=== PATIENT | male | born 1945 | race Caucasian/White ===

== ENCOUNTER 2016-04-26 13:10 | Emergency (ER) | payer MEDICARE, MEDICAID ==
[2016-04-26 13:39] VITALS: BP 152/66; PULSE 87; RESP 14; O2SAT 95
--- NOTE | 2016-04-26 13:44 | ED.REPORT ---
HPI-Chest Pain 40 and Over Date of Service Apr 26, 2016 ED Provider: Devon Brown MD Patient is a 71 year old male who presents to the ED via EMS complaining of SOB onset early this morning. He reports that he has been hospitalized for similar symptoms previously. He was [place] [facility] [place] for similar symptoms and was recently discharged from [facility]. [place] [facility] [place] was determined his SOB may be from chronic blood loss anemia. He was treated fro pneumonia 2.5 weeks ago. Patient is a poor historian. Nursing Notes Stated Complaint: CHEST PAIN,NEAR SYNCOPE Chief Complaint: Respiratory Complaints Nursing Notes Reviewed: Yes ([employer] not reconciled) Allergies: Coded Allergies: No Known Allergies (Unverified , 04/26/16) General Time Seen by MD: 13:36 Chief Complaint Shortness of breath Hx Obtained From: Patient Arrived By: Ambulance Sudden in Onset?: Yes Onset Occurred: 5 - 8 hours ago Recent Healthcare: Recent doctor visit, Recent hospitalization Similar Sx Previous: Yes Past Medical History Past Medical History Notes: COMFORT MEASURES ONLY no known POA Patient discharged tonight in general yesterday after admission for possible GI bleed and anemia, however upper and lower endoscopies were negative patient maintained hemodynamically stable, and given patient's baseline status it was felt that Endoscopy or Further Workup Be Clearly Beneficial-As the Plan Was Observation, Monitoring Hematocrit Past Medical History 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 Reports: Congestive heart failure, Diabetes mellitus, Hyperlipidemia, Hypertension Reports: Depression Past Surgical History Right BKA history of subsequent pseudomonas infection, thought fully involved on hospitalization 04/23/2016 Cannot recall any other surgeries Upper and lower endoscopy at [facility] May 05 reportedly negative for source of anemia Smoking History Former Smoker Ambulatory Status Wheelchair Review of Systems Unable to Obtain ROS Mental status Physical Exam Initial Vital Signs Vital Signs (First) Date Time Temp Pulse Resp B/P Pulse Ox O2 Delivery O2 Flow Rate FiO2 04/26/16 13:39 36.9 87 14 152/66 95 Room Air 04/26/16 14:12 30 Initial VS: Reviewed, Vital signs normal Head / Eyes: Atraumatic, Normocephalic Skin: Warm, Dry Neurologic: Alert, Oriented, Nonfocal Psychiatric: Mood/affect normal, Behavior normal, Normal thought content General/Constitutional: Awake, Alert, Well developed Behavior: Positive: Restless Resp Distress / Stridor: Positive: Resp distress moderate, Resp distress severe Cannot complete sentences Diminished lung sounds throughout Cardiovascular: No murmurs Distant heart sounds Abdomen: Soft Obese Lower Extremity / Pelvis / MS: Pelvis stable R BKA Legs wrapped with probable component of edema Interpretation & Diagnostics Interpretation & Diagnostics: Records [place] [facility] [place] Hematocrit was 23.3 on 04/23 and HCT 25.9 on 04/25 CT head was negative for acute process on 38, chest x-ray on 38 was thought to possibly represent pulmonary edema or interstitial pneumonitis CT angiogram 04/23/2016 negative for PE (obtained for elevated d-dimer), positive for mild pulmonary edema with small bilateral pleural effusions, incidental left upper lobe and lower lobe pulmonary nodules Lab Results Interpretation Result Diagram: 04/26/16 1400 04/26/16 1400 Test 04/26/16 14:00 White Blood Count 6.1th/mm3 (3.8-10.1) Red Blood Count 3.41mil/mm3 (4.40-5.80) Hemoglobin 8.0g/dL (13.8-17.2) Hematocrit 27.5% (41.0-50.0) Mean Corpuscular Volume 80.6fL (81-100) Mean Corpuscular Hemoglobin 23.5pg (27.0-35.0) Mean Corpuscular Hemoglobin Concent 29.1% (32.0-37.0) Red Cell Distribution Width 17.7% (12.3-15.4) Platelet Count 316bil/L (150-400) Neutrophils (%) (Auto) 57.9% (40-74) Lymphocytes (%) (Auto) 20.7% (14-46) Monocytes (%) (Auto) 11.3% (4-12) Eosinophils (%) (Auto) 8.5% (0-5) Basophils (%) (Auto) 1.3% (0-3) Prothrombin Time 11.7sec (8.1-12.5) Prothromb Time International Ratio 1.09ratio D-Dimer 2.1mg/L (<0.50) Sodium Level 140mEq/L (134-144) Potassium Level 3.8mEq/L (3.5-5.2) Chloride Level 101mEq/L (97-108) Carbon Dioxide Level 25mmol/L (18-29) Blood Urea Nitrogen 6mg/dL (8-27) Creatinine 0.71mg/dL (0.76-1.27) Estimat Glomerular Filtration Rate 117mL/min (>59) Glucose Level 105mg/dL (60-99) Lactic Acid Level 0.9mmol/L (0.4-2.0) Calcium Level 9.2mg/dL (8.5-10.1) Magnesium Level 1.4mg/dL (1.6-2.6) Total Bilirubin 0.4mg/dL (0.0-1.2) Aspartate Amino Transf (AST/SGOT) 17U/L (0-50) Alanine Aminotransferase (ALT/SGPT) 12U/L (0-44) Alkaline Phosphatase 66U/L (25-160) Troponin T < 0.010ug/L (0.0-0.011) Total Protein 6.4g/dL (6.4-8.4) Albumin 3.6g/dL (3.4-5.0) Lab Results Interpretation: CBC anemia CMP normal ECG Interpretation ECG Interpretation: LBBB sinus rate 82 no prior for comparision Time: 14:02 Interpreted by: ED physician ABG Interpretation ABG Interpretation: pH 7.471 pCO2 39 pO2 29.7 cHCO3- 28.0 cBase 4.4 Exam Performed by: Allied health pract Exam Interpreted by: ED physician X-Ray Chest Interpretation Chest Xray Interpretation: IMPRESSION: Mild pulmonary edema. Recommend clinical correlation. Dictated by: Gabriele Phillips M.D. on 04/26/2016 at 14:33 Approved by: Gabriele Phillips M.D. on 04/26/2016 at 14:36 View: Portable, 1 view Interpretation / Wet Read by: Interpret - Radiologist Re-Eval/Medical Decision Med Decision/Clinical Course Since a 71-year-old % from [facility] with her shortness of breath. The patient has enough dyspnea and has enough discomfort that is hard to get a history from him. He appears initially in critical discomfort and critically ill and has penitentiary paperwork including a POLST form indicating the patient is Comfort Care status. Patient is not unable via useful history initially. He is gasping for air complaining shortness of breath. He is obese, restless, cannot hold still. He appears much more tachypneic than the normal vitals listed on the chart with suggest and again is visibly dyspneic and unable to complete a sentence. His decreased breath sounds. He has a right lower extremity above-knee amputation, His left leg was in a Coban wrap and which was removed, and he has a healed bandage-but no obvious signs of infection are evident. Given the patient's comfort status he was given several doses of morphine to try improve his discomfort and restlessness. The patient is temporarily being placed on BiPAP while he attempted obtain further information and sort out events. Does have the patient was just discharged from [facility] yesterday , so records and then requested. No major gross abnormality beyond mild pulmonary edema is evident on chest x-ray , and the patient was placed on initial BiPAP for support. Initial venous blood gas is not reveal severe respiratory acidosis. The patient's care is being turned over to Dr. Macedo at change of shift for reevaluation and further management. Although the patient does have a history of significant anemia, his hematocrit is up from several days ago. Source of Hx: Old records Time of Eval: 15:06 Re-Evaluation/Progress Note: Rechecked patient. He is doing slightly better. Discharge & Departure Shift Change Sign-Out Patient Care Transferred: Yes Discussed Complaint(s): Yes Laboratory Evaluation: Lab evaluation discussed Imaging Studies: Imaging discussed Primary Impression: Dyspnea Referrals: Lindsey Perkins MD Care Transferred to: Dr. Macedo Care Transferred at: 15:10 copies to: Lindsey Perkins MD, Matthew F MD Apr 26, 2016 13:44 CORRINE OLMSTEAD Apr 26, 2016 14:08
[2016-04-26 14:12] VITALS: RESP 26; O2SAT 100
--- NOTE | 2016-04-26 14:19 | ABG ---
DateTimeAnalyzed 14:12:00 -_ pH ____7.471 - pCO2 ___38.9__ -mmHg pO2 ___29.7__ -mmHg HCO3- ___28.0__ -mmol/L ABE ____4.4__ -mmol/L tHb ____8.3__ -g/dL O2Hb ___57.9__ -% COHb ____2.1__ -% MetHb ____0.8__ -% sO2 ___59.6__ -% FIO2 ___30.0__ -% Drawn By RN - Date/Time Notified____ 14:18:00 -_ Notified By JJ - Notified Whom DR REG - B 754 -mmHg tO2 ____6.7__ -Vol% Cordell test N/A -
[2016-04-26 14:26] LABS: BASOPHILS % (AUTO) 1.3 % (0-3); EOSINOPHILS % (AUTO) 8.5 % (0-5); MONOCYTES % (AUTO) 11.3 % (4-12); Mean Corpuscular Hemoglobin 23.5 pg (27.0-35.0); Mean Corpuscular Volume 80.6 fL (81-100); NEUTROPHILS % (AUTO) 57.9 % (40-74); Platelet Count 316 bil/L (150-400)
--- NOTE | 2016-04-26 14:38 | DRSVH ---
PROCEDURE: X-RAY CHEST ONE VIEW, PORTABLE ([id number]) INDICATIONS: CP TECHNIQUE: One view of the chest was acquired. COMPARISON: [facility], CR, XR CHEST 1V PORTABLE, 04/24/2016, 4:34 PM. FINDINGS: Surgical changes and devices: None. Lungs and pleura: No pleural effusions or pneumothorax. Diffuse increased ill-defined groundglass op acities, with Edward B-lines. Lung volumes are decreased. Mediastinum: Mediastinal contours appear normal. Heart size is normal. Bones and chest wall: No suspicious bony lesions. Overlying soft tissues appear unremarkable. IMPRESSION: Mild pulmonary edema. Recommend clinical correlation. Dictated by: Gabriele Phillips M.D. on 04/26/2016 at 14:33 Approved by: Gabriele Phillips M.D. on 04/26/2016 at 14:36
[2016-04-26 14:49] VITALS: BP 112/90; PULSE 84; O2SAT 100
[2016-04-26 14:49] LABS: TROPONIN T < 0.010 ug/L (0.0-0.011)
[2016-04-26 14:51] LABS: D-DIMER 2.1 mg/L (<0.50)
[2016-04-26 14:52] LABS: INR 1.09 ratio
[2016-04-26 15:00] LABS: Magnesium 1.4 mg/dL (1.6-2.6)
[2016-04-26 18:44] VITALS: BP 183/83; PULSE 73; RESP 17; O2SAT 100
--- NOTE | 2016-04-26 19:26 | DRSVH ---
PROCEDURE: US VENOUS LEG DUPLEX BILATERAL INDICATIONS: ro DVT, SOB TECHNIQUE: Real-time imaging, as well as color and pulse Doppler interrogation, were performed of the deep veins of both legs from the inguinal ligament to the popliteal fossa. COMPARISON: None. FINDINGS: The deep veins are normally compressible, and free of intraluminal thrombus. Color and pu lse Doppler demonstrate normal phasic intravascular flow. There is normal augmentation response to d istal compression maneuver. IMPRESSION: No evidence of deep venous thrombosis Dictated by: Gabriele Phillips M.D. on 04/26/2016 at 19:24 Approved by: Gabriele Phillips M.D. on 04/26/2016 at 19:25
[2016-04-26 19:47] VITALS: BP 183/83; PULSE 84; O2SAT 97
== END 2016-04-26 20:00 | disposition home or self-care (01) ==
LOC: EDBD 13:10 → SED 13:10
DX: R06.02 Shortness of breath (principal); I50.9 Heart failure, unspecified; E11.9 Type 2 diabetes mellitus without complications; E78.5 Hyperlipidemia, unspecified; I10 Essential (primary) hypertension; I25.10 Atherosclerotic heart disease of native coronary artery without angina pectoris; E66.9 Obesity, unspecified; Z89.611 Acquired absence of right leg above knee; Z51.5 Encounter for palliative care; Z87.891 Personal history of nicotine dependence
CPT/HCPCS: 36415; 71010; 80053; 82375; 82803; 83605; 83735; 84484; 85014; 85018; 85025; 85379; 85610; 86850; 87040; 93005; 93970; 94660; 94799; 96374; 96375; 99285; J1200; J2270

== ENCOUNTER 2016-05-03 16:43 | Inpatient (IN) | payer MEDICARE, MEDICAID ==
[~2016-05-03] VITALS: Ht 170.2 cm; Wt 103.1 kg
[2016-05-03] VITALS (8 sets, daily range): BP systolic 102–220; BP diastolic 63–107; PULSE 78–120; RESP 19–36; O2SAT 90–100
[~2016-05-03 16:43] MED LIST: Propofol 10,000 mCg/mL 20 mL Inj ONE
[2016-05-03] MEDS ORDERED: Diltiazem 5 mg/mL 5 mL Inj IVPUSH ONE (17:00)
[2016-05-03] MEDS ORDERED: Furosemide 10 mg/mL 2 mL Inj IVPUSH ONE (17:10)
[2016-05-03] MEDS: Nitroglycerin 2% 1 Gm Ointment TOPICAL SCH (17:20)
--- NOTE | 2016-05-03 17:24 | ED.REPORT ---
HPI-General Illness Date of Service May 03, 2016 ED Provider: Dennys Albright MD The patient is a 71 year old male w/ a hx of HTN, CHF, HTN, and hyperlipidemia who presents to the ED via EMS from [facility] due to respiratory distress. The alf waited 40 minutes to call medics after symptoms began. He presents on a respirator and gasping for air. He is unable to speak or give ROS. He has a pick line. Doctor confirms with the patient that he is DNR. Pt nods his heads, grunts, and indicates that he understands and agrees with DNR. Plan to give morphine and make patient comfortable. Pt is able to state that his emergency contact is Annette. Patient's blood pressure is 220/107 at the ED. Nursing Notes Stated Complaint: STEMI Chief Complaint: Chest Pain Nursing Notes Reviewed: Yes Allergies: Coded Allergies: No Known Allergies (Unverified , 04/26/16) General Time Seen by MD: 16:49 Transferred From: long term Chief Complaint Breathing problem Hx Obtained From: EMS Arrived By: Ambulance Sudden in Onset?: Yes Onset Occurred: Just prior to arrival Symptom Duration: Since onset Past Medical History Past Medical History Notes: COMFORT MEASURES ONLY no known POA Recent [facility] admission for possible GI bleed and anemia, however upper and lower endoscopies were negative patient maintained hemodynamically stable, and given patient's baseline status it was felt that Endoscopy or Further Workup Be Clearly Beneficial-As the Plan Was Observation, Monitoring Hematocrit Past Medical History 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 Reports: Congestive heart failure, Diabetes mellitus, Hyperlipidemia, Hypertension Reports: Depression Past Surgical History Right BKA history of subsequent pseudomonas infection, thought fully involved on hospitalization 04/23/2016 Cannot recall any other surgeries Upper and lower endoscopy at [facility] May 05 reportedly negative for source of anemia Smoking History Former Smoker Ambulatory Status Wheelchair Review of Systems Unable to Obtain ROS Patient condition Physical Exam Vital Signs Vital Signs Date Time Temp Pulse Resp B/P Pulse Ox O2 Delivery O2 Flow Rate FiO2 05/03/16 18:47 87 19 102/68 100 Non-Rebreather 5 05/03/16 18:23 93 22 112/63 100 Non-Rebreather 9 05/03/16 17:45 93 23 185/95 100 Non-Rebreather 13 05/03/16 17:17 37.6 90 22 157/93 98 Non-Rebreather 13 05/03/16 17:03 102 20 188/85 94 Non-Rebreather 13 05/03/16 16:45 120 36 220/107 90 Non-Rebreather 13 Initial VS: Reviewed Interpretation & Diagnostics Lab Results Interpretation Result Diagram: 05/03/16 1715 05/03/16 1715 Test 05/03/16 17:15 05/03/16 18:35 White Blood Count 10.8th/mm3 (3.8-10.1) Red Blood Count 4.43mil/mm3 (4.40-5.80) Hemoglobin 10.7g/dL (13.8-17.2) Hematocrit 36.9% (41.0-50.0) Mean Corpuscular Volume 83.3fL (81-100) Mean Corpuscular Hemoglobin 24.2pg (27.0-35.0) Mean Corpuscular Hemoglobin Concent 29.0% (32.0-37.0) Red Cell Distribution Width 19.4% (12.3-15.4) Platelet Count 441bil/L (150-400) Neutrophils (%) (Auto) 58.0% (40-74) Lymphocytes (%) (Auto) 26.7% (14-46) Monocytes (%) (Auto) 7.1% (4-12) Eosinophils (%) (Auto) 5.9% (0-5) Basophils (%) (Auto) 1.1% (0-3) Sodium Level 140mEq/L (134-144) Potassium Level 4.2mEq/L (3.5-5.2) Chloride Level 101mEq/L (97-108) Carbon Dioxide Level 21mmol/L (18-29) Blood Urea Nitrogen 16mg/dL (8-27) Creatinine 0.81mg/dL (0.76-1.27) Estimat Glomerular Filtration Rate 100mL/min (>59) Glucose Level 240mg/dL (60-99) Calcium Level 8.7mg/dL (8.5-10.1) Magnesium Level 1.7mg/dL (1.6-2.6) Total Bilirubin 0.3mg/dL (0.0-1.2) Aspartate Amino Transf (AST/SGOT) 20U/L (0-50) Alanine Aminotransferase (ALT/SGPT) 13U/L (0-44) Alkaline Phosphatase 87U/L (25-160) Troponin T < 0.010ug/L (0.0-0.011) Pro-B-Type Natriuretic Peptide 541.5pg/mL (0-376) Total Protein 7.1g/dL (6.4-8.4) Albumin 4.1g/dL (3.4-5.0) Procalcitonin 0.03ng/mL (0.00-0.08) Hold Hart Top Tube Received (Received) Hold Urine Received (Received) ECG Interpretation ECG Interpretation: LBBB 04/26/16 in sinus rhythm Time: 16:50 Interpreted by: ED physician Rhythm / Conduction: Atrial fib with RVR (119) X-Ray Chest Interpretation Chest Xray Interpretation: IMPRESSION: 1. Right basilar opacities suspicious for pneumonia. 2. CHF. Dictated by: Bethany Witt MD, PhD on 05/03/2016 at 17:23 Approved by: Bethany Witt MD, PhD on 05/03/2016 at 17:24 Re-Eval/Medical Decision Med Decision/Clinical Course 8-year-old male arrives in extremis with respiratory distress and diaphoresis. His hypertension tachycardia diffuse rales consistent with congestive heart failure. He was brought by EMS as a STEMI, on arrival however he had a left bundle-branch block. Left bundle branch block proved to be pre-existing. He was quite tachycardic here and appeared to have episodes of atrial fibrillation with rapid ventricular response. Confirmed with the patient that he was DO NOT RESUSCITATE /comfort measures. He was given morphine, sublingual and topical nitrates and furosemide and responded well. Repeat EKG demonstrated sinus rhythm with a left bundle-branch block. There was concern on chest x-ray for infiltrates however he did not have a fever and I did not feel that a pneumonia was necessary to explain his present clinical situation. After stabilization in emergency department he was admitted to the hospitalist service. Consultation : Referral / Consult Name: Chiquita Basilio MD Consulted With: Hospitalist Call Returned at: 18:54 Sanitor: Agrees with eval, Agrees with plan Note: Case discussed. Counseled Regarding: Diagnosis, Lab results, Need for admission Discharge & Departure Primary Impression: Congestive heart failure (CHF) Congestive heart failure type: unspecified congestive heart failure type Congestive heart failure chronicity: acute Qualified Code: I50.9 - Heart failure, unspecified Additional Impression: Elevated troponin Disposition: ADMITTED TO HOSPITAL Discharge Condition All VS Reviewed: Yes Condition: Critical Referrals: Nikolai Lozano MD (PCP) Crit Care Except Billable Proc Time Spent: 30-74 minutes Services Performed: Patient management by me, Time spent at bedside, Reviewing test results, Reviewing imaging, Discussing patient care, Documentation in record, Time with fam/surrogate Scribe Attestation Portion of this note were transcribed by Irene Ledbetter. I, Dr. Albright, personally performed the history, physical exam, and medical decision-making: I reviewed and confirmed the accuracy for the information in the transcribed note. Signed by: jonel Carolina, 05/03/161999 copies to: Nikolai Lozano MD, Donald L MD May 03, 2016 17:24 Irene Ledbetter May 03, 2016 17:30
--- NOTE | 2016-05-03 17:26 | DRSVH ---
PROCEDURE: X-RAY CHEST ONE VIEW, PORTABLE ([id number]) INDICATIONS: chest pain TECHNIQUE: One view of the chest was acquired. COMPARISON: None. FINDINGS: Surgical changes and devices: None. Lungs and pleura: A triple opacities noted in the right lung base.. Bilateral perihilar opacities n oted.. Mediastinum: Mediastinal contours appear normal. Heart size is normal. Bones and chest wall: No suspicious bony lesions. Overlying soft tissues appear unremarkable. IMPRESSION: 1. Right basilar opacities suspicious for pneumonia. 2. CHF. Dictated by: Bethany Witt MD, PhD on 05/03/2016 at 17:23 Approved by: Bethany Witt MD, PhD on 05/03/2016 at 17:24
[2016-05-03 17:27] LABS: MONOCYTES % (AUTO) 7.1 % (4-12)
[2016-05-03 17:31] LABS: BASOPHILS % (AUTO) 1.1 % (0-3); EOSINOPHILS % (AUTO) 5.9 % (0-5); Mean Corpuscular Hemoglobin 24.2 pg (27.0-35.0); Mean Corpuscular Volume 83.3 fL (81-100); Platelet Count 441 bil/L (150-400)
[2016-05-03 18:07] LABS: TROPONIN T < 0.010 ug/L (0.0-0.011)
[2016-05-03 18:08] LABS: Magnesium 1.7 mg/dL (1.6-2.6)
[2016-05-03] MEDS ORDERED: Ondansetron 2 mg/mL 2 mL Inj IVPUSH PRN (20:20)
[2016-05-03] MEDS ORDERED: Alum-Mag Hydrox-Simeth 30 mL Suspension PO PRN (20:20)
[2016-05-03] MEDS ORDERED: Polyethylene Glycol (PEG) 17 Gm Powder PO PRN (20:20)
[2016-05-03] MEDS ORDERED: Glucose 40% Oral Gel 15 Gm Tube PO PRN (20:25)
[2016-05-03] MEDS ORDERED: Furosemide 10 mg/mL 4 mL Inj IVPUSH ONE (20:25)
--- NOTE | 2016-05-03 20:41 | PCM.HPMED ---
Subjective Date of Service May 03, 2016 Primary Provider: Admitting Physician: Chiquita Basilio MD Primary Care Physician: Nikolai Lozano MD Attending Physician: Chiquita Basilio MD Admit Status: From the Emergency Department Chief Complaint: Shortness of breath History of Present Illness: Patient has slow speech and is a vague historian . Apparently he was okay this morning. Then he later took a nap and was awakened from sleep feeling quite short of breath. He also felt some mid to upper retrosternal chest pressure. He has had similar shortness of breath and chest pressure past but he says not as severe. he was not aware irregular heartbeat or racing heart. He denies cough but later says he does have some yellowish sputum. He denies fever, chills, or sweats. He does have chronic pedal edema and it is unclear if this is worse recently. He says he was in the hospital recently but is not able to details about this. He was seen in the emergency department here on April 26 for acute shortness of breath. That note states that he was discharged from [facility] days prior with similar symptoms and it was felt that it might be from chronic blood loss anemia. [place] [facility] [place]ocrit of 23.3 on April 23 and 25.9 on April 25. They also had records of a CT angiogram on April 23 which was negative for the, it had been obtained because of an elevated d-dimer. It did show mild pulmonary edema with small bilateral pleural effusions and incidental left upper lobe and lower lobe pulmonary nodules. They also noted that he had been treated for pneumonia 2.5 weeks prior. Although he was initially treated with BiPAP, he improved with some doses of morphine, and later asked to be discharged from the emergency department. The ED physician did speak with a nurse from his jail says anxiety for which he has been given Ativan. Review of Systems: Unremarkable except as above. Allergies Coded Allergies: No Known Allergies (Unverified , 04/26/16) Home Medications Melatonin 6 mg at bedtime Effexor 37.5 mg extended release each morning Morphine 20 mg/mL 0.25 mL every 2 hours when necessary pain Arginaid, one packet daily Aspirin 81 mg daily Metoprolol succinate 50 mg once daily Protonix 40 mg daily Vitamin D3 2000 units daily Baclofen 10 mg 3 times a day Atorvastatin 20 mg each evening Oxycodone 10 mg every 4 hours as needed MiraLAX 17 g when necessary Multivitamin daily PMH Patient is quite a vague historian so some of history obtained from April 26 ED visit where some outside records were available: Recent pneumonia Recent anemia with upper and lower endoscopies reported as negative Ex smoker but patient denies any lung disease or need for inhalers Dementia Depression Diabetes mellitus Peripheral vascular disease, embolism and thrombosis of arteries of lower extremity is mentioned Gout Atherosclerotic cardiovascular disease (patient denies any history of heart attack or angina) CHF mentioned at recent ED visit as having been reported by patient today he is not sure Hyperlipidemia Hypertension Stroke, patient today states he had a stroke in 1998 which caused right arm weakness Surgical History Right BKA with subsequent history of Pseudomonas infection Social History 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 Does not have children. Healthcare power of health care attorney is his niece Moriah. Requests DNAR status Exam Vital Signs Vital Sign - Last Date Time Temp Pulse Resp B/P Pulse Ox O2 Delivery O2 Flow Rate FiO2 05/03/16 18:47 87 19 102/68 100 Non-Rebreather 5 05/03/16 17:17 37.6 Exam General: Alert and oriented to person, place, and date. However he has slow speech, is quite vague, and not able to give specific details of recent hospital stay. In no acute distress HEENT: Unremarkable Neck: No apparent JVD, carotids 2+ Heart: Regular Lungs: Anteriorly he has coarse expiratory sounds, posteriorly there are some fine dry crackles in the bases. His expiratory phase is mild to moderately prolonged and there is a mild low pitched expiratory wheeze Abdomen: Soft, non-tender, normal bowel tones. Extremities: Right AKA with healing incision. Left leg has edema, skin is somewhat tense but only 1-2+ pitting which extends to trace pitting edema in the fine. Neuro: Able to move his legs without difficulty and handgrips seem symmetrical Lab and Diagnostics Result Diagram: 05/03/165 05/03/16 1715 Assessment & Plan # Acute SOB some improved after treatment in ED with oxygen, Nitropaste, IV Lasix, and IV diltiazem. He has also received some antibiotics. Possibly multifactorial including CHF, pneumonia and anxiety, can't exclude some COPD # Possible CHF, CXR and exam c/w with this and possible hx of same - continue nitropaste - give additional dose of IV lasix this evening (40 mg instead of 20 mg) - Serial troponins # Possible pneumonia - apparently treated for this 3-4 weeks ago, records not available, not sure what antibiotics given - for now will treat with Levaquin but if worsening consider changing to rx for hospital acquired - diagnosis uncertain, consider repeat CXR after diureses # Exam c/w mild COPD exac, ex-smoker but denies hx of COPD or past rx of inhalers - duoneb q 4 hr - hold off on steriods, ru with hyperglycemia, since may improve with rx of CHF , # Diabetes Mellitus - apparently not on any medication for this - glucose this evening 240 - will do glucoscans and prn sliding scale insulin # Tachycardic in ED, reported HR to 140's and possibly irregular so concern for AFib - no hx of Afib - EKG has rate 119 and baseline interference, no clear P waves but rhythm is regular - observe on tele Chiquita Basilio MD May 03, 2016 20:41
[2016-05-03] MEDS: Insulin LISPRO 300 Unit/3 mL Inj SUBQ SCH (22:00)
[2016-05-03] MEDS: Albuterol-Ipratropium 3 mL Inhalation Solution NEB SCH (22:39)
[2016-05-03] MEDS ORDERED: 0.9% Sodium Chloride 100 ML ONE (23:17)
[2016-05-03] MEDS: levoFLOXacin Inj 500 MG in IV Premix 1 EACH IV SCH (23:33)
[2016-05-04] VITALS (14 sets, daily range): BP systolic 121–192; BP diastolic 60–76; PULSE 83–109; RESP 18–40; O2SAT 93–100
[2016-05-04] MEDS: Albuterol-Ipratropium 3 mL Inhalation Solution NEB SCH ×6 (01:35→19:47)
[2016-05-04] MEDS ORDERED: Furosemide 10 mg/mL 2 mL Inj IVPUSH ONE (06:05)
[2016-05-04 06:16] LABS: BASOPHILS % (AUTO) 0.5 % (0-3); MONOCYTES % (AUTO) 8.8 % (4-12); Mean Corpuscular Volume 84.9 fL (81-100); NEUTROPHILS % (AUTO) 77.7 % (40-74); Platelet Count 381 bil/L (150-400)
[2016-05-04] MEDS ORDERED: Pantoprazole 40 mg ER24 Tablet PO SCH (07:30)
[2016-05-04] MEDS: Insulin LISPRO 300 Unit/3 mL Inj SUBQ SCH ×4 (07:45→21:17)
[2016-05-04 07:51] LABS: APPEARANCE,URINE CLEAR (CLEAR,HAZY); COLOR,URINE YELLOW (YELLOW); OCCULT BLOOD,URINE NEGATIVE (NEGATIVE); UROBILINOGEN,URINE NORMAL (NORMAL)
[2016-05-04] MEDS ORDERED: Propofol 10,000 mCg/mL 20 mL Inj ONE (08:14)
[2016-05-04] MEDS: MeTOProlol XL 50 mg ER24 Tablet PO SCH (08:27)
[2016-05-04] MEDS: Venlafaxine XR 37.5 mg ER24 Capsule PO SCH (08:27)
[2016-05-04] MEDS: Potassium Chloride 20 mEq SR Tablet PO SCH ×2 (08:33→21:17)
[2016-05-04] MEDS ORDERED: BACL10TA PO (09:54)
[2016-05-04] MEDS ORDERED: ARGI1POW13 PO (09:54)
[2016-05-04] MEDS ORDERED: METO50TA3 PO (09:54)
[2016-05-04] MEDS ORDERED: PANT40TA3 PO (09:54)
[2016-05-04] MEDS ORDERED: ASPI81TA3 PO (09:54)
[2016-05-04] MEDS ORDERED: ATOR20TA65 PO (09:54)
[2016-05-04] MEDS ORDERED: MELA3TAB35 PO (10:17)
[2016-05-04] MEDS ORDERED: VENL37.53 PO (10:17)
[2016-05-04] MEDS ORDERED: LORA0.5T PO (10:17)
[2016-05-04] MEDS ORDERED: OXYC-474 PO (10:17)
[2016-05-04] MEDS ORDERED: CHOL200025 PO (10:20)
[2016-05-04] MEDS ORDERED: POLY17PO6 PO (10:21)
[2016-05-04] MEDS ORDERED: MULT-1018 PO (10:22)
--- NOTE | 2016-05-04 10:37 | DRSVH ---
PROCEDURE: CT CHEST WITH CONTRAST ([id number]) INDICATIONS: Pulmonary nodules TECHNIQUE: After the administration of intravenous contrast, 5 mm thick sections acquired from the pulmonary api teddy to the posterior costophrenic angles. 7 mm thick coronal and sagittal MIP reformats were acquire d. For radiation dose reduction, the following was used: automated exposure control, adjustment of mA and/or kV according to patient size. COMPARISON: [facility], CR, XR CHEST 1VW (PORTABLE), 04/26/2016, 13:40. [facility], CR, XR CHEST 1VW (PORTABLE), 05/03/2016, 16:40. [facility], CT, CTA CHEST FOR PU LMONARY EMBOLISM, 04/23/2016, 5:13 AM. FINDINGS: Image quality: Excellent. Lungs and pleura: Mild bilateral groundglass infiltrates and prominent pulmonary interstitium, which are decreased compared to the chest x-ray dated 05/03/2016, consistent with resolving pulmonary edema. There are small bilateral pleural effusions. Small nodules bilaterally are again noted, unchanged. For example, there is a 5 x 7 mm groundglass no dule in the right upper lobe (series 3 image 14). A 6 cm nodule is noted in the left lower lobe (seri es 3 image 44). There is a 4 mm nodule in the superior segment of the right portal (series 3 image 26 ). No pneumothorax. Central and peripheral airways are patent and normal in caliber. Mediastinum: Heart size is normal. No pericardial effusion. Coronary artery and aortic calcificati on consistent with atherosclerosis. No mediastinal or hilar adenopathy by size criteria. Thoracic ao rta and central pulmonary arteries are normal in size. Esophagus is normal in caliber. There is a sm all hiatal hernia. Bones and chest wall: No suspicious bony lesions. No vertebral body compression fractures. No axil bekah or supraclavicular adenopathy by size criteria. Thyroid gland is normal. Abdomen: Visualized upper abdominal solid organs appear normal. Upper abdominal bowel loops are nor mal in caliber. IMPRESSION: 1. Resolving pulmonary edema. 2. No change in pulmonary nodules bilaterally. Followup CT suggesting 3 months (around July of 2016). 3. Atherosclerosis. 4. Small hiatal hernia. Dictated by: Toño Watts M.D. on 05/04/2016 at 10:24 Approved by: Toño Watts M.D. on 05/04/2016 at 10:35
[2016-05-04] MEDS: Nitroglycerin 2% 1 Gm Ointment TOPICAL SCH (11:52)
[2016-05-04] MEDS ORDERED: Heparin 25,000 Unit/500 mL 0.45% NS Premix IV ONE (11:54)
[2016-05-04] MEDS ORDERED: Furosemide 10 mg/mL 4 mL Inj IVPUSH ONE (12:05)
[2016-05-04] MEDS ORDERED: Nitroglycerin 50 mg/250 mL D5W 50,000 MCG in IV Premix 1 EACH IV SCH (12:10)
[2016-05-04] MEDS ORDERED: Heparin 5,000 Unit/mL Inj ONE (12:20)
[2016-05-04] MEDS ORDERED: Potassium Chloride 40 mEq/100 mL Premix IV ONE (13:25)
--- NOTE | 2016-05-04 13:36 | CONS ---
[address] [address] CONSULTATION REPORT PATIENT: ROBBIE ACE : 1945 MR#: [id number] ADMIT: 05/03/2016 JOB ID: [id number] DATE OF SERVICE: 05/04/2016 REASON FOR CARDIOLOGY CONSULT: I was rounding on 3rd floor. Hospitalist team asked me to see this patient urgently as he is having shortness of breath. CHIEF COMPLAINT: Shortness of breath. I immediately went to patient's room. Patient appears to be tachypneic. He is having shortness of breath. He is having that retrosternal chest pain. Quickly reviewed his charts and talked to the patient as well. He is a 71-year-old male who has a history of diabetes mellitus, essential hypertension, hyperlipidemia, peripheral vascular disease, status post recent right above-knee amputation in [place], details not available, history of stroke in 1998, history of CHF, atherosclerotic vascular disease, peripheral vascular disease, dementia, depression, anemia, ex-smoker, history of recent pneumonia, got admitted through the emergency department because of worsening shortness of breath. The patient was in snf where he felt worsening shortness of breath. The patient was seen in the ED. He has retrosternal pressure type pain. ED physician discussed with the patient. The patient has DNR, DNI status. He confirmed with the patient. Apparently, my interventional partner, Dr. Denton, was involved and because of patient's DNR/DNI, he was returned. The patient has had a recent ED visit at [facility], as well as [facility] because of similar symptoms. It was felt that it is due to anemia as well. The patient had CT angiogram on April 23, and according to history and physical, negative for PE. At present, patient is complaining of retrosternal pressure-type discomfort. He is not able to grade on a scale of 1-10. He is having shortness of breath. He is not having fever, cough, but has some wheezing. His blood pressure is 202/81, heart rate about 110, oxygen saturation on 4 L about 99%. HEENT: Patient appears to be anemic. Denies any stroke-like symptoms. He cannot walk much. He has significant edema on the left lower extremity. He cannot lie down flat. PAST MEDICAL HISTORY: History of recent right above-knee amputation due to leg infection, details not available, peripheral vascular disease, atherosclerotic vascular disease, history of congestive heart failure, details not available, essential hypertension, hyperlipidemia, diabetes mellitus, depression, dementia, diabetes mellitus and multiple other medical problems as stated above. According to the hospital note, patient has upper and lower GI endoscopy at [facility], and they did not find any significant lesion. I do not have that official report. PAST SURGICAL HISTORY: As stated above. ALLERGIES: No known allergies. MEDICATION: 1. Melatonin 6 mg at bedtime. 2. Effexor 37.5 mg. 3. Morphine as needed. 4. Aspirin 81 mg daily. 5. Metoprolol succinate 50 mg daily. 6. Protonix 40 mg daily. 7. Vitamin D3. 8. Baclofen 10 mg three times a day. 9. Atorvastatin 20 mg daily. 10. Oxycodone 10 mg every 4 hours as needed. 11. Multivitamins daily. 12. MiraLAX 17 g as necessary. SOCIAL HISTORY: He is an ex-smoker. He used to drink alcohol and stopped about 3-4 months ago. FAMILY HISTORY: Positive for coronary artery disease. REVIEW OF SYSTEMS: I tried to obtain at least 10-point review of system and they are negative except as stated above. PHYSICAL EXAMINATION: Vitals: As stated above. Positive hepatojugular reflux. Chest: Bilateral basal crepitations. CVS: S1 appears normal. P2 appears prominent. No S3, no S4. Soft ejection systolic murmur at the base. Abdomen: Obese. I do not appreciate any pulsatile mass or obvious hepatosplenomegaly. Extremity: Patient has right above-knee amputation. Tender to touch, left 2+ diffuse leg edema. Vascular: No evidence of critical limb ischemia. However, distal pulses are feeble. Unable to feel the femoral pulses. 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 Detailed INS[employer]OR [employer] CON[employer]YOR LINE examination could not be performed. LABORATORIES: WBC 12.2, hemoglobin 9.7. On April 26, it was 8.5, platelets 381 polymorphs 77.7. Sodium 139, potassium 3.5, BUN 16, creatinine 0.79, calcium 8.9. Troponin T 0.095 and 0.067. Initial troponin was less than 0.010. Magnesium 1.7 with normal bilirubin, AST, ALT. Initial glucose was 240. ProBNP 541.5. EKG at 11:46 a.m. today revealed sinus rhythm with left bundle branch block which appears to be atypical which is chronic with some nonspecific ST-T changes. QTc 635 msec as per the computer, but I am not convinced of that. The patient had EKG this morning about 5:14 a.m. with similar EKG changes. At that time, QTc was [address] The patient had CT chest this morning which revealed no pericardial effusion. Heart size normal. Coronary and aortic calcification, mild bilateral ground glass infiltrates and prominent pulmonary interstitium consistent with resolving pulmonary edema. Small hiatal hernia. On x-ray chest there was finding of congestive heart failure and right basilar opacities. Venous Doppler on April 26, 2016, was negative for deep vein thrombosis. ASSESSMENT/PLAN: Acute on chronic shortness of breath with retrosternal anginal-type of chest pain with abnormal troponin with chronic atypical left bundle branch block. Clinically, patient appears to be in pulmonary edema. He cannot lay down flat. He is short of breath. He is tachypneic. However, on 4 L, oxygen saturation is maintained. The patient has very high blood pressure suggestive of hypertensive urgency. Looks like patient has non ST-T OH and ongoing acute coronary syndrome. We started him urgently on 40 mg Lasix which was given IV. The patient received sublingual nitroglycerin. We gave 2 mg of IV morphine. Plan is to transfer to ICU/CCU. Will start him on nitroglycerin drip. Start with 10 mcg and slowly increment. Optimize blood pressure management as well as congestive heart failure, pulmonary edema management. Start heparin. Continue aspirin. Consider high intensity statin. We will obtain 2D echo. I called Dr. Denton, who is our chief data officer, and he came and saw the patient as well. Once he can lie down flat, if everybody agrees, consider left heart catheterization as well. Dr. Denton will be available. Overall prognosis is guarded. Total time spent managing this patient for this critically sick patient about 75 minutes.
[2016-05-04] MEDS ORDERED: KCl 40 mEq/100 mL (CENTRAL) 40 MEQ in IV Premix 1 EACH IV ONE (14:00)
--- NOTE | 2016-05-04 15:07 | DRSVH ---
[facility] [address] [place] [address] Echocardiogram Report Name: ROBBIE ACE MStudy Date: 05/04/2016 Height: 67 in Hospital Exam Location: [facility] Weight: 243 lb Gender: Male BSA: 2.2 m2 : 1945 Age: 71 yrs BP: 126/ 63 mmHg Reason For Study: Congestive Heart Failure Performed By: Darrel Vazquez Referring Physician: AJIT JAVED Interpretation Summary The study quality was technically difficult. The left ventricle is normal in size. There appears to be severe hypokinesis of mid to distal inferior wall, inferoseptum, apex, distal lateral wall and basal posterior wall.The ejection fraction is estimated to be 35-40%. The right ventricle grossly appears normal in size with probable normal systolic function. There is mild aortic regurgitation. The IVC is of normal diameter and collapses greater than 50% with a sniff. This suggests a low right atrial pressure of 3 mm Hg. Procedure: A two-dimensional transthoracic echocardiogram with color flow and Doppler was performed. The study quality was technically difficult. There is no prior echocardiogram noted for this patient. A contrast injection of Definity was performed to improve assessment of LV function. The patient was in sinus tachycardia with heart rates between 104-108 bpm during the exam. The patient had a bundle branch block rhythm during the exam. Left Ventricle: The left ventricle is normal in size. Proximal septal thickening is noted. There is no echo evidence for significant left ventricular outflow tract obstruction. There is no thrombus. The ejection fraction is estimated to be 35-40%. There appears to be severe hypokinesis of mid to distal inferior wall, inferoseptum, apex, distal lateral wall and basal posterior wall. Right Ventricle: The right ventricle grossly appears normal in size with probable normal systolic function. Atria: The left atrium grossly appears normal in size. The right atrium grossly appears normal in size. Mitral Valve: The mitral valve is grossly normal. There is mild mitral annular calcification. There is trace mitral regurgitation. Aortic Valve: The aortic valve is not well visualized. The aortic valve is mildly calcified. There is no hemodynamically significant valvular aortic stenosis. There is mild aortic regurgitation. Tricuspid Valve: The tricuspid valve is not well visualized. The right ventricular systolic pressure is estimated at 23 mmHg assuming a right atrial pressure of 3 mm Hg. No significant TR seen. Pulmonic Valve: The pulmonic valve is not well visualized. Great Vessels: The aortic root is normal size. The ascending aorta is mildly enlarged. The IVC is of normal diameter and collapses greater than 50% with a sniff. This suggests a low right atrial pressure of 3 mm Hg. Pericardium/ Pleura There is no pericardial effusion. There is an anterior echo-free space consistent with a fat pad. There is no pleural effusion. MMode/2D Measurements & Calculations EPSS: 0.40 cm LVOT diam: 2.2 cm Ao root diam: 3.9 cm asc Aorta Diam: 3.7 cm Doppler Measurements & Calculations Ao V2 max MVA(VTI) TR max chano MV V2 mean: 78.8 cm/sec : 119.3 cm/sec : 225.7 cm/sec MV mean P.7 mmHg Ao max P.7 mmH.5 cm2 TR max PG MV V2 VTI: 13.1 cm Ao mean PG : 20.4 mmHg PA V2 max LVOT Max Chano : 74.9 cm/sec : 99.5 cm/sec PA mean PG : 1.4 mmHg MICHAEL(I,D): 3.4 cm sev ratio: 0.88 Ao V2 mean LV V1 max PG PA V2 mean MICHAEL indexed to BSA : 83.1 cm/sec : 57.4 cm/sec (cm^2/m^2): 1.6 Ao V2 VTI: 16.9 cm LV V1 VTI PA pr(Accel) MICHAEL(V,D): 3.3 cm2 : 14.9 cm : 35.4 mmHg Reading Physician:KHURRAM
[2016-05-04 15:20] LABS: TROPONIN T 0.034 ug/L (0.0-0.011)
[2016-05-04] MEDS ORDERED: fentaNYL 2,500 mCg/250 mL Premix IV ONE (17:04)
[2016-05-04] MEDS ORDERED: Heparin 1,000 Unit/mL 10 mL Inj ONE ×2 (17:16→17:40)
[2016-05-04] MEDS ORDERED: 0.9% Sodium Chloride 1,000 ML ONE ×2 (17:16→17:19)
[2016-05-04] MEDS ORDERED: Nitroglycerin 50,000 mcg/250 mL D5W Premix IV ONE (17:16)
[2016-05-04] MEDS ORDERED: Phenylephrine/NS-PF 100 mCg/mL 5 mL Syringe IVPUSH ONE (17:18)
[2016-05-04] MEDS ORDERED: Atropine 1 mg/10 mL (Code) Syringe ONE (17:18)
[2016-05-04] MEDS ORDERED: Propofol 10,000 mCg/mL 100 mL Inj ONE ×2 (17:19→17:20)
[2016-05-04] MEDS: fentaNYL 2,500 mCg/250 mL 2,500 MCG in IV Premix 1 EACH IV SCH (17:22)
[2016-05-04] MEDS: Propofol Inj 1,000,000 MCG in IV Premix 1 EACH IV SCH (17:22)
[2016-05-04] MEDS ORDERED: Magnesium Sulf 2 Gm/50mL Water 2 GM in IV Premix 1 EACH IV ONE (17:35)
[2016-05-04] MEDS ORDERED: Lactated Ringer's 500 ML IV PRN (17:40)
[2016-05-04] MEDS ORDERED: Phenylephrine 10,000 mCg/mL Inj IVPUSH PRN (17:40)
[2016-05-04] MEDS ORDERED: Verapamil 2.5 mg/mL 2 mL Inj ONE (17:40)
[2016-05-04] MEDS ORDERED: Lactated Ringer's 1,000 ML IV ONE (17:40)
[2016-05-04] MEDS ORDERED: HYDROmorphone 1 mg/mL Inj IVPUSH PRN (17:40)
[2016-05-04] MEDS ORDERED: EPHEDrine Sulfate 50 mg/mL Inj IVPUSH PRN (17:40)
[2016-05-04] MEDS ORDERED: Lactated Ringer's 1,000 ML IV SCH (17:40)
[2016-05-04] MEDS ORDERED: fentaNYL-PF 50 mCg/mL 2 mL Inj IVPUSH PRN (17:40)
--- NOTE | 2016-05-04 17:40 | PCM.HPANE ---
Patient Data Surgeon Admitting Provider:Chiquita Basilio MD Attending Provider:Chiquita Basilio MD Primary Care Physician:Nikolai Lozano MD Other Provider: Reason for Visit CHF CHF Ht/WT & BMI Height (Feet): 5 Height (Inches): 7.00 Weight (Kilograms): 110.500 Body Mass Index 38.24 Allergies Coded Allergies: No Known Allergies (Unverified , 04/26/16) Past Anesthesia History Anesthesia History: Denies:: Abnormal Airway, Anesthesia Reactions, Difficult Intubation Diabetes History Hx Diabetes?: Yes Current Bedside Blood Glucose: 113 MRSA MRSA: No Medications Hypertension Medication: Yes Home Meds Incl Beta Kirk: Yes Date Beta Kirk Taken: May 04, 2016 Time Beta Kirk Taken: 08:30 Previous Beta Kirk Dose >24: Dose Not Given, Contraindicated (chf) Reported Medications Multivitamin (Multi Vitamin Daily)1 Each Tablet1 Each PO DAILY 30 Days Ref 0 05/04/16 Polyethylene Glycol 3350 (Miralax)17 Gm Powd.pack17 Gm PO 05/04/16 Cholecalciferol (Vitamin D3) (Vitamin D3)2,000 Unit Tablet2,000 Unit PO 05/04/16 Melatonin 3 Mg Tablet6 Mg PO HS 05/04/16 Venlafaxine ER (Effexor XR)37.5 Mg Gbghnxr03.5 Mg PO DAILY Ref 0 05/04/16 Lorazepam 0.5 Mg Tablet0.5 Mg PO #30 05/04/16 Oxycodone (Roxicodone)5 Mg Ncpine07 Mg PO Q4H PRN For Pain Ref 0 05/04/16 Metoprolol Tartrate 50 Mg Acihvz88 Mg PO ONCE #30 05/04/16 Arginine/Ascorbate Sod/Diana AC (Arginaid Powder)1 Each Powd.pack1 Each PO 05/04/16 Aspirin Chew 81 Mg Chew81 Mg PO DAILY Ref 0 05/04/16 Atorvastatin Calcium 20 Mg Zttkdb13 Mg PO ONCE #30 05/04/16 Baclofen 10 Mg Xoaidx95 Mg PO TID Ref 0 05/04/[address] 40 Mg Tablet.dr40 Mg PO DAILY #30 05/04/16 History History of ENT Problems?: No HEENT History: Denies:: Cataracts Dysphagia Glaucoma Sinus Problem Hx of Heart Problems?: Yes Cardiovascular History: Positive for:: Chest Pain Congestive Heart Failure Edema Hypertension Denies:: Cardiac Surgery Heart Murmur Irregular Heartbeat Pacemaker Thrombophlebitis Hx of Respiratory Problem?: Yes Respiratory History: Positive for:: Dyspnea Pneumonia Denies:: Asthma COPD Chest Surgery Emphysema Hemoptysis Tuberculosis Hx Neurologic Problems?: Yes Neurological History: Positive for:: CVA Dementia Dizziness Denies:: Alzheimer's Disease Headaches Parkinson's Disease Seizures Hx of GI Problems?: Yes Gastrointestinal History: Positive for:: Gastroesphageal Reflux Gastrointestinal Bleeding Heartburn Rectal Bleeding Denies:: Diverticulitis Hepatitis Hiatal Hernia Hx of Problems?: No Genitourinary History: Denies:: HX of Hemodialysis Kidney Stones Urinary Tract Infection HX of Peritoneal Dialysis: No Male Hx: Denies:: Prostate Problems Scrotal Mass Testicular Surgery Hx Musculoskeletal Problems?: Yes Musculoskeletal History: Positive for:: Musculoskeletal Trauma (RLE amputation ) Denies:: Back Injury Joint Replacement Hx of Psycho/Social Problems?: Yes Psycho Social History: Positive for:: Anxiety Hx Depression Denies:: Bipolar Disorder Suicide Attempt Hx Surgeries?: Yes (RIGHT BKA) Hx Any Other Health Problems?: Yes Other History: Positive for:: Hospitalization (PNA) Denies:: Cancer Thyroid Disease History Blood Transfusions: Positive for:: Accept Blood Products? 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 Hx Alcohol Use: Yes (grade 3-4 months ago)Hx Substance Use: No Smoking Status: Former Smoker Stop/Bang Treated for Sleep Apnea?: No S-Snoring: Do You Snore Loudly: No T-Tired: feel tired, fatigued: No O-Obsered: Observed not breath: No P-Blood Pressure: treated: Yes B- Body Mass Index > 35 kg/m2: Yes A- Age over 50: Yes N- Neck Large Circumference: No G- Gender Male: Yes FELIBERTO Total Score: 4 FELIBERTO Risk Assessment: High Risk, =/>3 Yes FELIBERTO Category 2: Yes Risk Assessment Category Category 1A: Patient has history of documented sleep apnea, and HAS NOT received any narcotic, sedative or anesthesia administration during this stay. Category 1B: Patient has history of documented sleep apnea, and HAS received any narcotic , sedative or anesthesia administration during this stay Category 2: Patient has SUSPECTED Obstructive Sleep Apnea, and HAS received any narcotic , sedative or anesthesia administration during this stay. Category 3: Patient has SUSPECTED Obstructive Sleep Apnea and HAS NOT received narcotic, sedative or anesthesia administration during this stay. Category 4: Outpatient in Procedural Areas with known sleep apnea or who screen positive for High Risk via the STOP/BANG questionnaire. Exam Exam Vital Signs Vital Signs Date Time Temp Pulse Resp B/P Pulse Ox O2 Delivery O2 Flow Rate FiO2 05/04/16 16:50 95 26 98 Nasal Cannula 40 60 05/04/16 12:45 37.1 101 33 157/76 100 Nasal Cannula 5.00 05/04/16 10:05 100 General Appearance: Alert, Oriented X3, Cooperative, No Acute Distress HEENT/AIRWAY: MP 2 Lungs: Clear to Auscultation, Normal Air Movement Heart: Exam Unremarkable, Regular Rate/Rhythm, No Murmurs/Rubs/Gallops Meds/Labs/Diagnostics Admission Meds Current Medications Furosemide (Lasix Inj) 40 mg ONCE ONCE IVPUSH Last administered on 05/03/16 22:28; Start 05/03/16 at 20:25; Stop 05/03/16 at 20:47; Status DC Albuterol/ Ipratropium 3 ml 3 ml Q4 NEB Last administered on 05/04/16 08:23; Start 05/03/16 at 20:30 Levofloxacin/ Dextrose/Premix (Levaquin Inj/IV Premix) 100 ml @ 100 mls/hr Q24H IV Last administered on 05/03/16 23:33; Start 05/03/16 at 21:32 Melatonin (Melatonin) 5 mg HS PO Last administered on 05/03/16 23:33; Start at 22:54 Venlafaxine HCl (Effexor XR) 37.5 mg DAILYWM PO Last administered on 05/04/16 08:27; Start 05/04/16 at 08:00 Aspirin (Ecotrin) 81 mg DAILY PO Last administered on 05/04/16 08:27; Start at 08:30 Metoprolol Succinate (Toprol XL) 50 mg DAILY PO Last administered on 05/04/16 08:27; Start 05/04/16 at 08:30 Pantoprazole (Protonix) 40 mg DAILYAC PO Last administered on 05/04/16 08:27; Start 05/04/16 at 07:30 Baclofen 10 mg 10 mg TID PO Last administered on 05/04/16 08:27; Start at 08:30 Sodium Chloride (Normal Saline) 100 ml @ ud STK-MED ONCE .ROUTE Last administered on 05/03/16 23:34; Start 05/03/16 at 23:17; Stop 05/03/16 at 23:18 ; Status DC Furosemide (Lasix Inj) 20 mg ONCE ONCE IVPUSH Last administered on 05/04/16 06:47; Start 05/04/16 at 06:05; Stop 05/04/16 at 06:23; Status DC Potassium Chloride (K-Dur) 20 meq BID PO Last administered on 05/04/16 08:33; Start 05/04/16 at 08:30 Heparin Sodium/ Sodium Chloride (Heparin 25,000 Unit/500 mL 0.45 NS) 25,000 unit STK-MED ONCE IV Last administered on 05/04/16 12:14; Start 05/04/16 at 11 :54; Stop 05/04/16 at 11:55; Status DC Furosemide 40 mg 40 mg OT ONCE IVPUSH Last administered on 05/04/16 11:45; Start 05/04/16 at 12:05; Stop 05/04/16 at 12:07; Status DC Nitroglycerin/ Dextrose/Premix (Nitroglycerin 50,000 mcg/250 mL D5W/IV Premix) 250 ml @ 1 mls/hr Q24H IV Last administered on 05/04/16 13:06; Start 05/04/16 at 12:10 Heparin Sodium (Porcine) (Heparin Inj) 10,000 unit STK-MED ONCE .ROUTE Last administered on 05/04/16 12:26; Start 05/04/16 at 12:20; Stop 05/04/16 at 12:21 ; Status DC Morphine Sulfate (Morphine 4 mg/ mL Syringe) 4 mg STK-MED ONCE .ROUTE Last administered on 05/04/16 13:46; Start 05/04/16 at 13:21; Stop 05/04/16 at 13:22 ; Status DC Potassium Chloride (Potassium Chloride 40 mEq/ 100 mL (CENTRAL)) 40 meq STK-MED ONCE IV Last administered on 05/04/16 13:50; Start 05/04/16 at 13:25; Stop at 13:26; Status DC Lorazepam (Ativan Inj) 2 mg STK-MED ONCE .ROUTE Last administered on 05/04/16t 13:48; Start 05/04/16 at 13:32; Stop 05/04/16 at 13:33; Status DC Bedside Blood Glucose: 113 Labs Test 05/03/16 17:15 05/03/16 18:35 05/04/16 05:52 05/04/16 06:45 Total Bilirubin 0.3mg/dL (0.0-1.2) Aspartate Amino Transf (AST/SGOT) 20U/L (0-50) Alanine Aminotransferase (ALT/SGPT) 13U/L (0-44) Alkaline Phosphatase 87U/L (25-160) Pro-B-Type Natriuretic Peptide 541.5pg/mL (0-376) Total Protein 7.1g/dL (6.4-8.4) Albumin 4.1g/dL (3.4-5.0) Procalcitonin 0.03ng/mL (0.00-0.08) Hold Hart Top Tube Received (Received) Hold Urine Received (Received) White Blood Count 12.2th/mm3 (3.8-10.1) Red Blood Count 4.04mil/mm3 (4.40-5.80) Hemoglobin 9.7g/dL (13.8-17.2) Hematocrit 34.3% (41.0-50.0) Mean Corpuscular Volume 84.9fL (81-100) Mean Corpuscular Hemoglobin 24.0pg (27.0-35.0) Mean Corpuscular Hemoglobin Concent 28.3% (32.0-37.0) Red Cell Distribution Width 19.9% (12.3-15.4) Platelet Count 381bil/L (150-400) Neutrophils (%) (Auto) 77.7% (40-74) Lymphocytes (%) (Auto) 11.3% (14-46) Monocytes (%) (Auto) 8.8% (4-12) Eosinophils (%) (Auto) 1.0% (0-5) Basophils (%) (Auto) 0.5% (0-3) Urine Color Yellow (YELLOW) Urine Appearance Clear (CLEAR,HAZY) Urine pH 5.0 (5.0-8.0) Urine Specific [place] 1.015 (1.003-1.035) Urine Protein Negativemg/dL (NEG,TRACE) Urine Glucose (UA) Negativemg/dL (NEGATIVE) Urine Ketones Negativemg/dL (NEGATIVE) Urine Occult Blood Negative (NEGATIVE) Urine Nitrite Negative (NEGATIVE) Urine Bilirubin Negative (NEGATIVE) Urine Urobilinogen Normalmg/dL (NORMAL) Urine Leukocyte Esterase Negative (NEGATIVE) Urine RBC 0-2/hpf (0-2) Urine WBC 0-5/hpf (0-5) Urine Epithelial Cells Few/hpf (NONE-MOD) Urine Crystals None seen (NONE SEEN) Urine Bacteria None/hpf (NONE-FEW) Urine Hyaline Casts None/lpf (NONE) Urine Granular Casts None seen (NONE SEEN) Urine Waxy Casts None seen (NONE SEEN) Urine Red Blood Cell Casts None seen (NONE SEEN) Urine White Blood Cell Casts None seen (NONE SEEN) Urine Mucus None seen (None Seen) Urine Trichomonas None seen (NONE SEEN) Urine Yeast None (NONE SEEN) Urinalysis Comment None Test 05/04/16 12:16 05/04/16 13:01 05/04/16 13:24 Activated Partial Thromboplast Time 26.2sec (22.8-33.0) Total Creatine Kinase 160U/L (21-232) Troponin T 0.034ug/L (0.0-0.011) Sodium Level 139mEq/L (134-144) Potassium Level 3.7mEq/L (3.5-5.2) Chloride Level 96mEq/L (97-108) Carbon Dioxide Level 24mmol/L (18-29) Blood Urea Nitrogen 14mg/dL (8-27) Creatinine 0.82mg/dL (0.76-1.27) Estimat Glomerular Filtration Rate 99mL/min (>59) Glucose Level 128mg/dL (60-99) Calcium Level 9.4mg/dL (8.5-10.1) Magnesium Level 1.4mg/dL (1.6-2.6) Plan Impression Patient chart reviewed, patient interviewed and anesthestic plan with risks, benefits, and alternatives discussed, and informed consent obtained. ASA Physical Status: ASA4 Life Threatening (severe CHF) Anesthetic Plan: GA Bene/Risks/Altern/Consents: Yes HP Complete Prior to Induction: Yes Preston Arriaga MD May 04, 2016 17:40
--- NOTE | 2016-05-04 17:40 | ABG ---
DateTimeAnalyzed 17:36:00 -_ pH ____7.386 - 7.350 7.450 pCO2 ___45.3__ -mmHg 35.0 45.0 pO2 ___80.9__ -mmHg 69.0 116 HCO3- ___26.6__ -mmol/L 22.0 26.0 ABE ____1.8__ -mmol/L -2.0 2.0 tHb ____9.3__ -g/dL O2Hb ___93.0__ -% COHb ____1.7__ -% MetHb ____1.2__ -% sO2 ___95.8__ -% 25.0 FIO2 ___60.0__ -% PEEP ____5.0__ -cmH2O Set_RR ___16.0__ -b/min Vt __500.0__ -L Drawn By cf - Date/Time Notified____ 17:39:00 -_ Oxygen Device 1 VENTILATOR - Notified By cf - Notified Whom ___Dr. kendregan - B 763 -mmHg tO2 ___12.3__ -Vol% Cordell test _Positive -
--- NOTE | 2016-05-04 17:55 | DRSVH ---
PROCEDURE: X-RAY CHEST ONE VIEW, PORTABLE ([id number]) INDICATIONS: POST INTUBATION TECHNIQUE: One view of the chest was acquired. COMPARISON: [facility], CT, CT CHEST W CON, 05/04/2016, 8:57. [facility], CR , XR CHEST 1VW (PORTABLE), 05/03/2016, 16:40. FINDINGS: Surgical changes and devices: There is an endotracheal tube 1 cm above christian.. Lungs and pleura: Bilateral interstitial infiltrates suspicious for pulmonary edema or bilateral pne umonia. No pleural effusions or pneumothorax. Mediastinum: Mediastinal contours appear normal. Heart size is normal. Bones and chest wall: No suspicious bony lesions. Overlying soft tissues appear unremarkable. Old right rib fractures are noted. IMPRESSION: The endotracheal tube is 1 cm above christian. Dictated by: Toño Watts M.D. on 05/04/2016 at 17:51 Approved by: Toño Watts M.D. on 05/04/2016 at 17:53
[2016-05-04] MEDS ORDERED: Heparin 1,000 Units/500 mL NS Premix IV ONE (18:27)
[2016-05-04] MEDS ORDERED: 0.9% Sodium Chloride 500 ML ONE (18:29)
--- NOTE | 2016-05-04 18:59 | CONS ---
[address] [address] CONSULTATION REPORT PATIENT: ROBBIE ACE : 1945 MR#: [id number] ADMIT: 05/03/2016 JOB ID: [id number] DATE OF SERVICE: 05/04/2016 REQUESTING PHYSICIAN: Dr. Albright. REASON FOR CONSULTATION: Dyspnea. HISTORY OF PRESENT ILLNESS: The patient is a 71-year-old, male, admitted because of the rather sudden onset of shortness of breath. The patient is too short of breath to give much of a history. Chart notes indicate he was doing okay the morning of admission. Took a nap and awoke from sleep quite short of breath. There was also some mid to upper retrosternal chest pressure. He presented himself to the hospital. Evaluation shows cardiogenic pulmonary edema. In addition, he apparently is having a non-STEMI and requires emergent catheterization. The patient was sitting straight upright with his legs over the side of the bed. (Has a right AKA.) Rather dyspneic, tachypneic. He is unable to give much of a history. Said he was very short of breath. Could not tell me about chest or abdominal pain. Could not tell me when the AKA was accomplished. Has a midline PICC. Unsure of the location but it sounds like it is not a central but rather midline catheter. Etiology of AKA is variously infection and peripheral vascular disease. Mention is made of being treated for a postoperative Pseudomonas infection. Antibiotics were apparently given in the care facility, but the patient's history is rife with a number of holes without any data. The patient suffers from diabetes mellitus, hypertension, hyperlipidemia, peripheral vascular disease, as well as status post a CVA in 1998. Recent evaluation for anemia. ALLERGIES: None known. MEDICATIONS: According to the list, include: 1. Melatonin. 2. Effexor. 3. Morphine. 4. Arginaid. 5. Aspirin. 6. Metoprolol. 7. Protonix. 8. Vitamin D3. 9. Baclofen. 10. Atorvastatin. 11. Hydrocodone. 12. MiraLAX. 13. Multi Vites. No other details are available. Vital signs: Blood pressure was 93/76, with the patient sitting upright in bed. Markedly tachypneic. Using accessory muscles of respiration. Speaking in phrases. He is on a 6 L OxyMask with O2 sats in the high 90s. I cannot remember his pulse on admission. He was coherent, answering questions appropriately. Neck is supple. JVD to the posterior border of the sternocleidomastoid with the patient sitting straight upright. Heart: Rapid rate. Heart tones seem normal. Chest: Diffuse crackles throughout both lung thacker, sparing only the right apex and the left mid and upper lung thacker. Heart tones seem normal. Abdomen soft. Somewhat distended. Nontender. Extremities: AKA on the right. Is quite tender. There are five metal ibeth still in the incision. There is some mild erythema around the ibeth. There is also about a 1 cm ulcerated area on the right portion (lateral portion) of the incision. Left lower extremity is shiny, tense, markedly swollen with significant pitting edema. LABORATORY: Noted. Cardiology was present. Reviewed the CT scan about concern over nodules. They are subcentimeter nodules, two of which seem heavily calcified, and I do not think warrant any reason to delay the catheterization. Chest x-ray showed diffuse interstitial markings consistent with cardiogenic pulmonary edema. (CHF). The patient was unable to lie down. Cardiology felt that he would need to be intubated for the cardiac catheterization in order to proceed expeditiously. They preferred he be intubated up here in his room. He was placed on a high-flow at FiO2 of 100%, flow at 60 L/minute. He became much less dyspneic. O2 saturations 99% to 100%. However, he did complain of some burning in his nose. FiO2 was decreased to 0.6 and flow decreased to 40 L/minute. He felt better. Continued to not have much shortness of breath. O2 sats running 99% to 100%. At that point, he was able to lie down. Because of the concern about ischemia and the fact that Cardiology requested anesthesia monitoring during the cardiac catheterization, it was felt that Anesthesia should be present for the intubation, especially now that he lie down, although initially it was felt that we would have to intubate him sitting up. This was done expeditiously with propofol and no paralytic. Subsequent to intubation, he was started on a fentanyl drip, as well as given propofol and started on a propofol drip. Settings were tidal volume of 500, rate of 16, FiO2 of 60%, with a PEEP of 5, resulting in pO2 of something that was acceptable. CO2 was 38, pH was 7.45. ASSESSMENT: 1. Acute ischemia with [id number] myocardial infarction. 2. Cardiogenic pulmonary edema (congestive heart failure.) 3. Mechanical ventilation. The patient's pulmonary compliance is quite good. Problem will be oxygenation. Ventilation is not a problem. 4. Evaluation for possible Pseudomonas infection in the right leg. One mention is made of that. That will need to be re-evaluated. Will obtain a procalcitonin. Routine bloods in the morning. 5. Fentanyl and propofol infusions. 6. Stat magnesium 2 g (magnesium level returned at 1.4). Time spent so far in critical care is 72 minutes.
[2016-05-04] MEDS ORDERED: 0.9% Sodium Chloride 250 ML ONE (19:53)
[2016-05-04] MEDS ORDERED: 0.9% Sodium Chloride 400 ML (4 HRS) IV ONE (20:05)
[2016-05-04] MEDS ORDERED: 0.9% Sodium Chloride 250 ML BOLUS IV PRN (20:05)
[2016-05-04] MEDS ORDERED: Sodium Chloride LOK Flush 10 mL Syringe IVFLUSH PRN (20:05)
[2016-05-04] MEDS ORDERED: Ondansetron 2 mg/mL 2 mL Inj IVPUSH PRN (20:05)
[2016-05-04] MEDS ORDERED: Atropine 1 mg/10 mL (Code) Syringe IVPUSH PRN (20:05)
--- NOTE | 2016-05-04 20:21 | CS94 ---
[address] [address] DIAGNOSTIC CARDIAC CATHETERIZATION PATIENT: ROBBIE ACE : 1945 MR#: [id number] ADMIT: 05/03/2016 JOB ID: [id number] PROCEDURE NOTE--CARDIAC CATHETERIZATION LABORATORY: DATE OF PROCEDURE: Wednesday, May 04, 2016. COAL CHUTE WORKER: Mono Denton MD. PROCEDURES: 1. Coronary Angiogram--Urgent 2. LEFT HEART CATHETERIZATION (LHC)--pressure measurement. CLINICAL DETAILS: This 71-year-old man was admitted to the hospital through the Emergency Department yesterday, critically ill and in extremis with pulmonary edema, and chest pain, sitting upright. However, he was treated medically because of POLST indicating confort care, and DNR. He continued to have episodes of some chest discomfort, and primarily pulmonary edema(sitting upright; and he was severely critically ill). Troponin betty mildly. ECG showed only mild nonspecific ST-T wave changes. He has no prior history of heart disease but has severe peripheral vascular disease; and recently had right lower extremity amputation at [facility] one month ago after undergoing failed palliative patch angioplasty of the right common femoral artery. Records were obtained and indicated "moderate to severe diffuse left iliac disease." Extensive discussion ensued with the patient, and the multiple medical teams caring for him. He elected invasive therapy in an effort to relieve his severe dyspnea and his chest discomfort. PROCEDURAL DETAILS: I evaluated him in the ICU prior to the procedure. I talked with him extensively about his wishes; and regarding our findings, impressions and management considerations including diagnostic options and treatment options. I discussed the recommendation that the medical team had decided for urgent coronary angiogram to define likely coronary disease and guide therapeutic decisions including medical therapy, anticipated PCI, or possible transfer for coronary bypass surgery. He understood this is a very high risk procedure and that he would require urgent intubation to allow him to proceed with a supine procedure. We discussed the procedure including risks and complications. We discussed bleeding, infection, and blood clots; as well as injury to nerve, artery, vein, or kidney; and arrhythmia drug reaction--or Others. We discussed treatment as needed including surgery, pacemaker, transfusion. We discussed more serious complications that are possible including stroke, heart attack, cardiac arrest, and emergent surgery including transfer for coronary bypass. He understood he would be intubated, sedated, and not easily able to make further decisions. He indicated consent to procedures as needed to help him including even transfer for bypass surgery. After the questions and discussions, he signed informed consent to proceed. He was intubated by Anesthesia and brought to the catheterization laboratory where he was prepped sterilely and draped. CORONARY ANGIOGRAM: Arterial access was obtained without difficulty in the left common femoral artery using fluoroscopic localization over the femoral head and modified Seldinger technique, to insert a long 23 cm, 6-Moroccan side-arm sheath over a long 0.035 inch J-tipped Guidewire which was also used to advance and exchange catheters. Coronary angiography was accomplished with a 6-Moroccan JL-4 catheter for the left coronary artery; and using a 6-Moroccan JR-4 catheter for the right coronary artery. LEFT HEART CATHETERIZATION: A 6-Moroccan pigtail catheter was advanced across the aortic valve into the left ventricle to measure LV pressures. No LV angiogram done. Procedure without difficulty. Patient tolerated procedure well. No complications. A side-arm sheath angiogram showed adequate access in the right common femoral artery for a closure device. Arterial hemostasis was obtained without difficulty using a 6-Moroccan Angio-Seal. The patient was transferred, still critically ill, but in stable condition from the Catheterization Laboratory back to the ICU for ongoing care. During the procedure, he had been monitored, and anesthesia had been performed by the anesthesiologist. I discussed the findings, impressions and management considerations with Cardiology; and no family was present. FINDINGS: 1. LMCA: Intact. The left main coronary artery is short; and without angiographic obstructive disease. 2. LAD: Intact. The left anterior descending coronary artery is a large vessel that reaches the apex; and there is one medium to large size high diagonal branch (2.5 mm). The LAD has no angiographic obstruction. 3. LCX: 50-60% OM lesion. The left circumflex coronary artery is a medium- sized vessel with moderate atherosclerotic plaquing. The LCX distribution consists of one high OM that has an intermediate 50% to 60% diffuse proximal narrowing(RON-3 Flow); and there is a medium-sized distal OM branch. 4. RCA: Dominant. Intact. The right coronary artery is a large vessel with a large PDA and a large posterolateral branch, both of which reach the apex. There is moderate atherosclerotic plaquing but no angiographic obstructive lesions. 5. LHC: LVED 19 mmHg; and Pulllback=no systolic gradient across the aortic valve. Systolic pressure about 100 mmHg. CONCLUSIONS: 1. Coronary Angiogram--Note extensive coronary calcification; and Single Vessel Disease with diffuse intermediate 50-60% lesion of OM-1.. 2. Elevated LVED. 3. CAD (Coronary Artery Disease--Single-Vessel Disease with diffuse narrowing of obtuse marginal-1 (60% to 70%). RECOMMENDATIONS: 1. Medical therapy of his pulmonary edema and cardiomyopathy noting Echo had showed ejection fraction 35% to 40% with no severe valvular disease. 2. Comment: Despite the high pre procedure estimate of CAD we did not find severe coronary disease, or an apparent culprit lesion for his Troponin elevation, and pulmonary edema. The only potentially significant coronary lesion is the moderate diffuse narrowing of Proximal OM-1, which is not a likely culprit, or candidate for intervention. [facility]
--- NOTE | 2016-05-04 21:10 | PCM.PNMED ---
Subjective Date of Service May 04, 2016 Subjective When I entered the room patient was sitting on the side of the bed huffing and puffing breathing so heavily that he could barely speak. He was complaining of some chest pain as well and was quite uncomfortable. Patient was given some morphine IV 2 and Lasix 40 mg IV 2 along with a nitroglycerin patch. Dr. Carpio of cardiology was consulted and patient was moved to the intensive care unit and placed on a heparin drip, nitroglycerin drip and Dr. Denton of interventional cardiology was eventually consulted. The patient's despite all these interventions continued to feel uncomfortable with shortness of breath and chest pain. His troponins were positive. It was therefore decided that the patient should go to the cardiac catheterization lab. The patient understood that he was then asked to be intubated and sedated for the procedure as he would not lie flat and he understood that he was a high risk patient for any procedure. He wanted to proceed. Exam Vital Signs Vital Sign - Last Date Time Temp Pulse Resp B/P Pulse Ox O2 Delivery O2 Flow Rate FiO2 05/04/16 19:31 92 121/60 100 50 05/04/16 16:50 26 Nasal Cannula 40 05/04/16 16:00 36.5 Intake and Output 05/03/16 05/03/16 05/04/16 Cumulative From/Thru 15:00 23:00 07:00 05/03/16 16:45 - 05/03/16 22:30 Output Total 30 ml 30 ml Balance -30 ml -30 ml Output Urine Total 30 ml 30 ml Exam General: Patient is in respiratory distress, sitting at the side of the bed with increased respiratory rate to the point where he was barely able to speak .HEENT: Head is atraumatic and normocephalic with normal male pattern baldness. Eyes: Pupils are equally round and reactive to light and accommodation. Extraocular muscles are intact. Sclera are white, anicteric. Subconjunctival mucosa is pink. Ears and nose are unremarkable. Oropharynx: There is no mucosal lesions, there is no thrush, there is no pharyngitis. Neck: Is supple, there are no nodes, or masses or tenderness. Chest: Is significant for bibasilar crackles and diminished breath sounds bilaterally. Heart: Rate, rhythm is regular. There is no audible murmur, rub or gallop. However, the patient's body habitus made it difficult to hear heart tones Abdomen: Good bowel sounds are present. Abdomen is obese, soft, nontender, no organomegaly or masses were appreciated. Extremities: The patient has a right AKA stump which has several ibeth present and a dime-sized open area on the lateral posterior aspect. The stump is very tender to any palpation. Neurologic: There are no focal neurological deficits. Cranial nerves II through XII are intact. There are no sensory or motor deficits. Psychiatric: Patients mood is calm and shows no sign of agitation. Genital: Saldana catheter is present and is unremarkable. Rectal: Deferred Lab and Diagnostics Result Diagram: 05/04/16 0552 05/04/16 1324 Microbiology Blood cultures and MRSA screen are pending. X-Rays, CTs and MRIs PROCEDURE: CT CHEST WITH CONTRAST ([id number]) INDICATIONS: Pulmonary nodules TECHNIQUE: After the administration of intravenous contrast, 5 mm thick sections acquired from the pulmonary apices to the posterior costophrenic angles. 7 mm thick coronal and sagittal MIP reformats were acquired. For radiation dose reduction , the following was used: automated exposure control, adjustment of mA and/or kV according to patient size. COMPARISON: [facility], CR, XR CHEST 1VW (PORTABLE), 04/26/2016, 13: 40. [facility], CR, XR CHEST 1VW (PORTABLE), 05/03/2016, 16:40. [facility], CT, CTA CHEST FOR PULMONARY EMBOLISM, 04/23/2016, 5:13 AM. FINDINGS: Image quality: Excellent. Lungs and pleura: Mild bilateral groundglass infiltrates and prominent pulmonary interstitium, which are decreased compared to the chest x-ray dated , consistent with resolving pulmonary edema. There are small bilateral pleural effusions. Small nodules bilaterally are again noted, unchanged. For example, there is a 5 x 7 mm groundglass nodule in the right upper lobe (series 3 image 14). A 6 cm nodule is noted in the left lower lobe (series 3 image 44). There is a 4 mm nodule in the superior segment of the right portal (series 3 image 26). No pneumothorax. Central and peripheral airways are patent and normal in caliber. Mediastinum: Heart size is normal. No pericardial effusion. Coronary artery and aortic calcification consistent with atherosclerosis. No mediastinal or hilar adenopathy by size criteria. Thoracic aorta and central pulmonary arteries are normal in size. Esophagus is normal in caliber. There is a small hiatal hernia. Bones and chest wall: No suspicious bony lesions. No vertebral body compression fractures. No axillary or supraclavicular adenopathy by size criteria. Thyroid gland is normal. Abdomen: Visualized upper abdominal solid organs appear normal. Upper abdominal bowel loops are normal in caliber. IMPRESSION: 1. Resolving pulmonary edema. 2. No change in pulmonary nodules bilaterally. Followup CT suggesting 3 months ( around July of 2016). 3. Atherosclerosis. 4. Small hiatal hernia. PROCEDURE: X-RAY CHEST ONE VIEW, PORTABLE ([id number]) INDICATIONS: chest pain TECHNIQUE: One view of the chest was acquired. COMPARISON: None. FINDINGS: Surgical changes and devices: None. Lungs and pleura: A triple opacities noted in the right lung base.. Bilateral perihilar opacities noted.. Mediastinum: Mediastinal contours appear normal. Heart size is normal. Bones and chest wall: No suspicious bony lesions. Overlying soft tissues appear unremarkable. IMPRESSION: 1. Right basilar opacities suspicious for pneumonia. 2. CHF. Dictated by: Bethany Witt MD, PhD on 05/03/2016 at 17:23 Approved by: Bethany Witt MD, PhD on 05/03/2016 at 17:24 Cardiac Echo Impressions Echocardiogram Report Name: ROBBIE ACE MStudy Date: 05/04/2016 Height: 67 in Hospital Exam Location: [facility] Weight: 243 lb Gender: Male BSA: 2.2 m2 : 1945 Age: 71 yrs BP: 126/ 63 mmHg Reason For Study: Congestive Heart Failure Performed By: Darrel Vazquez Referring Physician: AJIT JAVED Interpretation Summary The study quality was technically difficult. The left ventricle is normal in size. There appears to be severe hypokinesis of mid to distal inferior wall, inferoseptum, apex, distal lateral wall and basal posterior wall.The ejection fraction is estimated to be 35-40%. The right ventricle grossly appears normal in size with probable normal systolic function. There is mild aortic regurgitation. The IVC is of normal diameter and collapses greater than 50% with a sniff. This suggests a low right atrial pressure of 3 mm Hg. Additional Diagnostics CONCLUSIONS: 1. Coronary angiogram--no severe coronary lesions. Note extensive coronary calcification. 2. Elevated LVED. 3. CAD (coronary artery disease--single-vessel disease with diffuse narrowing of obtuse marginal-1 (60% to 70%). RECOMMENDATIONS: 1. Medical therapy for his pulmonary edema and cardiomyopathy noting echo had showed ejection fraction 35% to 40% with no severe valvular disease. 2. Comment: We found no severe coronary disease that would be a culprit for his NSTEMI or pulmonary edema. The only potentially significant coronary lesion is the moderate diffuse narrowing of the proximal OM-1, which was not a likely culprit or candidate for intervention. Assessment & Plan The patient is a resident 71-year-old white male with peripheral vascular occlusive disease who developed an infection in his right lower extremity. He states that he was evaluated by Dr. Bacon and vascular surgeon at [facility] and attempts at revascularization of the right lower extremity failed and patient underwent a recent right [id number]-ujin amputation. He still has ibeth from his amputation stump site. Patient is a poor historian but states that after taking a nap the day of admission that he developed some chest pain and shortness of breath. He was recently treated for pneumonia as you [facility] and had a CT angiogram due to a positive d-dimer which was negative for pulmonary embolism. He was found to have 3 pulmonary nodules. Patient was also treated for anxiety. The patient's acute SOB some improved after treatment in ED with oxygen, Nitropaste, IV Lasix, and IV diltiazem. He has also received some antibiotics. Possibly multifactorial including CHF, pneumonia and anxiety, can't exclude some COPD. Due to his current shortness of breath and chest pain he was brought to [facility] emergency room and had a positive troponin. Patient was admitted to the hospital service for further evaluation treatment # Acute SOB with chest pain and positive troponin suspect acute coronary syndrome with non-ST elevated NE - After much discussion amongst Dr. Carpio and Dr. Denton of cardiology, as well as Dr. Dawson and a pulmonary as well as Dr. Arriaga of anesthesia and myself it was decided that the patient should go for urgent coronary artery catheterization. - In order to perform the coronary artery catheterization patient would have to be sedated and intubated as he refused to lay flat. - Coronary artery catheterization revealed the following: "1. Coronary angiogram--no severe coronary lesions. Note extensive coronary calcification. 2. Elevated LVED. 3. CAD (coronary artery disease--single-vessel disease with diffuse narrowing of obtuse marginal-1 (60% to 70%)". Dr. Denton's recommendations are as follows: "1. Medical therapy for his pulmonary edema and cardiomyopathy noting echo had showed ejection fraction 35% to 40% with no severe valvular disease. 2. Comment: We found no severe coronary disease that would be a culprit for his NSTEMI or pulmonary edema. The only potentially significant coronary lesion is the moderate diffuse narrowing of the proximal OM-1, which was not a likely culprit or candidate for intervention." # Acute systolic CHF, CXR and CT scan compatible with pulmonary edema from congestive heart failure. - Patient's ejection fraction on echocardiogram of 3540% - We will continue glycerin drip and heparin drip - We will continue IV Lasix 40 mg daily - Serial troponins # Possible pneumonia - The patient was apparently treated for this 3-4 weeks ago, records not available, not sure what antibiotics given - We will continue Levaquin for now - Check blood cultures and MRSA screen - Check cocci serology and cryptococcal serology # COPD exac, ex-smoker but denies hx of COPD or past rx of inhalers - We will continue duoneb q 4 hr - We will hold off on steriods, ru with hyperglycemia, since she will likely to improve his treatment of congestive heart failure, # Diabetes Mellitus - The patient is apparently not on any medication for this - Patient's glucose admission was 240 - Continue glucoscans and prn sliding scale insulin # Tachycardic in ED, reported HR to 140's and possibly irregular so concern for AFib - The patient has no hx of Afib - EKG has rate 119 and baseline interference, no clear P waves but rhythm is regular - We will continue to observe on telemetry Disposition: Patient has been intubated and will be weaned from the vent soon as he is able to be. Patient will likely remain hospitalized for several days. Pain Evaluation: Adequate Pain Control GI Prophylaxis: Proton Pump Inhibitor VTE Prophylaxis: Sub-Q Heparin (Unfractionated) Resuscitation Status: CPR: Attempt Resuscitation (when asked by cardiology and myself patient would like everything done at this point.) [place],Christopher E MD May 04, 2016 21:09
[2016-05-04] MEDS: levoFLOXacin Inj 500 MG in IV Premix 1 EACH IV SCH (21:19)
[2016-05-04 22:22] LABS: BASOPHILS % (AUTO) 1.1 % (0-3); EOSINOPHILS % (AUTO) 5.4 % (0-5); MONOCYTES % (AUTO) 11.7 % (4-12); Mean Corpuscular Volume 81.9 fL (81-100); NEUTROPHILS % (AUTO) 49.1 % (40-74); Platelet Count 350 bil/L (150-400)
[2016-05-04 23:09] LABS: Magnesium 2.1 mg/dL (1.6-2.6)
[2016-05-04 23:10] LABS: TROPONIN T 0.048 ug/L (0.0-0.011)
--- NOTE | 2016-05-04 23:34 | ABG ---
DateTimeAnalyzed 23:30:00 -_ pH ____7.445 - 7.350 7.450 pCO2 ___39.9__ -mmHg 35.0 45.0 pO2 ___93.5__ -mmHg 69.0 116 HCO3- ___27.0__ -mmol/L 22.0 26.0 ABE ____3.1__ -mmol/L -2.0 2.0 tHb ____8.5__ -g/dL O2Hb ___95.5__ -% COHb ____1.9__ -% MetHb ____0.9__ -% sO2 ___98.3__ -% 25.0 FIO2 ___50.0__ -% PRVC 500 - PEEP ____5.0__ -cmH2O Set_RR ___18.0__ -b/min Vt __500.0__ -L Drawn By jh - Date/Time Notified____ 23:33:00 -_ Oxygen Device 1 VENTILATOR - Notified By jh - Notified Whom _cunny rn - B 762 -mmHg tO2 ___11.6__ -Vol% Cordell test _Positive -
[2016-05-05] VITALS (13 sets, daily range): BP systolic 106–143; BP diastolic 50–80; PULSE 75–97; RESP 16–18; O2SAT 98–100
[2016-05-05] MEDS: Propofol Inj 1,000,000 MCG in IV Premix 1 EACH IV SCH ×8 (00:08→21:36)
[2016-05-05 04:08] LABS: EOSINOPHILS % (AUTO) 6.8 % (0-5); MONOCYTES % (AUTO) 14.2 % (4-12); Mean Corpuscular Hemoglobin 24.5 pg (27.0-35.0); Mean Corpuscular Volume 82.7 fL (81-100); NEUTROPHILS % (AUTO) 51.3 % (40-74); Platelet Count 305 bil/L (150-400)
[2016-05-05] MEDS: Albuterol-Ipratropium 3 mL Inhalation Solution NEB SCH ×5 (04:20→21:20)
[2016-05-05 04:41] LABS: Magnesium 1.9 mg/dL (1.6-2.6)
[2016-05-05] MEDS: fentaNYL 2,500 mCg/250 mL 2,500 MCG in IV Premix 1 EACH IV SCH (04:48)
[2016-05-05] MEDS ORDERED: KCl 40 mEq/500 mL D5W(K 3 - 3.7 & Creat < 2) IV ONE ×2 (05:50→16:05)
[2016-05-05] MEDS ORDERED: Furosemide 10 mg/mL 4 mL Inj IVPUSH ONE (06:00)
[2016-05-05] MEDS: Pantoprazole 4 mg/mL 10 mL Inj IVPUSH SCH (07:30)
[2016-05-05] MEDS: Insulin LISPRO 300 Unit/3 mL Inj SUBQ SCH ×4 (08:00→21:17)
[2016-05-05] MEDS: Venlafaxine XR 37.5 mg ER24 Capsule PO SCH (08:17)
[2016-05-05] MEDS: MeTOProlol XL 50 mg ER24 Tablet PO SCH (08:18)
[2016-05-05] MEDS: Potassium Chloride 20 mEq SR Tablet PO SCH ×2 (08:18→19:51)
--- NOTE | 2016-05-05 08:22 | PCM.PNMED ---
Subjective Date of Service May 05, 2016 Subjective Patient is intubated and sedated. ROS and subjective not obtainable Exam Vital Signs Vital Sign - Last Date Time Temp Pulse Resp B/P Pulse Ox O2 Delivery O2 Flow Rate FiO2 05/05/16 07:22 105 134/54 100 50 05/05/16 04:00 Supplement Oxygen Ventilator 05/05/16 04:00 36.9 18 05/04/16 16:50 40 Intake and Output 05/04/16 05/04/16 05/05/16 Cumulative From/Thru 15:00 23:00 07:00 05/03/16 16:45 - 05/05/16 05:41 Intake Total 0 ml 220 ml 1213 ml 1433 ml Output Total 1750 ml 4600 ml 950 ml 7330 ml Balance -1750 ml -4380 ml 263 ml -5897 ml Intake Oral 0 ml 0 ml IV Total 220 ml 1213 ml 1433 ml Output Urine Total 1750 ml 4600 ml 900 ml 7280 ml Gastric Drainage Total 50 ml 50 ml # Bowel Movements 0 0 0 Exam Intubated and sedated. Anicteric sclera Neck supple Lungs are clear, he has been actively ventilated. Heart is regular without murmur gallop or rub Abdomen soft nontender. Extremities with 2+ edema and good pedal pulses. Skin is free of rash or lesions. IVs and Medications Medications Reviewed: Medications were reviewed in detail Lab and Diagnostics Result Diagram: 05/05/16 0400 05/05/16 0400 Microbiology Blood cultures and MRSA screen are pending. X-Rays, CTs and MRIs PROCEDURE: CT CHEST WITH CONTRAST ([id number]) INDICATIONS: Pulmonary nodules TECHNIQUE: After the administration of intravenous contrast, 5 mm thick sections acquired from the pulmonary apices to the posterior costophrenic angles. 7 mm thick coronal and sagittal MIP reformats were acquired. For radiation dose reduction , the following was used: automated exposure control, adjustment of mA and/or kV according to patient size. COMPARISON: [facility], CR, XR CHEST 1VW (PORTABLE), 04/26/2016, 13: 40. [facility], CR, XR CHEST 1VW (PORTABLE), 05/03/2016, 16:40. [facility], CT, CTA CHEST FOR PULMONARY EMBOLISM, 04/23/2016, 5:13 AM. FINDINGS: Image quality: Excellent. Lungs and pleura: Mild bilateral groundglass infiltrates and prominent pulmonary interstitium, which are decreased compared to the chest x-ray dated , consistent with resolving pulmonary edema. There are small bilateral pleural effusions. Small nodules bilaterally are again noted, unchanged. For example, there is a 5 x 7 mm groundglass nodule in the right upper lobe (series 3 image 14). A 6 cm nodule is noted in the left lower lobe (series 3 image 44). There is a 4 mm nodule in the superior segment of the right portal (series 3 image 26). No pneumothorax. Central and peripheral airways are patent and normal in caliber. Mediastinum: Heart size is normal. No pericardial effusion. Coronary artery and aortic calcification consistent with atherosclerosis. No mediastinal or hilar adenopathy by size criteria. Thoracic aorta and central pulmonary arteries are normal in size. Esophagus is normal in caliber. There is a small hiatal hernia. Bones and chest wall: No suspicious bony lesions. No vertebral body compression fractures. No axillary or supraclavicular adenopathy by size criteria. Thyroid gland is normal. Abdomen: Visualized upper abdominal solid organs appear normal. Upper abdominal bowel loops are normal in caliber. IMPRESSION: 1. Resolving pulmonary edema. 2. No change in pulmonary nodules bilaterally. Followup CT suggesting 3 months ( around July of 2016). 3. Atherosclerosis. 4. Small hiatal hernia. PROCEDURE: X-RAY CHEST ONE VIEW, PORTABLE ([id number]) INDICATIONS: chest pain TECHNIQUE: One view of the chest was acquired. COMPARISON: None. FINDINGS: Surgical changes and devices: None. Lungs and pleura: A triple opacities noted in the right lung base.. Bilateral perihilar opacities noted.. Mediastinum: Mediastinal contours appear normal. Heart size is normal. Bones and chest wall: No suspicious bony lesions. Overlying soft tissues appear unremarkable. IMPRESSION: 1. Right basilar opacities suspicious for pneumonia. 2. CHF. Dictated by: Bethany Witt MD, PhD on 05/03/2016 at 17:23 Approved by: Bethany Witt MD, PhD on 05/03/2016 at 17:24 Cardiac Echo Impressions Echocardiogram Report Name: ROBBIE ACE MStudy Date: 05/04/2016 Height: 67 in Hospital Exam Location: [facility] Weight: 243 lb Gender: Male BSA: 2.2 m2 : 1945 Age: 71 yrs BP: 126/ 63 mmHg Reason For Study: Congestive Heart Failure Performed By: Darrel Vazquez Referring Physician: AJIT JAVED Interpretation Summary The study quality was technically difficult. The left ventricle is normal in size. There appears to be severe hypokinesis of mid to distal inferior wall, inferoseptum, apex, distal lateral wall and basal posterior wall.The ejection fraction is estimated to be 35-40%. The right ventricle grossly appears normal in size with probable normal systolic function. There is mild aortic regurgitation. The IVC is of normal diameter and collapses greater than 50% with a sniff. This suggests a low right atrial pressure of 3 mm Hg. Additional Diagnostics CONCLUSIONS: 1. Coronary angiogram--no severe coronary lesions. Note extensive coronary calcification. 2. Elevated LVED. 3. CAD (coronary artery disease--single-vessel disease with diffuse narrowing of obtuse marginal-1 (60% to 70%). RECOMMENDATIONS: 1. Medical therapy for his pulmonary edema and cardiomyopathy noting echo had showed ejection fraction 35% to 40% with no severe valvular disease. 2. Comment: We found no severe coronary disease that would be a culprit for his NSTEMI or pulmonary edema. The only potentially significant coronary lesion is the moderate diffuse narrowing of the proximal OM-1, which was not a likely culprit or candidate for intervention. Assessment & Plan The patient is a resident 71-year-old white male with peripheral vascular occlusive disease who developed an infection in his right lower extremity. He states that he was evaluated by Dr. Bacon and vascular surgeon at [facility] and attempts at revascularization of the right lower extremity failed and patient underwent a recent right ndyaz-[id number]-[id number] amputation. He still has ibeth from his amputation stump site. Patient is a poor historian but states that after taking a nap the day of admission that he developed some chest pain and shortness of breath. He was recently treated for pneumonia as you [facility] and had a CT angiogram due to a positive d-dimer which was negative for pulmonary embolism. He was found to have 3 pulmonary nodules. Patient was also treated for anxiety. The patient's acute SOB some improved after treatment in ED with oxygen, Nitropaste, IV Lasix, and IV diltiazem. He has also received some antibiotics. Possibly multifactorial including CHF, pneumonia and anxiety, can't exclude some COPD. Due to his current shortness of breath and chest pain he was brought to [facility] emergency room and had a positive troponin. Patient was admitted to the hospital service for further evaluation treatment # Acute respiratory failure with hypoxia, POA. The patient was intubated yesterday for presumptive pulmonary edema with hypoxia. At this point we will attempt to wean FiO2 and PEEP support. He currently is on propofol at 30 and fentanyl at 75. We will at To light his sedation if his FiO2 comes down a pursue a breathing trial. # Acute on chronic systolic heart failure. POA. This patient is intubated and currently is on Fi02 have to 0.5 with PEEP of 8. Angiogram showed no critical lesions suitable for PCI. At this point the plan is to continue diuresis and will schedule Lasix 40 IV every 8 hours. We will attempt to wean FiO2 today. Do not believe he has pneumonia. This point we will withhold antibiotics. # Diabetes Mellitus 2 We will continue correctional lispro at this juncture. # GI and DVT prophylaxis will continue. GI Prophylaxis: Proton Pump Inhibitor VTE Prophylaxis: Sub-Q Heparin (Unfractionated) Resuscitation Status: CPR: Attempt Resuscitation (when asked by cardiology and myself patient would like everything done at this point.) Time spent 30 min Cordell Tipton MD May 05, 2016 08:22 which was not a likely culprit or candidate for intervention." # Acute systolic CHF, CXR and CT scan compatible with pulmonary edema from congestive heart failure. - Patient's ejection fraction on echocardiogram of 3540% - We will continue glycerin drip and heparin drip - We will continue IV Lasix 40 mg daily - Serial troponins # Possible pneumonia - The patient was apparently treated for this 3-4 weeks ago, records not available, not sure what antibiotics given - We will continue Levaquin for now - Check blood cultures and MRSA screen - Check cocci serology and cryptococcal serology # COPD exac, ex-smoker but denies hx of COPD or past rx of inhalers - We will continue duoneb q 4 hr - We will hold off on steriods, ru with hyperglycemia, since she will likely to improve his treatment of congestive heart failure, # Diabetes Mellitus - The patient is apparently not on any medication for this - Patient's glucose admission was 240 - Continue glucoscans and prn sliding scale insulin # Tachycardic in ED, reported HR to 140's and possibly irregular so concern for AFib - The patient has no hx of Afib - EKG has rate 119 and baseline interference, no clear P waves but rhythm is regular - We will continue to observe on telemetry Disposition: Patient has been intubated and will be weaned from the vent soon as he is able to be. Patient will likely remain hospitalized for several days. GI Prophylaxis: Proton Pump Inhibitor VTE Prophylaxis: Sub-Q Heparin (Unfractionated) Resuscitation Status: CPR: Attempt Resuscitation (when asked by cardiology and myself patient would like everything done at this point.) Cordell Tipton MD May 05, 2016 08:22
[2016-05-05] MEDS ORDERED: Furosemide 10 mg/mL 4 mL Inj IVPUSH SCH (08:30)
[2016-05-05] MEDS: Furosemide 10 mg/mL 4 mL Inj IVPUSH SCH ×2 (09:23→16:10)
--- NOTE | 2016-05-05 09:38 | DRSVH ---
PROCEDURE: X-RAY CHEST ONE VIEW, PORTABLE ([id number]) INDICATIONS: chf TECHNIQUE: One view of the chest was acquired. COMPARISON: [facility], CR, XR CHEST 1VW (PORTABLE), 05/04/2016, 17:05. FINDINGS: Surgical changes and devices: ETT projected 4.4 cm above the christian a nasogastric tube traverses the GE junction. Lungs and pleura: Diffuse, widespread bilateral pulmonary interstitial and air space opacities are p resent. Mediastinum: Mediastinal contours appear normal. Heart size is enlarged. Bones and chest wall: No suspicious bony lesions. Overlying soft tissues appear unremarkable. IMPRESSION: Aside from technique differences, persistent edema versus pneumonia. Dictated by: Jayme Sotelo RRA Interpreted: Bethany Witt MD on 05/05/2016 at 9:38 Transcribed by: PHILIP on 05/05/2016 at 9:38 Approved by: Bethany Witt MD, PhD on 05/05/2016 at 16:31
--- NOTE | 2016-05-05 10:11 | PCM.ANEP2 ---
Post Anesthesia Evaluation ASA/CMS Post Anesthesia VS in Patient's Normal Range?: Yes Resp Stable; Airway Patent?: Yes CV Function & Hydration Stable: Yes Mental Status Recovered?: Yes Pain control Satisfactory?: Yes N/V Control Satisfactory?: Yes Preston Arriaga MD May 05, 2016 10:11
--- NOTE | 2016-05-05 10:11 | PCM.ANEP1 ---
Post Anesthesia Phase 1 PACU Phase 1 Assessment Vital Signs Vital Signs Date Time Temp Pulse Resp B/P Pulse Ox O2 Delivery O2 Flow Rate FiO2 05/05/16 08:30 Supplement Oxygen Ventilator 05/05/16 08:16 36.8 97 18 120/50 99 Mechanical Ventilator 50 05/05/16 07:22 105 134/54 100 50 05/05/16 04:20 87 126/50 98 50 05/05/16 04:00 Supplement Oxygen Ventilator 05/05/16 04:00 36.9 86 18 126/80 98 Mechanical Ventilator 50 05/05/16 04:00 86 Anesthetic Administered: GA Level of Alertness: Sleeping, hard to arouse HOROWITZ's with Equal Strength: Yes Pain: No Pain Scale Score: 8 Nausea or Vomiting: No Airway Device: Endotrachial Tube Oxygen Delivery: Mechanical Ventilator Lungs: Clear to Auscultation, Normal Air Movement Preston Arriaga MD May 05, 2016 10:11
[2016-05-05] MEDS ORDERED: Lidocaine 1%-Epi 1:100,000 10 mL Inj SUBQ ONE (10:40)
--- NOTE | 2016-05-05 10:58 | PROG NOTE ---
[address] [address] PROGRESS NOTE PATIENT: ROBBIE ACE : 1945 MR#: [id number] ADMIT: 05/03/2016 JOB ID: [id number] DATE: 05/05/2016 PROBLEM LIST: 1. Congestive heart failure. 2. Ischemic heart disease. 3. Diabetes mellitus. 4. Status post status post right AKA for peripheral vascular disease. 5. History of remote stroke in 1998. SUBJECTIVE: None. OBJECTIVE: Temperature 36.8. Pulse 87-105, respiratory rate 18 with ventilator set at 18. Blood pressure 120/50. O2 sat on FiO2 of 50%, PEEP of 8, is 99. I and O shows 0.2 L in, 6.3 L out. General appearance: Sedated on the ventilator. Currently receiving fentanyl and propofol. Chest shows fairly good breath sounds. Anterolateral lung thacker are clear. No use of accessory muscles. With a tidal volume of 500, PEEP of 8, peak inspiratory pressure is 23, plateau was 21. PEEP is set at 8, measured at 8. Heart: Regular rhythm. Heart tones seem normal. Abdomen is soft. A few bowel tones noted. Protuberant, though not firm. Extremities: 3+ pretibial edema on the left. Stump was warm, some swelling. LABORATORY DATA: Shows a white count of 6100, with 51 polymorphonuclears, 26 lymphs, 14 monos, 6 eos, 1 baso. Hemoglobin 8.5, down from a value of 10.7, 48 hours ago. Platelet count 305,000, slowly decreasing. Sodium 138, potassium 3.4, with the patient receiving potassium rider. Chloride 99, CO2 is 24, BUN 17, stable, creatinine 0.9 and stable. Calcium 8.3, with albumin of 3.6. Phosphorus normal at 4. Magnesium normal 1.9. Total bilirubin, AST, ALT, and alk phos were all normal. Procalcitonin is 0.31, up from 0.03, 48 hours previously. Arterial blood gases drawn but values not available. DIAGNOSTIC STUDIES: Chest x-ray shows ET tube 4.4 cm above the christian. Diffuse bilateral pulmonary interstitial and airspace opacities. Cardiac catheterization with coronary angiogram showed the left main normal, left anterior descending normal, left circumflex moderate atherosclerotic plaquing but no angiographic obstructive lesions, with one high obtuse marginal having 50-60% diffuse proximal narrowing. The right coronary artery is dominant, showing moderate atherosclerotic plaquing but no angiographic obstructive lesions. Left ventricular end-diastolic pressure estimated to be 19. Recommendations were for medical therapy for pulmonary edema and cardiomyopathy, with an echo showing ejection fraction of 35-40%. No evidence of severe valvular disease. ASSESSMENT: 1. Congestive heart failure. Continuing Lasix as well as spironolactone, thought presumably for his cardiac disease as he is also receiving metoprolol and lisinopril being 5 mg twice a day, metoprolol 50 mg a day. Blood pressure reasonable at this point. Will have to watch the effect of the beta blockers on his blood pressure and cardiac output. 2. Cardiac failure. Will need to discuss with Cardiology the etiology of his severe dysfunction. It sounds like his coronary anatomy is rather reasonable. 3. Umfqk-zdw-qvyg amputation. Still five ibeth. They probably need to be removed. However, we need to get old records to ascertain the reason for his AKA, presumably peripheral vascular disease, but possible wound infection, with the patient receiving long-term antibiotics via midline central catheter. 4. Insulin as per hospitalist service. 5. Taper PEEP and possibly FiO2 to see about extubation. 6. Re-evaluate the etiology of his sudden onset shortness of breath. Cable Weaver mentions pulmonary embolus (PE). Will explore that. TIME SPENT IN CRITICAL CARE: 47 minutes.
--- NOTE | 2016-05-05 13:15 | DRSVH ---
PROCEDURE: US VENOUS LEG DUPLEX BILATERAL INDICATIONS: sob, poss DVT TECHNIQUE: Real-time imaging, as well as color and pulse Doppler interrogation, were performed of the deep veins of both legs from the inguinal ligament to the popliteal fossa. COMPARISON: None. FINDINGS: The deep veins are normally compressible, and free of intraluminal thrombus. Color and pu lse Doppler demonstrate normal phasic intravascular flow. There is normal augmentation response to d istal compression maneuver. IMPRESSION: No deep venous thrombosis identified within either the left or right lower extremities. Dictated by: Jayme Sotelo [facility] Interpreted: Bethany Witt MD on 05/05/2016 at 13:14 Transcribed by: PHILIP on 05/05/2016 at 13:14 Approved by: Bethany Witt MD, PhD on 05/05/2016 at 16:31
[2016-05-06] VITALS (15 sets, daily range): BP systolic 120–183; BP diastolic 50–81; PULSE 85–100; RESP 14–30; O2SAT 95–100
[2016-05-06] MEDS: Furosemide 10 mg/mL 4 mL Inj IVPUSH SCH ×3 (00:08→17:57)
[2016-05-06] MEDS: Albuterol-Ipratropium 3 mL Inhalation Solution NEB SCH ×6 (00:50→20:30)
[2016-05-06] MEDS: Propofol Inj 1,000,000 MCG in IV Premix 1 EACH IV SCH ×3 (01:15→08:29)
--- NOTE | 2016-05-06 03:03 | PROG NOTE ---
[address] [address] PROGRESS NOTE PATIENT: ROBBIE ACE : 1945 MR#: [id number] ADMIT: 05/03/2016 JOB ID: [id number] DATE: SUBJECTIVE: The patient is being treated for congestive heart failure. The patient is now intubated. He has been treated with metoprolol and furosemide, along with aspirin and atorvastatin. He has been diuresing. However, he still remains intubated. Echocardiogram showed that LV systolic function is reduced in the range of 35-40%. Cardiac catheterization did not show any clear obstructive lesions. PHYSICAL EXAMINATION: Blood pressure 122/56, heart rate 88, sats are 99% on mechanical ventilator. IMAGING: Shows a chest x-ray from today which shows persistent edema versus pneumonia. Venous duplex shows no deep venous thrombosis. IMPRESSION: The patient is currently intubated for his respiratory issues and is being treated for congestive heart failure and possible pneumonia at this time. PLAN: 1. I would agree with the current cardiac medications. 2. Will have to review his cath films and echocardiogram, and I will check with the intensive care team tomorrow. CANDELARIO
[2016-05-06] MEDS: fentaNYL 2,500 mCg/250 mL 2,500 MCG in IV Premix 1 EACH IV SCH (05:09)
[2016-05-06 06:44] LABS: BASOPHILS % (AUTO) 0.5 % (0-3); EOSINOPHILS % (AUTO) 6.9 % (0-5); MONOCYTES % (AUTO) 10.8 % (4-12); Mean Corpuscular Hemoglobin 24.5 pg (27.0-35.0); Mean Corpuscular Volume 83.2 fL (81-100); NEUTROPHILS % (AUTO) 67.4 % (40-74); Platelet Count 332 bil/L (150-400)
[2016-05-06 07:46] LABS: Magnesium 1.6 mg/dL (1.6-2.6)
[2016-05-06] MEDS: Insulin LISPRO 300 Unit/3 mL Inj SUBQ SCH ×4 (08:00→22:00)
[2016-05-06] MEDS: Pantoprazole 4 mg/mL 10 mL Inj IVPUSH SCH (08:23)
[2016-05-06] MEDS: Venlafaxine XR 37.5 mg ER24 Capsule PO SCH (08:25)
[2016-05-06] MEDS: MeTOProlol XL 50 mg ER24 Tablet PO SCH (08:26)
[2016-05-06] MEDS: Potassium Chloride 20 mEq SR Tablet PO SCH ×2 (08:29→20:30)
[2016-05-06] MEDS ORDERED: Chlorhexidine 0.12% 15 mL Oral Solution ONE (09:08)
--- NOTE | 2016-05-06 11:14 | ABG ---
DateTimeAnalyzed 11:10:00 -_ pH ____7.448 - 7.350 7.450 pCO2 ___43.6__ -mmHg 35.0 45.0 pO2 ___88.0__ -mmHg 69.0 116 HCO3- ___29.7__ -mmol/L 22.0 26.0 ABE ____5.6__ -mmol/L -2.0 2.0 tHb ____9.4__ -g/dL O2Hb ___94.3__ -% COHb ____1.9__ -% MetHb ____1.1__ -% sO2 ___97.2__ -% 25.0 FIO2 ___21.0__ -% Pressure_Support ___10.0__ -cmH2O PEEP ____5.0__ -cmH2O Drawn By KBB - Date/Time Notified____ 11:13:00 -_ Oxygen Device 1 VENTILATOR - Notified By KBB - Notified Whom Gentry, Shelley DO -___ B 749 -mmHg tO2 ___12.6__ -Vol% Cordell test _Positive -
--- NOTE | 2016-05-06 11:20 | DRSVH ---
PROCEDURE: X-RAY CHEST ONE VIEW, PORTABLE ([id number]) INDICATIONS: SHORTNESS OF BREATH TECHNIQUE: One view of the chest was acquired. COMPARISON: [facility], CR, XR CHEST 1VW (PORTABLE), 05/05/2016, 5:42. [facility], CR, XR CHEST 1VW (PORTABLE), 05/04/2016, 17:05. FINDINGS: Surgical changes and devices: Endotracheal tube is approximately half the distance from the inferior medial clavicular heads to the christian. Nasogastric tube extends into the gastric Oddi and likely int o the antrum. Lungs and pleura: No pleural effusions or pneumothorax. Lungs are abnormal with a retrocardiac left lower lobe pneumonia pattern, mild alveolar opacification of the left lateral lower lung, and also w ithin the right lung just above the minor fissure. This could be atelectasis given the reduced inspi ratory volume. Mediastinum: Mediastinal contours appear normal. Heart size is normal. Bones and chest wall: No suspicious bony lesions. Overlying soft tissues appear unremarkable. IMPRESSION: Bibasilar alveolar consolidation, in the setting of reduced inspiration. Endotracheal an d nasogastric tube positioning as noted. Bibasilar pneumonia versus atelectasis. Dictated by: Mukul Gutierrez M.D. on 05/06/2016 at 11:16 Approved by: Mukul Gutierrez M.D. on 05/06/2016 at 11:19
--- NOTE | 2016-05-06 11:33 | CONS ---
[address] [address] CONSULTATION REPORT PATIENT: ROBBIE ACE : 1945 MR#: [id number] ADMIT: 05/03/2016 JOB ID: [id number] DATE OF SERVICE: 05/06/2016 INFECTIOUS DISEASE CONSULTATION: I thank Dr. Shelley Gutierrez for this timely consult. REASON FOR CONSULTATION: Right AK stump infection. HISTORY OF PRESENT ILLNESS: The patient is an unfortunate 71-year-old gentleman who was admitted for shortness of breath and some atypical chest pain back on May 03. He has intermittent shortness of breath and occasional chest pressure which has been a problem for him for quite some time. He has had some mild productive sputum but denied at the time of admission, any fevers, chills or sweats. It is notable that he was seen recently in our emergency department as well as at [facility] because of some shortness of breath and also because of a persistent anemia. The patient seven weeks ago had undergone a right AKA, which was done because of peripheral vascular disease and chronic ischemia of his right lower extremity. The patient has had earlier failed an attempt at femoral artery repair to restore blood flow to the extremity. Following his admission here three days ago, the patient developed increasing shortness of breath thought to be on the basis of flash pulmonary edema, perhaps with some underlying chronic lung disease as well and he eventually required intubation. The patient has been intubated for the last couple days and I am unable to get much history from him today though he is in the process of a weaning trial and able to shake his head yes or no to a few generalized questions. This case was discussed extensively with the team at the bedside as well as during ICU rounds yesterday and today. Yesterday, I took a brief look at his wounds as a courtesy to the ICU team but today I was asked to more formally evaluate his right lower extremity stump wounds. This morning the patient says he is having no fever or chills. He states his breathing seems improved and he is hoping he can be extubated today. He denies any abdominal pain and states he has no pain at the site of his right AK stump except when it is being manipulated by the wound bridal service sales and management. Otherwise I am unable to get any history from this still intubated and lightly sedated gentleman. PAST MEDICAL HISTORY: 1. 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 2. Peripheral vascular disease status post attempted revascularization of the right lower extremity which failed and then required AKA the first week of March. 3. Gout. 4. Depression. 5. Possible history of dementia though the basis for that is unclear to me. 6. Recent anemia with upper and lower endoscopies apparently nondiagnostic. 7. History of recent pneumonia. 8. History of CVA with right upper extremity weakness. 9. Hypertension. 10. Hyperlipidemia. 11. History of pulmonary edema. SOCIAL HISTORY: The patient is retired. He is an alcohol consumer and a smoker who quit just a few months ago. The notes in the chart state he lives in a detention, has never been and does not have children. FAMILY HISTORY: Cannot be obtained from this intubated gentleman. REVIEW OF SYSTEMS: Cannot be obtained from this intubated gentleman who cannot speak. He does answer some questions yes and no by shaking his head which seems to be appropriate. PHYSICAL EXAMINATION: Reveals a gentleman who has been afebrile since admission three days ago. Current temperature 37.3, pulse is in the 90s and in sinus. Regular rate and rhythm. On the ventilator, he is 40 and 5, but he is undergoing a pressure support trial and seems to be doing well on that. Blood pressure 135/58 without benefit of vasopressors. His head is without trauma or temporal wasting. Eyes without conjunctivitis or scleral icterus. Nose appears normal. Oral endotracheal tube, oral gastric tube in good position. No herpetic lesions seen on the lips. Neck is without adenopathy. Lungs relatively clear. A few crackles at the bases. Cardiac tones: Regular rate and rhythm without notable murmur. Abdomen: Soft, nontender without organomegaly. He does have a Saldana catheter. No suprapubic tenderness. No inguinal adenopathy is noted. His upper extremities appear benign and he can move both of them. His right lower extremity has been amputated above the knee. The amputation site is notable for three abnormalities. On the medial aspect of the AK suture line, there are two areas where there were epithelialized ibeth removed yesterday by the art gallery internship. These areas are erythematous and probe about a 0.5 cm deep with a Q tip. There is no purulence from these two. On the lateral side, however, of the AKA suture line, there is just breakdown about 1 cm across by 0.5 cm wide and about 0.5 cm deep. There is some subtle purulence there though minimal surrounding cellulitis. This was carefully examined in conjunction with the wound care therapist. The patient's left lower extremity is swollen below the knee with about 2+ edema. The foot has a ester wrinkled appearance consistent with a great deal of diuresis lately. The peripheral pulses are barely palpable in that left foot and capillary refill is extraordinarily slow on the order of 4-5 seconds. That said, there is no skin breakdown and there seems to be adequate perfusion to sustain that left lower extremity. The patient's formal neurologic examination cannot be assessed though we can move that left lower extremity as well as his upper extremities and he does appear to follow some commands reasonably well. No skin rashes noted except for that noted along the right AKA incision. There is no evidence of joint inflammation or problem elsewhere. LABORATORIES: Include white blood count 8700, it has dropped from 12,000 three days ago. Without benefit of systemic antibiotics, he has a 7% eosinophilia with that white count. His hematocrit is 31. His platelet count 332,000. His creatinine 0.95. LFTs normal. Urinalysis without pyuria. Swartz C and crypto antibodies are pending. I am not exactly sure why. A nasal smear is positive for MRSA and he is receiving Bactroban. A swab of the leg done here shows rare polys and no organisms are seen. That culture is now 24 hours old. An outpatient culture is available to us in [facility], however, from an appointment a few days ago where that lateral AKA suture line skin breakdown site was cultured. That culture yielded MRSA which was susceptible to vanco as well as Proteus and Pseudomonas. The Proteus was quite sensitive. IMAGING: Recent imaging here includes a chest radiograph from yesterday which shows what appears to be pulmonary edema and venous study of the lower extremities which is said to be normal. IMPRESSION: At this point, I see no evidence for systemic infection in this patient. His chest x-rays looked like pulmonary edema and the story sounds like flash pulmonary edema. He does not have purulent secretions and is being actively weaned off the ventilator this morning without apparent difficulty. This would all be highly unlikely if he had significant bilateral pneumonia rather than flash pulmonary edema with CHF. With respect to his right lower extremity at the AKA site he certainly has a very limited and localized infection. I have spoken in detail to the wound cash management officer at the bedside and he is reasonably confident that this can be treated with local topical antimicrobial agents rather than systemic and I completely agree with that. RECOMMENDATIONS: 1. Local care for the wound infection of the right lower extremity is indicated at this time. 2. I see no indication, at this point, for systemic antibiotics though that, of course, could change in this very ill and still intubated gentleman with recent AKA. 3. This case discussed with the ICU team as well as wound management and the nursing staff. 4. Will continue to closely follow this patient with you.
--- NOTE | 2016-05-06 12:04 | PCM.PNMED ---
Subjective Date of Service May 06, 2016 Subjective Intensive/Pulmonology Progress Note: Attending Dr. Ralph Vazquez is a 71-year-old male with past medical history significant for hypertension, hyperlipidemia, diabetes mellitus, peripheral vascular disease status post recent ziawd-jkl-[id number] amputation who presented to [facility] emergency Department for acute onset shortness of breath. The patient was admitted for NSTEMI and intubated for cardiac catheterization. Hospital day #4. Overnight: There were no acute events. Telemetry overnight: Sinus rhythm, heart rate 80 to 90's, with runs of sinus tachycardia in the 110's. Subjective exam and review of systems unavailable as patient is intubated and sedated. . Exam Vital Signs Vital Sign - Last Date Time Temp Pulse Resp B/P Pulse Ox O2 Delivery O2 Flow Rate FiO2 05/06/16 09:58 14 14 135/58 100 40 05/06/16 08:00 37.3 Mechanical Ventilator 05/04/16 16:50 40 Intake and Output 05/05/16 05/05/16 05/06/16 Cumulative From/Thru 15:00 23:00 07:00 05/03/16 16:45 - 05/06/16 06:17 Intake Total 878 ml 968 ml 3279 ml Output Total 2500 ml 1725 ml 51796 ml Balance -1622 ml -757 ml -8276 ml Intake Oral 0 ml IV Total 878 ml 928 ml 3239 ml Tube Irrigant 40 ml 40 ml Output Urine Total 2400 ml 1625 ml 42612 ml Gastric Drainage Total 100 ml 100 ml 250 ml # Bowel Movements 0 0 Exam General: Elderly male lying in bed and in no acute distress, intubated and sedated. HEENT: Normocephalic, atraumatic. External ears without defect. Pupils equal, round, and reactive to light. Anicteric sclerae, moist conjunctivae, and no lid lag. Endotracheal tube in place. Neck: Supple. Cardiovascular: Heart sounds are distant with regular rhythm and rate no murmurs , rubs, or gallops appreciated. Pulmonary: Diminished breath sounds bilaterally with fine bibasilar crackles. Genitourinary: Saldana catheter in place. Abdomen: Soft, obese, nontender, nondistended, bowel sounds present. Extremities: Right AKA with lateral clean base ulcer with mild erythema and green granular tissue. Left lower extremity dry with trace edema to ankle. Ventilator settings: PRVC. Tidal volume 500. Respiratory rate 18. FiO2 50%. PEEP 8.0. Peak 25. Plateau 22. IV drips and Sedatives: Fentanyl 100 g/hr and propofol 30 g/kg/min IV lines: Right IJ. I&O: Net -8276. . IVs and Medications Medications Reviewed: Medications were reviewed in detail Lab and Diagnostics Item Value Date Time Calcium Level 9.0 mg/dL 05/06/16629 Magnesium Level 1.6 mg/dL 05/06/16629 Total Bilirubin 0.4 mg/dL 05/06/16 06 Aspartate Amino Transf (AST/SGOT) 13 U/L 05/06/16629 Alanine Aminotransferase (ALT/SGPT) 8 U/L 05/06/16629 Alkaline Phosphatase 70 U/L 05/06/16629 Total Protein 6.5 g/dL 05/06/16629 Albumin 3.9 g/dL 05/06/16629 Result Diagram: 05/06/1662905/06/16629 Microbiology MRSA screen positive. Blood cultures 2 showed no growth after 24 hours. Gram stain of wound shows few PMNs and no organisms. Cultures of wound pending. . X-Rays, CTs and MRIs X-RAY CHEST ONE VIEW, PORTABLE IMPRESSION: Bibasilar alveolar consolidation, in the setting of reduced inspiration. Endotracheal and nasogastric tube positioning as noted. Bibasilar pneumonia versus atelectasis. Dictated by: Mukul Gutierrez M.D. on 05/06/2016 at 11:16 US VENOUS LEG DUPLEX BILATERAL IMPRESSION: No deep venous thrombosis identified within either the left or right lower extremities. Dictated by: Jayme Sotelo [facility] Interpreted: Bethany Witt MD on 05/05/2016 at 13:14 CT CHEST WITH CONTRAST IMPRESSION: 1. Resolving pulmonary edema. 2. No change in pulmonary nodules bilaterally. Followup CT suggesting 3 months ( around July of 2016). 3. Atherosclerosis. 4. Small hiatal hernia. Dictated by: Toño Watts M.D. on 05/04/2016 at 10:24 X-RAY CHEST ONE VIEW, PORTABLE IMPRESSION: 1. Right basilar opacities suspicious for pneumonia. 2. CHF. Dictated by: Bethany Witt MD, PhD on 05/03/2016 at 17:23 . Cardiac Echo Impressions Echocardiogram Interpretation Summary: The study quality was technically difficult. The left ventricle is normal in size. There appears to be severe hypokinesis of mid to distal inferior wall, inferoseptum, apex, distal lateral wall and basal posterior wall.The ejection fraction is estimated to be 35-40%. The right ventricle grossly appears normal in size with probable normal systolic function. There is mild aortic regurgitation. The IVC is of normal diameter and collapses greater than 50% with a sniff. This suggests a low right atrial pressure of 3 mm Hg. Reading Physician:PM . Additional Diagnostics PROCEDURES: 1. Coronary angiogram--urgent 2. LEFT HEART CATHETERIZATION (LHC)--pressure measurement. CONCLUSIONS: 1. Coronary angiogram--no severe coronary lesions. Note extensive coronary calcification. 2. Elevated LVED. 3. CAD (coronary artery disease--single-vessel disease with diffuse narrowing of obtuse marginal-1 (60% to 70%). RECOMMENDATIONS: 1. Medical therapy for his pulmonary edema and cardiomyopathy noting echo had showed ejection fraction 35% to 40% with no severe valvular disease. 2. Comment: We found no severe coronary disease that would be a culprit for his NSTEMI or pulmonary edema. The only potentially significant coronary lesion is the moderate diffuse narrowing of the proximal OM-1, which was not a likely culprit or candidate for intervention. Mono Denton MD 05/04/16 1924. . Assessment & Plan Dre Vazquez is a 71-year-old male with past medical history significant for hypertension, hyperlipidemia, diabetes mellitus, peripheral vascular disease status post recent faywt-fpk-[id number] amputation who presented to [facility] emergency Department for worsening shortness of breath. The patient was admitted for NSTEMI and intubated for cardiac catheterization. Hospital day #4. 1. Acute hypoxemic respiratory failure, present on admission. Active. - Patient presented with worsening shortness of breath and was subsequently intubated for flash pulmonary edema secondary to acute systolic CHF exacerbation and NSTEMI. - Monitor ABG daily for vent management. - Ventilator settings, as above. - Continue propofol and fentanyl for sedation, as above. - Continue sedation vacations and SBT daily. Patient is likely to be extubated today to high flow oxygen. 2. Acute systolic heart failure exacerbation, present on admission. Active. - Echocardiogram demonstrated severe hypokinesis of mid to distal inferior wall , inferoseptum, apex, distal lateral wall and basal posterior wall with an ejection fraction of 35-40%, as above. - Continue diuresis with Lasix 40 mg every 8 hours. - Continue mechanical ventilation as above. Patient is likely to be extubated today to high flow oxygen. 3. NSTEMI, present on admission. Active. - Coronary catheterization shows nonobstructive CAD with a stenotic obtuse marginal artery 1 60-70% not amenable to PCI. - Continue medical management per cardiology. 4. Recent right uppjl-qha-qzmp amputation, present on admission. Active. - Small clean based ulcer on lateral margin of the stump, as above. - Wound care following. Will plan to apply silver nitrate to ulceration for local infection per infectious disease. - Infectious disease consulted and following. We appreciate your time and care of the patient. 5. Acute hypokalemia, not present on admission. Active. - Secondary to loop diuretic. - Continue potassium repletion with potassium chloride 20 mEq twice a day. Chronic problems per primary medical team. Disposition: Several days depending on clinical course. Total critical care time spent 60 minutes. . GI Prophylaxis: Proton Pump Inhibitor VTE Prophylaxis: Sub-Q Heparin (Unfractionated) VTE Mechanical Devices: Intermittant Pneumatic CD Resuscitation Status: CPR: Attempt Resuscitation (when asked by cardiology and myself patient would like everything done at this point.) Attending Statement The patient was seen and examined together with Dr. Gutierrez on 05/06/2016 and I agree with the history, exam and plan as outlined in the note above. Shelley Gutierrez DO May 06, 2016 12:04 Elmer Rosas MD May 11, 2016 11:07
--- NOTE | 2016-05-06 13:09 | PCM.PNMED ---
Subjective Date of Service May 06, 2016 Subjective Patient is intubated and sedated. ROS with subjective are not obtainable. Exam Vital Signs Vital Sign - Last Date Time Temp Pulse Resp B/P Pulse Ox O2 Delivery O2 Flow Rate FiO2 05/06/16 09:58 14 14 135/58 100 40 05/06/16 08:00 37.3 Mechanical Ventilator 05/04/16 16:50 40 Intake and Output 05/05/16 05/05/16 05/06/16 Cumulative From/Thru 15:00 23:00 07:00 05/03/16 16:45 - 05/06/16 06:17 Intake Total 878 ml 968 ml 3279 ml Output Total 2500 ml 1725 ml 19161 ml Balance -1622 ml -757 ml -8276 ml Intake Oral 0 ml IV Total 878 ml 928 ml 3239 ml Tube Irrigant 40 ml 40 ml Output Urine Total 2400 ml 1625 ml 09967 ml Gastric Drainage Total 100 ml 100 ml 250 ml # Bowel Movements 0 0 Exam Intubated and sedated. Symmetric pupils Anicteric sclera. Neck supple Lungs are clear, actually being ventilated. Heart is regular without murmur gallop or rub Abdomen is soft nontender. Extremities 2+ edema flag and AKA right leg. Stump appears fairly unremarkable with small margins of dehiscence both edges. Skin is free of rash or lesions. IVs and Medications Medications Reviewed: Medications were reviewed in detail Lab and Diagnostics Result Diagram: 05/06/16 0630 05/06/16 0630 Microbiology MRSA screen positive. Blood cultures 2 showed no growth after 24 hours. Gram stain of wound shows few PMNs and no organisms. Cultures of wound pending. . X-Rays, CTs and MRIs X-RAY CHEST ONE VIEW, PORTABLE IMPRESSION: Bibasilar alveolar consolidation, in the setting of reduced inspiration. Endotracheal and nasogastric tube positioning as noted. Bibasilar pneumonia versus atelectasis. Dictated by: Mukul Gutierrez M.D. on 05/06/2016 at 11:16 VENOUS LEG DUPLEX BILATERAL IMPRESSION: No deep venous thrombosis identified within either the left or right lower extremities. Dictated by: Jayme Sotelo A Interpreted: Bethany Witt MD on 05/05/2016 at 13:14 CT CHEST WITH CONTRAST IMPRESSION: 1. Resolving pulmonary edema. 2. No change in pulmonary nodules bilaterally. Followup CT suggesting 3 months ( around July of 2016). 3. Atherosclerosis. 4. Small hiatal hernia. Dictated by: Toño Watts M.D. on 05/04/2016 at 10:24 X-RAY CHEST ONE VIEW, PORTABLE IMPRESSION: 1. Right basilar opacities suspicious for pneumonia. 2. CHF. Dictated by: Bethany Witt MD, PhD on 05/03/2016 at 17:23 . Cardiac Echo Impressions Echocardiogram Interpretation Summary: The study quality was technically difficult. The left ventricle is normal in size. There appears to be severe hypokinesis of mid to distal inferior wall, inferoseptum, apex, distal lateral wall and basal posterior wall.The ejection fraction is estimated to be 35-40%. The right ventricle grossly appears normal in size with probable normal systolic function. There is mild aortic regurgitation. The IVC is of normal diameter and collapses greater than 50% with a sniff. This suggests a low right atrial pressure of 3 mm Hg. Reading Physician:PM . Additional Diagnostics PROCEDURES: 1. Coronary angiogram--urgent 2. LEFT HEART CATHETERIZATION (LHC)--pressure measurement. CONCLUSIONS: 1. Coronary angiogram--no severe coronary lesions. Note extensive coronary calcification. 2. Elevated LVED. 3. CAD (coronary artery disease--single-vessel disease with diffuse narrowing of obtuse marginal-1 (60% to 70%). RECOMMENDATIONS: 1. Medical therapy for his pulmonary edema and cardiomyopathy noting echo had showed ejection fraction 35% to 40% with no severe valvular disease. 2. Comment: We found no severe coronary disease that would be a culprit for his NSTEMI or pulmonary edema. The only potentially significant coronary lesion is the moderate diffuse narrowing of the proximal OM-1, which was not a likely culprit or candidate for intervention. Mono Denton MD 05/04/16 1924. . Assessment & Plan Dre Vazquez is a 71-year-old male with past medical history significant for hypertension, hyperlipidemia, diabetes mellitus, peripheral vascular disease status post recent iymbm-ebl-msig amputation who presented to [facility] emergency Department for worsening shortness of breath. The patient was admitted for NSTEMI and intubated for cardiac catheterization. Hospital day #4. 1. Acute hypoxemic respiratory failure, present on admission. Active. - Patient presented with worsening shortness of breath and was subsequently intubated for flash pulmonary edema secondary to acute systolic CHF exacerbation and NSTEMI. - Monitor ABG daily for vent management. - Ventilator settings, as above. - The patient is demanding less oxygen with an FiO2 of 0.35. The plan is to breathing trial this morning and see if it is feasible to extubate him to high flow nasal cannula oxygen. 2. Acute systolic heart failure exacerbation, present on admission. Active. - Echocardiogram demonstrated severe hypokinesis of mid to distal inferior wall , inferoseptum, apex, distal lateral wall and basal posterior wall with an ejection fraction of 35-40%, as above. - Continue diuresis with Lasix 40 mg every 8 hours. High flow oxygen after extubation. No change in diuretic dosing. 3. NSTEMI, present on admission. Active. - Coronary catheterization shows nonobstructive CAD with a stenotic obtuse marginal artery 1 60-70% not amenable to PCI. - Continue medical management per cardiology. The patient has catheterization report is noted with no critical stenoses. The current plan is to continue medical management. 4. Recent right cjioa-skr-masw amputation, present on admission. Active. - Small clean based ulcer on lateral margin of the stump, as above. - Wound care following. Will plan to apply silver nitrate to ulceration for local infection per infectious disease. - Infectious disease consulted and following. We appreciate your time and care of the patient. The patient has probable Pseudomonas and Proteus colonization. We will have infectious disease assessment the wound today. There appears to be no active infection however. 5. Acute hypokalemia, not present on admission. Active. - Secondary to loop diuretic. - Continue potassium repletion with potassium chloride 20 mEq twice a day. 6. DM 2. POA. This is stable. No change in current medical regimen. Pain Evaluation: Adequate Pain Control GI Prophylaxis: Proton Pump Inhibitor VTE Prophylaxis: Sub-Q Heparin (Unfractionated) VTE Mechanical Devices: Intermittant Pneumatic CD Resuscitation Status: CPR: Attempt Resuscitation (when asked by cardiology and myself patient would like everything done at this point.) Time spent 30 minutes Cordell Tipton MD May 06, 2016 13:09
[2016-05-06] MEDS ORDERED: fentaNYL-PF 50 mCg/mL 2 mL Inj IVPUSH PRN (17:00)
[2016-05-06] MEDS ORDERED: KCl 20 mEq/100 mL(CENTRAL) 20 MEQ in IV Premix 1 EACH IV ONE (20:15)
[2016-05-06] MEDS ORDERED: Potassium Chloride Inj 20 MEQ in Dextrose 5% 250 ML IV ONE (20:50)
[2016-05-07] VITALS (12 sets, daily range): BP systolic 133–174; BP diastolic 74–80; PULSE 84–104; RESP 16–22; O2SAT 93–100
[2016-05-07] MEDS: Albuterol-Ipratropium 3 mL Inhalation Solution NEB SCH ×4 (00:30→19:52)
[2016-05-07] MEDS: Furosemide 10 mg/mL 4 mL Inj IVPUSH SCH ×2 (00:49→08:14)
[2016-05-07] MEDS ORDERED: MeTOProlol 1 mg/mL 5 mL Inj IVPUSH ONE (01:35)
[2016-05-07 04:05] LABS: BASOPHILS % (AUTO) 0.4 % (0-3); EOSINOPHILS % (AUTO) 6.1 % (0-5); MONOCYTES % (AUTO) 10.3 % (4-12); Mean Corpuscular Hemoglobin 24.3 pg (27.0-35.0); NEUTROPHILS % (AUTO) 76.1 % (40-74); Platelet Count 354 bil/L (150-400)
[2016-05-07 04:26] LABS: Magnesium 1.6 mg/dL (1.6-2.6)
[2016-05-07] MEDS: Insulin LISPRO 300 Unit/3 mL Inj SUBQ SCH ×4 (08:00→23:22)
[2016-05-07] MEDS: Venlafaxine XR 37.5 mg ER24 Capsule PO SCH (08:13)
[2016-05-07] MEDS: Potassium Chloride 20 mEq SR Tablet PO SCH ×2 (08:13→19:37)
[2016-05-07] MEDS: Pantoprazole 4 mg/mL 10 mL Inj IVPUSH SCH (08:14)
[2016-05-07] MEDS: MeTOProlol XL 50 mg ER24 Tablet PO SCH (08:14)
--- NOTE | 2016-05-07 09:51 | PROG NOTE ---
[address] [address] PROGRESS NOTE PATIENT: ROBBIE AEC : 1945 MR#: [id number] ADMIT: 05/03/2016 JOB ID: [id number] DATE: 05/07/2016 INFECTIOUS DISEASE FOLLOW UP NOTE: REASON FOR FOLLOW UP: Right AKA stump infection. INTERVAL HISTORY: Overnight the patient has been extubated and is now on nasal oxygen. He reports he is not significantly short of breath. Has no fevers, no chills, no chest pain. No nausea, vomiting. No diarrhea. He denies any pain at his right BKA stump site. PHYSICAL EXAMINATION: Temperature 37.4, pulse 96, respiratory rate 20, blood pressure 174/78, saturating well on high-flow nasal oxygen. Oral cavity benign. Mental status seems clear this morning. Lungs relatively clear. Cardiac tones regular rate and rhythm. Abdomen benign. The right AKA stump has the small areas of inflammation that were noted yesterday but there is no surrounding cellulitis whatsoever. LABORATORIES: Include a white count which has jumped to 14,000, 76% segs. His creatinine is 0.81. His LFTs are normal. Procalcitonin 0.31. Serologic studies include pending Swartz C and crypto antigen. Micro studies are notable for a Staph aureus growing from the AKA stump on the right. IMPRESSION: I see no evidence for systemic infection in this gentleman. His bump in white count is likely related to his recent extubation and other issues here in the ICU. He appears entirely nontoxic and has a very localized infection. RECOMMENDATIONS: 1. I see no need for systemic antibiotics at this time. 2. This case was discussed yesterday with the wound management team. 3. ID will go ahead and sign off on this case at this time but do not hesitate to call if there is additional questions or problems.
--- NOTE | 2016-05-07 10:23 | PCM.PNMED ---
Subjective Date of Service May 07, 2016 Subjective The patient is currently sitting up in bed and conversant. Exam Vital Signs Vital Sign - Last Date Time Temp Pulse Resp B/P Pulse Ox O2 Delivery O2 Flow Rate FiO2 05/07/16 10:01 92 18 100 Nasal Cannula 3.00 05/07/16 07:55 37.0 155/80 05/07/16 06:34 30 Intake and Output 05/06/16 05/06/16 05/07/16 Cumulative From/Thru 14:59 22:59 06:59 05/03/16 16:45 - 05/07/16 05:54 Intake Total 230 ml 356 ml 3865 ml Output Total 1700 ml 2400 ml 16473 ml Balance -1470 ml -2044 ml -88240 ml Intake Oral 0 ml IV Total 230 ml 356 ml 3825 ml Tube Irrigant 40 ml Output Urine Total 1700 ml 2400 ml 61750 ml Gastric Drainage Total 250 ml # Bowel Movements 0 0 Exam Constitutional: Elderly male in no acute distress Head: Normocephalic atraumatic Chest: Crackles at his bases Cor: Regular rate and rhythm S1-S2 Abdomen: Soft nontender bowel sounds present Extremities: Right AKA left 1+ edema area Neuro: Alert and oriented 3, moves all extremities equally IVs and Medications Medications Reviewed: Medications were reviewed in detail Lab and Diagnostics Laboratory Tests 72 Hours Test 05/04/16 12:16 05/04/16 13:01 05/04/16 13:24 05/04/16 22:10 Activated Partial Thromboplast Time 26.2sec (22.8-33.0) Troponin T 0.042ug/L (0.0-0.011) 0.034ug/L (0.0-0.011) 0.048ug/L (0.0-0.011) Total Creatine Kinase 160U/L (21-232) Sodium Level 139mEq/L (134-144) 138mEq/L (134-144) Potassium Level 3.7mEq/L (3.5-5.2) 3.8mEq/L (3.5-5.2) Chloride Level 96mEq/L (97-108) 98mEq/L (97-108) Carbon Dioxide Level 24mmol/L (18-29) 23mmol/L (18-29) Blood Urea Nitrogen 14mg/dL (8-27) 16mg/dL (8-27) Creatinine 0.82mg/dL (0.76-1.27) 1.09mg/dL (0.76-1.27) Estimat Glomerular Filtration Rate 99mL/min (>59) 71mL/min (>59) Glucose Level 128mg/dL (60-99) 123mg/dL (60-99) Calcium Level 9.4mg/dL (8.5-10.1) 8.5mg/dL (8.5-10.1) Magnesium Level 1.4mg/dL (1.6-2.6) 2.1mg/dL (1.6-2.6) White Blood Count 6.1th/mm3 (3.8-10.1) Red Blood Count 3.59mil/mm3 (4.40-5.80) Hemoglobin 8.6g/dL (13.8-17.2) Hematocrit 29.4% (41.0-50.0) Mean Corpuscular Volume 81.9fL (81-100) Mean Corpuscular Hemoglobin 24.0pg (27.0-35.0) Mean Corpuscular Hemoglobin Concent 29.3% (32.0-37.0) Red Cell Distribution Width 20.7% (12.3-15.4) Platelet Count 350bil/L (150-400) Neutrophils (%) (Auto) 49.1% (40-74) Lymphocytes (%) (Auto) 31.9% (14-46) Monocytes (%) (Auto) 11.7% (4-12) Eosinophils (%) (Auto) 5.4% (0-5) Basophils (%) (Auto) 1.1% (0-3) Total Bilirubin 0.4mg/dL (0.0-1.2) Aspartate Amino Transf (AST/SGOT) 16U/L (0-50) Alanine Aminotransferase (ALT/SGPT) 9U/L (0-44) Alkaline Phosphatase 61U/L (25-160) Total Protein 6.3g/dL (6.4-8.4) Albumin 3.6g/dL (3.4-5.0) Prealbumin 20mg/dL (20-40) Test 05/05/16 04:00 05/05/16 11:43 05/06/16 06:30 05/07/16 03:55 White Blood Count 6.1th/mm3 (3.8-10.1) 8.7th/mm3 (3.8-10.1) 14.0th/mm3 (3.8-10.1) Red Blood Count 3.47mil/mm3 (4.40-5.80) 3.76mil/mm3 (4.40-5.80) 4.41mil/mm3 (4.40-5.80) Hemoglobin 8.5g/dL (13.8-17.2) 9.2g/dL (13.8-17.2) 10.7g/dL (13.8-17.2) Hematocrit 28.7% (41.0-50.0) 31.3% (41.0-50.0) 36.6% (41.0-50.0) Mean Corpuscular Volume 82.7fL (81-100) 83.2fL (81-100) 83.0fL (81-100) Mean Corpuscular Hemoglobin 24.5pg (27.0-35.0) 24.5pg (27.0-35.0) 24.3pg (27.0-35.0) Mean Corpuscular Hemoglobin Concent 29.6% (32.0-37.0) 29.4% (32.0-37.0) 29.2% (32.0-37.0) Red Cell Distribution Width 20.7% (12.3-15.4) 21.4% (12.3-15.4) 21.3% (12.3-15.4) Platelet Count 305bil/L (150-400) 332bil/L (150-400) 354bil/L (150-400) Neutrophils (%) (Auto) 51.3% (40-74) 67.4% (40-74) 76.1% (40-74) Lymphocytes (%) (Auto) 26.2% (14-46) 14.1% (14-46) 6.9% (14-46) Monocytes (%) (Auto) 14.2% (4-12) 10.8% (4-12) 10.3% (4-12) Eosinophils (%) (Auto) 6.8% (0-5) 6.9% (0-5) 6.1% (0-5) Basophils (%) (Auto) 1.0% (0-3) 0.5% (0-3) 0.4% (0-3) Sodium Level 138mEq/L (134-144) 141mEq/L (134-144) 143mEq/L (134-144) Potassium Level 3.4mEq/L (3.5-5.2) 3.4mEq/L (3.5-5.2) 3.8mEq/L (3.5-5.2) 3.7mEq/L (3.5-5.2) Chloride Level 99mEq/L (97-108) 99mEq/L (97-108) 97mEq/L (97-108) Carbon Dioxide Level 24mmol/L (18-29) 24mmol/L (18-29) 27mmol/L (18-29) Blood Urea Nitrogen 17mg/dL (8-27) 13mg/dL (8-27) 13mg/dL (8-27) Creatinine 0.97mg/dL (0.76-1.27) 0.95mg/dL (0.76-1.27) 0.81mg/dL (0.76-1.27) Estimat Glomerular Filtration Rate 81mL/min (>59) 83mL/min (>59) 100mL/min (>59) Glucose Level 93mg/dL (60-99) 108mg/dL (60-99) 115mg/dL (60-99) Calcium Level 8.3mg/dL (8.5-10.1) 9.0mg/dL (8.5-10.1) 9.5mg/dL (8.5-10.1) Phosphorus Level 4.0mg/dL (2.5-4.9) Magnesium Level 1.9mg/dL (1.6-2.6) 1.6mg/dL (1.6-2.6) 1.6mg/dL (1.6-2.6) Total Bilirubin 0.4mg/dL (0.0-1.2) 0.4mg/dL (0.0-1.2) 1.0mg/dL (0.0-1.2) Aspartate Amino Transf (AST/SGOT) 16U/L (0-50) 13U/L (0-50) 14U/L (0-50) Alanine Aminotransferase (ALT/SGPT) 9U/L (0-44) 8U/L (0-44) 8U/L (0-44) Alkaline Phosphatase 58U/L (25-160) 70U/L (25-160) 83U/L (25-160) Total Protein 6.0g/dL (6.4-8.4) 6.5g/dL (6.4-8.4) 7.3g/dL (6.4-8.4) Albumin 3.6g/dL (3.4-5.0) 3.9g/dL (3.4-5.0) 4.4g/dL (3.4-5.0) Procalcitonin 0.31ng/mL (0.00-0.08) Prealbumin 20mg/dL (20-40) Result Diagram: 05/07/16 0355 05/07/16 035 Microbiology MRSA screen positive. Blood cultures 2 showed no growth after 24 hours. Gram stain of wound shows few PMNs and no organisms. Cultures of wound pending. . X-Rays, CTs and MRIs X-RAY CHEST ONE VIEW, PORTABLE IMPRESSION: Bibasilar alveolar consolidation, in the setting of reduced inspiration. Endotracheal and nasogastric tube positioning as noted. Bibasilar pneumonia versus atelectasis. Dictated by: Mukul Gutierrez M.D. on 05/06/2016 at 11:16 US VENOUS LEG DUPLEX BILATERAL IMPRESSION: No deep venous thrombosis identified within either the left or right lower extremities. Dictated by: Jayme HOLLOWAY Interpreted: Bethany Witt MD on 05/05/2016 at 13:14 CT CHEST WITH CONTRAST IMPRESSION: 1. Resolving pulmonary edema. 2. No change in pulmonary nodules bilaterally. Followup CT suggesting 3 months ( around July of 2016). 3. Atherosclerosis. 4. Small hiatal hernia. Dictated by: Toño Watts M.D. on 05/04/2016 at 10:24 X-RAY CHEST ONE VIEW, PORTABLE IMPRESSION: 1. Right basilar opacities suspicious for pneumonia. 2. CHF. Dictated by: Bethany Witt MD, PhD on 05/03/2016 at 17:23 . Cardiac Echo Impressions Echocardiogram Interpretation Summary: The study quality was technically difficult. The left ventricle is normal in size. There appears to be severe hypokinesis of mid to distal inferior wall, inferoseptum, apex, distal lateral wall and basal posterior wall.The ejection fraction is estimated to be 35-40%. The right ventricle grossly appears normal in size with probable normal systolic function. There is mild aortic regurgitation. The IVC is of normal diameter and collapses greater than 50% with a sniff. This suggests a low right atrial pressure of 3 mm Hg. Reading Physician:KHURRAM . Additional Diagnostics PROCEDURES: 1. Coronary angiogram--urgent 2. LEFT HEART CATHETERIZATION (LHC)--pressure measurement. CONCLUSIONS: 1. Coronary angiogram--no severe coronary lesions. Note extensive coronary calcification. 2. Elevated LVED. 3. CAD (coronary artery disease--single-vessel disease with diffuse narrowing of obtuse marginal-1 (60% to 70%). RECOMMENDATIONS: 1. Medical therapy for his pulmonary edema and cardiomyopathy noting echo had showed ejection fraction 35% to 40% with no severe valvular disease. 2. Comment: We found no severe coronary disease that would be a culprit for his NSTEMI or pulmonary edema. The only potentially significant coronary lesion is the moderate diffuse narrowing of the proximal OM-1, which was not a likely culprit or candidate for intervention. Mono Denton MD 05/04/16 1924. . Assessment & Plan Dre Vazquez is a 71-year-old male with past medical history significant for hypertension, hyperlipidemia, diabetes mellitus, peripheral vascular disease status post recent wiznx-mxj-tycw amputation who presented to [facility] emergency Department for worsening shortness of breath. The patient was admitted for NSTEMI and intubated for cardiac catheterization. Hospital day #4. 1. Acute hypoxemic respiratory failure, present on admission. Active. - Patient presented with worsening shortness of breath and was subsequently intubated for flash pulmonary edema secondary to acute systolic CHF exacerbation and NSTEMI. - Patient currently is on nasal cannula O2 supplementation in stable 2. Acute systolic heart failure exacerbation, present on admission. Active. - Echocardiogram demonstrated severe hypokinesis of mid to distal inferior wall , inferoseptum, apex, distal lateral wall and basal posterior wall with an ejection fraction of 35-40%, as above. - Patient has diuresed well and will decrease Lasix to 40 mg IV daily and monitor status 3. NSTEMI, present on admission. Active. - Coronary catheterization shows nonobstructive CAD with a stenotic obtuse marginal artery 1 60-70% not amenable to PCI. - Continue medical management per cardiology. The patient has catheterization report is noted with no critical stenoses. The current plan is to continue medical management. 4. Recent right hqmkw-sro-fmrm amputation, present on admission. Active. - Small clean based ulcer on lateral margin of the stump, as above. - Wound care following. Will plan to apply silver nitrate to ulceration for local infection per infectious disease. -Per infectious disease sees no need for antibiotic therapy at this time The patient has probable Pseudomonas and Proteus colonization. There appears to be no active infection however. 5. Acute hypokalemia, not present on admission. Active. - Secondary to loop diuretic. - Continue potassium repletion with potassium chloride 20 mEq twice a day. 6. DM 2. POA. This is stable. No change in current medical regimen. GI Prophylaxis: Proton Pump Inhibitor VTE Prophylaxis: Sub-Q Heparin (Unfractionated) VTE Mechanical Devices: Intermittant Pneumatic CD Resuscitation Status: CPR: Attempt Resuscitation (when asked by cardiology and myself patient would like everything done at this point.) Time spent 30 minutes Yeni Clarke MD May 07, 2016 10:23 Yeni Clarke MD May 07, 2016 10:23 myself patient would like everything done at this point.) Yeni Clarke MD May 07, 2016 10:23
[2016-05-07] MEDS: Propofol Inj 1,000,000 MCG in IV Premix 1 EACH IV SCH (17:22)
[2016-05-07] MEDS: fentaNYL 2,500 mCg/250 mL 2,500 MCG in IV Premix 1 EACH IV SCH (17:22)
[2016-05-08] VITALS (16 sets, daily range): BP systolic 116–157; BP diastolic 60–79; PULSE 78–87; RESP 18–20; O2SAT 90–97
[2016-05-08] MEDS: Albuterol-Ipratropium 3 mL Inhalation Solution NEB SCH ×4 (00:24→11:57)
[2016-05-08] MEDS: Insulin LISPRO 300 Unit/3 mL Inj SUBQ SCH ×4 (08:00→20:19)
[2016-05-08] MEDS ORDERED: Furosemide 10 mg/mL 4 mL Inj IVPUSH SCH (08:30)
[2016-05-08] MEDS: Potassium Chloride 20 mEq SR Tablet PO SCH ×2 (08:38→20:18)
[2016-05-08] MEDS: Pantoprazole 4 mg/mL 10 mL Inj IVPUSH SCH (08:38)
[2016-05-08] MEDS: MeTOProlol XL 50 mg ER24 Tablet PO SCH (08:38)
[2016-05-08] MEDS: Venlafaxine XR 37.5 mg ER24 Capsule PO SCH (08:41)
[2016-05-08 10:07] LABS: BASOPHILS % (AUTO) 0.6 % (0-3); EOSINOPHILS % (AUTO) 6.4 % (0-5); MONOCYTES % (AUTO) 11.5 % (4-12); Mean Corpuscular Hemoglobin 24.6 pg (27.0-35.0); Mean Corpuscular Volume 84.5 fL (81-100); NEUTROPHILS % (AUTO) 71.2 % (40-74); Platelet Count 338 bil/L (150-400)
[2016-05-08] MEDS ORDERED: Lactulose 20 Gm/30 mL 30 mL Syrup TUBE ONE (10:40)
[2016-05-08 10:44] LABS: Magnesium 1.9 mg/dL (1.6-2.6)
[2016-05-08] MEDS ORDERED: Albuterol-Ipratropium 3 mL Inhalation Solution NEB PRN (12:15)
[2016-05-08] MEDS ORDERED: Albuterol 2.5 mg/3 mL Inhalation Solution NEB PRN (17:55)
--- NOTE | 2016-05-08 19:28 | PCM.PNMED ---
Subjective Date of Service May 08, 2016 Subjective Dre Vazquez is a 71-year-old male with past medical history significant for hypertension, hyperlipidemia, diabetes mellitus, peripheral vascular disease status post recent iodtd-iav-ytrz amputation who presented to [facility] emergency Department for worsening shortness of breath. The patient was admitted for NSTEMI and intubated for cardiac catheterization. Hospital day #5 No acute events reported overnight This morning patient reports doing better, he is not having any chest pain. He continues to have a cough with white to yellow sputum production. Exam Vital Signs Vital Sign - Last Date Time Temp Pulse Resp B/P Pulse Ox O2 Delivery O2 Flow Rate FiO2 05/08/16 07:56 87 05/08/16 05:57 36.7 18 148/79 96 Nasal Cannula 2.00 05/07/16 06:34 30 Intake and Output 05/07/16 05/07/16 05/08/16 Cumulative From/Thru 15:00 23:00 07:00 05/03/16 16:45 - 05/08/16 04:28 Intake Total 35 ml 80 ml 3980 ml Output Total 250 ml 66085 ml Balance -215 ml 80 ml -17154 ml Intake Oral 0 ml 0 ml IV Total 35 ml 80 ml 3940 ml Tube Irrigant 40 ml Output Urine Total 250 ml 49817 ml Gastric Drainage Total 250 ml # Bowel Movements 0 0 Exam General: No acute distress, well-developed, well-nourished, appropriately interactive HEENT: Normocephalic, atraumatic. External ears without defect. Pupils equal, round, and reactive to light and accommodation. Anicteric sclerae, moist conjunctivae, and no lid lag. Oropharynx free of erythema and cobble stoning with moist mucosa. Neck: Supple with full range of motion. No jugular venous distension. No lymphadenopathy or thyromegaly. Cardiovascular: Distant heart sounds, regular rate and rhythm with no murmurs, rubs, or gallops appreciated Pulmonary: Clear to auscultation bilaterally with no crackles, wheezes, or rhonchi. Normal respiratory effort with no use of accessory muscles. Abdomen: Bowel tones present. Soft, obese, nontender, nondistended. No hepatosplenomegaly or masses appreciated. Extremities: Right leg AKA, left leg with mild pitting edema to mid calf, skin glossy with foldings indicative of prior edema. No clubbing, cyanosis, or lymphadenopathy appreciated. Skin: Normal temperature, turgor, and texture; no rash, ulcers, or subcutaneous nodules appreciated. Neurological: Cranial nerves grossly intact. Normal muscle strength, tone, and bulk. Psychiatric: Normal mood and affect. Alert and oriented to person, place, and time. Lab and Diagnostics Result Diagram: 05/07/16 0355 05/07/16 0355 Microbiology MRSA screen positive. Blood cultures 2 showed no growth after 24 hours. Gram stain of wound shows few PMNs and no organisms. Cultures of wound pending. . X-Rays, CTs and MRIs X-RAY CHEST ONE VIEW, PORTABLE IMPRESSION: Bibasilar alveolar consolidation, in the setting of reduced inspiration. Endotracheal and nasogastric tube positioning as noted. Bibasilar pneumonia versus atelectasis. Dictated by: Mukul Gutierrez M.D. on 05/06/2016 at 11:16 VENOUS LEG DUPLEX BILATERAL IMPRESSION: No deep venous thrombosis identified within either the left or right lower extremities. Dictated by: Jayme Sotelo RRA Interpreted: Bethany Witt MD on 05/05/2016 at 13:14 CT CHEST WITH CONTRAST IMPRESSION: 1. Resolving pulmonary edema. 2. No change in pulmonary nodules bilaterally. Followup CT suggesting 3 months ( around July of 2016). 3. Atherosclerosis. 4. Small hiatal hernia. Dictated by: Toño Watts M.D. on 05/04/2016 at 10:24 X-RAY CHEST ONE VIEW, PORTABLE IMPRESSION: 1. Right basilar opacities suspicious for pneumonia. 2. CHF. Dictated by: Bethany Witt MD, PhD on 05/03/2016 at 17:23 . Cardiac Echo Impressions Echocardiogram Interpretation Summary: The study quality was technically difficult. The left ventricle is normal in size. There appears to be severe hypokinesis of mid to distal inferior wall, inferoseptum, apex, distal lateral wall and basal posterior wall.The ejection fraction is estimated to be 35-40%. The right ventricle grossly appears normal in size with probable normal systolic function. There is mild aortic regurgitation. The IVC is of normal diameter and collapses greater than 50% with a sniff. This suggests a low right atrial pressure of 3 mm Hg. Reading Physician:PM . Additional Diagnostics PROCEDURES: 1. Coronary angiogram--urgent 2. LEFT HEART CATHETERIZATION (LHC)--pressure measurement. CONCLUSIONS: 1. Coronary angiogram--no severe coronary lesions. Note extensive coronary calcification. 2. Elevated LVED. 3. CAD (coronary artery disease--single-vessel disease with diffuse narrowing of obtuse marginal-1 (60% to 70%). RECOMMENDATIONS: 1. Medical therapy for his pulmonary edema and cardiomyopathy noting echo had showed ejection fraction 35% to 40% with no severe valvular disease. 2. Comment: We found no severe coronary disease that would be a culprit for his NSTEMI or pulmonary edema. The only potentially significant coronary lesion is the moderate diffuse narrowing of the proximal OM-1, which was not a likely culprit or candidate for intervention. Mono Denton MD 05/04/161923. . Assessment & Plan Dre Vazquez is a 71-year-old male with past medical history significant for hypertension, hyperlipidemia, diabetes mellitus, peripheral vascular disease status post recent tuzof-jqa-dkpt amputation who presented to [facility] emergency Department for worsening shortness of breath. The patient was admitted for NSTEMI and intubated for cardiac catheterization. Hospital day #4. 1. Acute hypoxemic respiratory failure, present on admission. Active. - Patient presented with worsening shortness of breath and was subsequently intubated for flash pulmonary edema secondary to acute systolic CHF exacerbation and NSTEMI. - Patient currently is on nasal cannula O2 supplementation is stable - DuoNeb 4 times a day while awake, albuterol nebulizer when necessary 2. Acute systolic heart failure exacerbation, present on admission. Active. - Echocardiogram demonstrated severe hypokinesis of mid to distal inferior wall , inferoseptum, apex, distal lateral wall and basal posterior wall with an ejection fraction of 35-40%, as above. - Patient has diuresed well, she is down over 11 L. - Converted to by mouth Lasix of 40 mg daily and monitor status 3. NSTEMI, present on admission. Active. - Coronary catheterization shows nonobstructive CAD with a stenotic obtuse marginal artery 1 60-70% not amenable to PCI. - Continue medical management per cardiology. - The patient has catheterization report is noted with no critical stenoses. The current plan is to continue medical management. 4. Recent right ewvay-jxq-spqd amputation, present on admission. Active. - Small clean based ulcer on lateral margin of the stump. - Wound care following. Will plan to apply silver nitrate to ulceration for local infection per infectious disease. - Per infectious disease sees no need for antibiotic therapy at this time - The patient has probable Pseudomonas and Proteus colonization. There appears to be no active infection however. 5. Acute hypokalemia, not present on admission. Active. - Secondary to loop diuretic. - Continue potassium repletion with potassium chloride 20 mEq twice a day. 6. DM 2. POA. This is stable. No change in current medical regimen. Patient was admitted under inpatient status with expected length of stay greater than 2 midnights, he is likely to discharge to [facility] facility tomorrow. Pain Evaluation: Adequate Pain Control GI Prophylaxis: Proton Pump Inhibitor VTE Prophylaxis: Sub-Q Heparin (Unfractionated) VTE Mechanical Devices: Intermittant Pneumatic CD Resuscitation Status: CPR: Attempt Resuscitation (when asked by cardiology and myself patient would like everything done at this point.) Attending Statement The patient was seen and examined together with Dr. Morales on 05/08/2016 and I agree with the history, exam and plan as outlined in the note above. Tiarra Morales DO May 08, 2016 08:50 Lavon Boss MD May 09, 2016 11:26
[2016-05-08] MEDS: Albuterol-Ipratropium 3 mL Inhalation Solution NEB PRN (23:47)
[2016-05-09] VITALS (7 sets, daily range): BP systolic 116–137; BP diastolic 63–69; PULSE 78–96; RESP 20; O2SAT 94–100
[2016-05-09 06:36] LABS: BASOPHILS % (AUTO) 0.5 % (0-3); EOSINOPHILS % (AUTO) 9.1 % (0-5); MONOCYTES % (AUTO) 12.6 % (4-12); Mean Corpuscular Volume 83.6 fL (81-100); NEUTROPHILS % (AUTO) 63.5 % (40-74); Platelet Count 345 bil/L (150-400)
[2016-05-09] MEDS: Pantoprazole 4 mg/mL 10 mL Inj IVPUSH SCH (07:32)
[2016-05-09] MEDS: Venlafaxine XR 37.5 mg ER24 Capsule PO SCH (07:41)
[2016-05-09] MEDS: HYDROcodone-APAP 5-325 mg Tablet PO PRN ×2 (07:41→14:19)
[2016-05-09] MEDS: Insulin LISPRO 300 Unit/3 mL Inj SUBQ SCH ×4 (07:42→22:00)
[2016-05-09] MEDS: Potassium Chloride 20 mEq SR Tablet PO SCH ×2 (09:12→19:32)
[2016-05-09] MEDS: MeTOProlol XL 50 mg ER24 Tablet PO SCH (09:13)
--- NOTE | 2016-05-09 11:20 | PROG NOTE ---
[address] [address] PROGRESS NOTE PATIENT: ROBBIE ACE : 1945 MR#: [id number] ADMIT: 05/03/2016 JOB ID: [id number] DATE: 05/09/2016 CHIEF COMPLAINT: The patient came in with increased dyspnea and findings consistent with heart failure. He was actually intubated. He is now extubated. SUBJECTIVE: The patient says he is feeling much better. He does not report any orthopnea, PND. He denies chest pain or chest pressure. He has had cardiac catheterization, did not reveal any significant obstructive findings. EF was reported as reduced. He says his left heel is very painful. It hurts to put it on the bed. Feels best when it is just hanging off the side, not touching anything. PHYSICAL EXAMINATION: Today, blood pressure is 123/63, heart rate 84, sats are 94% on 2 L. General: In no acute distress. Speaking in full sentences without apparent shortness of breath. Head and neck examination: Normocephalic, atraumatic. Heart: Regular rate and rhythm. I do not appreciate murmurs, gallops, rubs appreciated. Lungs clear to auscultation anteriorly. Abdomen: Soft. Extremities: Right lower extremity amputation. Left lower extremity, mild edema. When I touch his heel, he has got significant pain. I tried to palpate for a pulse. However, that caused pain as well. I do not see any obvious skin breakdown. MEDICATIONS: Include: 1. Lisinopril 5 b.i.d. 2. Baclofen 10 t.i.d. 3. Lasix 40 daily. This is a new change. 4. Aspirin 81 mg a day. 5. Spironolactone 12.5 daily. 6. Metoprolol succinate 50 mg daily. 7. Venlafaxine. 8. Pantoprazole. 9. Atorvastatin 80 mg q.h.s. 10. Insulin. LABORATORIES: Show white count 8.6, H and H 9.4 and 32.7, platelets of 345,000. Chemistry: Sodium 137, potassium 3.8, chloride and bicarbonate 94 and 24 respectively. BUN and creatinine 29 and 0.81. IMAGING: Venous duplex: No DVT. Chest x-ray: May 06, bibasilar pneumonia versus atelectasis. I's and O's remain negative although not to the same degree when he was receiving IV diuretics. IMPRESSION: The patient is doing better. He is now extubated. He is now on all oral medications. He looks well. He does not report any increased shortness of breath, orthopnea. He is concerned about his living situation because he is not sure where he is going to go at this time and he also reports some pain of his left heel. I do not appreciate any open wounds at this time and this might be related to a prolonged period of lying in bed while extubated. However, I will discuss it with his team to see if there is any way we can position his foot so he has less discomfort. If there is any progression of any open wound, I would recommend assessment of his vascular status. 30 minutes was spent reviewing the chart, speaking with an examining the patient CANDELARIO
[2016-05-09] MEDS: Mupirocin 2% 22 Gm Ointment TOPICAL SCH ×2 (14:02→19:33)
[2016-05-09] MEDS: MICONAZOLE 2% TOPICAL SCH ×2 (14:03→19:32)
--- NOTE | 2016-05-09 17:14 | PCM.PNMED ---
Subjective Date of Service May 09, 2016 Subjective Dre Vazquez is a 71-year-old male with past medical history significant for hypertension, hyperlipidemia, diabetes mellitus, peripheral vascular disease status post recent [id number] amputation who presented to [facility] emergency Department for worsening shortness of breath. The patient was admitted for NSTEMI and intubated for cardiac catheterization. Hospital day #6 Exam Vital Signs Vital Sign - Last Date Time Temp Pulse Resp B/P Pulse Ox O2 Delivery O2 Flow Rate FiO2 05/09/16 13:19 36.6 96 20 137/67 99 Nasal Cannula 2.00 05/07/16 06:34 30 Intake and Output 05/08/16 05/08/16 05/09/16 Cumulative From/Thru 14:59 22:59 06:59 05/03/16 16:45 - 05/09/16 06:42 Intake Total 400 ml 1958 ml 200 ml 6538 ml Output Total 150 ml 520 ml 350 ml 97629 ml Balance 250 ml 1438 ml -150 ml -73936 ml Intake Oral 400 ml 1836 ml 200 ml 2436 ml IV Total 122 ml 4062 ml Tube Irrigant 40 ml Output Urine Total 150 ml 520 ml 350 ml 60462 ml Gastric Drainage Total 250 ml # Bowel Movements 1 1 2 Exam General: No acute distress, well-developed, well-nourished, appropriately interactive HEENT: Normocephalic, atraumatic. External ears without defect. Pupils equal, round, and reactive to light and accommodation. Anicteric sclerae, moist conjunctivae, and no lid lag. Oropharynx free of erythema and cobble stoning with moist mucosa. Neck: Supple with full range of motion. No jugular venous distension. No lymphadenopathy or thyromegaly. Cardiovascular: Distant heart sounds, regular rate and rhythm with no murmurs, rubs, or gallops appreciated Pulmonary: Clear to auscultation bilaterally with no crackles, wheezes, or rhonchi. Normal respiratory effort with no use of accessory muscles. Abdomen: Bowel tones present. Soft, obese, nontender, nondistended. No hepatosplenomegaly or masses appreciated. Genitourinary: Saldana in place. Mild irritation at the urethral meatus, thick white clumped substance upon retraction of the foreskin. Extremities: Right leg AKA dressing clean dry and intact, left leg with mild pitting edema to high ankle, skin glossy with foldings indicative of prior edema. Dry skin and callus over left heel. No tenderness to palpation over her Achilles tendon or plantar fascia, tenderness on heel directly, no signs of ulceration or infection. No clubbing, cyanosis, or lymphadenopathy appreciated. Skin: Normal temperature, turgor, and texture; no rash, ulcers, or subcutaneous nodules appreciated. Neurological: Cranial nerves grossly intact. Normal muscle strength, tone, and bulk. Psychiatric: Normal mood and affect. Alert and oriented to person, place, and time. Lab and Diagnostics Result Diagram: 05/09/16 0600 05/09/16 06 Microbiology MRSA screen positive. Blood cultures 2 showed no growth after 24 hours. Gram stain of wound shows few PMNs and no organisms. Cultures of wound pending. . X-Rays, CTs and MRIs X-RAY CHEST ONE VIEW, PORTABLE IMPRESSION: Bibasilar alveolar consolidation, in the setting of reduced inspiration. Endotracheal and nasogastric tube positioning as noted. Bibasilar pneumonia versus atelectasis. Dictated by: Mukul Gutierrez M.D. on 05/06/2016 at 11:16 US VENOUS LEG DUPLEX BILATERAL IMPRESSION: No deep venous thrombosis identified within either the left or right lower extremities. Dictated by: Jayme Sotelo [facility] Interpreted: Bethany Witt MD on 05/05/2016 at 13:14 CT CHEST WITH CONTRAST IMPRESSION: 1. Resolving pulmonary edema. 2. No change in pulmonary nodules bilaterally. Followup CT suggesting 3 months ( around July of 2016). 3. Atherosclerosis. 4. Small hiatal hernia. Dictated by: Toño Watts M.D. on 05/04/2016 at 10:24 X-RAY CHEST ONE VIEW, PORTABLE IMPRESSION: 1. Right basilar opacities suspicious for pneumonia. 2. CHF. Dictated by: Bethany Witt MD, PhD on 05/03/2016 at 17:23 . Cardiac Echo Impressions Echocardiogram Interpretation Summary: The study quality was technically difficult. The left ventricle is normal in size. There appears to be severe hypokinesis of mid to distal inferior wall, inferoseptum, apex, distal lateral wall and basal posterior wall.The ejection fraction is estimated to be 35-40%. The right ventricle grossly appears normal in size with probable normal systolic function. There is mild aortic regurgitation. The IVC is of normal diameter and collapses greater than 50% with a sniff. This suggests a low right atrial pressure of 3 mm Hg. Reading Physician:PM . Additional Diagnostics PROCEDURES: 1. Coronary angiogram--urgent 2. LEFT HEART CATHETERIZATION (LHC)--pressure measurement. CONCLUSIONS: 1. Coronary angiogram--no severe coronary lesions. Note extensive coronary calcification. 2. Elevated LVED. 3. CAD (coronary artery disease--single-vessel disease with diffuse narrowing of obtuse marginal-1 (60% to 70%). RECOMMENDATIONS: 1. Medical therapy for his pulmonary edema and cardiomyopathy noting echo had showed ejection fraction 35% to 40% with no severe valvular disease. 2. Comment: We found no severe coronary disease that would be a culprit for his NSTEMI or pulmonary edema. The only potentially significant coronary lesion is the moderate diffuse narrowing of the proximal OM-1, which was not a likely culprit or candidate for intervention. Mono Denton MD 05/04/16 1924. . Assessment & Plan Dre Vazquez is a 71-year-old male with past medical history significant for hypertension, hyperlipidemia, diabetes mellitus, peripheral vascular disease status post recent [id number] amputation who presented to [facility] emergency Department for worsening shortness of breath. The patient was admitted for NSTEMI and intubated for cardiac catheterization. Hospital day #6. 1. Acute hypoxemic respiratory failure, present on admission. Active. - Patient presented with worsening shortness of breath and was subsequently intubated for flash pulmonary edema secondary to acute systolic CHF exacerbation and NSTEMI. - Patient currently is on nasal cannula O2 supplementation is stable - DuoNeb 4 times a day while awake, albuterol nebulizer when necessary 2. Acute systolic heart failure exacerbation, present on admission. Active. - Echocardiogram demonstrated severe hypokinesis of mid to distal inferior wall , inferoseptum, apex, distal lateral wall and basal posterior wall with an ejection fraction of 35-40%, as above. - Patient has diuresed well, she is down over 11 L. - Converted to by mouth Lasix of 40 mg daily and monitor status 3. NSTEMI, present on admission. Active. - Coronary catheterization shows nonobstructive CAD with a stenotic obtuse marginal artery 1 60-70% not amenable to PCI. - Continue medical management per cardiology. - The patient has catheterization report is noted with no critical stenoses. The current plan is to continue medical management. 4. Recent right [id number]-[id number] amputation, present on admission. Active. - Small clean based ulcer on lateral margin of the stump. - Wound care following. Will plan to apply silver nitrate to ulceration for local infection per infectious disease. - Per infectious disease sees no need for antibiotic therapy at this time - The patient has probable Pseudomonas and Proteus colonization. There appears to be no active infection however. 5. Acute hypokalemia, not present on admission. Active. - Secondary to loop diuretic. - Continue potassium repletion with potassium chloride 20 mEq twice a day. 6. DM 2. POA. This is stable. No change in current medical regimen. 7. Left heel pain, present on admission, chronic - Patient reports left heel pain that has been going on for the last year. It waxes and wanes. It has worsened today. - Workup in the outpatient setting according to patient bled to the assessment that there was inflammation in the heel of the foot. - Consider x-ray of the foot as patient may have bone spur. - If there are any skin changes or evidence of ulceration vascular imaging as recommended per cardiology. 8. Yeast infection, chronicity unknown - Patient complains of penile pain this morning. Upon examination and retraction of the foreskin patient has evidence of active yeast infection. - Miconazole cream to be placed on clean dry skin twice daily. - Cleaning of the area and retraction of the foreskin discussed with nursing and patient is able to contribute in this care but unable to complete it on his own as he is not showering regularly at this time - Saldana catheter in place. - If penile pain does not resolve with treatment of infection consider lidocaine gel applied topically at urethral meatus. Patient was admitted under inpatient status with expected length of stay greater than 2 midnights, he is likely to discharge to [facility] facility tomorrow. Pain Evaluation: Adequate Pain Control GI Prophylaxis: Proton Pump Inhibitor VTE Prophylaxis: Sub-Q Heparin (Unfractionated) VTE Mechanical Devices: Intermittant Pneumatic CD Resuscitation Status: CPR: Attempt Resuscitation (when asked by cardiology and myself patient would like everything done at this point.) Attending Statement The patient was seen and examined together with Dr. Morales on 05/09/2016 and I agree with the history, exam and plan as outlined in the note above. Tiarra Morales DO May 09, 2016 17:13 Lavon Boss MD May 10, 2016 11:22
[2016-05-10 00:24] VITALS: BP 157/75; PULSE 80; RESP 20; O2SAT 98
[2016-05-10 02:34] VITALS: PULSE 83; RESP 18; O2SAT 98
[2016-05-10] MEDS: Albuterol-Ipratropium 3 mL Inhalation Solution NEB PRN (02:34)
[2016-05-10 04:56] VITALS: BP 126/71; PULSE 79; RESP 20; O2SAT 99
[2016-05-10 06:07] VITALS: PULSE 83
[2016-05-10] MEDS ORDERED: Pantoprazole 40 mg ER24 Tablet PO SCH (06:30)
[2016-05-10 06:33] LABS: EOSINOPHILS % (AUTO) 12.7 % (0-5); MONOCYTES % (AUTO) 11.7 % (4-12); Mean Corpuscular Hemoglobin 24.1 pg (27.0-35.0); Mean Corpuscular Volume 83.2 fL (81-100); NEUTROPHILS % (AUTO) 51.9 % (40-74); Platelet Count 344 bil/L (150-400)
[2016-05-10] MEDS: Insulin LISPRO 300 Unit/3 mL Inj SUBQ SCH ×2 (08:00→11:19)
[2016-05-10 09:29] VITALS: PULSE 77
[2016-05-10] MEDS: MeTOProlol XL 50 mg ER24 Tablet PO SCH (09:45)
[2016-05-10] MEDS: Venlafaxine XR 37.5 mg ER24 Capsule PO SCH (09:45)
[2016-05-10] MEDS: Potassium Chloride 20 mEq SR Tablet PO SCH (09:46)
[2016-05-10] MEDS: Mupirocin 2% 22 Gm Ointment TOPICAL SCH (09:47)
[2016-05-10] MEDS: MICONAZOLE 2% TOPICAL SCH (09:47)
[2016-05-10 09:49] VITALS: BP 137/98; PULSE 83; RESP 20; O2SAT 98
[2016-05-10] MEDS ORDERED: SPIR25TA PO (10:53)
[2016-05-10] MEDS ORDERED: IPRA3AMP NEB (10:53)
[2016-05-10] MEDS ORDERED: NITR0.4T SL (10:53)
[2016-05-10] MEDS ORDERED: LISI-571 PO (10:53)
[2016-05-10] MEDS ORDERED: METO-272 PO (10:53)
[2016-05-10] MEDS ORDERED: ATOR40TA69 PO (10:53)
[2016-05-10] MEDS ORDERED: MICONAZOLE NITRATE TOPICAL (10:53)
[2016-05-10] MEDS ORDERED: ALBU2.5V4 NEB (10:53)
--- NOTE | 2016-05-10 10:59 | PCM.DIMED ---
Tiarra Morales DO 05/10/16 0833: Discharge Instructions Date of Service May 10, 2016 Dates of Hospitalization May 03, 2016 at 19:18 Discharge Diagnosis Discharge Diagnosis 1. Acute hypoxemic respiratory failure 2. Acute systolic heart failure exacerbation 3. End STEMI 4. Recent right above knee amputation 5. Acute hypokalemia 6. Diabetes mellitus type II 7. Left heel pain 8. Penile yeast infection Medication Instructions Use Bactroban ointment in your nose twice daily for an additional 10 days. Use miconazole cream underneath foreskin for the next 6 days or until itching has subsided. Diet Heart Healthy Activity Other (rehabilitation at [facility]) Call your provider Fever or Chills, Shortness of breath, Chest pain, Excessive diarrhea, Weakness ( unilateral) Patient Instructions Take medications as previously prescribed and as above Keep heel moisturized as this will help prevent cracking, ulceration, and infection. Follow-up plan Follow-up with the physician at your care center or your primary care provider in the next week. Follow-up Provider: Nikolai Lozano MD Follow-up with PCP in: 1 week Lavon Boss MD 05/11/16 1157: Tiarra Morales DO May 10, 2016 08:33 Lavon Boss MD May 11, 2016 11:57
[2016-05-10] MEDS ORDERED: FURO40TA4 PO (11:01)
--- NOTE | 2016-05-10 19:56 | PCM.DC.MED ---
Discharge Summary Date of Service May 10, 2016 Dates of Hospitalization Date of Hospital Admission May 03, 2016 at 19:18 Date of Discharge: May 10, 2016 Providers: Admitting Physician: Chiquita Basilio MD Primary Care Physician: Nikolai Lozano MD Attending Physician: Chiquita Basilio MD Diagnosis at Time of Discharge Diagnosis at Time of Discharge 1. Acute hypoxemic respiratory failure 2. Acute systolic heart failure exacerbation 3. End STEMI 4. Recent right above knee amputation 5. Acute hypokalemia 6. Diabetes mellitus type II 7. Left heel pain 8. Penile yeast infection Consultations Cardiology Pulmonology/critical care Procedures XRay, CTs & MRIs X-RAY CHEST ONE VIEW, PORTABLE IMPRESSION: Bibasilar alveolar consolidation, in the setting of reduced inspiration. Endotracheal and nasogastric tube positioning as noted. Bibasilar pneumonia versus atelectasis. Dictated by: Mukul Gutierrez M.D. on 05/06/2016 at 11:16 US VENOUS LEG DUPLEX BILATERAL IMPRESSION: No deep venous thrombosis identified within either the left or right lower extremities. Dictated by: Jayme Sotelo [facility] Interpreted: Bethany Witt MD on 05/05/2016 at 13:14 CT CHEST WITH CONTRAST IMPRESSION: 1. Resolving pulmonary edema. 2. No change in pulmonary nodules bilaterally. Followup CT suggesting 3 months ( around July of 2016). 3. Atherosclerosis. 4. Small hiatal hernia. Dictated by: Toño Watts M.D. on 05/04/2016 at 10:24 X-RAY CHEST ONE VIEW, PORTABLE IMPRESSION: 1. Right basilar opacities suspicious for pneumonia. 2. CHF. Dictated by: Bethany Witt MD, PhD on 05/03/2016 at 17:23 . Cardiac Echo Impression Echocardiogram Interpretation Summary: The study quality was technically difficult. The left ventricle is normal in size. There appears to be severe hypokinesis of mid to distal inferior wall, inferoseptum, apex, distal lateral wall and basal posterior wall.The ejection fraction is estimated to be 35-40%. The right ventricle grossly appears normal in size with probable normal systolic function. There is mild aortic regurgitation. The IVC is of normal diameter and collapses greater than 50% with a sniff. This suggests a low right atrial pressure of 3 mm Hg. Reading Physician:PM . Other Diagnostics PROCEDURES: 1. Coronary angiogram--urgent 2. LEFT HEART CATHETERIZATION (LHC)--pressure measurement. CONCLUSIONS: 1. Coronary angiogram--no severe coronary lesions. Note extensive coronary calcification. 2. Elevated LVED. 3. CAD (coronary artery disease--single-vessel disease with diffuse narrowing of obtuse marginal-1 (60% to 70%). RECOMMENDATIONS: 1. Medical therapy for his pulmonary edema and cardiomyopathy noting echo had showed ejection fraction 35% to 40% with no severe valvular disease. 2. Comment: We found no severe coronary disease that would be a culprit for his NSTEMI or pulmonary edema. The only potentially significant coronary lesion is the moderate diffuse narrowing of the proximal OM-1, which was not a likely culprit or candidate for intervention. Mono Denton MD 05/04/161923. PROCEDURE: US VENOUS LEG DUPLEX BILATERAL FINDINGS: The deep veins are normally compressible, and free of intraluminal thrombus. Color and pulse Doppler demonstrate normal phasic intravascular flow. There is normal augmentation response to distal compression maneuver. IMPRESSION: No deep venous thrombosis identified within either the left or right lower extremities. Dictated by: Jayme Sotelo RR Interpreted: Bethany Witt MD on 05/05/2016 at 13:14 . Brief History History of present illness on admission per Dr. Basilio: Patient has slow speech and is a vague historian . Apparently he was okay this morning. Then he later took a nap and was awakened from sleep feeling quite short of breath. He also felt some mid to upper retrosternal chest pressure. He has had similar shortness of breath and chest pressure past but he says not as severe. he was not aware irregular heartbeat or racing heart. He denies cough but later says he does have some yellowish sputum. He denies fever, chills, or sweats. He does have chronic pedal edema and it is unclear if this is worse recently. He says he was in the hospital recently but is not able to details about this. He was seen in the emergency department here on April 26 for acute shortness of breath. That note states that he was discharged from [facility] 2 days prior with similar symptoms and it was felt that it might be from chronic blood loss anemia. He had records from [facility] showing a hematocrit of 23.3 on April 23 and 25.9 on April 25. They also had records of a CT angiogram on April 23 which was negative for the, it had been obtained because of an elevated d-dimer. It did show mild pulmonary edema with small bilateral pleural effusions and incidental left upper lobe and lower lobe pulmonary nodules. They also noted that he had been treated for pneumonia 2.5 weeks prior. Although he was initially treated with BiPAP, he improved with some doses of morphine, and later asked to be discharged from the emergency department. The ED physician did speak with a nurse from his assisted says anxiety for which he has been given Ativan. Hospital Course Dre Vazquez is a 71-year-old male with past medical history significant for hypertension, hyperlipidemia, diabetes mellitus, peripheral vascular disease status post recent alsqx-nrr-[id number] amputation who presented to [facility] emergency Department for worsening shortness of breath. The patient was admitted for NSTEMI and intubated for cardiac catheterization. 1. Acute hypoxemic respiratory failure, present on admission. Active. - Patient presented with worsening shortness of breath and was subsequently intubated for flash pulmonary edema secondary to acute systolic CHF exacerbation and NSTEMI. - Patient currently is on nasal cannula O2 supplementation is stable - DuoNeb 4 times a day while awake, albuterol nebulizer provided when necessary 2. Acute systolic heart failure exacerbation, present on admission. Active. - Echocardiogram demonstrated severe hypokinesis of mid to distal inferior wall , inferoseptum, apex, distal lateral wall and basal posterior wall with an ejection fraction of 35-40%, as above. - Patient has diuresed well, she is down over 11 L. - Converted to by mouth Lasix of 40 mg twice daily 3. NSTEMI, present on admission. Active. - Coronary catheterization shows nonobstructive CAD with a stenotic obtuse marginal artery 1 60-70% not amenable to PCI. - Continue medical management per cardiology. - The patient has catheterization report is noted with no critical stenoses. The current plan is to continue medical management. 4. Recent right [id number] amputation, present on admission. Active. - Small clean based ulcer on lateral margin of the stump. - Wound care following. Will plan to apply silver nitrate to ulceration for local infection per infectious disease. - Per infectious disease sees no need for antibiotic therapy at this time - The patient has probable Pseudomonas and Proteus colonization. There appears to be no active infection however. 5. Acute hypokalemia, not present on admission. Active. - Secondary to loop diuretic. - Continue potassium repletion with potassium chloride 20 mEq twice a day. 6. DM 2. POA. This is stable. No change in current medical regimen. 7. Left heel pain, present on admission, chronic - Patient reports left heel pain that has been going on for the last year. It waxes and wanes. It has worsened today. - Workup in the outpatient setting according to patient led to the assessment that there was inflammation in the heel of the foot. - Consider outpatient x-ray of the foot as patient may have bone spur. - If there are any skin changes or evidence of ulceration vascular imaging as recommended per cardiology. - Recommend using cream with urea to keep skin moisturized and calluses at a minimum so cracking is less likely to occur 8. Yeast infection, chronicity unknown - Patient complains of penile pain this morning. Upon examination and retraction of the foreskin patient has evidence of active yeast infection. - Miconazole cream to be placed on clean dry skin twice daily. - Cleaning of the area and retraction of the foreskin discussed with nursing and patient is able to contribute in this care but unable to complete it on his own as he is not showering regularly at this time - Saldana catheter in place. Exam Vital Signs (Last) Date Time Temp Pulse Resp B/P Pulse Ox O2 Delivery O2 Flow Rate FiO2 05/10/16 09:54 Supplement Oxygen 05/10/16 09:49 37.1 83 20 137/98 98 2.00 05/07/16 06:34 30 Exam General: No acute distress, well-developed, well-nourished, appropriately interactive HEENT: Normocephalic, atraumatic. External ears without defect. Pupils equal, round, and reactive to light and accommodation. Anicteric sclerae, moist conjunctivae, and no lid lag. Oropharynx free of erythema and cobble stoning with moist mucosa. Neck: Supple with full range of motion. No jugular venous distension. No lymphadenopathy or thyromegaly. Cardiovascular: Distant heart sounds, regular rate and rhythm with no murmurs, rubs, or gallops appreciated Pulmonary: Clear to auscultation bilaterally with no crackles, wheezes, or rhonchi. Normal respiratory effort with no use of accessory muscles. Abdomen: Bowel tones present. Soft, obese, nontender, nondistended. No hepatosplenomegaly or masses appreciated. Genitourinary: Saldana in place. Mild irritation at the urethral meatus, mild thin white discharge upon retraction of the foreskin worse adjacent to the glans. Extremities: Right leg AKA dressing clean dry and intact, left leg with mild pitting edema to high ankle, skin glossy with foldings indicative of prior edema. Dry skin and callus over left heel. No tenderness to palpation over Achilles tendon or plantar fascia, tenderness on heel directly, no signs of ulceration or infection. No clubbing, cyanosis, or lymphadenopathy appreciated. Skin: Normal temperature, turgor, and texture; no rash, ulcers, or subcutaneous nodules appreciated. Neurological: Cranial nerves grossly intact. Normal muscle strength, tone, and bulk. Psychiatric: Normal mood and affect. Alert and oriented to person, place, and time. Test 05/03/16 17:15 05/03/16 18:35 05/04/16 06:45 05/04/16 12:16 Hemoglobin A1c 5.8% (4.8-5.6) Pro-B-Type Natriuretic Peptide 541.5pg/mL (0-376) Hold Hart Top Tube Received (Received) Hold Urine Received (Received) Urine Color Yellow (YELLOW) Urine Appearance Clear (CLEAR,HAZY) Urine pH 5.0 (5.0-8.0) Urine Specific [place] 1.015 (1.003-1.035) Urine Protein Negativemg/dL (NEG,TRACE) Urine Glucose (UA) Negativemg/dL (NEGATIVE) Urine Ketones Negativemg/dL (NEGATIVE) Urine Occult Blood Negative (NEGATIVE) Urine Nitrite Negative (NEGATIVE) Urine Bilirubin Negative (NEGATIVE) Urine Urobilinogen Normalmg/dL (NORMAL) Urine Leukocyte Esterase Negative (NEGATIVE) Urine RBC 0-2/hpf (0-2) Urine WBC 0-5/hpf (0-5) Urine Epithelial Cells Few/hpf (NONE-MOD) Urine Crystals None seen (NONE SEEN) Urine Bacteria None/hpf (NONE-FEW) Urine Hyaline Casts None/lpf (NONE) Urine Granular Casts None seen (NONE SEEN) Urine Waxy Casts None seen (NONE SEEN) Urine Red Blood Cell Casts None seen (NONE SEEN) Urine White Blood Cell Casts None seen (NONE SEEN) Urine Mucus None seen (None Seen) Urine Trichomonas None seen (NONE SEEN) Urine Yeast None (NONE SEEN) Urinalysis Comment None Activated Partial Thromboplast Time 26.2sec (22.8-33.0) Test 05/04/16 13:01 05/04/16 22:10 05/05/16 04:00 05/07/16 03:55 Total Creatine Kinase 160U/L (21-232) Troponin T 0.048ug/L (0.0-0.011) Phosphorus Level 4.0mg/dL (2.5-4.9) Procalcitonin 0.31ng/mL (0.00-0.08) Cryptococcus Antibody Negative (Neg:<1:2) Prealbumin 20mg/dL (20-40) Test 05/09/16 06:00 05/10/16 06:00 Magnesium Level 2.0mg/dL (1.6-2.6) Total Bilirubin 0.6mg/dL (0.0-1.2) Aspartate Amino Transf (AST/SGOT) 14U/L (0-50) Alanine Aminotransferase (ALT/SGPT) 9U/L (0-44) Alkaline Phosphatase 72U/L (25-160) Total Protein 6.9g/dL (6.4-8.4) Albumin 3.7g/dL (3.4-5.0) White Blood Count 6.7th/mm3 (3.8-10.1) Red Blood Count 3.86mil/mm3 (4.40-5.80) Hemoglobin 9.3g/dL (13.8-17.2) Hematocrit 32.1% (41.0-50.0) Mean Corpuscular Volume 83.2fL (81-100) Mean Corpuscular Hemoglobin 24.1pg (27.0-35.0) Mean Corpuscular Hemoglobin Concent 29.0% (32.0-37.0) Red Cell Distribution Width 19.7% (12.3-15.4) Platelet Count 344bil/L (150-400) Neutrophils (%) (Auto) 51.9% (40-74) Lymphocytes (%) (Auto) 22.3% (14-46) Monocytes (%) (Auto) 11.7% (4-12) Eosinophils (%) (Auto) 12.7% (0-5) Basophils (%) (Auto) 1.0% (0-3) Sodium Level 138mEq/L (134-144) Potassium Level 4.4mEq/L (3.5-5.2) Chloride Level 97mEq/L (97-108) Carbon Dioxide Level 26mmol/L (18-29) Blood Urea Nitrogen 34mg/dL (8-27) Creatinine 0.77mg/dL (0.76-1.27) Estimat Glomerular Filtration Rate 106mL/min (>59) Glucose Level 119mg/dL (60-99) Calcium Level 9.2mg/dL (8.5-10.1) Microbiology Results MRSA screen positive. Blood cultures 2 showed no growth after 24 hours. Gram stain of wound shows few PMNs and no organisms. Cultures of wound pending. . Discharge Medications Discharge Medications ([Miconazole Nitrate]) 0.25 APPLIC/GM CREAM 1 APPLIC TOPICAL BID Apply a thin layer under clean dry foreskin twice daily for 6 days or if symptoms persist. Prescribed by: GABRIELA KELLEY DO Aspirin Chew (Aspirin Chew) 81 Mg Chew 81 MG PO DAILY (Reported) Atorvastatin Calcium (Atorvastatin Calcium) 40 Mg Tablet 80 MG PO HS Prescribed by: GABRIELA KELLEY DO Baclofen (Baclofen) 10 Mg Tablet 10 MG PO TID (Reported) Furosemide (Furosemide) 40 Mg Tablet 40 MG PO BID Prescribed by: GABRIELA KELLEY DO Lisinopril (Lisinopril) 5 Mg Tablet 5 MG PO BID Prescribed by: GABRIELA KELLEY DO Melatonin (Melatonin) 3 Mg Tablet 6 MG PO HS (Reported) Metoprolol Succinate ER (Metoprolol Succinate ER) 50 Mg Tab.er.24h 50 MG PO DAILY Prescribed by: GABRIELA KELLEY DO Multivitamin (Multi Vitamin Daily) 1 Each Tablet 1 EACH PO DAILY (Reported) Pantoprazole DR (Pantoprazole DR) 40 Mg Tablet.dr 40 MG PO DAILY (Reported) Spironolactone (Aldactone) 25 Mg Tablet 12.5 MG PO DAILY Prescribed by: GABRIELA KELLEY DO Venlafaxine ER (Effexor XR) 37.5 Mg Capsule 37.5 MG PO DAILY (Reported) As needed Albuterol Neb Soln (Albuterol Neb Soln) 2.5 Mg/3 Ml Vial.neb 2.5 MG NEB Q2H PRN PRN For Shortness of Breath Prescribed by: GABRIELA KELLEY DO Ipratropium/Albuterol Sulfate (Iprat-Albut 0.5-3(2.5) mg/3 mL Inhalant Soln) 3 Ml Ampul.neb 3 ML NEB QIDWA PRN PRN For Shortness of Breath use with nebulizer Prescribed by: GABRIELA KELLEY DO Nitroglycerin SL (Nitrostat) 0.4 Mg Tab.subl 0.4 MG SL Q5MIN PRN PRN For Chest Pain IF SBP > 90 May use up to 3 times 5 minutes apart for chest pain Prescribed by: GABRIELA KELLEY DO Oxycodone (Roxicodone) 5 Mg Tablet 10 MG PO Q4H PRN PRN For Pain (Reported) Miscellaneous Medications Arginine/Ascorbate Sod/Diana AC (Arginaid Powder) 1 Each Powd.pack 1 EACH PO ( Reported) Cholecalciferol (Vitamin D3) (Vitamin D3) 2,000 Unit Tablet 2,000 UNIT PO ( Reported) Lorazepam (Lorazepam) 0.5 Mg Tablet 0.5 MG PO (Reported) Polyethylene Glycol 3350 (Miralax) 17 Gm Powd.pack 17 GM PO (Reported) Additional med instructions Use Bactroban ointment in your nose twice daily for an additional 10 days. Use miconazole cream underneath foreskin for the next 6 days or until itching has subsided. Followup Plan Disposition: Patient discharged to [facility]. Follow-up plan Follow-up with the physician at your care center or your primary care provider in the next week. Discharge Diet: Heart Healthy Discharge Activity: Other (rehabilitation at [facility]) Patient Instructions Take medications as previously prescribed and as above Keep heel moisturized as this will help prevent cracking, ulceration, and infection. Follow-up Provider: Nikolai Lozano MD Follow-up with PCP in: 1 week Time spent 35 minutes Attending Statement The patient was seen and examined together with Dr. Kelley on 05/10/2016 and I agree with the history, exam and plan as outlined in the note above. copies to: Nikolai Lozano MD, Erika R DO May 10, 2016 19:56 Lavon Boss MD May 11, 2016 11:57
--- NOTE | 2016-05-18 18:48 | PROCED ---
[address] [address] PROCEDURE NOTE PATIENT: ROBBIE ACE : 1945 MR#: [id number] ADMIT: 05/03/2016 JOB ID: [id number] DATE OF SERVICE: 05/04/2016 POSTOPERATIVE DIAGNOSIS(ES): PREOPERATIVE DIAGNOSIS(ES): SURGEON: Preston Arriaga MD. PROCEDURE: Emergent oral endotracheal intubation for respiratory failure. The patient is a 71-year-old man, who was admitted to the hospital with pulmonary edema, chest pain, and severe shortness of breath. He, along with his medical team, had discussed the need for intubation before possible intervention in the cardiac cath laboratory and the patient consents to the risks, benefits, and alternatives. PROCEDURE: The patient was intubated easily with a 7.5 oral endotracheal tube using 100 mg of propofol and no muscle relaxants. There was a positive end-tidal CO2 trace immediately and the patient tolerated the procedure well. I will accompany him to the collaborating supervising physician for his procedure.
--- NOTE | 2016-06-02 08:42 | PROCED ---
[address] [address] PROCEDURE NOTE PATIENT: ROBBIE ACE : 1945 MR#: [id number] ADMIT: 05/03/2016 JOB ID: [id number] DATE OF SERVICE: PREOPERATIVE DIAGNOSIS(ES): POSTOPERATIVE DIAGNOSIS(ES): SURGEON: PROCEDURE NOTE: Emergent endotracheal intubation for respiratory failure. The patient is a 71-year-old male with recent onset of either CHF or pneumonia or both, and is experiencing increasing shortness of breath. 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 The patient was intubated easily with a 7.5 oral endotracheal tube using 100 mg of propofol and no muscle relaxants. There was positive end-tidal CO2 trace immediately and the patient tolerated the procedure well. I will accompany him to the cath laboratory for his procedure.
== END 2016-05-10 13:23 | DRG 208 ==
LOC: SED 16:43 → MPC 19:18 → PCC 05-04 12:49 → CCU 05-04 16:22 → PCC 05-07 10:34 → MPC 05-07 16:01
PROVIDERS: ADMIT Internal Medicine; ATTEND Internal Medicine
PROC: 4A033R1 Measurement of Arterial Saturation, Peripheral, Percutaneous Approach (ICD-10-PCS; principal; 2016-05-04)
PROC: 4A023N7 Measurement of Cardiac Sampling and Pressure, Left Heart, Percutaneous Approach (ICD-10-PCS; 2016-05-04)
PROC: B2111ZZ Fluoroscopy of Multiple Coronary Arteries using Low Osmolar Contrast (ICD-10-PCS; 2016-05-04)
PROC: 5A1945Z Respiratory Ventilation, 24-96 Consecutive Hours (ICD-10-PCS; 2016-05-04)
DX: J96.01 Acute respiratory failure with hypoxia (principal); I50.23 Acute on chronic systolic (congestive) heart failure; I21.4 Non-ST elevation (NSTEMI) myocardial infarction; J18.9 Pneumonia, unspecified organism; J45.901 Unspecified asthma with (acute) exacerbation; B37.49 Other urogenital candidiasis; L97.819 Non-pressure chronic ulcer of other part of right lower leg with unspecified severity; Z87.891 Personal history of nicotine dependence; E11.9 Type 2 diabetes mellitus without complications; I25.10 Atherosclerotic heart disease of native coronary artery without angina pectoris; I25.84 Coronary atherosclerosis due to calcified coronary lesion; I10 Essential (primary) hypertension; Z89.611 Acquired absence of right leg above knee; I73.89 Other specified peripheral vascular diseases; Z86.73 Personal history of transient ischemic attack (TIA), and cerebral infarction without residual deficits; E87.6 Hypokalemia; M79.672 Pain in left foot

== ENCOUNTER 2016-06-16 10:05 | Inpatient (IN) | payer MEDICARE, MEDICAID ==
[~2016-06-16] VITALS: Ht 170.2 cm; Wt 112.5 kg
[2016-06-16] VITALS (9 sets, daily range): BP systolic 106–128; BP diastolic 24–67; PULSE 74–90; RESP 15–24; O2SAT 94–100
--- NOTE | 2016-06-16 09:49 | ED.REPORT ---
HPI-General Illness Date of Service June 16, 2016 ED Provider: Dr. Reece Pt is a 71 y/o male w/ a hx of GI bleed, HTN, DM, hyperlipidemia, CHF, presenting to the ED via EMS c/o worsening generalized weakness and SOB for the past 2 weeks. The patient was treated for a GI bleed a couple months ago and was sent back to a SNF. He was seen by a PCP 2 weeks ago at which time stool was guaiac positive. Labs taken 06/09 notable for H&H of 8.7 and 27.4. He apparently has not had a guaiac test since. The patient was medicated with Oxycodone and Ativan prior to arrival therefore further history is limited. He reports LUQ abdominal pain and left foot pain. Code status: comfort measures only per EMR Nursing Notes Stated Complaint: WEAKNESS Nursing Notes Reviewed: Yes Allergies: Coded Allergies: No Known Allergies (Unverified , 04/26/16) Scheduled ([Miconazole Nitrate]) 0.25 APPLIC/GM CREAM 1 APPLIC TOPICAL BID Apply a thin layer under clean dry foreskin twice daily for 6 days or if symptoms persist. Aspirin Chew (Aspirin Chew) 81 Mg Chew 81 MG PO DAILY Atorvastatin Calcium (Atorvastatin Calcium) 40 Mg Tablet 80 MG PO HS Baclofen (Baclofen) 10 Mg Tablet 10 MG PO TID Furosemide (Furosemide) 40 Mg Tablet 40 MG PO BID Lisinopril (Lisinopril) 5 Mg Tablet 5 MG PO BID Melatonin (Melatonin) 3 Mg Tablet 6 MG PO HS Metoprolol Succinate ER (Metoprolol Succinate ER) 50 Mg Tab.er.24h 50 MG PO DAILY Multivitamin (Multi Vitamin Daily) 1 Each Tablet 1 EACH PO DAILY Pantoprazole DR (Pantoprazole DR) 40 Mg Tablet.dr 40 MG PO DAILY Spironolactone (Aldactone) 25 Mg Tablet 12.5 MG PO DAILY Venlafaxine ER (Effexor XR) 37.5 Mg Capsule 37.5 MG PO DAILY Scheduled PRN Albuterol Neb Soln (Albuterol Neb Soln) 2.5 Mg/3 Ml Vial.neb 2.5 MG NEB Q2H PRN PRN For Shortness of Breath Ipratropium/Albuterol Sulfate (Iprat-Albut 0.5-3(2.5) mg/3 mL Inhalant Soln) 3 Ml Ampul.neb 3 ML NEB QIDWA PRN PRN For Shortness of Breath use with nebulizer Nitroglycerin SL (Nitrostat) 0.4 Mg Tab.subl 0.4 MG SL Q5MIN PRN PRN For Chest Pain IF SBP > 90 May use up to 3 times 5 minutes apart for chest pain Oxycodone (Roxicodone) 5 Mg Tablet 10 MG PO Q4H PRN PRN For Pain Miscellaneous Medications Arginine/Ascorbate Sod/Diana AC (Arginaid Powder) 1 Each Powd.pack 1 EACH PO Cholecalciferol (Vitamin D3) (Vitamin D3) 2,000 Unit Tablet 2,000 UNIT PO Lorazepam (Lorazepam) 0.5 Mg Tablet 0.5 MG PO Polyethylene Glycol 3350 (Miralax) 17 Gm Powd.pack 17 GM PO General Time Seen by MD: 09:55 Chief Complaint Weakness Hx Obtained From: Patient, EMS Arrived By: Ambulance Sudden in Onset?: No Onset Occurred: More than a week ago... (2 weeks) Symptom Duration: Since onset Location: : Abdomen Quality: Painful Severity: Current: Mild Severity: Maximum: Moderate Recent Healthcare: Recent testing, Previous diagnosis Similar Sx Previous: Yes Past Medical History Past Medical History Notes: COMFORT MEASURES ONLY no known POA Recent [facility] admission for possible GI bleed and anemia, however upper and lower endoscopies were negative patient maintained hemodynamically stable, and given patient's baseline status it was felt that Endoscopy or Further Workup Be Clearly Beneficial-As the Plan Was Observation, Monitoring Hematocrit Past Medical History 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 Reports: Congestive heart failure, Diabetes mellitus, Hyperlipidemia, Hypertension Reports: Depression Past Surgical History Right BKA history of subsequent pseudomonas infection, thought fully involved on hospitalization 04/23/2016 Cannot recall any other surgeries Upper and lower endoscopy at [facility] May 05 reportedly negative for source of anemia Smoking History Former Smoker Ambulatory Status Wheelchair Review of Systems Full Review of Systems Constitutional: Reports: Weakness - generalized, Denies: Chills, Fever Respiratory: Reports: Shortness of breath Complete sys rev & neg: except as marked. Physical Exam Vital Signs Vital Signs Date Time Temp Pulse Resp B/P Pulse Ox O2 Delivery O2 Flow Rate FiO2 06/16/16 13:27 36.6 82 19 113/24 97 Room Air 06/16/16 13:13 36.7 83 20 06/16/16 10:57 88 15 108/42 97 Room Air 06/16/16 10:15 36.6 90 24 110/44 94 Room Air Initial VS: Reviewed Head / Eyes: Atraumatic, Normocephalic, PERRL ENT: Mucous membranes moist, Conjunctiva normal, No scleral icterus Neck: Supple, Full range of motion Respiratory: Breath sounds normal, Clear to auscultation, No respiratory distress Cardiovascular: Regular rate & rhythm, Heart sounds normal, Intact distal pulses General/Constitutional: Awake, No acute distress, Cooperative, Not toxic appearing Appears chronically ill Abdomen: Atraumatic, Soft, No guarding, No rebound Tenderness/Guarding/Rebound: Positive: Tender LUQ... (Mild) Lower Extremity / Pelvis / MS: No deformity, Neurologic intact, Vascular intact Right BKA LLE: lower extremity edema, mild erythema, 1+ DP pulse, no warmth Rectum / Perineum: No gross blood, No fecal impaction, No hemorrhoids, No mass Rectal for Blood: Positive: Blood - occult heme + Brown stool Neurologic: Speech NL, No motor deficits Somnolent but arousable Interpretation & Diagnostics Lab Results Interpretation Result Diagram: 06/16/16 1010 06/16/16 1010 Test 06/16/16 10:10 06/16/16 11:55 White Blood Count 11.7th/mm3 (3.8-10.1) Red Blood Count 3.05mil/mm3 (4.40-5.80) Hemoglobin 8.0g/dL (13.8-17.2) Hematocrit 26.3% (41.0-50.0) Mean Corpuscular Volume 86.2fL (81-100) Mean Corpuscular Hemoglobin 26.2pg (27.0-35.0) Mean Corpuscular Hemoglobin Concent 30.4% (32.0-37.0) Red Cell Distribution Width 18.3% (12.3-15.4) Platelet Count 304bil/L (150-400) Neutrophils (%) (Auto) 69.0% (40-74) Lymphocytes (%) (Auto) 15.2% (14-46) Monocytes (%) (Auto) 10.2% (4-12) Eosinophils (%) (Auto) 4.9% (0-5) Basophils (%) (Auto) 0.4% (0-3) Prothrombin Time 10.0sec (8.1-12.5) Prothromb Time International Ratio 0.94ratio Sodium Level 135mEq/L (134-144) Potassium Level 3.9mEq/L (3.5-5.2) Chloride Level 90mEq/L (97-108) Carbon Dioxide Level 26mmol/L (18-29) Blood Urea Nitrogen 34mg/dL (8-27) Creatinine 1.16mg/dL (0.76-1.27) Estimat Glomerular Filtration Rate 66mL/min (>59) Glucose Level 155mg/dL (60-99) Calcium Level 8.9mg/dL (8.5-10.1) Magnesium Level 1.5mg/dL (1.6-2.6) Total Bilirubin 0.4mg/dL (0.0-1.2) Aspartate Amino Transf (AST/SGOT) 13U/L (0-50) Alanine Aminotransferase (ALT/SGPT) 12U/L (0-44) Alkaline Phosphatase 82U/L (25-160) Troponin T < 0.010ug/L (0.0-0.011) Pro-B-Type Natriuretic Peptide 162.8pg/mL (0-376) Total Protein 6.7g/dL (6.4-8.4) Albumin 4.1g/dL (3.4-5.0) Hold Hart Top Tube Received (Received) Hold Urine Received (Received) ECG Interpretation ECG Interpretation: Sinus rhythm rate [address] changes Time: 10:19 Interpreted by: ED physician Normal ECG Interpretation: No acute ischemic changes X-Ray Chest Interpretation Chest Xray Interpretation: IMPRESSION: Interval resolution of previously seen airspace disease. No new consolidation, effusion, or pneumothorax. Dictated by: Monty Newton M.D. on 06/16/2016 at 9:47 Approved by: Monty Newton M.D. on 06/16/2016 at 9:49 View: Portable, 1 view Interpretation / Wet Read by: Interpret - Radiologist CT Abd / Pelvis Interpretation IMPRESSION: 1. No evidence of acute process. 2. Diverticulosis of the descending and sigmoid colon, with no evidence of acute diverticulitis. 3. Thickening of the sigmoid colon, which may indicate sequelae of chronic diverticulitis versus neoplasm. Colonoscopy is recommended for further assessment. 5. Appendix not seen. No evidence of appendicitis. 6. Small hiatal hernia. 7. Nonobstructing bilateral renal calcifications. 8. No change in the left lateral lung base nodule. Several adjacent new ill-defined nodular densities within the left lower lobe are present. IV contrast enhanced chest CT is recommended for further assessment. Dictated by: Magalie Lopez M.D. on 06/16/2016 at 12:56 Approved by: Magalie Lopez M.D. on 06/16/2016 at 13:04 Study type: Abdominal CT IV contrast Interpretation / Wet Read by: Interpret - Radiologist Re-Eval/Medical Decision Med Decision/Clinical Course Concern for GI bleeding. Will be admitted and observed. Case discussed with both GI and the hospitalist. Time of Eval: 11:22 Re-Evaluation/Progress Note: Pt rechecked. Is now mildly tender over entire abdomen. Time of Eval: 13:50 Re-Evaluation/Progress Note: Pt rechecked. Informed pt of need for admission. Pt understands and agrees with plan for admission. All questions addressed. Consultation #1: Referral / Consult Name: eHriberto Juárez MD Call Returned at: 13:47 Vest Presser: Agrees with eval, Agrees with plan Note: Case discussed with GI. Would not scope based on history. Recommends to admit under observation for H&H trending. If HGB drops or there is reason for concern he will scope. Consultation #2: Consulted With: Primary care physician Call Returned at: 14:36 Vest Presser: Agrees with eval, Agrees with plan Note: Agrees with plan for admit Consultation #3: Referral / Consult Name: Shayan Hawkins DO Consulted With: Hospitalist Call Returned at: 14:52 Vest Presser: Will see patient, Agrees with eval, Agrees with plan, Accepts admit Counseled Regarding: Diagnosis, Lab results, Need for admission Discharge & Departure Primary Impression: Chronic GI bleeding Disposition: ADMITTED TO HOSPITAL Discharge Condition All VS Reviewed: Yes Condition: Stable Referrals: Nikolai Lozano MD (PCP) Scribe Attestation Portions of this note were transcribed by Dimitris Bates. I, Dr. Reece personally performed the history, physical exam and medical decision-making; I reviewed and confirmed the accuracy of the information in the transcribed note. Signed by Koko Prieto, 06/16/16 - [phone] copies to: Nikolai Lozano MD, Timothy S DO June 16, 2016 09:49 DIMITRIS BATES June 16, 2016 09:57
[~2016-06-16 10:05] MED LIST changes: +0.9% Sodium Chloride 1,000 ML IV ONE; +ALBU2.5V4 NEB; +ARGI1POW13 PO; +ASPI81TA3 PO; +ATOR40TA69 PO; +BACL10TA PO; +CHOL200025 PO; +FURO40TA4 PO; +IPRA3AMP NEB; +LISI-571 PO; +LORA0.5T PO; +MELA3TAB35 PO; +METO-272 PO; +MICONAZOLE NITRATE TOPICAL; +MULT-1018 PO; +NITR0.4T SL; +OXYC-474 PO; +PANT40TA3 PO; +POLY17PO6 PO; +Pantoprazole 4 mg/mL 10 mL Inj IVPUSH ONE; -Propofol 10,000 mCg/mL 20 mL Inj ONE; +SPIR25TA PO; +VENL37.53 PO
[2016-06-16 10:29] LABS: BASOPHILS % (AUTO) 0.4 % (0-3); EOSINOPHILS % (AUTO) 4.9 % (0-5); MONOCYTES % (AUTO) 10.2 % (4-12); Mean Corpuscular Hemoglobin 26.2 pg (27.0-35.0); Mean Corpuscular Volume 86.2 fL (81-100); Platelet Count 304 bil/L (150-400)
[2016-06-16 10:43] LABS: INR 0.94 ratio
--- NOTE | 2016-06-16 10:50 | DRSVH ---
PROCEDURE: X-RAY CHEST ONE VIEW, PORTABLE ([id number]) INDICATIONS: weakness TECHNIQUE: One view of the chest was acquired. COMPARISON: [facility], CR, XR CHEST 1VW (PORTABLE), 05/06/2016, 8:52. FINDINGS: Surgical changes and devices: The endotracheal tube has been removed. Additionally, the nasogastric tube also has been removed. Lungs and pleura: There has been interval improvement in the aeration of the lungs with resolution of previously seen bibasilar airspace disease. No new consolidation, effusion, or pneumothorax is evid ent. Mediastinum: Mediastinal contours appear normal. Heart size is normal. Bones and chest wall: No suspicious bony lesions. The bone mineralization is decreased. There are degenerative changes of the shoulders and spine. Carotid atherosclerosis is incidentally noted on th e right. Overlying soft tissues appear unremarkable. IMPRESSION: Interval resolution of previously seen airspace disease. No new consolidation, effusion, or pneumothorax. Dictated by: Monty Newton M.D. on 06/16/2016 at 9:47 Approved by: Monty Newton M.D. on 06/16/2016 at 9:49
[2016-06-16 10:52] LABS: TROPONIN T < 0.010 ug/L (0.0-0.011)
[2016-06-16 11:10] LABS: Magnesium 1.5 mg/dL (1.6-2.6)
--- NOTE | 2016-06-16 13:06 | DRSVH ---
PROCEDURE: CT ABDOMEN AND PELVIS WITH CONTRAST ([id number]) INDICATIONS: abd pain TECHNIQUE: After the administration of intravenous contrast, 5 mm thick sections acquired from the diaphragm to the symphysis. 5 mm coronal and sagittal reformats were acquired. For radiation dose reduction, the following was used: automated exposure control, adjustment of mA and/or kV according to patient giselle purdy. COMPARISON: [facility], CT, CT CHEST W CON, 05/04/2016, 8:57. FINDINGS: Image quality: Excellent. ABDOMEN: Lung bases: There are several new, adjacent ill-defined nodular densities within the left lower lobe medially, largest of which measures roughly 13 mm. Within the lateral basilar aspect of the left lowe r lobe, there is a 10 mm diameter nodule, which is unchanged. Heart size is normal. Solid organs: Liver and spleen are normal in size and enhancement. Gallbladder is contracted. Bili cuong system is non dilated. Pancreas enhances normally. No adrenal nodules. Kidneys demonstrate nor mal size and enhancement, without hydronephrosis. There is a 2 mm diameter nonobstructing calcificati on within the right interpolar kidney. There is a 3 mm diameter nonobstructing calcification in the s uperior pole left kidney. Peritoneum and bowel: A small hiatal hernia is present. Bowel loops demonstrate normal wall thicknes s and caliber. No free fluid or air. Appendix is not seen. No evidence of appendicitis. Diverticulo sis of the descending and sigmoid colon is present, with no evidence of acute diverticulitis. There i s moderate thickening of the mid sigmoid colon. Moderate diffuse colonic stool is present. Nodes and vessels: No retroperitoneal or mesenteric adenopathy by size criteria. Aorta and inferior vena cava are normal in size. Miscellaneous: No ventral hernias. PELVIS: Genitourinary: Bladder wall thickness is normal. Miscellaneous: No inguinal hernias or adenopathy. Bones: No suspicious bony lesions. No vertebral body compression fractures. IMPRESSION: 1. No evidence of acute process. 2. Diverticulosis of the descending and sigmoid colon, with no evidence of acute diverticulitis. 3. Thickening of the sigmoid colon, which may indicate sequelae of chronic diverticulitis versus neop lasm. Colonoscopy is recommended for further assessment. 5. Appendix not seen. No evidence of appendicitis. 6. Small hiatal hernia. 7. Nonobstructing bilateral renal calcifications. 8. No change in the left lateral lung base nodule. Several adjacent new ill-defined nodular densities within the left lower lobe are present. IV contrast enhanced chest CT is recommended for further as sessment. Dictated by: Magalie Lopez M.D. on 06/16/2016 at 12:56 Approved by: Magalie Lopez M.D. on 06/16/2016 at 13:04
[2016-06-16] MEDS ORDERED: Heparin 25K Unit/500mL 0.45 NS 25,000 UNIT in IV Premix 1 EACH IV ONE (13:15)
[2016-06-16] MEDS ORDERED: Heparin 5,000 Unit/mL Inj IVPUSH ONE (13:15)
[2016-06-16] MEDS ORDERED: Ondansetron 2 mg/mL 2 mL Inj IVPUSH PRN (14:55)
[2016-06-16] MEDS ORDERED: Alum-Mag Hydrox-Simeth 30 mL Suspension PO PRN (14:55)
[2016-06-16] MEDS ORDERED: Polyethylene Glycol (PEG) 17 Gm Powder PO PRN ×2 (14:55→16:40)
[2016-06-16] MEDS ORDERED: Propofol 10,000 mCg/mL 20 mL Inj ONE (15:25)
[2016-06-16] MEDS ORDERED: BISA10SU61 RC (15:43)
[2016-06-16] MEDS ORDERED: LORA0.5T PO (15:43)
[2016-06-16] MEDS ORDERED: VENL75CA PO (15:43)
[2016-06-16] MEDS ORDERED: ATOR80TA PO (15:43)
[2016-06-16] MEDS ORDERED: NA P133E23 RC (15:43)
[2016-06-16] MEDS ORDERED: MAGN400O4 PO (15:43)
[2016-06-16] MEDS ORDERED: ACET325C PO (15:43)
[2016-06-16] MEDS ORDERED: OXYC10TA8 PO (15:43)
[2016-06-16] MEDS ORDERED: LORazepam 0.5 mg Tablet PO PRN (16:40)
[2016-06-16] MEDS ORDERED: Magnesium Hydroxide 355 mL Oral Suspension PO PRN (16:40)
[2016-06-16] MEDS ORDERED: Sodium Biphos-Phos 133 mL Enema RECTAL PRN (16:40)
--- NOTE | 2016-06-16 17:12 | PCM.HPMED ---
Subjective Date of Service June 16, 2016 Primary Provider: Admitting Physician: Shayan Hawkins DO Primary Care Physician: Nikolai Lozano MD Attending Physician: Shayan Hawkins DO Chief Complaint: Severe Abdominal pain History of Present Illness: This 71-year-old male brought in by EMS from [facility] facility where he has been staying for some time following right above-knee amputation with complaints of severe and worsening abdominal pain in addition to more prolonged generalized weakness and worsening shortness of breath over past 2 weeks. I had presentation was additionally noted the patient was treated for GI bleed a couple of months prior while staying at [facility] to which she was discharged back. He was reportedly seen by his primary care doctor 2 weeks prior and was noted to be guaiac positive at that time, lab studies 1 week prior demonstrated hemoglobin of 8.7 and hematocrit of 27.4 as per ER documentation. There is no history of dark tarry stools however the patient's demented and unable to participate significantly in obtaining of his history. He does not however they have been taking much oxycodone for pain in his abdomen as well as foot, both extremity that still present and phantom foot pain as well. The time my evaluation when patient had arrived to hospital floor, lying in bed in severe pain on her complaining of abdominal discomfort but rather stating his left lower extremity was very painful. When asked when this had developed as he had not mentioned in emergency department patient states present for nearly a month and is very severe he utilizes oxycodone to control this pain as he has for some time. 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 He is aware he lives in [place], unable to identify the name of the skilled facility is staying at. Denies chest pains or palpitations other. Denies any recent sweats or chills he does not complain of fever. His appetite is adequate and he has been drinking and eating without complication. He has no other acute complaints or concerns at this time really aside from his left foot pain. Review of Systems: 10 point review of systems was conducted on entirely negative excepting pertinent positives and negatives included in above history of present illness. Allergies Coded Allergies: No Known Allergies (Unverified , 06/16/16) Home Medications ([Miconazole Nitrate]) 0.25 APPLIC/GM CREAM 1 APPLIC TOPICAL BID Apply a thin layer under clean dry foreskin twice daily for 6 days or if symptoms persist. Aspirin Chew (Aspirin Chew) 81 Mg Chew 81 MG PO DAILY Atorvastatin Calcium (Atorvastatin Calcium) 40 Mg Tablet 80 MG PO HS Baclofen (Baclofen) 10 Mg Tablet 10 MG PO TID Furosemide (Furosemide) 40 Mg Tablet 40 MG PO BID Lisinopril (Lisinopril) 5 Mg Tablet 5 MG PO BID Melatonin (Melatonin) 3 Mg Tablet 6 MG PO HS Metoprolol Succinate ER (Metoprolol Succinate ER) 50 Mg Tab.er.24h 50 MG PO DAILY Multivitamin (Multi Vitamin Daily) 1 Each Tablet 1 EACH PO DAILY Pantoprazole DR (Pantoprazole DR) 40 Mg Tablet.dr 40 MG PO DAILY Spironolactone (Aldactone) 25 Mg Tablet 12.5 MG PO DAILY Venlafaxine ER (Effexor XR) 37.5 Mg Capsule 37.5 MG PO DAILY Scheduled PRN Albuterol Neb Soln (Albuterol Neb Soln) 2.5 Mg/3 Ml Vial.neb 2.5 MG NEB Q2H PRN PRN For Shortness of Breath Ipratropium/Albuterol Sulfate (Iprat-Albut 0.5-3(2.5) mg/3 mL Inhalant Soln) 3 Ml Ampul.neb 3 ML NEB QIDWA PRN PRN For Shortness of Breath use with nebulizer Nitroglycerin SL (Nitrostat) 0.4 Mg Tab.subl 0.4 MG SL Q5MIN PRN PRN For Chest Pain IF SBP > 90 May use up to 3 times 5 minutes apart for chest pain Oxycodone (Roxicodone) 5 Mg Tablet 10 MG PO Q4H PRN PRN For Pain Miscellaneous Medications Arginine/Ascorbate Sod/Diana AC (Arginaid Powder) 1 Each Powd.pack 1 EACH PO Cholecalciferol (Vitamin D3) (Vitamin D3) 2,000 Unit Tablet 2,000 UNIT PO Lorazepam (Lorazepam) 0.5 Mg Tablet 0.5 MG PO Polyethylene Glycol 3350 (Miralax) 17 Gm Powd.pack 17 GM PO PMH COMFORT MEASURES ONLY no known POA Recent [facility] admission for possible GI bleed and anemia, however upper and lower endoscopies were negative patient maintained hemodynamically stable, and given patient's baseline status it was felt that Endoscopy or Further Workup Be Clearly Beneficial-As the Plan Was Observation, Monitoring Hematocrit 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 Reports: Congestive heart failure, Diabetes mellitus, Hyperlipidemia, Hypertension Reports: Depression Surgical History Right BKA history of subsequent pseudomonas infection, thought fully involved on hospitalization 04/23/2016 Cannot recall any other surgeries Upper and lower endoscopy at [facility] May 05 reportedly negative for source of anemia Family History Patient is demented and unable to describe any relevant family history Social History Hx Alcohol Use: No Hx Substance Use: No Hx Tobacco Use: Yes Smoking Status: Former Smoker Exam Vital Signs Vital Sign - Last Date Time Temp Pulse Resp B/P Pulse Ox O2 Delivery O2 Flow Rate FiO2 06/16/16 16:20 36.2 79 22 106/52 98 Room Air General: Alert, Cooperative, Severe Distress, Other (he is not oriented to place recent history or situation. He has been able to identify his in a hospital, he is oriented to self. ) Mouth: Mucous Membr Moist/[place] Chest & Lungs: Clear to auscultation & percussion Cardiovascular: Regular Rate/Rhythm Abdomen: Non-tender, Non-distended Extremities: Other (patient has right [id number] amputation in addition to left lower extremity which is extremely erythematous, somewhat swollen and severely painful, and tender to touch. No subcutaneous abscess or induration is noted however. No open ulceration or location of infection can be identified. ) Neurological: Other (patient appears pleasantly demented, otherwise nonfocal neurologic evaluation) Lab and Diagnostics Result Diagram: 06/16/16 1010 06/16/16 1010 Assessment & Plan 71-year-old male past medical history significant for dementia, addition to apparent recent right lower extremity amputation, history of gastric bleeding/ ulceration, likely diabetes, presenting via ambulance to emergency room with severe abdominal pain, found to have guaiac positive stool conjunction with significant anemia admitted for further medical evaluation and stabilization. 1. Upper GI bleed - Patient is status post 1 unit packed red blood cell transfusion which seems to be well tolerated - He has been provided 1 dose of Protonix 80 mg IV which will be continued twice a day at this time - Continue close observation, and follow-up H&H to evaluate hemodynamic in a.m. prior to considering further interventions. - GI was curb sided regarding this patient from emergency department, given current stability they would not consider emergent endoscopy unless he demonstrates progressive anemia during this hospitalization as evidencing active gastrointestinal bleeding. 2. Painful left foot - Etiology is unclear and complete hospital records are not available as to the details pertaining to amputation of right lower extremity. - Given lack of febrile state only mild leukocytosis, and otherwise stable medical condition this does not appear to be severe infective process however that cannot be ruled out. - Patient additionally has a past medical history of gout which may be contributing to current condition, however he is of little help in diagnosing. - He notes he has been treated recently with oxycodone which is been helpful, but this certainly does not appear long-term solution should this be a chronic condition. - Additional evaluation will include a lactate level, ESR, will continue to trend white blood cell count, addition x-ray of extremity has been ordered and is pending to rule out possible osteomyelitic or other infection involving bone. - Continue patient's home when necessary medications for pain consider further titration if needed. 3. Dementia - Patient has difficult time recounting any of his recent medical history or significant past medical history. - No POA is known identified though based on ER records review he is a comfort care only as noted on transfer from rehabilitation facility where he was staying prior to emergency room evaluation and subsequent admission. - We will continue observation and attempt to reach family members or friends to identify patient's next of kin who may be of use in making further decisions related to medical care. 4. Diabetes mellitus - Severity condition is not known - A1c is currently pending - Patient be placed on sliding scale insulin at this time before meals at bedtime 5. History of congestive heart failure - Again severity condition is not known but physical examination appears essentially benign. No evidence of peripheral or pulmonary edema - Continue home medications for rate control and diuresis. - We will continue to monitor patient closely while medical floor, attempt to limit intravenous fluids to avoid volume overload, currently running at 75 mL per hour in the setting of acute bleed possible foot infection. - Continue telemetry monitoring at this time. Pain Evaluation: Adequate Pain Control GI Prophylaxis: Not indicated VTE Prophylaxis Indicated: Contraindicated Resuscitation Status: DNR/DNI:Do Not Resuscitate/Intubate Time spent 55 minutes Shayan Hawkins DO June 16, 2016 17:12
[2016-06-16] MEDS: 0.9% Sodium Chloride 1,000 ML IV SCH (17:46)
--- NOTE | 2016-06-16 18:30 | NUR ---
Admit history Pt is poor historian so health history was recalled from previous admissions. Care continues
--- NOTE | 2016-06-16 19:10 | NUR ---
Case Management: Unable to provide DA SILVA to patient at 1820 as patient is not oriented. I attempted to call listed DELORISDoron Moriah Morley at [phone], no answer and no ability to leave voice message, I also called [phone] and left voice message requesting she call me. Paula Smith RN
[2016-06-16 20:07] LABS: APPEARANCE,URINE CLEAR (CLEAR,HAZY); COLOR,URINE YELLOW (YELLOW); OCCULT BLOOD,URINE NEGATIVE (NEGATIVE); PH,URINE 5.5 (5.0-8.0); UROBILINOGEN,URINE NORMAL (NORMAL)
--- NOTE | 2016-06-16 20:12 | DRSVH ---
PROCEDURE: US DUPLEX DOPPLER UNILATERAL LEG ARTERIES, LEFT INDICATIONS: Foot red/painful, inital eval for adequate circ. TECHNIQUE: Color and pulse Doppler interrogation was performed of the left lower extremity arterial system, with image documentation. COMPARISON: None. FINDINGS: Common femoral artery: 186 cm/sec, with biphasic flow. Deep femoral artery: 330 cm/sec, with monophasic flow. Proximal superficial femoral artery: 205 cm/sec, with monophasic flow. Mid superficial femoral artery: Occluded Distal superficial femoral artery: Occluded. Popliteal artery: 24 cm/sec, with monophasic low resistance flow. Posterior tibial artery: 14 cm/sec, with monophasic low resistance flow. Anterior tibial artery/dorsalis pedis: 8 cm/sec, with monophasic low resistance flow. Enriquez-scale imaging description: Severe diffuse plaque within the left lower extremity arterial vascul ature IMPRESSION: Occluded superficial femoral artery. Dictated by: Magalie Lopez M.D. on 06/16/2016 at 20:09 Approved by: Magalie Lopez M.D. on 06/16/2016 at 20:10
[2016-06-16] MEDS ORDERED: Pantoprazole 4 mg/mL 10 mL Inj IVPUSH ONE (20:30)
[2016-06-16] MEDS: LORazepam 0.5 mg Tablet PO SCH (22:18)
[2016-06-17] VITALS (11 sets, daily range): BP systolic 112–152; BP diastolic 61–81; PULSE 72–81; RESP 14–22; O2SAT 91–100
[2016-06-17 05:53] LABS: BASOPHILS % (AUTO) 0.5 % (0-3); MONOCYTES % (AUTO) 11.9 % (4-12); Mean Corpuscular Hemoglobin 26.6 pg (27.0-35.0); Mean Corpuscular Volume 87.2 fL (81-100); NEUTROPHILS % (AUTO) 56.3 % (40-74); Platelet Count 249 bil/L (150-400)
[2016-06-17] MEDS: 0.9% Sodium Chloride 1,000 ML IV SCH ×3 (06:08→22:18)
--- NOTE | 2016-06-17 06:35 | NUR ---
Pain: Pt reporting pain 7-8/10 to left foot. Foot red, swollen and painful to touch. Medicated with Oxycodone, pt has been able to sleep a small amount after meds. Calling for needs, bed alarm activated for pt safety. Foot elevated on pillow.
[2016-06-17] MEDS: MeTOProlol XL 50 mg ER24 Tablet PO SCH (08:57)
[2016-06-17] MEDS: Venlafaxine XR 75 mg ER24 Capsule PO SCH (08:57)
--- NOTE | 2016-06-17 09:15 | DRSVH ---
PROCEDURE: X-RAY LEFT FOOT COMPLETE, MINIMUM THREE VIEWS ([id number]) INDICATIONS: severe pasin/redness TECHNIQUE: 3 views of the foot were acquired. COMPARISON: None. FINDINGS: Bones: No fractures or dislocations. No suspicious bony lesions. There is cortical irregularity an d lucency involving the medial aspect of the first metatarsal head and base of the proximal phalanx w ith adjacent soft tissue swelling likely related to bunion. Osseous density seen within the soft tis sues adjacent to the third middle phalangeal base. Mild first MTP and diffuse interphalangeal joint narrowing. Soft tissues: No tibiotalar joint effusion. Achilles tendon appears normal. IMPRESSION: 1. Cortical irregularity and lucency involving the first metatarsal head and proximal phalangeal base along the medial surface which may be related to inflammatory arthritis such as gouty arthropathy bu t osteomyelitis cannot be excluded and close clinical correlation and followup is recommended. 2. Density seen within the soft tissues adjacent to the third middle phalanx possibly related to soft tissue calcification but foreign body cannot entirely be excluded. 3. Mild osteoarthritic changes. Dictated by: Jayme HOLLOWAY Interpreted: Dinesh Chan MD on 06/17/2016 at 9:10 Transcribed by: RADHA on 06/17/2016 at 9:15 Approved by: Dinesh Chan M.D. on 06/17/2016 at 10:06
--- NOTE | 2016-06-17 09:32 | PCM.PNMED ---
Subjective Date of Service June 17, 2016 Subjective Patient has no complaints this morning lying in bed. She is hungry but understands what needs to be nothing by mouth. Given underlying dementia is difficult to assess how deeply understands current medical condition. Though he certainly does not appear in any acute discomfort. His prompted about left foot which he given him significant pain last night, to which he replies" yesterday painful, it is usually very painful" . But clinically he looks much improved and in no significant discomfort. Exam Vital Signs Vital Sign - Last Date Time Temp Pulse Resp B/P Pulse Ox O2 Delivery O2 Flow Rate FiO2 06/17/16 09:03 36.6 81 18 150/74 97 Room Air Intake and Output 06/16/16 06/16/16 06/17/16 Cumulative From/Thru 15:00 23:00 07:00 06/16/16 10:15 - 06/17/16 05:19 Intake Total 1000 ml 118 ml 785 ml 1903 ml Output Total 150 ml 400 ml 550 ml Balance 850 ml -282 ml 785 ml 1353 ml Intake Oral 118 ml 118 ml IV Total 1000 ml 785 ml 1785 ml Output Urine Total 150 ml 400 ml 550 ml Exam General: Alert, Cooperative, No Distress, He is not oriented to place recent history or situation. He has been able to identify his in a hospital, he is oriented to self. Mouth: Mucous Membranes Moist/Airport Chest & Lungs: Clear to auscultation & percussion Cardiovascular: Regular Rate/Rhythm Abdomen: Non-tender, Non-distended, no organomegaly noted on deep palpation Extremities: Patient has right [id number] amputation in addition to left lower extremity which is mildly erythematous, improvement from previous, with minimal swolling and less painful, and not tender to touch. No subcutaneous abscess or induration is noted No open ulceration or location of infection can be identified. Neurological: Patient appears pleasantly demented, otherwise nonfocal neurologic evaluation) IVs and Medications Medications Reviewed: Medications were reviewed in detail Lab and Diagnostics Result Diagram: 06/17/1652106/17/16521 Assessment & Plan 71-year-old male past medical history significant for dementia, addition to apparent recent right lower extremity amputation, history of gastric bleeding/ ulceration, likely diabetes, presenting via ambulance to emergency room with severe abdominal pain, found to have guaiac positive stool conjunction with significant anemia admitted for further medical evaluation and stabilization. 1. Upper GI bleed - Patient is status post 1 unit packed red blood cell transfusion which seems to be well tolerated - Continue Protonix 80 mg IV twice a day at this time - Continue close observation, morning H&H is stable, following one unit PRBC transfusion yesterday evening. Given positive guaiac there is still some concern for active bleed though does not appear to be pronounced. This job may also be accounted for by hemodilution. - GI formally consulted for further evaluation . - Patient has been kept nothing by mouth after midnight for possible endoscopy 2. Painful left foot - Etiology is unclear and complete hospital records are not available as to the details pertaining to amputation of right lower extremity. - Certainly reassuring that pain is so significantly improved overnight - mild leukocytosis, has resolved - Final report of imaging studies pending but no acute pathology appears to have been identified. - Patient additionally has a past medical history of gout which may be contributing to current condition - We will continue oxycodone which is been effective for pain control. - Consider further evaluation showed more evidence of infection presented self or pain become more severe. 3. Dementia - Patient has difficult time recounting any of his recent medical history or significant past medical history. - Patient is on no medications are as mentioned at this time but is generally cooperative with staff and does not appear to be in need of any further intervention at this time. 4. Diabetes mellitus - A1c is currently pending - Patient be placed on sliding scale insulin at this time before meals at bedtime 5. History of congestive heart failure - Continue home medications for rate control and holding diuresis while NPO. - We will continue to monitor patient closely while medical floor, attempt to limit intravenous fluids to avoid volume overload - Continue telemetry monitoring at this time. Pain Evaluation: Adequate Pain Control GI Prophylaxis: Not indicated Resuscitation Status: DNR/DNI:Do Not Resuscitate/Intubate Time spent 30 minutes Shayan Hawkins DO June 17, 2016 09:32
--- NOTE | 2016-06-17 10:35 | PCM.CHPMED ---
Subjective Date of Service: June 17, 2016 Provider requesting consult: Shayan Hawkins DO Primary Physician: Admitting Physician: Shayan Hawkins DO Primary Care Physician: Nikolai Lozano MD Attending Physician: Shayan Hawkins DO Chief Complaint: Chief Complaint: Abdominal pain History of Present Illness: GI CONSULTATION 71-year-old male with right above-knee amputation is [facility] in [facility] EMS [facility] due to worsening abdominal pain and weakness with associated shortness of breath for the past 2 weeks. Patient has baseline dementia and is unable to stay awake for an extended conversation. Patient did communicate however that he recently had a GI bleed 1-2 months ago with upper endoscopy. He does not remember what he was told about the procedure, although admit note states that it was negative for source of bleeding. Per admitting note the patient was also seen by his primary doctor 2 weeks ago the positive guaiac at that time and a hemoglobin of 8.7. Patient does attest this morning that he has had some dark black stools although he denied this yesterday. Patient also denies using any ibuprofen or naproxen but continues to take his oxycodone every 4 hours for his left foot pain as well as right foot phantom pain. Patient denies current abdominal pain or chest pain, or recent fevers, chills, nausea, vomiting. He does state that he has intermittent nausea and occasional vomiting however. He denies dizziness, lightheadedness, or chest pain. Patient was transfused 1 unit of PRBCs and given 80 [address] of Pro[address]ix once. CT of the abdomen was negative for hepato-/splenomegaly or biliary obstructions. There is a thickening of the sigmoid colon, and noticeable diverticulosis. 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 Reports: Congestive heart failure, Diabetes mellitus, Hyperlipidemia, Hypertension Reports: Depression Hx Any Other Health Problems?: YesHx Diabetes: Yes Surgical History Right BKA history of subsequent pseudomonas infection, thought fully involved on hospitalization 04/23/2016 Cannot recall any other surgeries Upper and lower endoscopy at [facility] May 05 reportedly negative for source of anemia Home Medications Aspirin Chew (Aspirin Chew) 81 Mg Chew 81 MG PO DAILY Atorvastatin Calcium (Atorvastatin Calcium) 40 Mg Tablet 80 MG PO HS Baclofen (Baclofen) 10 Mg Tablet 10 MG PO TID Furosemide (Furosemide) 40 Mg Tablet 40 MG PO BID Lisinopril (Lisinopril) 5 Mg Tablet 5 MG PO BID Melatonin (Melatonin) 3 Mg Tablet 6 MG PO HS Metoprolol Succinate ER (Metoprolol Succinate ER) 50 Mg Tab.er.24h 50 MG PO DAILY Multivitamin (Multi Vitamin Daily) 1 Each Tablet 1 EACH PO DAILY Pantoprazole DR (Pantoprazole DR) 40 Mg Tablet.dr 40 MG PO DAILY Spironolactone (Aldactone) 25 Mg Tablet 12.5 MG PO DAILY Venlafaxine ER (Effexor XR) 37.5 Mg Capsule 37.5 MG PO DAILY Albuterol Neb Soln (Albuterol Neb Soln) 2.5 Mg/3 Ml Vial.neb 2.5 MG NEB Q2H PRN PRN For Shortness of Breath Ipratropium/Albuterol Sulfate (Iprat-Albut 0.5-3(2.5) mg/3 mL Inhalant Soln) 3 Ml Ampul.neb 3 ML NEB QIDWA PRN PRN For Shortness of Breath use with nebulizer Nitroglycerin SL (Nitrostat) 0.4 Mg Tab.subl 0.4 MG SL Q5MIN PRN PRN For Chest Pain IF SBP > 90 May use up to 3 times 5 minutes apart for chest pain Oxycodone (Roxicodone) 5 Mg Tablet 10 MG PO Q4H PRN PRN For Pain Arginine/Ascorbate Sod/Diana AC (Arginaid Powder) 1 Each Powd.pack 1 EACH PO Cholecalciferol (Vitamin D3) (Vitamin D3) 2,000 Unit Tablet 2,000 UNIT PO Lorazepam (Lorazepam) 0.5 Mg Tablet 0.5 MG PO Polyethylene Glycol 3350 (Miralax) 17 Gm Powd.pack 17 GM PO Allergies: Coded Allergies: No Known Allergies (Unverified , 06/16/16) Family History Family History Patient states that there is no history of colon cancer Social History Hx Alcohol Use: NoHx Substance Use: NoHx Tobacco Use: Yes Smoking Status: Former Smoker Living Arrangement: Group Home Facility Exam Vital Signs Vital Sign - Last Date Time Temp Pulse Resp B/P Pulse Ox O2 Delivery O2 Flow Rate FiO2 06/17/16 09:30 76 06/17/16 09:03 36.6 18 150/74 97 Room Air Intake and Output 06/16/16 06/16/16 06/17/16 Cumulative From/Thru 15:00 23:00 07:00 06/16/16 10:15 - 06/17/16 05:19 Intake Total 1000 ml 118 ml 785 ml 1903 ml Output Total 150 ml 400 ml 550 ml Balance 850 ml -282 ml 785 ml 1353 ml Intake Oral 118 ml 118 ml IV Total 1000 ml 785 ml 1785 ml Output Urine Total 150 ml 400 ml 550 ml Additional Information: General: Patient responding to questions but sleepy HEENT: conjunctivae were pale; patient size due to "extreme tiredness" Cardio: Regular rate and rhythm Respiratory: Clear in the lateral thacker as patient would not sit up Abdomen; mildly tender on deep palpation with no organomegaly Extremities: Amputation of right leg [id number] and edema noted just above the knee and the left leg with pain on palpation Neuro: Could not assess due to somnolence Psych: Could not assess due to somnolence Lab and Diagnostics Result Diagram: 06/17/1652106/17/16521 X-Rays, CTs and MRIs CT of the abdomen 1. No evidence of acute process. 2. Diverticulosis of the descending and sigmoid colon, with no evidence of acute diverticulitis. 3. Thickening of the sigmoid colon, which may indicate sequelae of chronic diverticulitis versus neoplasm. Colonoscopy is recommended for further assessment. 5. Appendix not seen. No evidence of appendicitis. 6. Small hiatal hernia. 7. Nonobstructing bilateral renal calcifications. 8. No change in the left lateral lung base nodule. Several adjacent new ill- defined nodular densities within the left lower lobe are present. IV contrast enhanced chest CT is recommended for further assessment. Dictated by: Magalie Lopez M.D. on 06/16/2016 at 12:56 Assessment & Plan Assessment 71-year-old male who presents with abdominal pain that seems to be resolved with recent melena and positive guaiac as an outpatient, with a hemoglobin of 8.0 and 7.9. Patient appears to be stable currently is denying symptoms otherwise of somnolent at this point is somewhat of a mystery, but is not likely related to his anemia as discussed back over nearly 2 months. Could be due to the lorazepam from last night. Problem list: Hypochromic normocytic anemia likely second blood loss and a mild component of iron deficiency Dementia Plan: With recommend continuing Protonix 40 mg IV twice a day. Review of the patient' s POLST form indicates DNR/DNI and comfort measures only. Discussed with hospitalist and he will follow up on family wishes as patient has already received a blood transfusion. I researched and discussed with the hospitalist and the patient. He is not clear that he is comfort measures. He wants upper endoscopy done. He wants blood transfusions. I saw and examined this pt with Dr Baptiste and agree with above. Thank you for allowing us to participate in the care of this patient. Problems: Pain Evaluation: Adequate Pain Control GI Prophylaxis: Not indicated VTE Prophylaxis Indicated: Contraindicated Resuscitation Status: DNR/DNI:Do Not Resuscitate/Intubate Mj Mauricio DO June 17, 2016 10:34 Heriberto Juárez MD June 19, 2016 07:48
--- NOTE | 2016-06-17 13:24 | NUR ---
Evaluation completed. Please go to "Notes" then click on "Assessments and Notes" (bottom left corner of screen). Then select appropriate discipline tab on top of screen.
[2016-06-17] MEDS ORDERED: Lactated Ringer's 1,000 ML IV ONE ×2 (13:26→16:43)
--- NOTE | 2016-06-17 16:24 | NUR ---
Case Management: Patient oriented X3 at this time. He informed me that Moriah Morley was his niece and that she is no longer in contact with him--he is unsure as to why. He is aware that he is having a procedure today. IMM explained to patient at 1535. Signed copy placed in chart, copy given to patient. Paula Smith RN
[2016-06-17] MEDS: Pantoprazole 4 mg/mL 10 mL Inj IVPUSH SCH (16:30)
--- NOTE | 2016-06-17 16:32 | NUR ---
Patient off unit to Endo
--- NOTE | 2016-06-17 16:43 | PCM.HPANE ---
Patient Data Surgeon Admitting Provider:Shayan Hawkins DO Attending Provider:Shayan Hawkins DO Primary Care Physician:Nikolai Lozano MD Other Provider: Reason for Visit Gi Bleed Ht/WT & BMI Height (Feet): 5 Height (Inches): 7.00 Weight (Kilograms): 112.500 Body Mass Index 38.93 Allergies Coded Allergies: No Known Allergies (Unverified , 06/16/16) Past Anesthesia History Anesthesia History: Denies:: Abnormal Airway, Anesthesia Reactions, Difficult Intubation Diabetes History Hx Diabetes?: Yes MRSA MRSA: No Medications Active Scripts Furosemide 40 Mg Rwsxpv29 Mg PO BID #60 TABLET Prov:Tiarra Morales DO 05/10/16 Spironolactone (Aldactone)25 Mg Nrjjmr86.5 Mg PO DAILY #30 TABLET Prov:Tiarra Morales DO 05/10/16 Nitroglycerin SL (Nitrostat)0.4 Mg Tab.subl0.4 Mg SL Q5MIN PRN For Chest Pain IF SBP > 90 #1 VIAL May use up to 3 times 5 minutes apart for chest pain Prov:Tiarra Morales DO 05/10/16 Lisinopril 5 Mg Tablet5 Mg PO BID #60 TABLET Prov:Tiarra Morales DO 05/10/16 Metoprolol Succinate ER 50 Mg Tab.er.24h50 Mg PO DAILY #30 TABLET Prov:Tiarra Morales DO 05/10/16 Reported Medications Lorazepam 0.5 Mg Tablet0.5 Mg PO HS Ref 0 06/16/16 Venlafaxine ER (Effexor XR)75 Mg Nzpkwre78 Mg PO DAILY Ref 0 06/16/16 Na Phos,M-B/Na Phos,Di-Ba (Fleet Enema)133 Ml Jucxd087 Ml RC DAILY PRN For Constipation 06/16/16 Bisacodyl (Dulcolax Rectal)10 Mg Supp.rect10 Mg RC DAILY PRN For Constipation 30 Days Ref 0 06/16/16 Magnesium Hydroxide (Milk of Magnesia)400 Mg/5 Ml Oral.susp30 Ml PO DAILY PRN For Constipation 06/16/16 Acetaminophen 325 Mg Tyawydv520 Mg PO q4 hours PRN For Pain 06/16/16 oxyCODONE 10 Mg Lymawt27 Mg PO BID Ref 0 06/16/16 Atorvastatin (Lipitor)80 Mg Vwvqty18 Mg PO HS Ref 0 06/16/16 Multivitamin (Multi Vitamin Daily)1 Each Tablet1 Each PO DAILY 30 Days Ref 0 05/04/16 Polyethylene Glycol 3350 (Miralax)17 Gm Powd.pack17 Gm PO QID PRN For Constipation 05/04/16 Cholecalciferol (Vitamin D3) (Vitamin D3)2,000 Unit Tablet2,000 Unit PO DAILY 05/04/16 Melatonin 3 Mg Tablet6 Mg PO HS 05/04/16 Lorazepam 0.5 Mg Tablet0.5 Mg PO q4 hours PRN For Anxiety #30 05/04/16 Oxycodone (Roxicodone)5 Mg Hqmpvb13 Mg PO Q4H PRN For Pain Ref 0 05/04/16 Baclofen 10 Mg Kjvjou43 Mg PO TID Ref 0 05/04/[address] 40 Mg Tablet.dr40 Mg PO DAILY #30 05/04/16 Discontinued Reported Medications Venlafaxine ER (Effexor XR)37.5 Mg Cxpvcrd13.5 Mg PO DAILY Ref 0 05/04/16 Arginine/Ascorbate Sod/Diana AC (Arginaid Powder)1 Each Powd.pack1 Each PO 05/04/16 Aspirin Chew 81 Mg Chew81 Mg PO DAILY Ref 0 05/04/16 Discontinued Scripts Ipratropium/Albuterol Sulfate (Iprat-Albut 0.5-3(2.5) mg/3 mL Inhalant Soln)3 Ml Ampul.neb3 Ml NEB QIDWA PRN For Shortness of Breath #120 VIAL use with nebulizer Prov:Tiarra Morales DO 05/10/16 Albuterol Neb Soln 2.5 Mg/3 Ml Vial.neb2.5 Mg NEB Q2H PRN For Shortness of Breath #90 VIAL Prov:Tiarra Morales DO 05/10/16 [Miconazole Nitrate] (Monistat-Derm 2% Cream)0.25 APPLIC/GM CREAM No Conflict Check1 Applic TOPICAL BID #1 TUBE Apply a thin layer under clean dry foreskin twice daily for 6 days or if symptoms persist. Prov:Tiarra Morales DO 05/10/16 Atorvastatin Calcium 40 Mg Tqqqev29 Mg PO HS #60 TABLET Prov:Tiarra Morales DO 05/10/16 History History of ENT Problems?: No HEENT History: Denies:: Abnormal Airway Cataracts Difficult Intubation Dysphagia Glaucoma Hearing Problem Sinus Problem TMJ Denture Type: None Teeth Condition: Within Normal Limits Hx of Heart Problems?: Yes Cardiovascular History: Positive for:: Chest Pain Congestive Heart Failure Edema Hypertension Denies:: Cardiac Surgery Heart Murmur Irregular Heartbeat Pacemaker Thrombophlebitis Hx of Respiratory Problem?: Yes Respiratory History: Positive for:: Dyspnea Pneumonia Denies:: Asthma COPD Chest Surgery Emphysema Hemoptysis Tuberculosis Hx Neurologic Problems?: Yes Neurological History: Positive for:: CVA Dementia Dizziness Denies:: Alzheimer's Disease Headaches Parkinson's Disease Seizures Hx of GI Problems?: Yes Hx of Problems?: No Genitourinary History: Denies:: HX of Hemodialysis Kidney Stones Urinary Tract Infection HX of Peritoneal Dialysis: No Male Hx: Denies:: Prostate Problems Scrotal Mass Testicular Surgery Other Skin Pertinent History: pt is unreliable historian Hx Musculoskeletal Problems?: Yes Musculoskeletal History: Positive for:: Musculoskeletal Trauma (RLE amputation ) Denies:: Back Injury Joint Replacement Hx of Psycho/Social Problems?: Yes Psycho Social History: Positive for:: Anxiety Hx Depression Denies:: Bipolar Disorder Suicide Attempt 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 Category 1B: Patient has history of documented sleep apnea, and HAS received any narcotic , sedative or anesthesia administration during this stay Category 2: Patient has SUSPECTED Obstructive Sleep Apnea, and HAS received any narcotic , sedative or anesthesia administration during this stay. Category 3: Patient has SUSPECTED Obstructive Sleep Apnea and HAS NOT received narcotic, sedative or anesthesia administration during this stay. Category 4: Outpatient in Procedural Areas with known sleep apnea or who screen positive for High Risk via the STOP/BANG questionnaire. Exam Exam Vital Signs Vital Signs Date Time Temp Pulse Resp B/P Pulse Ox O2 Delivery O2 Flow Rate FiO2 06/17/16 16:09 36.0 74 17 115/69 98 Room Air 06/17/16 09:30 76 06/17/16 09:03 36.6 81 18 150/74 97 Room Air General Appearance: Alert, Oriented X3, Cooperative, Moderate Distress, Severe Distress, Other (he is not oriented to place recent history or situation. He has been able to identify his in a hospital, he is oriented to self. ) HEENT/AIRWAY: MP 2 Lungs: Normal Air Movement Heart: Exam Unremarkable Meds/Labs/Diagnostics Admission Meds Current Medications Pantoprazole (Protonix Inj) 80 mg BID ONCE IVPUSH Last administered on 22:17; Start 06/16/16 at 20:30; Stop 06/16/16 at 20:31; Status DC Baclofen (Lioresal) 10 mg TID PO Last administered on 06/17/16 08:55; Start 06/16/16 at 20:30 Furosemide (Lasix) 40 mg PO Last administered on 06/17/16 06:09; Start at 17:00; Stop 06/17/16 at 09:32; Status DC Lisinopril (Zestril) 5 mg BID PO Last administered on 06/17/16 09:00; Start 06/16/16 at 20:30 Lorazepam (Ativan) 0.5 mg HS PO Last administered on 06/16/16 22:18; Start 06/16 at 21:00 Metoprolol Succinate (Toprol XL) 50 mg DAILY PO Last administered on 06/17/16 08:57; Start 06/17/16 at 08:30 Spironolactone (Aldactone) 12.5 mg DAILY PO Last administered on 06/17/16 08:54 ; Start 06/17/16 at 08:30 Venlafaxine HCl (Effexor XR) 75 mg DAILY PO Last administered on 06/17/16 08:57 ; Start 06/17/16 at 08:30 Atorvastatin Calcium (Lipitor) 80 mg HS PO Last administered on 06/16/16 22:18 ; Start 06/16/16 at 21:00 Cholecalciferol (Vitamin D3) 2,000 unit DAILY PO Last administered on 06/17/16 08:58; Start 06/17/16 at 08:30 Multivitamins/ Minerals Therapeutic (Thera Vitamins w/Mineral) 1 tablet DAILY PO Last administered on 06/17/16 08:56; Start 06/17/16 at 08:30 Oxycodone HCl (Roxicodone IR) 10 mg BID PO Last administered on 06/17/16 09:10 ; Start 06/16/16 at 20:30 Melatonin (Melatonin) 1 mg HS PO Last administered on 06/16/16 22:18; Start 06/16/16 at 21:00 Melatonin 5 mg 5 mg HS PO Last administered on 06/16/16 22:18; Start 06/16/16 at 21:00 Sodium Chloride (Normal Saline) 1,000 ml @ 75 mls/hr [id number] IV Last administered on 06/17/16 06:08; Start 06/16/16 at 17:20 Labs Test 06/16/16 10:10 06/16/16 11:55 06/16/16 17:27 06/16/16 19:30 Erythrocyte Sedimentation Rate 30mm/hr (0-30) Prothrombin Time 10.0sec (8.1-12.5) Prothromb Time International Ratio 0.94ratio Magnesium Level 1.5mg/dL (1.6-2.6) Total Bilirubin 0.4mg/dL (0.0-1.2) Aspartate Amino Transf (AST/SGOT) 13U/L (0-50) Alanine Aminotransferase (ALT/SGPT) 12U/L (0-44) Alkaline Phosphatase 82U/L (25-160) Troponin T < 0.010ug/L (0.0-0.011) Pro-B-Type Natriuretic Peptide 162.8pg/mL (0-376) Total Protein 6.7g/dL (6.4-8.4) Albumin 4.1g/dL (3.4-5.0) Hold Hart Top Tube Received (Received) Hold Urine Received (Received) Lactic Acid Level 1.5mmol/L (0.4-2.0) Urine Color Yellow (YELLOW) Urine Appearance Clear (CLEAR,HAZY) Urine pH 5.5 (5.0-8.0) Urine Specific Jackson 1.010 (1.003-1.035) Urine Protein Negativemg/dL (NEG,TRACE) Urine Glucose (UA) Negativemg/dL (NEGATIVE) Urine Ketones Negativemg/dL (NEGATIVE) Urine Occult Blood Negative (NEGATIVE) Urine Nitrite Negative (NEGATIVE) Urine Bilirubin Negative (NEGATIVE) Urine Urobilinogen Normalmg/dL (NORMAL) Urine Leukocyte Esterase Negative (NEGATIVE) Urine RBC 0-2/hpf (0-2) Urine WBC 0-5/hpf (0-5) Urine Epithelial Cells Few/hpf (NONE-MOD) Urine Crystals None seen (NONE SEEN) Urine Bacteria Few/hpf (NONE-FEW) Urine Hyaline Casts None/lpf (NONE) Urine Granular Casts None seen (NONE SEEN) Urine Waxy Casts None seen (NONE SEEN) Urine Red Blood Cell Casts None seen (NONE SEEN) Urine White Blood Cell Casts None seen (NONE SEEN) Urine Mucus None seen (None Seen) Urine Trichomonas None seen (NONE SEEN) Urine Yeast None (NONE SEEN) Urinalysis Comment None Urine Culture Reflexed Not indicated Test 06/17/16 05:22 White Blood Count 7.7th/mm3 (3.8-10.1) Red Blood Count 2.97mil/mm3 (4.40-5.80) Hemoglobin 7.9g/dL (13.8-17.2) Hematocrit 25.9% (41.0-50.0) Mean Corpuscular Volume 87.2fL (81-100) Mean Corpuscular Hemoglobin 26.6pg (27.0-35.0) Mean Corpuscular Hemoglobin Concent 30.5% (32.0-37.0) Red Cell Distribution Width 17.8% (12.3-15.4) Platelet Count 249bil/L (150-400) Neutrophils (%) (Auto) 56.3% (40-74) Lymphocytes (%) (Auto) 22.9% (14-46) Monocytes (%) (Auto) 11.9% (4-12) Eosinophils (%) (Auto) 8.0% (0-5) Basophils (%) (Auto) 0.5% (0-3) Sodium Level 136mEq/L (134-144) Potassium Level 4.1mEq/L (3.5-5.2) Chloride Level 95mEq/L (97-108) Carbon Dioxide Level 28mmol/L (18-29) Blood Urea Nitrogen 29mg/dL (8-27) Creatinine 1.04mg/dL (0.76-1.27) Estimat Glomerular Filtration Rate 75mL/min (>59) Glucose Level 106mg/dL (60-99) Calcium Level 9.0mg/dL (8.5-10.1) Plan Impression Patient chart reviewed, patient interviewed and anesthestic plan with risks, benefits, and alternatives discussed, and informed consent obtained. ASA Physical Status: ASA3 Severe Disease Anesthetic Plan: GA Bene/Risks/Altern/Consents: Yes HP Complete Prior to Induction: Yes Rickey Dela Cruz MD June 17, 2016 16:43
--- NOTE | 2016-06-17 17:23 | PCM.ENDEGD ---
EGD Date of Service: June 17, 2016 Physician Shayan Hawkins DO Pre Procedure Diagnosis: Anemia Post Procedure Dx & Findings: Healing ulcers Procedure Esophagogastroduodenoscopy PROCEDURE IN DETAIL: After proper sedation, Olympus video endoscope was inserted into patient's mouth and esophagus was successfully intubated. Scope introduced esophagus. Esophagus showed normal shiny whitish mucosa consistent with squamous cell component. Z line was not intact at 36 cm from the incisors. 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 No ulcer or mass erosion nodule noted. Biopsy was not taken. Stomach further advanced to the stomach. Stomach showed normal shiny mucosa with normal appearing rugae folds without any ulcer mass erosion. However in the antrum, there were 2 scarring consistent with ulcer healing. One of the ulcer was about a centimeter and is at a near healed stage. Cardia fundus body antrum pylorus were all visualized. Retroflexion was done. Stomach was easily inflated and deflatable using air. Scope further events to the distal duodenum. Duodenum revealed normal villous structures with normal appearing folds without any mass ulcer erosion. In the duodenum bulb and the first pass of the duodenum, again I see couple of ulcers that are in process of healing and they are both near healed. 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 Impression Healing and almost healed ulcers in the stomach and the duodenum. I think patient's hemoglobin should remain stable and suspect patient will not have any more melena or decrease in hemoglobin. I think while the ulcer was healing, patient's slowly lost blood from these ulcers in the past. Then he essentially stopped bleeding. Therefore I think the hemoglobin level dropped during or in process of ulcer healing and then stabilized. As long as the there are hemoglobin level stabilizes, I think he does not need any more endoscopy. If hemoglobin level starts to fall, consider a colonoscopy. Please watch him for the next day or 2. One AVM noted in the third portion of duodenum 1 mm in size Recommendation Follow for the next day or 2 Advanced diet as tolerated Presedation Assessment Risks and Benefits Informed consent was obtained from the patient after all risks and benefits including but not limited to drug reaction, infection, pain, bleeding, perforation, as well as alternatives were discussed. Patient monitoring Continuous pulse oximetry, cardiac monitoring, blood pressure monitoring, IV access, and oxygen at 2L per nasal cannula. Complications There were no periprocedural complications identified. Post Procedure Plan Post Procedure Recommendations 1. Restrict activities today. 2. Resume normal activities in the morning. 3. Resume medications. 4. GERD behavioral modification: - Avoid fatty, acidic, spicy, large meals - Do not lie down after meals - Do not eat or drink anything for at least 2 1/2 hours before going to bed at night - Discontinue tobacco and alcohol - Decrease or avoid caffeine - Avoid chocolate and mints - Decrease weight - Avoid aspirin and non steroidal anti-inflammatory agents (NSAID) such as Aleve, Advil, Mobic, Naproxen, Ibuprofen, etc 5. Add proton pump inhibitor. Take 30 minutes before 1st meal of the day. 6. Patient informed of normal post procedure side effects as bloating, drowsiness, blood streaking in the stool 7. If gastric biopsy reveal H.pylori, continue with appropriate treatment 8. If small bowel biopsy reveals celiac, continue with appropriate treatment 9. Please don't hesitate to call me with any questions Heriberto Juárez MD June 17, 2016 17:23
--- NOTE | 2016-06-17 17:24 | PCM.ANEP1 ---
Post Anesthesia Phase 1 PACU Phase 1 Assessment Date of Service: June 17, 2016 Vital Signs Vital Signs Date Time Temp Pulse Resp B/P Pulse Ox O2 Delivery O2 Flow Rate FiO2 06/17/16 16:09 36.0 74 17 115/69 98 Room Air 06/17/16 09:30 76 Anesthetic Administered: GA Level of Alertness: Awake, talking HOROWITZ's with Equal Strength: Yes Pain: No (L foot, ankle and knee) Nausea or Vomiting: No Oxygen Delivery: Nasal Cannula Lungs: Normal Air Movement Complications: No Follow up Care: No iRckey Dela Cruz MD June 17, 2016 17:24
--- NOTE | 2016-06-17 17:48 | NUR ---
Patient back on floor
--- NOTE | 2016-06-17 18:51 | NUR ---
Pain P: Patient reports pain level of 9 in his lower leg and foot (L). I: Administered Roxicodone 10mg PO. Left foot elevated on pillow. E: Patient reports pain reduced to a 6 - 30 min post medication.
[2016-06-17] MEDS: LORazepam 0.5 mg Tablet PO SCH (22:20)
[2016-06-18 00:26] VITALS: BP 126/74; PULSE 68; RESP 18; O2SAT 100
--- NOTE | 2016-06-18 01:43 | NUR ---
Pain, SOB: Pt reported feeling anxious at bedtime with shortness of breath that comes and goes, Lorazepam "helps my breathing". Medication scheduled and administered at HS. On RA pt was 98%, requested having the oxygen for comfort and did not want the IV fluid to infuse anymore. Pt was placed on 1L NC and IV was saline locked, night hospitalist was paged and is aware, recommended pt only be placed on 1L.
[2016-06-18 05:09] VITALS: BP 121/71; PULSE 68; RESP 18; O2SAT 96
[2016-06-18] MEDS: Mupirocin 2% 22 Gm Ointment TOPICAL SCH ×2 (05:25→08:29)
[2016-06-18 08:17] LABS: BASOPHILS % (AUTO) 0.8 % (0-3); EOSINOPHILS % (AUTO) 9.4 % (0-5); Mean Corpuscular Hemoglobin 26.1 pg (27.0-35.0); Mean Corpuscular Volume 86.7 fL (81-100); NEUTROPHILS % (AUTO) 54.2 % (40-74); Platelet Count 283 bil/L (150-400)
[2016-06-18] MEDS: Pantoprazole 4 mg/mL 10 mL Inj IVPUSH SCH (08:22)
[2016-06-18] MEDS: MeTOProlol XL 50 mg ER24 Tablet PO SCH (08:25)
[2016-06-18] MEDS: Venlafaxine XR 75 mg ER24 Capsule PO SCH (08:29)
--- NOTE | 2016-06-18 09:13 | NUR ---
Social Work: Initial Assessment Data: Pt is a 71 y/o male admitted for GI bleed. Pt's PCP is Dr Lozano, pt's insurance is Medicare with [facility] supp. EMR reviewed. Readmit score is 5, high. MUSIC LEADER met with pt at bedside, role explained. Pt states he live at [facility]. Pt uses a wheel chair at baseline, does not drive, has no hx of HH, no LTC or VA benefits, and is not a caregiver. Pt states he has an appointment today with a doctor about his feet at 3:30, he is wanting to leave the hospital in time for this. Pt agreeable to returning to [facility]. MUSIC LEADER will continue to follow. MUSIC LEADER called [facility] regarding pt, no answer, left voice mail. Assessment: Pt from [facility]. Plan: Pt will return to [facility], potentially today, via cabulance. MUSIC LEADER will continue to follow. KARY Dorantes Addendum: 06/18/16 at 0917 by NERISSA CARR SS Amended: Links added.
[2016-06-18] MEDS: 0.9% Sodium Chloride 1,000 ML IV SCH (09:20)
--- NOTE | 2016-06-18 10:04 | PCM.PNMED ---
Subjective Date of Service June 18, 2016 Subjective GI progress note Yesterday patient went for EGD with noted also formations in the distal esophagus and gastric antrum that appeared to be healing. There is no bleeding identified during procedure. Overnight the patient seems to have done well. Eating well this morning. No complaints of nausea, vomiting, diarrhea. Patient is passing flatus. Negative for chest pain or other review of systems. Exam Vital Signs Vital Sign - Last Date Time Temp Pulse Resp B/P Pulse Ox O2 Delivery O2 Flow Rate FiO2 06/18/16 05:09 36.6 68 18 121/71 96 Room Air 06/17/16 17:19 4 Intake and Output 06/17/16 06/17/16 06/18/16 Cumulative From/Thru 15:00 23:00 07:00 06/16/16 10:15 - 06/18/16 06:25 Intake Total 365 ml 760 ml 1419 ml 4447 ml Output Total 2000 ml 1050 ml 400 ml 4000 ml Balance -1635 ml -290 ml 1019 ml 447 ml Intake Oral 365 ml 660 ml 400 ml 1543 ml IV Total 100 ml 1019 ml 2904 ml Output Urine Total 2000 ml 1050 ml 400 ml 4000 ml Exam General: Patient responding to questions but sleepy HEENT: conjunctivae were pale; patient size due to "extreme tiredness" Cardio: Regular rate and rhythm Respiratory: Clear in the lateral thacker as patient would not sit up Abdomen; mildly tender on deep palpation with no organomegaly Extremities: Amputation of right leg [id number] and edema noted just above the knee and the left leg with pain on palpation; no dorsal pedis pulses palpated Neuro: Decreased sensation in the left lower extremity Psych: Appropriate mood and affect, does seem a little bit anxious as he will miss his podiatry appointment today IVs and Medications Medications Reviewed: Medications were reviewed in detail Lab and Diagnostics Result Diagram: 06/18/16 0810 06/18/16 0810 Assessment & Plan Assessment/plan 71-year-old male who is admitted due to severe abdominal pain and recent melena. EGD multiple healing ulcers were identified as well as one AVM in the duodenum and these likely contributed to the patient's melena. Current opinion is that these are healed and are no longer bleeding. Recommend that patient remain in the hospital today to trend H&H and be discharged tomorrow morning if stable. Advance diet as tolerated. Appears to be tolerating so far this morning. Additional note, patient's complaint of additional foot pain which he seems to have been complaining of since he came in. X-rays were taken and diagnosed with arthritis and calcifications. Patient was to have an appointment with his manager ui today at 3:30 this afternoon and obviously will not make this appointment. Recommend considering podiatry assessment. So my examination, patient had very red and swollen right foot. Concerned about cellulitis. Defer this issue to the primary care service. I have seen and examined the patient with the resident and agree with above. Thank you for allowing us to participate in the care of this patient GI Prophylaxis: Not indicated Resuscitation Status: DNR/DNI:Do Not Resuscitate/Intubate Mj Mauricio DO June 18, 2016 10:04 Heriberto Juárez MD June 19, 2016 07:56
--- NOTE | 2016-06-18 10:21 | PCM.DIMED ---
Discharge Instructions Date of Service June 18, 2016 Dates of Hospitalization June 16, 2016 at 15:20 Discharge Diagnosis Discharge Diagnosis 1. Upper GI bleed with anemia: Now resolved. H&H stable after transfusion. Continue home Protonix. 2. Painful left foot; Cause unclear, maybe Gout, infection less likely based on hospital lab and imaging studies. FU planned with specialist on day of discharge. Diet No restrictions, Diabetic Activity Limited until seen by PCP Call your provider Fever or Chills, Shortness of breath, Bleeding, Chest pain Patient Instructions Continue to monitor stools for signs of bleeding: either actual red blood or dark tarry coloration Follow up with you PCP in 1 -2 weeks following discharge for additional blood to ensure anemia is not worsening. Follow-up Provider: Nikolai Lozano MD Follow-up with PCP in: 1 week Shayan Hawkins DO June 18, 2016 10:21
--- NOTE | 2016-06-18 10:28 | PCM.DC.MED ---
Discharge Summary Date of Service June 18, 2016 Dates of Hospitalization Date of Hospital Admission June 16, 2016 at 15:20 Date of Discharge: June 18, 2016 Providers: Admitting Physician: Shayan Hawkins DO Primary Care Physician: Nikolai Lozano MD Attending Physician: Shayan Hawkins DO Diagnosis at Time of Discharge Diagnosis at Time of Discharge 1. Upper GI bleed with anemia: Now resolved. H&H stable after transfusion. Continue home Protonix. 2. Painful left foot; Cause unclear, maybe Gout, infection less likely based on hospital lab and imaging studies. FU planned with specialist on day of discharge. Brief History This 71-year-old male brought in by EMS from [facility] where he has been staying for some time following right above-knee amputation with complaints of severe and worsening abdominal pain in addition to more prolonged generalized weakness and worsening shortness of breath over past 2 weeks. I had presentation was additionally noted the patient was treated for GI bleed a couple of months prior while staying at [facility] to which she was discharged back. He was reportedly seen by his primary care doctor 2 weeks prior and was noted to be guaiac positive at that time, lab studies 1 week prior demonstrated hemoglobin of 8.7 and hematocrit of 27.4 as per ER documentation. There is no history of dark tarry stools however the patient's demented and unable to participate significantly in obtaining of his history. He does not however they have been taking much oxycodone for pain in his abdomen as well as foot, both extremity that still present and phantom foot pain as well. The time my evaluation when patient had arrived to hospital floor, lying in bed in severe pain on her complaining of abdominal discomfort but rather stating his left lower extremity was very painful. When asked when this had developed as he had not mentioned in emergency department patient states present for nearly a month and is very severe he utilizes oxycodone to control this pain as he has for some time. 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 He is aware he lives in [place], unable to identify the name of the skilled facility is staying at. Denies chest pains or palpitations other. Denies any recent sweats or chills he does not complain of fever. His appetite is adequate and he has been drinking and eating without complication. He has no other acute complaints or concerns at this time really aside from his left foot pain. Hospital Course 1. Upper GI bleed S/P 1 unit tranfusion. (+)stool guiac but H&H stable Upper endoscopy unremarkable for evidence of active bleeding DC'd home with plan to monitor stool. FU with PCP in 1 week for repeat H&H, sooner if condition worsens or there is concern for active bleeding. Continue PPI at current 40mg dose daily 2. Painful left foot No evidence of acute infection based on imaging/lab studies This condition though severe has been chronic FU with specialist is scheduled for later today, pt plans to keep appointment. 3. Dementia - On admission pt appeared significantly impaired cognatively on admission, but on day #1 of hospitalization this began to clear in the afternoon. He remains AOX3 on day of discharge, perhaps worsening of this condition had been associated with anemia though this had been mild, it was improving with mentation. 4. Diabetes mellitus No changes during hospitalization. 5. History of congestive heart failure Stable cardiac function through hospitalization, no acute work up or interventions. Exam Vital Signs (Last) Date Time Temp Pulse Resp B/P Pulse Ox O2 Delivery O2 Flow Rate FiO2 06/18/16 05:09 36.6 68 18 121/71 96 Room Air 06/17/16 17:19 4 Test 06/16/16 10:10 06/16/16 11:55 06/16/16 17:27 06/16/16 19:30 Erythrocyte Sedimentation Rate 30mm/hr (0-30) Prothrombin Time 10.0sec (8.1-12.5) Prothromb Time International Ratio 0.94ratio Magnesium Level 1.5mg/dL (1.6-2.6) Total Bilirubin 0.4mg/dL (0.0-1.2) Aspartate Amino Transf (AST/SGOT) 13U/L (0-50) Alanine Aminotransferase (ALT/SGPT) 12U/L (0-44) Alkaline Phosphatase 82U/L (25-160) Troponin T < 0.010ug/L (0.0-0.011) Pro-B-Type Natriuretic Peptide 162.8pg/mL (0-376) Total Protein 6.7g/dL (6.4-8.4) Albumin 4.1g/dL (3.4-5.0) Hold Hart Top Tube Received (Received) Hold Urine Received (Received) Lactic Acid Level 1.5mmol/L (0.4-2.0) Urine Color Yellow (YELLOW) Urine Appearance Clear (CLEAR,HAZY) Urine pH 5.5 (5.0-8.0) Urine Specific [place] 1.010 (1.003-1.035) Urine Protein Negativemg/dL (NEG,TRACE) Urine Glucose (UA) Negativemg/dL (NEGATIVE) Urine Ketones Negativemg/dL (NEGATIVE) Urine Occult Blood Negative (NEGATIVE) Urine Nitrite Negative (NEGATIVE) Urine Bilirubin Negative (NEGATIVE) Urine Urobilinogen Normalmg/dL (NORMAL) Urine Leukocyte Esterase Negative (NEGATIVE) Urine RBC 0-2/hpf (0-2) Urine WBC 0-5/hpf (0-5) Urine Epithelial Cells Few/hpf (NONE-MOD) Urine Crystals None seen (NONE SEEN) Urine Bacteria Few/hpf (NONE-FEW) Urine Hyaline Casts None/lpf (NONE) Urine Granular Casts None seen (NONE SEEN) Urine Waxy Casts None seen (NONE SEEN) Urine Red Blood Cell Casts None seen (NONE SEEN) Urine White Blood Cell Casts None seen (NONE SEEN) Urine Mucus None seen (None Seen) Urine Trichomonas None seen (NONE SEEN) Urine Yeast None (NONE SEEN) Urinalysis Comment None Urine Culture Reflexed Not indicated Test 06/18/16 08:10 White Blood Count 6.2th/mm3 (3.8-10.1) Red Blood Count 3.45mil/mm3 (4.40-5.80) Hemoglobin 9.0g/dL (13.8-17.2) Hematocrit 29.9% (41.0-50.0) Mean Corpuscular Volume 86.7fL (81-100) Mean Corpuscular Hemoglobin 26.1pg (27.0-35.0) Mean Corpuscular Hemoglobin Concent 30.1% (32.0-37.0) Red Cell Distribution Width 17.5% (12.3-15.4) Platelet Count 283bil/L (150-400) Neutrophils (%) (Auto) 54.2% (40-74) Lymphocytes (%) (Auto) 24.3% (14-46) Monocytes (%) (Auto) 11.0% (4-12) Eosinophils (%) (Auto) 9.4% (0-5) Basophils (%) (Auto) 0.8% (0-3) Sodium Level 139mEq/L (134-144) Potassium Level 4.1mEq/L (3.5-5.2) Chloride Level 98mEq/L (97-108) Carbon Dioxide Level 27mmol/L (18-29) Blood Urea Nitrogen 24mg/dL (8-27) Creatinine 0.88mg/dL (0.76-1.27) Estimat Glomerular Filtration Rate 91mL/min (>59) Glucose Level 128mg/dL (60-99) Calcium Level 9.6mg/dL (8.5-10.1) General: Alert, Oriented X3, Cooperative, No Acute Distress Eyes: EOMI Mouth: Mucous Membr Moist/[place] Chest & Lungs: Clear to auscultation & percussion Cardiovascular: Regular Rate/Rhythm Abdomen: Non-tender, Non-distended Extremities: No cyanosis/clubbing/edma bilat (continued erythema of left food without signifcant swelling or induration. DEBRA.), Other Neurological: Grossly Neurologically Intact Discharge Medications Discharge Medications Atorvastatin (Lipitor) 80 Mg Tablet 80 MG PO HS (Reported) Baclofen (Baclofen) 10 Mg Tablet 10 MG PO TID (Reported) Cholecalciferol (Vitamin D3) (Vitamin D3) 2,000 Unit Tablet 2,000 UNIT PO DAILY (Reported) Furosemide (Furosemide) 40 Mg Tablet 40 MG PO BID Prescribed by: GABRIELA KELLEY DO Lisinopril (Lisinopril) 5 Mg Tablet 5 MG PO BID Prescribed by: GABRIELA KELLEY DO Lorazepam (Lorazepam) 0.5 Mg Tablet 0.5 MG PO HS (Reported) Melatonin (Melatonin) 3 Mg Tablet 6 MG PO HS (Reported) Metoprolol Succinate ER (Metoprolol Succinate ER) 50 Mg Tab.er.24h 50 MG PO DAILY Prescribed by: GABRIELA KELLEY DO Multivitamin (Multi Vitamin Daily) 1 Each Tablet 1 EACH PO DAILY (Reported) Pantoprazole DR (Pantoprazole DR) 40 Mg Tablet.dr 40 MG PO DAILY (Reported) Spironolactone (Aldactone) 25 Mg Tablet 12.5 MG PO DAILY Prescribed by: GABRIELA KELLEY DO Venlafaxine ER (Effexor XR) 75 Mg Capsule 75 MG PO DAILY (Reported) oxyCODONE (oxyCODONE) 10 Mg Tablet 10 MG PO BID (Reported) As needed Acetaminophen (Acetaminophen) 325 Mg Capsule 650 MG PO q4 hours PRN PRN For Pain (Reported) Bisacodyl (Dulcolax Rectal) 10 Mg Supp.rect 10 MG RC DAILY PRN PRN For Constipation (Reported) Lorazepam (Lorazepam) 0.5 Mg Tablet 0.5 MG PO q4 hours PRN PRN For Anxiety ( Reported) Magnesium Hydroxide (Milk of Magnesia) 400 Mg/5 Ml Oral.susp 30 ML PO DAILY PRN PRN For Constipation (Reported) Na Phos,M-B/Na Phos,Di-Ba (Fleet Enema) 133 Ml Enema 133 ML RC DAILY PRN PRN For Constipation (Reported) Nitroglycerin SL (Nitrostat) 0.4 Mg Tab.subl 0.4 MG SL Q5MIN PRN PRN For Chest Pain IF SBP > 90 May use up to 3 times 5 minutes apart for chest pain Prescribed by: GABRIELA KELLEY DO Oxycodone (Roxicodone) 5 Mg Tablet 10 MG PO Q4H PRN PRN For Pain (Reported) Polyethylene Glycol 3350 (Miralax) 17 Gm Powd.pack 17 GM PO QID PRN PRN For Constipation (Reported) Followup Plan Discharge Diet: No restrictions, Diabetic Discharge Activity: Limited until seen by PCP Patient Instructions Continue to monitor stools for signs of bleeding: either actual red blood or dark tarry coloration Follow up with you PCP in 1 -2 weeks following discharge for additional blood to ensure anemia is not worsening. Follow-up Provider: Nikolai Lozano MD Follow-up with PCP in: 1 week Time spent 45 minutes copies to: Nikolai Lozano MD Vital Signs Vital Sign - Last Date Time Temp Pulse Resp B/P Pulse Ox O2 Delivery O2 Flow Rate FiO2 06/18/16 05:09 36.6 68 18 121/71 96 Room Air 06/17/16 17:19 4 Intake and Output 06/17/16 06/17/16 06/18/16 Cumulative From/Thru 15:00 23:00 07:00 06/16/16 10:15 - 06/18/16 06:25 Intake Total 365 ml 760 ml 1419 ml 4447 ml Output Total 2000 ml 1050 ml 400 ml 4000 ml Balance -1635 ml -290 ml 1019 ml 447 ml Intake Oral 365 ml 660 ml 400 ml 1543 ml IV Total 100 ml 1019 ml 2904 ml Output Urine Total 2000 ml 1050 ml 400 ml 4000 ml Lab and Diagnostics Result Diagram: 06/18/16 0810 06/18/16 0810 Shayan Hawkins DO June 18, 2016 10:28
--- NOTE | 2016-06-18 10:28 | NUR ---
Called [facility] and patient comes from there and is welcome to return. Faxed [facility] transport form to [facility] requesting 1230PM sampler pickup. KARY also spoke with [facility] about discharge. Faxed orders to [facility]. Updated UTILITY APPRAISER Addendum: 06/18/16 at 1325 by JAMMIE KAY CM LATE NOTE: Transport changed to 1430 [facility] has no other slots open. Updated UTILITY APPRAISER
--- NOTE | 2016-06-18 11:31 | NUR ---
Social Work: Discharge Data: Pt is on day 2 of hospitalization. EMR reviewed. D/C orders are in. UR specialist set up transportation through [facility] for 12:30pm. [facility] notified. Orders faxed. AQUATIC FACILITY MANAGER notified RN, MD, pt, and pt's niece (voice mail left), all updated and agreeable to plan. No further d/c planning needs identified at this time. AQUATIC FACILITY MANAGER will continue to follow if needs arise. Assessment: Pt from SNF. Plan: Pt will d/c to [facility] via cabulance at 12:30pm. No further d/c planning needs identified at this time. AQUATIC FACILITY MANAGER will continue to follow if needs arise. KARY Dorantes
--- NOTE | 2016-06-18 13:27 | NUR ---
Called and spoke with UA on [facility] and gave information for Podiatry appointment and she is canceling appointment for today and then rescheduling with soonest available appointment. UA called [facility] and patient did not have appointment there, his appointment was scheduled for [address]Morri Tipton. UA will cancel this appointment and reschedule with soonest available appointment. Spoke with SOCK BOARDER and she is going to update patient on new transport time and explain the confusion. Updated [facility] product safety consultant and [facility] UA
--- NOTE | 2016-06-18 15:28 | NUR ---
Discharge IV discontinued fully intact. Personal belongings given to patient. Rescheduled appointment with Dr. Tipton for 06/19 at 1400. Patient informed. Informed Teo of appointment time. Report given to Teo as well. Patient transported off of unit via wheelchair.
--- NOTE | 2016-06-18 15:33 | NUR ---
spiritual care: routine (late entry) conversational visit; pt agreeable for rika adams viist and reflected on his coping, sense of medical progression
== END 2016-06-18 15:26 | DRG 379 ==
LOC: SED 10:05 → MPC 15:20 → OBSVTOIN 15:20
PROVIDERS: ADMIT Family Medicine; ATTEND Family Medicine
PROC: 30233N1 Transfusion of Nonautologous Red Blood Cells into Peripheral Vein, Percutaneous Approach (ICD-10-PCS; 2016-06-16)
PROC: 0DJ08ZZ Inspection of Upper Intestinal Tract, Via Natural or Artificial Opening Endoscopic (ICD-10-PCS; principal; 2016-06-17 15:30)
DX: K92.1 Melena (principal); F03.90 Unspecified dementia, unspecified severity, without behavioral disturbance, psychotic disturbance, mood disturbance, and anxiety; E11.9 Type 2 diabetes mellitus without complications; I10 Essential (primary) hypertension; E78.5 Hyperlipidemia, unspecified; Z87.891 Personal history of nicotine dependence; M79.672 Pain in left foot; Z86.718 Personal history of other venous thrombosis and embolism; K25.9 Gastric ulcer, unspecified as acute or chronic, without hemorrhage or perforation; D50.0 Iron deficiency anemia secondary to blood loss (chronic)

== ENCOUNTER 2016-07-11 19:45 | Inpatient (IN) | payer MEDICARE, MEDICAID ==
[~2016-07-11] VITALS: Ht 170.2 cm; Wt 110.2 kg
[~2016-07-11 19:45] MED LIST changes: -0.9% Sodium Chloride 1,000 ML IV ONE; +ACET325C PO; -ALBU2.5V4 NEB; -ARGI1POW13 PO; -ASPI81TA3 PO; -ATOR40TA69 PO; +ATOR80TA PO; +BISA10SU61 RC; -IPRA3AMP NEB; +MAGN400O4 PO; -MICONAZOLE NITRATE TOPICAL; +NA P133E23 RC; +OXYC10TA8 PO; -Pantoprazole 4 mg/mL 10 mL Inj IVPUSH ONE; -VENL37.53 PO; +VENL75CA PO
[2016-07-11 19:57] VITALS: PULSE 85; RESP 14; O2SAT 95
[2016-07-11 20:04] LABS: BASOPHILS % (AUTO) 0.8 % (0-3); EOSINOPHILS % (AUTO) 6.1 % (0-5); MONOCYTES % (AUTO) 10.5 % (4-12); Mean Corpuscular Hemoglobin 26.3 pg (27.0-35.0); Mean Corpuscular Volume 81.3 fL (81-100); NEUTROPHILS % (AUTO) 60.9 % (40-74); Platelet Count 524 bil/L (150-400)
[2016-07-11 20:25] LABS: INR 4.23 ratio
--- NOTE | 2016-07-11 20:35 | ED.REPORT ---
HPI-General Illness Date of Service July 11, 2016 ED Provider: Dr. Macedo Pt is a 71 year old male with a hx of HTN, CHF, DM, dementia, on Coumadin, right BKA, and a recent left leg surgery presenting to the ED via EMS from [facility] due to penile bleeding with removal of catheter. Associated symptoms include confusion and change in LOC. Medics were called due to the bleeding, but on arrival they noticed the decreased LOC and confusion. Pt is currently taking 500 cephalexin 4 times a day since 5 days ago. The pt's catheter was removed today but it is unclear whether it was removed by the pt or staff. His INR today was 6.4 per staff. Patient has a recent history of a arterial bypass graft of the left lower extremity. It appears that he has had a diagnosis of cellulitis of lower extremity and has failed Keflex which he has been on for the last 4 days Nursing Notes Stated Complaint: CONFUSION Chief Complaint: Neuro Symptoms/ Deficits Nursing Notes Reviewed: Yes Allergies: Coded Allergies: No Known Allergies (Unverified , 07/11/16) Scheduled Atorvastatin (Lipitor) 80 Mg Tablet 80 MG PO HS Baclofen (Baclofen) 10 Mg Tablet 10 MG PO TIDWM 0700, 1300, 1700 Cephalexin (Cephalexin) 500 Mg Tablet 500 MG PO QID Cholecalciferol (Vitamin D3) (Vitamin D3) 2,000 Unit Tablet 2,000 UNIT PO QAM Furosemide (Furosemide) 40 Mg Tablet 40 MG PO BID Lisinopril (Lisinopril) 5 Mg Tablet 5 MG PO BID Lorazepam (Lorazepam) 0.5 Mg Tablet 0.5 MG PO HS Melatonin (Melatonin) 3 Mg Tablet 6 MG PO HS Metoprolol Succinate ER (Metoprolol Succinate ER) 50 Mg Tab.er.24h 50 MG PO DAILY Morphine Sulfate ER (MS Contin) 15 Mg Tablet.er 10 MG PO BID 0800 AND 1700 Multivitamin (Multi Vitamin Daily) 1 Each Tablet 1 EACH PO QAM Pantoprazole DR (Pantoprazole DR) 40 Mg Tablet.dr 40 MG PO QAM Spironolactone (Aldactone) 25 Mg Tablet 12.5 MG PO DAILY Venlafaxine ER (Effexor XR) 75 Mg Capsule 75 MG PO QAM Warfarin Sodium (Warfarin Sodium) 2.5 Mg Tablet 7.5 MG PO QPM Scheduled PRN Acetaminophen (Acetaminophen) 325 Mg Capsule 650 MG PO q4 hours PRN PRN For Pain Bisacodyl (Dulcolax Rectal) 10 Mg Supp.rect 10 MG RC DAILY PRN PRN For Constipation IF NO BM POST MOM ADMINISTRATION ON 4TH DAY Lorazepam (Lorazepam) 1 Mg Tablet 1 MG PO Q4H PRN PRN For Anxiety Magnesium Hydroxide (Milk of Magnesia) 400 Mg/5 Ml Oral.susp 30 ML PO HS PRN PRN For Constipation AFTER NO BM X 3 DAYS. GIVE AT HS. Na Phos,M-B/Na Phos,Di-Ba (Fleet Enema) 133 Ml Enema 133 ML RC DAILY PRN PRN For Constipation IF NO BM POST BISACODYL ADMIN ON EVENING OF 4TH DAY Nitroglycerin SL (Nitrostat) 0.4 Mg Tab.subl 0.4 MG SL Q5MIN PRN PRN For Chest Pain IF SBP > 90 May use up to 3 times 5 minutes apart for chest pain Oxycodone (Roxicodone) 5 Mg Tablet 10 MG PO Q4H PRN PRN For Pain Polyethylene Glycol 3350 (Miralax) 17 Gm Powd.pack 17 GM PO QID PRN PRN For Constipation General Time Seen by MD: 20:35 Chief Complaint Other (Bleeding from penis) Hx Obtained From: EMS Arrived By: Ambulance Sudden in Onset?: No Onset Occurred: Just prior to arrival Symptom Duration: Since onset Severity: Current: No pain currently Severity: Maximum: No pain Recent Healthcare: No recent doctor visit, Recent hospitalization, Previous surgery Similar Sx Previous: No Past Medical History Past Medical History Notes: DNR no known POA Recent [facility] admission for possible GI bleed and anemia, however upper and lower endoscopies were negative patient maintained hemodynamically stable, and given patient's baseline status it was felt that Endoscopy or Further Workup Be Clearly Beneficial-As the Plan Was Observation, Monitoring Hematocrit Past Medical History 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 Gastric ulcer Reports: Congestive heart failure, Diabetes mellitus, Hyperlipidemia, Hypertension Reports: Depression Past Surgical History Left leg femoral artery bypass graft Right BKA history of subsequent pseudomonas infection, thought fully involved on hospitalization 04/23/2016 Upper and lower endoscopy at [facility] May 05 reportedly negative for source of anemia Right leg amputation below the knee Smoking History Former Smoker Ambulatory Status Wheelchair Review of Systems Unable to Obtain ROS Mental status Full Review of Systems Male: Reports Penile discharge (Blood) Neurologic: Reports: Change LOC, Confusion Physical Exam Vital Signs Vital Signs Date Time Temp Pulse Resp B/P Pulse Ox O2 Delivery O2 Flow Rate FiO2 07/12/16 01:00 75 22 133/51 100 Room Air 07/11/16 19:57 36.8 85 14 95 Room Air Initial VS: Reviewed General/Constitutional: Well-developed, Well-nourished Head / Eyes: Atraumatic, Normocephalic, PERRL ENT: Mucous membranes moist, Conjunctiva normal, No scleral icterus Respiratory: Breath sounds normal, Clear to auscultation, No respiratory distress Cardiovascular: Regular rate & rhythm, Heart sounds normal, Intact distal pulses Abdomen / GI: Soft, Non-tender, No guarding, No rebound, No distention Extremities: Vascular intact, Neuro intact Skin: Warm, Dry, No cyanosis Psychiatric: Mood/affect normal, Behavior normal, Normal thought content Lower Extremity / Pelvis / MS: Neurologic intact, Vascular intact Left Leg / Calf: Positive: Erythema present, Warmth present Incision medial leg from groin to mid calf. Some drainage from the incision near the groin. Fibrinous debris in wound. 1+ pitting edema. Doppler shows pulses inact. Right lower extremity amputation Interpretation & Diagnostics Interpretation & Diagnostics: CT EXTREMITY - LEFT: IMPRESSION: Cellulitus with no evidence of abscess or osteomyelitis. This report was transmitted to the emergency room at 07/12/2016 - 12:01:37 AM PDT. Lab Results Interpretation Result Diagram: 07/13/16 0515 07/12/16 0615 Test 07/11/16 20:01 07/11/16 21:01 07/11/16 21:05 07/11/16 22:20 Total Bilirubin 0.3mg/dL (0.0-1.2) Aspartate Amino Transf (AST/SGOT) 16U/L (0-50) Alanine Aminotransferase (ALT/SGPT) 12U/L (0-44) Alkaline Phosphatase 96U/L (25-160) Total Protein 7.5g/dL (6.4-8.4) Albumin 3.7g/dL (3.4-5.0) Erythrocyte Sedimentation Rate 60mm/hr (0-30) C-Reactive Protein 2.9mg/dL (0.0-0.5) Procalcitonin 0.07ng/mL (0.00-0.08) Urine Color Dark yellow (YELLOW) Urine Appearance Hazy (CLEAR,HAZY) Urine pH 5.0 (5.0-8.0) Urine Specific [place] 1.015 (1.003-1.035) Urine Protein Negativemg/dL (NEG,TRACE) Urine Glucose (UA) Negativemg/dL (NEGATIVE) Urine Ketones Negativemg/dL (NEGATIVE) Urine Occult Blood Large (NEGATIVE) Urine Nitrite Negative (NEGATIVE) Urine Bilirubin Negative (NEGATIVE) Urine Urobilinogen Normalmg/dL (NORMAL) Urine Leukocyte Esterase Trace (NEGATIVE) Urine RBC >50/hpf (0-2) Urine WBC 6-10/hpf (0-5) Urine Epithelial Cells Few/hpf (NONE-MOD) Urine Crystals None seen (NONE SEEN) Urine Bacteria Few/hpf (NONE-FEW) Urine Hyaline Casts None/lpf (NONE) Urine Granular Casts None seen (NONE SEEN) Urine Waxy Casts None seen (NONE SEEN) Urine Red Blood Cell Casts None seen (NONE SEEN) Urine White Blood Cell Casts None seen (NONE SEEN) Urine Mucus None seen (None Seen) Urine Trichomonas None seen (NONE SEEN) Urine Yeast None (NONE SEEN) Urinalysis Comment None Urine Culture Reflexed Indicated Hold Urine Received (Received) Lactic Acid Level 1.0mmol/L (0.4-2.0) ECG Interpretation ECG Interpretation: Intravetntricular conduction delay. Rate of 85. Unchanged from 06/16/2016. No T wave abnormalities. Time: 20:56 Interpreted by: ED physician Normal ECG Interpretation: Normal sinus rhythm X-Ray Chest Interpretation Chest Xray Interpretation: No acute abnormalities. Unchanged compared to 06/16/2016. Interpretation / Wet Read by: Wet read ED physician CT Head Interpretation IMPRESSION: No CT evidence of acute intracranial pathology. Dictated by: Shay Zhou M.D. on 07/11/2016 at 21:20 Study: Head CT no contrast Interpretation / Wet Read by: Interpret - Radiologist Re-Eval/Medical Decision Med Decision/Clinical Course 71-year-old male with a history of dementia, GI bleed 1 month ago and recent lower extremity vascular surgery presents with supratherapeutic INR and altered mental status secondary to cellulitis refractory to outpatient Keflex [address] of the lower extremity with contrast ruled out abscess. IV Vanco started here. UA shows possible UTI and Rocephin was given for this. Patient is a DO NOT RESUSCITATE. White count is elevated but vital signs are normal so he does not meet criteria for sepsis. His INR was elevated at 6 at his facility, however it is only 4.2 here and I elected not to treat with vitamin K as there is no evidence of active blood loss. Hemoglobin is at baseline. Time of Eval: 01:04 Patient Status: Condition improved Re-Evaluation/Progress Note: Discussed plan for admission. Consultation : Referral / Consult Name: Elsa Ritter Consulted With: Hospitalist Call Returned at: 01:04 Insurance Legal Assistant: Will see patient, Agrees with plan, Accepts admit Counseled Regarding: Diagnosis, Lab results, Need for follow-up, When/why to return to ED Discharge & Departure Primary Impression: Cellulitis Site of cellulitis: extremity Site of cellulitis of extremity: lower extremity Laterality: left Qualified Code: L03.116 - Cellulitis of left lower limb Additional Impressions: UTI (urinary tract infection) Urinary tract infection type: site unspecified Hematuria presence: with hematuria Qualified Code: N39.0 - Urinary tract infection, site not specified Altered mental status Altered mental status type: unspecified Qualified Code: R41.82 - Altered mental status, unspecified Anemia Anemia type: unspecified type Qualified Code: D64.9 - Anemia, unspecified Supratherapeutic INR Disposition: ADMITTED TO HOSPITAL Discharge Condition All VS Reviewed: Yes Condition: Improved Referrals: Nikolai Lozano MD (PCP) Scribe Attestation Portions of this note were transcribed by Lorraine James. I, Dr. Macedo personally performed the history, physical exam and medical decision-making; I reviewed and confirmed the accuracy of the information in the transcribed note. Signed by: Koko Mouar, 07/12/2016 at 0103. copies to: Nikolai Lozano MD, Gary R DO July 11, 2016 20:35 LORRAINE JAMES July 11, 2016 21:25 None seen (NONE SEEN) Urine White Blood Cell Casts None seen (NONE SEEN) Urine Mucus None seen (None Seen) Urine Trichomonas None seen (NONE SEEN) Urine Yeast None (NONE SEEN) Urinalysis Comment None Urine Culture Reflexed Indicated Hold Urine Received (Received) Lactic Acid Level 1.0mmol/L (0.4-2.0) ECG Interpretation ECG Interpretation: Intravetntricular conduction delay. Rate of 85. Unchanged from 06/16/2016. No T wave abnormalities. Time: 20:56 Interpreted by: ED physician Normal ECG Interpretation: Normal sinus rhythm X-Ray Chest Interpretation Chest Xray Interpretation: No acute abnormalities. Unchanged compared to 06/16/2016. Interpretation / Wet Read by: Wet read ED physician CT Head Interpretation IMPRESSION: No CT evidence of acute intracranial pathology. Dictated by: Shay Zhou M.D. on 07/11/2016 at 21:20 Study: Head CT no contrast Interpretation / Wet Read by: Interpret - Radiologist Re-Eval/Medical Decision Med Decision/Clinical Course 71-year-old male with a history of dementia presents with supratherapeutic INR and altered mental status secondary to cellulitis refractory to outpatient Keflex. CT scan ruled out abscess. IV Vanco started here. UA shows possible UTI and Rocephin was given for this. Patient is a DO NOT RESUSCITATE. Time of Eval: 01:04 Patient Status: Condition improved Re-Evaluation/Progress Note: Discussed plan for admission. Consultation : Referral / Consult Name: Elsa Ritter DO Consulted With: Hospitalist Call Returned at: 01:04 Insurance Legal Assistant: Will see patient, Agrees with plan, Accepts admit Counseled Regarding: Diagnosis, Lab results, Need for follow-up, When/why to return to ED Discharge & Departure Primary Impression: Cellulitis Site of cellulitis: extremity Site of cellulitis of extremity: lower extremity Laterality: left Qualified Code: L03.116 - Cellulitis of left lower limb Additional Impressions: UTI (urinary tract infection) Urinary tract infection type: site unspecified Hematuria presence: with hematuria Qualified Code: N39.0 - Urinary tract infection, site not specified Altered mental status Altered mental status type: unspecified Qualified Code: R41.82 - Altered mental status, unspecified Anemia Anemia type: unspecified type Qualified Code: D64.9 - Anemia, unspecified Supratherapeutic INR Disposition: ADMITTED TO HOSPITAL Discharge Condition All VS Reviewed: Yes Condition: Improved Referrals: Nikolai Lozano MD (PCP) Scribe Attestation Portions of this note were transcribed by Lorraine James. Dr. Remington Wang personally performed the history, physical exam and medical decision-making; I reviewed and confirmed the accuracy of the information in the transcribed note. Signed by: Koko Moura, 07/12/2016 at 0103. copies to: Nikolai Lozano MD, Gary R DO July 11, 2016 20:35 LORRAINE JAMES July 11, 2016 21:25
--- NOTE | 2016-07-11 21:25 | DRSVH ---
PROCEDURE: CT BRAIN WITHOUT CONTRAST ([id number]) INDICATIONS: decrease LOC TECHNIQUE: Noncontrast 4.5 mm thick angled axial sections acquired from the foramen magnum to the vertex, with c oronal reformats. COMPARISON: None. FINDINGS: Image quality: Excellent. CSF spaces: Basal cisterns are patent. No extra-axial fluid collections. Ventricles are normal in size and shape. Brain: No midline shift. No intracranial masses or hemorrhage. Enriquez-white matter interface is norm al. Left subinsular white matter and left cerebellar lacunar infarctions. Dense distal artery calci fications. Skull and face: Calvarium and visualized facial bones are intact, without suspicious lesions. Sinuses: The ethmoid air cells are lesser extent sphenoid and frontal sinuses.. IMPRESSION: No CT evidence of acute intracranial pathology. Dictated by: Shay Zhou M.D. on 07/11/2016 at 21:20 Approved by: Shay Zhou M.D. on 07/11/2016 at 21:23
[2016-07-11] MEDS ORDERED: 0.9% Sodium Chloride 1,000 ML IV ONE (21:30)
[2016-07-11] MEDS ORDERED: Vancomycin Dose per Pharmacist XX ONE (21:30)
[2016-07-11] MEDS ORDERED: Vancomycin Inj 2,000 MG in 0.9% Sodium Chloride 500 ML IV ONE (21:45)
[2016-07-11 21:51] LABS: APPEARANCE,URINE HAZY (CLEAR,HAZY); COLOR,URINE DARK YELLOW (YELLOW); OCCULT BLOOD,URINE LARGE (NEGATIVE); UROBILINOGEN,URINE NORMAL (NORMAL)
[2016-07-11] MEDS ORDERED: cefTRIAXone Inj 1,000 MG in Dextrose 5% Minibag Plus 50 ML IV ONE (23:45)
[2016-07-12] VITALS (10 sets, daily range): BP systolic 105–169; BP diastolic 51–82; PULSE 59–85; RESP 16–22; O2SAT 93–100
[2016-07-12] MEDS ORDERED: Ondansetron 2 mg/mL 2 mL Inj IVPUSH PRN (02:25)
[2016-07-12] MEDS ORDERED: Alum-Mag Hydrox-Simeth 30 mL Suspension PO PRN ×2 (02:25→03:30)
[2016-07-12] MEDS ORDERED: D5 0.45% NaCl + KCl 20 mEq/L 1,000 ML IV SCH (03:26)
[2016-07-12] MEDS ORDERED: Polyethylene Glycol (PEG) 17 Gm Powder PO PRN (03:30)
[2016-07-12] MEDS: HYDROmorphone 1 mg/mL Inj IVPUSH PRN ×2 (04:52→08:46)
--- NOTE | 2016-07-12 04:55 | PCM.HPMED ---
Subjective Date of Service July 12, 2016 Primary Provider: Admitting Physician: Elsa Ritter DO Primary Care Physician: Nikolai Lozano MD Attending Physician: Elsa Ritter DO Admit Status: From the Emergency Department, Remote Telemetry Chief Complaint: Confusion History of Present Illness: Patient is a 71 year old male with a hx of HTN, CHF, DM, dementia, on Coumadin, right BKA, and a recent left leg femoral artery bypass graft surgery presenting to the ED via EMS from [facility] due to penile bleeding with removal of catheter. Associated symptoms include confusion and change in LOC. Medics were called due to the bleeding, but on arrival they noticed the decreased LOC and confusion. Pt is currently taking 500 cephalexin 4 times a day since 5 days ago. It was reported that his INR wa 6.4 The pt's catheter was removed today but it is unclear whether it was removed by the pt or staff. His INR today was 6.4 per staff. In the ED, vitals are all within normal range, lab significant for WBC 10.4, H/ H8.3/25.7, platelet 524, chloride 93, nightly 44, creatinine 1.4, glucose 111. ESR 60, CRP 2.9, lactic acid level I.0, total calcitonin 0.07. UA positive for trace leukocyte esterase, nitrite negative, large amounts of occult blood seen, reflex to culture. ECG and CXR with no changes compared to 06/16/2016. CT head negative for acute intracranial pathology. CT of left extremity showed cellulitis with no evidence of abscess or osteomyelitis. Patient started on antibiotics. Patient admitted for further treatment and management. Review of Systems: Patient confused, unable to obtain ROS. Allergies Coded Allergies: No Known Allergies (Unverified , 07/11/16) Home Medications Atorvastatin (Lipitor) 80 Mg Tablet 80 MG PO HS Baclofen (Baclofen) 10 Mg Tablet 10 MG PO TID Cholecalciferol (Vitamin D3) (Vitamin D3) 2,000 Unit Tablet 2,000 UNIT PO DAILY Furosemide (Furosemide) 40 Mg Tablet 40 MG PO BID Lisinopril (Lisinopril) 5 Mg Tablet 5 MG PO BID Lorazepam (Lorazepam) 0.5 Mg Tablet 0.5 MG PO HS Melatonin (Melatonin) 3 Mg Tablet 6 MG PO HS Metoprolol Succinate ER (Metoprolol Succinate ER) 50 Mg Tab.er.24h 50 MG PO DAILY Multivitamin (Multi Vitamin Daily) 1 Each Tablet 1 EACH PO DAILY Pantoprazole DR (Pantoprazole DR) 40 Mg Tablet.dr 40 MG PO DAILY Spironolactone (Aldactone) 25 Mg Tablet 12.5 MG PO DAILY Venlafaxine ER (Effexor XR) 75 Mg Capsule 75 MG PO DAILY oxyCODONE (oxyCODONE) 10 Mg Tablet 10 MG PO BID Scheduled PRN Acetaminophen (Acetaminophen) 325 Mg Capsule 650 MG PO q4 hours PRN PRN For Pain Bisacodyl (Dulcolax Rectal) 10 Mg Supp.rect 10 MG RC DAILY PRN PRN For Constipation Lorazepam (Lorazepam) 0.5 Mg Tablet 0.5 MG PO q4 hours PRN PRN For Anxiety Magnesium Hydroxide (Milk of Magnesia) 400 Mg/5 Ml Oral.susp 30 ML PO DAILY PRN PRN For Constipation Na Phos,M-B/Na Phos,Di-Ba (Fleet Enema) 133 Ml Enema 133 ML RC DAILY PRN PRN For Constipation Nitroglycerin SL (Nitrostat) 0.4 Mg Tab.subl 0.4 MG SL Q5MIN PRN PRN For Chest Pain IF SBP > 90 May use up to 3 times 5 minutes apart for chest pain Oxycodone (Roxicodone) 5 Mg Tablet 10 MG PO Q4H PRN PRN For Pain Polyethylene Glycol 3350 (Miralax) 17 Gm Powd.pack 17 GM PO QID PRN PRN For Constipation PMH Recent [facility] admission for possible GI bleed and anemia, however upper and lower endoscopies were negative patient maintained hemodynamically stable, and given patient's baseline status it was felt that Endoscopy or Further Workup Be Clearly Beneficial. 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 Gastric ulcer Congestive heart failure Diabetes mellitus Hyperlipidemia Hypertension Depression Surgical History Left leg femoral artery bypass graft Right BKA history of subsequent pseudomonas infection, thought fully resolved on hospitalization 04/23/2016 Upper and lower endoscopy at [facility] May 05 reportedly negative for source of anemia Right leg amputation below the knee Family History Patient is demented and unable to describe any relevant family history Social History Hx Alcohol Use: No Hx Substance Use: No Hx Tobacco Use: Yes Smoking Status: Former Smoker Exam Vital Signs Vital Sign - Last Date Time Temp Pulse Resp B/P Pulse Ox O2 Delivery O2 Flow Rate FiO2 07/11/16 19:57 36.8 85 14 95 Room Air Intake and Output 07/11/16 07/11/16 07/12/16 Cumulative From/Thru 15:00 23:00 07:00 07/11/16 19:57 - 07/11/16 21:41 Intake Total 1000 ml 1000 ml Balance 1000 ml 1000 ml Intake IV Total 1000 ml 1000 ml Exam General: Well-developed, well-nourished, not responding to questioning, but able to open eyes to command HEENT: Normocephalic, atraumatic.Moist conjunctivae, sclera anicteric. Moist mucosus membranes. Cardiovascular: Regular rate and rhythm with no murmurs, rubs, or gallops appreciated Pulmonary: Clear to auscultation bilaterally with no crackles, wheezes, or rhonchi. Normal respiratory effort. GI: Bowel tones present. Soft, nontender, nondistended. : Penis and scrotum with no erythema or swelling, no active bleeding or discharge noted Extremities: Incision on medial leg from groin extending down to mid calf with ibeth. 1+ pitting edema. Tenderness to palpation. Skin: Left leg swollen, erythematous with warmth appreciated. MSK: left leg as above otherwise no erythema or edema of joints Lymph: no cervical or supraclavicular lymphadenopathy Psychiatric: Normal mood and affect. Lab and Diagnostics Result Diagram: 07/11/16200007/11/162000 X-Rays, CTs and MRIs Chest Xray Interpretation: No acute abnormalities. Unchanged compared to 06/16/2016. Interpretation / Wet Read by: Maegan read ED physician CT brain IMPRESSION: No CT evidence of acute intracranial pathology. Dictated by: Shay Zhou M.D. on 07/11/2016 at 21:20 Study: Head CT no contrast Interpretation / Wet Read by: Interpret - Radiologist Date of Service: 07/11/162012 PROCEDURE: CT BRAIN WITHOUT CONTRAST ([id number]) INDICATIONS: decrease LOC IMPRESSION: No CT evidence of acute intracranial pathology. Dictated by: Shay Zhou M.D. on 07/11/2016 at 21:20 Approved by: Shay Zhou M.D. on 07/11/2016 at 21:23 CT EXTREMITY - LEFT: IMPRESSION: Cellulitus with no evidence of abscess or osteomyelitis. This report was transmitted to the emergency room at 07/12/2016 - 12:01:37 12-lead ECG ECG Interpretation: Intravetntricular conduction delay. Rate of 85. Unchanged from 06/16/2016. No T wave abnormalities. Time: 20:56 Interpreted by: ED physician Normal ECG Interpretation: Normal sinus rhythm Assessment & Plan Patient is a 71 year old male with a hx of HTN, CHF, DM, dementia, on Coumadin, right BKA, and a recent left leg surgery presenting to the ED via EMS from [facility] due to penile bleeding with removal of catheter. Associated symptoms include confusion and change in LOC. Patient was found to have cellulitis of his left lower extremity and UTI. Patient admitted for further treatment and management. Left leg cellulitis, present on admission. Acute. - CT of left extremity showed cellulitis with no evidence of abscess or osteomyelitis. - ESR 60, CRP 2.9 - Vancomycin started in ED, will continue - MRSA screen, BCx pending Possible infected surgical wound site on left groin extending to lower calf, present on admission. Acute. - abx as above - Wound care ordered UTI, present on admission. Acute. -Ceftriaxone started Acute kidney injury, present on admission. Acute. - Gentle fluids due to CHF - Labs in a.m. Altered mental status, present on admission. Acute. - Most likely due to UTI, cannot rule out other infectious etiology such as bacteremia Supratherapeutic INR (4.23) - warfarin to be dosed by pharmacy - Daily PT/INR Chronic normocytic, hypochromic anemia, present on admission. 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 Insomnia - continue home dose melatonin, and baclofen for muscle spasms Acetaminophen-fever/headache/mild/moderate pain Antiemetics, as needed Bowel regimen, as needed. Patient status: Patient was admitted under inpatient status with expected length of stay greater than two midnights due to severity of presenting symptoms , risk of adverse event, and complexity of treatment plan. GI Prophylaxis: Proton Pump Inhibitor VTE Prophylaxis: Other (supratherapeutic INR on warfarin) Resuscitation Status: DNR/DNI:Do Not Resuscitate/Intubate Attending Statement The patient was seen and examined together with house staff on 07/12/2016 and I agree with the history, exam and plan as outlined in the note above. Yuni Lord DO July 12, 2016 03:26 Elsa Ritter DO July 12, 2016 06:16
[2016-07-12] MEDS ORDERED: Dextrose 10% 250 ML IV ONE (05:40)
[2016-07-12] MEDS ORDERED: Glucose 40% Oral Gel 15 Gm Tube PO PRN (05:40)
[2016-07-12 06:20] LABS: BASOPHILS % (AUTO) 0.9 % (0-3); EOSINOPHILS % (AUTO) 7.3 % (0-5); MONOCYTES % (AUTO) 9.3 % (4-12); Mean Corpuscular Volume 84.6 fL (81-100); NEUTROPHILS % (AUTO) 58.9 % (40-74); Platelet Count 407 bil/L (150-400)
[2016-07-12 06:41] LABS: INR 3.39 ratio
--- NOTE | 2016-07-12 06:59 | PCM.CONPHA ---
Subjective Date of Service: July 12, 2016 Requesting Provider: Yuni Lord DO Confusion History of Present Illness altered mental status secondary to cellulitis, UTI, and possible infection on recent surgical site Reason for Pharmacy Consult: Vancomycin Dosing Objective Assessment/Plan Assessment/Plan A/ - 71 y/o male patient brought in ED by EMS for altered mental status secondary to cellutilis, UTI, and possible infection of recent surgical site, required Vancomycin for empiric coverage - Afebrile, WBC: 7.7 (10.4 at admission), MRSA screen, urine, and blood cultures are pending - In ED, received ceftriaxone iv and Vancomycin 2G iv @0100 - Wt: 111.6 kg, ht: 170 cm, SCr: 1.4 mg/dL (elevated due to ANITA), estimate clearance ~ 57 ml/min, BMI: 38.5 kg/m2, Vd~67 l P/ - Give Vancomycin 750mg iv q12h. Trough level ordered before 3rd dose @2330 today. Pharmacy will continue to follow and make necessary adjustment according to patient's clinical response Thank you for consulting clinical pharmacy in the care of this patient Martir Ramos PharmD, [facility] update: - Renal function improved (SCr:1.23 mg/dL). Cultures showed no growth at 24hrs , MRSA screen is positive by PCR, sensitivity is pending - Last dose given late 5 hrs, thus false high trough of 15.4 - Give one booster dose of Vancomycin 1G, then resume 750mg iv q12h. Pharmacy will continue to follow Thank you Crystal Ramos July 12, 2016 06:59
--- NOTE | 2016-07-12 07:51 | DRSVH ---
PROCEDURE: X-RAY CHEST ONE VIEW, PORTABLE ([id number]) INDICATIONS: ALTERED MENTAL STATUS TECHNIQUE: One view of the chest was acquired. COMPARISON: [facility], CR, XR CHEST 1VW (PORTABLE), 06/16/2016, 10:18. Former[facility], CR, XR CHEST 1VW (PORTABLE), 05/06/2016, 8:52. FINDINGS: Surgical changes and devices: None. Lungs and pleura: No pleural effusions or pneumothorax. Lungs are clear. Mediastinum: Mediastinal contours appear normal. Heart size is normal. Bones and chest wall: No suspicious bony lesions. Overlying soft tissues appear unremarkable. IMPRESSION: No acute process. Dictated by: Magalie Lopez M.D. on 07/12/2016 at 7:49 Approved by: Magalie Lopez M.D. on 07/12/2016 at 7:49
[2016-07-12] MEDS: Insulin LISPRO 300 Unit/3 mL Inj SUBQ SCH ×4 (08:00→22:00)
--- NOTE | 2016-07-12 08:25 | DRSVH ---
PROCEDURE: CT LOWER EXTREMITY LEFT WITH CONTRAST INDICATIONS: LLE cellulitis, r/o abcess, postop vascular bypass TECHNIQUE: After the administration of intravenous contrast, 3 mm axial sections acquired of the left lower extr emity, with coronal and sagittal reformats. For radiation dose reduction, the following was used: a utomated exposure control, adjustment of mA and/or kV according to patient size. COMPARISON: None. FINDINGS: Image quality: Excellent. Bones: No osseous lesions nor erosions. Soft tissues: Diffuse subcutaneous fat stranding within the left lower extremity, consistent with melo ma and/or cellulitis. No peripherally enhancing fluid collections. Grossly patent left common femoral -below knee popliteal artery bypass graft. Severe diffuse vascular calcifications. IMPRESSION: 1. Severe diffuse edema and/or cellulitis. 2. No evidence of abscess. 3. Grossly patent femoral-popliteal artery bypass graft. 4. No evidence of osteomyelitis. 5. Concordant with preliminary interpretation. Dictated by: Magalie Lopez M.D. on 07/12/2016 at 8:21 Approved by: Magalie Lopez M.D. on 07/12/2016 at 8:24
[2016-07-12] MEDS: Vancomycin Dose per Pharmacist XX SCH (08:30)
[2016-07-12] MEDS ORDERED: MS15TCR PO (10:34)
[2016-07-12] MEDS ORDERED: LORA1TAB PO (10:35)
[2016-07-12] MEDS ORDERED: CEPH500T PO (10:36)
--- NOTE | 2016-07-12 11:14 | PCM.PNMED ---
Subjective Date of Service July 12, 2016 Subjective He is seen today in his room to follow-up his delirium, COPD, anemia, elevated INR. The left leg cellulitis appears to be stabilizing. His INR is 3.39. His BMP is normal except for a BUN of 40 and a creatinine of 1.23. His hemoglobin has dropped from 8.3 down to 7.6. The white count is only 7.7. Exam Vital Signs Vital Sign - Last Date Time Temp Pulse Resp B/P Pulse Ox O2 Delivery O2 Flow Rate FiO2 07/12/16 06:32 36.6 65 16 138/72 97 Room Air Intake and Output 07/11/16 07/11/16 07/12/16 Cumulative From/Thru 15:00 23:00 07:00 07/11/16 19:57 - 07/12/16 04:53 Intake Total 1000 ml 560 ml 1560 ml Balance 1000 ml 560 ml 1560 ml IV Total 1000 ml 560 ml 1560 ml Exam On exam he is intermittently moaning and screaming, with no particular pattern or relationship to any attempts to discuss or describe his pain or agitation causes. I have met him before and know him to be quite proud of being from [facility], which speaks a high Syriac like language instead of the Kinyarwanda that he appears to be speaking in at this point. It is usually common for older persons with advancing dementia or delirium to revert to their childhood language. His use of Kinyarwanda strikes me as unexplained. 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 IVs and Medications Medications Reviewed: Medications were reviewed in detail Lab and Diagnostics Result Diagram: 07/12/1661407/12/16614 X-Rays, CTs and MRIs Chest Xray Interpretation: No acute abnormalities. Unchanged compared to 06/16/2016. Interpretation / Wet Read by: Maegan ortega ED physician CT brain IMPRESSION: No CT evidence of acute intracranial pathology. Dictated by: Shay Zhou M.D. on 07/11/2016 at 21:20 Study: Head CT no contrast Interpretation / Wet Read by: Interpret - Radiologist Date of Service: 07/11/162012 PROCEDURE: CT BRAIN WITHOUT CONTRAST ([id number]) INDICATIONS: decrease LOC IMPRESSION: No CT evidence of acute intracranial pathology. Dictated by: Shay Zhou M.D. on 07/11/2016 at 21:20 Approved by: Shay Zhou M.D. on 07/11/2016 at 21:23 CT EXTREMITY - LEFT: IMPRESSION: Cellulitus with no evidence of abscess or osteomyelitis. This report was transmitted to the emergency room at 07/12/2016 - 12:01:37 12-lead ECG ECG Interpretation: Intravetntricular conduction delay. Rate of 85. Unchanged from 06/16/2016. No T wave abnormalities. Time: 20:56 Interpreted by: ED physician Normal ECG Interpretation: Normal sinus rhythm Assessment & Plan Patient is a 71 year old male with a hx of HTN, CHF, DM, dementia, on Coumadin, right BKA, and a recent left leg surgery presenting to the ED via EMS from [facility] due to penile bleeding with removal of catheter. Associated symptoms include confusion and change in LOC. Patient was found to have cellulitis of his left lower extremity and UTI. Patient admitted for further treatment and management. Left leg cellulitis, present on admission. Acute. - CT of left extremity showed cellulitis with no evidence of abscess or osteomyelitis. - ESR 60, CRP 2.9 - Vancomycin started in ED, will continue - MRSA screen, BCx pending Possible infected surgical wound site on left groin extending to lower calf, present on admission. Acute. - abx as above - Wound care ordered UTI, present on admission. Acute. -Ceftriaxone will be stopped as the urine culture is negative. Acute kidney injury, present on admission. Acute. - Gentle fluids due to CHF - Normal BMP today. Altered mental status, present on admission. Acute. - Most likely due to UTI, cannot rule out other infectious etiology such as bacteremia, brain CT from yesterday is reviewed as normal. - No history of cirrhosis but will check ammonia level tomorrow. - This could be related to pain but that seems unlikely. Supratherapeutic INR (4.23) - warfarin to be dosed by pharmacy - Daily PT/INR Chronic normocytic, hypochromic anemia, present on admission. 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 Insomnia - continue home dose melatonin, and baclofen for muscle spasms Acetaminophen-fever/headache/mild/moderate pain Antiemetics, as needed Bowel regimen, as needed. Patient status: Patient was admitted under inpatient status with expected length of stay greater than two midnights due to severity of presenting symptoms , risk of adverse event, and complexity of treatment plan. Pool Perkins M.D. GI Prophylaxis: Proton Pump Inhibitor VTE Prophylaxis: Other (supratherapeutic INR on warfarin) Resuscitation Status: DNR/DNI:Do Not Resuscitate/Intubate Lindsey Perkins MD July 12, 2016 09:18
[2016-07-12] MEDS ORDERED: Vancomycin Inj 750 MG in 0.9% Sodium Chloride 250 ML IV SCH (12:00)
[2016-07-12] MEDS ORDERED: WARF2.5T82 PO (14:42)
--- NOTE | 2016-07-12 15:15 | PCM.PHAPRO ---
Progress Warfarin Management: -being held today for supratherapeutic inr of 3.39, H/H 7.6/24.7 Danyelle Gomez [facility] July 12, 2016 15:15
[2016-07-12] MEDS: HYDROmorphone 0.5 mg/0.5 mL iSecure Syringe IVPUSH PRN ×2 (15:28→23:13)
[2016-07-12] MEDS ORDERED: Vancomycin Serum Trough XX ONE (23:30)
[2016-07-13] VITALS (13 sets, daily range): BP systolic 124–191; BP diastolic 52–83; PULSE 75–94; RESP 20–37; O2SAT 98–100
[2016-07-13] MEDS: HYDROmorphone 0.5 mg/0.5 mL iSecure Syringe IVPUSH PRN ×6 (01:06→19:34)
[2016-07-13] MEDS ORDERED: Vancomycin Inj 1,000 MG in IV Premix 1 EACH IV ONE (01:15)
[2016-07-13] MEDS ORDERED: 0.9% Sodium Chloride 250 ML ONE (02:33)
[2016-07-13] MEDS ORDERED: cefTRIAXone Inj 2,000 MG in Dextrose 5% Minibag Plus 50 ML IV SCH (05:00)
[2016-07-13 05:27] LABS: Mean Corpuscular Hemoglobin 26.1 pg (27.0-35.0); Mean Corpuscular Volume 83.3 fL (81-100)
[2016-07-13 05:38] LABS: INR 1.98 ratio
[2016-07-13] MEDS: Insulin LISPRO 300 Unit/3 mL Inj SUBQ SCH ×4 (08:00→23:25)
[2016-07-13] MEDS ORDERED: Labetalol 5 mg/mL 4 mL Inj IVPUSH PRN (09:30)
--- NOTE | 2016-07-13 10:56 | PCM.PNMED ---
Subjective Date of Service July 13, 2016 Subjective He is seen today in his room to follow up his left lower extremity incisional infection, peripheral arterial disease, delirium, anemia of chronic disease and anticoagulation. His INR today is 1.98. The ammonia level is 37. The vancomycin trough is 15.4. The white count is 5.9. The hemoglobin is 7.5, stable. His delirium has improved considerably, although he is not quite making complete sense. He is noticing much more right stump phantom pain, which may have been one of the causes of his delirium and moaning yesterday also. Exam Vital Signs Vital Sign - Last Date Time Temp Pulse Resp B/P Pulse Ox O2 Delivery O2 Flow Rate FiO2 07/13/16 09:42 36.4 89 24 126/65 Nasal Cannula 1.00 07/13/16 00:18 99 Intake and Output 07/12/16 07/12/16 07/13/16 Cumulative From/Thru 15:00 23:00 07:00 07/11/16 19:57 - 07/13/16 06:52 Intake Total 0 ml 550 ml 475 ml 2585 ml Output Total 775 ml 775 ml Balance 0 ml -225 ml 475 ml 1810 ml Intake Oral 0 ml 550 ml 475 ml 1025 ml IV Total 1560 ml Output Urine Total 775 ml 775 ml # Voids 2 2 4 # Bowel Movements 0 0 0 Exam Heart is regular rate and rhythm without murmur Lungs are clear to auscultation bilaterally The right AKA stump looks normal There is no edema of the left ankle The incision that goes down the left leg looks normal for most of the length. The ibeth have been removed since yesterday. Several areas in the upper portion appeared to have small draining infections, mainly at the skin creases. A culture was ordered but no sign of it being processed is noted in the microbiology section. IVs and Medications Medications Reviewed: Medications were reviewed in detail Lab and Diagnostics Result Diagram: 07/13/16 0515 07/12/16 0615 X-Rays, CTs and MRIs Chest Xray Interpretation: No acute abnormalities. Unchanged compared to 06/16/2016. Interpretation / Wet Read by: Wet read ED physician CT brain IMPRESSION: No CT evidence of acute intracranial pathology. Dictated by: Shay Zhou M.D. on 07/11/2016 at 21:20 Study: Head CT no contrast Interpretation / Wet Read by: Interpret - Radiologist Date of Service: 07/11/162012 PROCEDURE: CT BRAIN WITHOUT CONTRAST ([id number]) INDICATIONS: decrease LOC IMPRESSION: No CT evidence of acute intracranial pathology. Dictated by: Shay Zhou M.D. on 07/11/2016 at 21:20 Approved by: Shay Zhou M.D. on 07/11/2016 at 21:23 CT EXTREMITY - LEFT: IMPRESSION: Cellulitus with no evidence of abscess or osteomyelitis. This report was transmitted to the emergency room at 07/12/2016 - 12:01:37 12-lead ECG ECG Interpretation: Intravetntricular conduction delay. Rate of 85. Unchanged from 06/16/2016. No T wave abnormalities. Time: 20:56 Interpreted by: ED physician Normal ECG Interpretation: Normal sinus rhythm Assessment & Plan Patient is a 71 year old male with a hx of HTN, CHF, DM, dementia, on Coumadin, right BKA, and a recent left leg surgery presenting to the ED via EMS from [facility] due to penile bleeding with removal of catheter. Associated symptoms include confusion and change in LOC. Patient was found to have cellulitis of his left lower extremity and UTI. Patient admitted for further treatment and management. Left leg cellulitis, present on admission. Acute. - CT of left extremity showed cellulitis with no evidence of abscess or osteomyelitis. - Vancomycin continued, pending wound culture results. This appears to be infected. Infection of the upper aspects/skin crease of the surgical wound site on left groin extending to lower calf, present on admission. Acute. - abx as above - Wound care ordered Phantom limb pain - Begin gabapentin. UTI ruled out on culture. Acute kidney injury, present on admission. Acute. - Gentle fluids due to CHF - Normal BMP yesterday. Altered mental status, present on admission. Acute. - Most likely due to UTI, cannot rule out other infectious etiology such as bacteremia, brain CT from yesterday is reviewed as normal. - No history of cirrhosis and the ammonia level is normal. - This could be related to pain, but it is improving today. Supratherapeutic INR resolved down to 1.98 - warfarin to be dosed by pharmacy - Daily PT/INR Chronic normocytic, hypochromic anemia, present on admission. 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 Insomnia - continue home dose melatonin, and baclofen for muscle spasms Acetaminophen-fever/headache/mild/moderate pain Antiemetics, as needed Bowel regimen, as needed. Patient status: inpatient status with return [facility] in 1-2 more days. Pool Perkins M.D. GI Prophylaxis: Proton Pump Inhibitor VTE Prophylaxis: Other (supratherapeutic INR on warfarin) Resuscitation Status: DNR/DNI:Do Not Resuscitate/Intubate Lindsey Perkins MD July 13, 2016 10:42
[2016-07-13] MEDS: Vancomycin Inj 750 MG in 0.9% Sodium Chloride 250 ML IV SCH ×2 (11:59→23:36)
--- NOTE | 2016-07-13 12:03 | PCM.PHAPRO ---
Progress Warfarin Management by Pharmacy: -Indication: embolism and thrombosis of arteries of LE (s/p procedure in [place] 2-3 wks ago) -Home Dose: warfarin 7.5mg daily -Inr Goal: 2-3 -H/H: 7.5/23.9 Plt: 426 -Drug Interactions: none noted -Disease Interactions: CHF -[id number] Score: 5 -Coagulation Trends: July 12-July 13-June 4.23 3.39 1.98 -0.84 -1.41 HOLD 4mg -Plan: pt has not received any warfarin since 07/07. will resume today as inr has dropped to 1.98. no active signs of bleeding but will need to proceed cautiously as H/H is low. Home dose appears excessive and will begin with warfarin 4mg this evening Danyelle Gomez [facility] July 13, 2016 12:03
[2016-07-13] MEDS ORDERED: Nystatin 100,000 Unit/mL 5 mL Suspension PO SCH (13:00)
[2016-07-13] MEDS ORDERED: HYDROmorphone 0.5 mg/0.5 mL iSecure Syringe IVPUSH ONE (20:05)
[2016-07-13 20:10] LABS: BASOPHILS % (AUTO) 0.7 % (0-3); MONOCYTES % (AUTO) 7.8 % (4-12); Mean Corpuscular Hemoglobin 25.9 pg (27.0-35.0); Mean Corpuscular Volume 84.1 fL (81-100); NEUTROPHILS % (AUTO) 62.7 % (40-74); Platelet Count 436 bil/L (150-400)
[2016-07-13] MEDS ORDERED: Nitroglycerin 2% 1 Gm Ointment TOPICAL SCH (20:10)
--- NOTE | 2016-07-13 20:20 | DRSVH ---
PROCEDURE: X-RAY CHEST ONE VIEW, PORTABLE ([id number]) INDICATIONS: chest pain / dyspnea TECHNIQUE: One view of the chest was acquired. COMPARISON: None. FINDINGS: Surgical changes and devices: None. Lungs and pleura: No pleural effusions or pneumothorax. Lungs are clear. Mediastinum: Mediastinal contours appear normal. Heart size is normal. Bones and chest wall: No suspicious bony lesions. Overlying soft tissues appear unremarkable. Old right rib fractures. IMPRESSION: No acute cardiopulmonary process. Dictated by: Shay Zhou M.D. on 07/13/2016 at 20:17 Approved by: Shay Zhou M.D. on 07/13/2016 at 20:18
[2016-07-13] MEDS: Ondansetron 2 mg/mL 2 mL Inj IVPUSH PRN (20:22)
[2016-07-13 20:34] LABS: TROPONIN T < 0.010 ug/L (0.0-0.011)
[2016-07-13] MEDS ORDERED: Nitroglycerin 50,000 mcg/250 mL D5W Premix IV ONE (21:12)
[2016-07-13] MEDS ORDERED: HYDROmorphone 1 mg/mL Inj IVPUSH PRN (21:15)
[2016-07-13] MEDS: Nitroglycerin 50 mg/250 mL D5W 50,000 MCG in IV Premix 1 EACH IV SCH (21:20)
[2016-07-13] MEDS ORDERED: Labetalol 5 mg/mL 4 mL Inj IVPUSH ONE (21:25)
[2016-07-13] MEDS ORDERED: Labetalol 5 mg/mL 20 mL Inj IVPUSH ONE (21:35)
[2016-07-13] MEDS ORDERED: Nitroglycerin 2% 1 Gm Ointment TOPICAL ONE (22:19)
[2016-07-13] MEDS: Vancomycin Dose per Pharmacist XX SCH (22:21)
[2016-07-13] MEDS: Nitroglycerin 2% 1 Gm Ointment TOPICAL SCH (23:40)
[2016-07-14] VITALS (15 sets, daily range): BP systolic 117–177; BP diastolic 47–98; PULSE 68–89; RESP 15–32; O2SAT 96–99
[2016-07-14] MEDS: HYDROmorphone 0.5 mg/0.5 mL iSecure Syringe IVPUSH PRN ×4 (01:02→11:11)
[2016-07-14 04:26] LABS: Mean Corpuscular Hemoglobin 25.9 pg (27.0-35.0); Mean Corpuscular Volume 84.9 fL (81-100)
[2016-07-14 04:58] LABS: INR 1.6 ratio
[2016-07-14 05:07] LABS: TROPONIN T 0.01 ug/L (0.0-0.011)
[2016-07-14] MEDS: Nitroglycerin 2% 1 Gm Ointment TOPICAL SCH ×3 (05:33→17:02)
[2016-07-14] MEDS: Insulin LISPRO 300 Unit/3 mL Inj SUBQ SCH ×4 (08:00→21:54)
--- NOTE | 2016-07-14 08:07 | DRSVH ---
PROCEDURE: CT ANG CHEST/ABD W/WO CONTRAST ([id number]) INDICATIONS: chest pain, abd pain acute TECHNIQUE: Precontrast 5 mm thick sections acquired from the lung apices to the iliac crests. After the adminis tration of intravenous contrast, 3 mm thick sections again acquired from the lung apices to the iliac crests. 3-dimensional maximum intensity projection (MIP) oblique sagittal and coronal reformats wer e then acquired, and/or 3-dimensional volume rendering reformats. For radiation dose reduction, the following was used: automated exposure control. COMPARISON: [facility], CT, CT CHEST W CON, 05/04/2016, 8:57. FINDINGS: Image quality: Excellent. AORTA: The moderate diffuse calcific plaque within the thoracoabdominal aorta. No stenosis, dissecti on, nor aneurysm. CHEST: Lungs and pleura: No acute airspace opacities. No change in 10 mm diameter left lung base nodule. N ew 4 mm diameter nodule within the posterior medial aspect of the left lower lobe. The remaining prev iously seen pulmonary nodules have resolved. No pleural effusions or pneumothorax. Central and perip heral airways are patent and normal in caliber. Mediastinum: Heart size is normal. There is calcification of the coronary vasculature. No pericardia l effusion. No mediastinal or hilar adenopathy by size criteria. Central pulmonary arteries are nor mal in size. Esophagus is normal in caliber. No change in small hiatal hernia. Bones and chest wall: No axillary adenopathy by size criteria. Healed right-sided rib fractures are present. Thyroid gland is within normal limits as visualized. No suspicious bony lesions. No verteb ral body compression fractures. ABDOMEN: Vasculature: Celiac trunk and mesenteric arteries are patent. Renal arteries are also patent. Solid organs: Liver and spleen are normal in size. Gallbladder is within normal limits. Biliary sy stem is non dilated. Pancreas enhances normally. No adrenal nodules. Both kidneys are normal in si ze and enhancement, without hydronephrosis. 3 mm diameter nonobstructing calculus within the right i nterpolar kidney. 4 mm diameter nonobstructing calculus in the superior pole left kidney. Peritoneum and bowel: No free fluid or air. Bowel loops are normal in caliber and wall thickness. Nodes and vessels: No retroperitoneal or mesenteric adenopathy by size criteria. Inferior vena cava is normal in morphology. Bones: No suspicious bony lesions. No vertebral body compression fractures. Miscellaneous: No ventral hernias. IMPRESSION: 1. No evidence of aortic dissection, nor aneurysm. 2. No change in 10 mm diameter left lung base nodule. New 4 mm diameter left lower lobe nodule. Remai teddy pulmonary nodules have resolved. Followup is recommended as below. 3. No change in small hiatal hernia. 4. Small nonobstructing bilateral nephroliths. 5. Coronary artery disease. 6. Concordant with preliminary interpretation. Fleischner Society criteria for SOLID lung nodule followup. Nodule size (mm)Low-risk patientHigh-risk [id number] follow-up neededFollow-up at 12 mo; if no camara e, no further follow-up>[id number] CT at 12 mo; if no change, no further follow-up needed.Initial f ollow-up CT at 6-12 mo, then 18-24 mo if no change. >6-8Initial follow-up CT at 6-12 mo, then 18-24 mo if no change. Initial follow-up CT at 3-6 mo, then 9-12 mo and 24 mo if no change. >8Follow-up CT at 3, 9, 24 mo. Or PET and/or biopsy.Same as for low-risk pts. Dictated by: Magalie Lopez M.D. on 07/14/2016 at 8:00 Approved by: Magalie Lopez M.D. on 07/14/2016 at 8:05
[2016-07-14 08:19] LABS: Unsaturated Iron Binding 235.9 ug/dL
[2016-07-14] MEDS: Vancomycin Dose per Pharmacist XX SCH (09:24)
[2016-07-14] MEDS ORDERED: Vancomycin Serum Trough XX ONE (11:30)
[2016-07-14] MEDS: Vancomycin Inj 750 MG in 0.9% Sodium Chloride 250 ML IV SCH (12:15)
--- NOTE | 2016-07-14 12:30 | PCM.PHAPRO ---
Progress Date July 12-July 13-July 14-June INR 4.23 3.39 1.98 1.60 INR change -0.84 -1.41 -0.38 Warf Dose HOLD 4mg 5 MG Dallas Mayer Pharm.D July 14, 2016 12:30
--- NOTE | 2016-07-14 13:04 | PCM.PHAPRO ---
Progress VANCOMYCIN DOSING PER PHARMACY Indication: AMS secondary to cellulitis, UTI A: Current labs: Scr: 0.97 WBC: 5.7 MRSA screen positive by PCR Trough was 13.5 drawn on 07/14 @ 1130 P: - Renal function continues to improve - Will continue with vancomycin 750 mg IV q12 - Will draw additional trough on 07/16 @ 1130 - Pharmacy will continue to follow, thank you. Talia Campuzano PharmD July 14, 2016 13:04
[2016-07-14] MEDS ORDERED: Furosemide 10 mg/mL 2 mL Inj IV ONE ×2 (13:45→20:50)
[2016-07-14] MEDS ORDERED: diphenhydrAMINE 25 mg Capsule PO ONE (13:45)
--- NOTE | 2016-07-14 14:40 | DRSVH ---
[facility] [address] [place] [address] Echocardiogram Report Name: ROBBIE ACE MStudy Date: 07/14/2016 Height: 67 in Hospital Exam Location: [facility] Weight: 243 lb Gender: Male BSA: 2.2 m2 : 1945 Age: 71 yrs BP: 165/64 mmHg Reason For Study: Chest pain Ordering Physician: Performed By: Betina Bradshaw Referring Physician: Martin Albright Interpretation Summary 1) Normal left ventricular thickness, size, wall motion, and systolic function (EF 55-60%). 2) Normal right ventricular size and function. 3) No significant valvular disease. 4) Compared to the Echo 05/04/2016, LV function has improved from 35-40% to 55 -60% on the current study. Procedure: A two-dimensional transthoracic echocardiogram with color flow and Doppler was performed. The study quality was technically adequate. Comparison is made with the echocardiogram of 05-04-16. The patient was in normal sinus rhythm during the exam. Left Ventricle: The left ventricle is normal in size. There is normal left ventricular wall thickness. The ejection fraction is estimated to be 55-60%. Left ventricular systolic function is normal without focal wall motion abnormalities. Assessment of diastolic parameters suggests a pseudonormalization pattern, consistent with elevated filling pressures. Right Ventricle: The right ventricle is normal size. The right ventricular systolic function is normal. Atria: The left atrium is mildly dilated. Right atrial size is normal. The interatrial septum is intact with no evidence for an atrial septal defect. Mitral Valve: The mitral valve is grossly normal. There is trace mitral regurgitation. Aortic Valve: There is mild aortic valve sclerosis. The aortic valve opens well. No aortic regurgitation is present. Tricuspid Valve: The tricuspid valve is normal in structure and function. There is trace tricuspid regurgitation. The right ventricular systolic pressure is estimated at 35 mmHg assuming a right atrial pressure of 3 mm Hg. Pulmonic Valve: The pulmonic valve is not well visualized. Great Vessels: Aortic root borderline enlarged. The ascending aorta is at the upper limits of normal in size. The IVC is of normal diameter and collapses greater than 50% with a sniff. This suggests a low right atrial pressure of 3 mm Hg. Pericardium/ Pleura There is no pericardial effusion. There is no pleural effusion. MMode/2D Measurements & Calculations LVIDd: 5.4 cm LA dimension: 3.9 cm RA long axis AoV Opening LVIDs: 3.8 cm FS: 30.4 % LA A2 area: 28.0 cm RA area Ao root diam IVSd: 1.0 cm LA A4 area: 26.6 cm LVPWd: 1.0 cm LA length (vol) : 18.0 cm Aortic Jxn: 2.7 cm RA vol asc Aorta Diam LA vol: 95.8 ml : 48.7 ml LA vol index RA Ao Arch Diam (Prox : 22.2 mm/ Trans): 2.8 cm RVDd major IVC diam: 1.9 cm : 4.8 cm LV kang. diameter/BSA LV sys. diameter/BSA RVD1 (basal) (cm/m^2): 2.5 (cm/m^2): 1.7 Doppler Measurements & Calculations LVOT Max Chano MV E max chano MV E/A: 1.0 TR max chano : 141.0 cm/sec : 111.9 cm/sec Med Peak E' Chano : 284.2 cm/sec MV A max chano TR max PG : 108.7 cm/sec E/E' med: 17.4 : 32.3 mmHg MV P1/2t: 55.6 msec Lat Peak E' Chano PA V2 max : 100.6 cm/sec E/E' lat: 12.7 PA mean PG E/e' average PA Accel Time MV A dur: 0.12 sec : 0.14 sec MV dec time MV P1/2t max chano LV V1 max PG PA V2 mean : 0.19 sec : 70.8 cm/sec MVA(P1/2t): 4.0 cm2 LV V1 VTI: 30.2 cm Reading Physician:02:40 PM
[2016-07-14] MEDS ORDERED: cefTRIAXone Inj 2,000 MG in Dextrose 5% Minibag Plus 50 ML IV SCH (15:50)
[2016-07-14] MEDS: 0.9% Sodium Chloride 250 ML IV SCH (16:30)
[2016-07-14] MEDS: Ondansetron 2 mg/mL 2 mL Inj IVPUSH PRN ×2 (17:02→21:50)
--- NOTE | 2016-07-14 17:30 | PCM.PNMED ---
Subjective Date of Service July 14, 2016 Subjective Patient is a 71 year old male with a hx of HTN, CHF, DM, dementia, on Coumadin, right BKA, and a recent left leg femoral artery bypass graft surgery presenting to the ED via EMS from [facility] due to penile bleeding with removal of catheter. Associated symptoms include confusion and change in LOC. Overnight, he was transferred to the [facility] due to chest pain and a respiratory rate in the 30-40s. He reports that he no longer has chest pain. He does not have dyspnea. He has diffuse pain over his entire body especially where is right leg was previously. He reports that his hands will go numb intermittently from his neuropathy. Exam Vital Signs Vital Sign - Last Date Time Temp Pulse Resp B/P Pulse Ox O2 Delivery O2 Flow Rate FiO2 07/14/16 02:48 36.6 79 25 165/64 99 Nasal Cannula 2.00 Intake and Output 07/13/16 07/13/16 07/14/16 Cumulative From/Thru 15:00 23:00 07:00 07/11/16 19:57 - 07/14/16 05:59 Intake Total 241 ml 1460 ml 300 ml 4586 ml Output Total 500 ml 400 ml 1675 ml Balance 241 ml 960 ml -100 ml 2911 ml Intake Oral 1154 ml 300 ml 2479 ml IV Total 241 ml 306 ml 2107 ml Output Urine Total 500 ml 400 ml 1675 ml # Voids 1 1 6 # Bowel Movements 1 1 Exam General: Mild acute distress secondary to generalized pain, well-developed, well -nourished, appropriately interactive HEENT: Normocephalic, atraumatic. Neck: Supple with full range of motion. Cardiovascular: Regular rate and rhythm with no murmurs, rubs, or gallops appreciated Pulmonary: Clear to auscultation bilaterally with no crackles, wheezes, or rhonchi. Normal respiratory effort with no use of accessory muscles. Abdomen: Bowel tones present. Soft, mildly tender at left lower quadrant, nondistended. Extremities: No clubbing, cyanosis, edema, or lymphadenopathy appreciated. Skin: The right AKA stump looks normal.The incision that goes down the left leg has mild erythema with warmth without palpable induration or visible drainage. Small wound at the skin crease underneath the pannus on the left with white purulent drainage verus granulation tissue. Neurological: Cranial nerves grossly intact. Sensational grossly intact left lower extremity. Psychiatric: Normal mood and affect. Alert and oriented to person, place, and time. IVs and Medications Medications Reviewed: Medications were reviewed in detail Lab and Diagnostics Result Diagram: 07/14/1640407/14/16404 X-Rays, CTs and MRIs Chest Xray Interpretation: No acute abnormalities. Unchanged compared to 06/16/2016. Interpretation / Wet Read by: Wet read ED physician CT brain IMPRESSION: No CT evidence of acute intracranial pathology. Dictated by: Shay Zhou M.D. on 07/11/2016 at 21:20 Study: Head CT no contrast Interpretation / Wet Read by: Interpret - Radiologist Date of Service: 07/11/162012 PROCEDURE: CT BRAIN WITHOUT CONTRAST ([id number]) INDICATIONS: decrease LOC IMPRESSION: No CT evidence of acute intracranial pathology. Dictated by: Shay Zhou M.D. on 07/11/2016 at 21:20 Approved by: Shay Zhou M.D. on 07/11/2016 at 21:23 CT EXTREMITY - LEFT: IMPRESSION: Cellulitus with no evidence of abscess or osteomyelitis. This report was transmitted to the emergency room at 07/12/2016 - 12:01:37 PROCEDURE: CT ANG CHEST/ABD W/WO CONTRAST IMPRESSION: 1. No evidence of aortic dissection, nor aneurysm. 2. No change in 10 mm diameter left lung base nodule. New 4 mm diameter left lower lobe nodule. Remaining pulmonary nodules have resolved. Followup is recommended as below. 3. No change in small hiatal hernia. 4. Small nonobstructing bilateral nephroliths. 5. Coronary artery disease. 6. Concordant with preliminary interpretation. Fleischner Society criteria for SOLID lung nodule followup. Nodule size (mm)Low-risk patientHigh-risk [id number] follow-up neededFollow-up at 12 mo; if no change, no further follow-up>[id number]-wm CT at 12 mo; if no change, no further follow-up needed.Initial follow-up CT at 6-12 mo, then 18-24 mo if no change. >6-8Initial follow-up CT at 6-12 mo, then 18-24 mo if no change. Initial follow-up CT at 3-6 mo, then 9-12 mo and 24 mo if no change. > 8Follow-up CT at 3, 9, 24 mo. Or PET and/or biopsy.Same as for low-risk pts. Dictated by: Magalie Lopez M.D. on 07/14/2016 at 8:00 Approved by: Magalie Lopez M.D. on 07/14/2016 at 8:05 12-lead ECG ECG Interpretation: Intravetntricular conduction delay. Rate of 85. Unchanged from 06/16/2016. No T wave abnormalities. Time: 20:56 Interpreted by: ED physician Normal ECG Interpretation: Normal sinus rhythm Cardiac Echo Impressions Echocardiogram Report Interpretation Summary 1) Normal left ventricular thickness, size, wall motion, and systolic function (EF 55-60%). 2) Normal right ventricular size and function. 3) No significant valvular disease. 4) Compared to the Echo 05/04/2016, LV function has improved from 35-40% to 55 -60% on the current study. Reading Physician:02: 40 PM Assessment & Plan Patient is a 71 year old male with a hx of HTN, CHF, DM, dementia, on Coumadin, right BKA, and a recent left leg surgery presenting to the ED via EMS from [facility] due to penile bleeding with removal of catheter. Associated symptoms include confusion and change in LOC. Patient was found to have cellulitis of his left lower extremity and UTI. Patient admitted for further treatment and management. Left leg cellulitis, infection of the upper aspects, skin crease of the surgical wound site on left groin, present on admission, Acute. - CT of left extremity showed cellulitis with no evidence of abscess or osteomyelitis. - Vancomycin discontinued, pending wound culture results. - Resumed ceftriaxone - New wound culture performed today - Wound care requested - Left venous and arterial ultrasound tomorrow - Infectious disease consult tomorrow. Chronic normocytic, hypochromic anemia, present on admission. - Low iron, TIBC low end of normal. History of iron deficiency anemia. - History of GI bleed with upper endoscopy on 06/17/16 that showed healing and almost healed ulcers in the stomach and the duodenum along with AVM noted in the third portion of duodenum - Patient at baseline, no signs of active bleeding at this time. He has history of an upper GI bleed - Transfuse 2 PRBCs today - Follow hemoglobin and hematocrit tomorrow Chest pain, not present on admission, resolved. - Troponin negative times 3. - CT chest and abdomen did not show PE or aortic dissection - Echocardiogram shows improvement of EF compared to prior in 04/2016 - Continue nitroglycerin - Continue to monitor Phantom limb pain, chronic. - Stop gabapentin as pt has history of spasms associated with it - Continue home baclofen, morphine, and oxycodone Acute kidney injury, present on admission. resolved. - Gentle fluids due to CHF - Normal BMP yesterday. Urinary traction infection, ruled out with negative urine culture. - UA showed negative nitrite, trace leukocyte esterase, and 6-10 WBC Altered mental status, present on admission. Improving. - This could be related to pain or polypharmacy, but it is improving. - Brain CT is reviewed as normal. - No history of cirrhosis and the ammonia level is normal. Blood cultures show no [id number] Supratherapeutic INR ,resolved - warfarin to be dosed by pharmacy - Daily PT/INR Chronic conditions: Peripheral vacular disease - continue statin and consider interventional cardiology consultation tomorrow Diabetes mellitus - HgbA1c 5.8% in 04/2016, low dose correctional insulin protocol Systolic congestive heart failure - improved based on echocardiogram as above, avoid fluid overload, continue statin, lisinopril, and spironolactone Coronary artery disease - continue statin, lisinopril. Hyperlipidemia - on home dose atorvastatin Hypertension - continue home dose lisinopril and spironolactone. hold metoprolol for now and monitor blood pressure and heart rate tomorrow and resume if both are stable. 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 Insomnia - continue home dose melatonin, and baclofen for muscle spasms Acetaminophen-fever/headache/mild/moderate pain Antiemetics, as needed Bowel regimen, as needed. Patient status: inpatient status with return [facility]-2 more days. Pain Evaluation: Adequate Pain Control GI Prophylaxis: Proton Pump Inhibitor VTE Prophylaxis: Other (supratherapeutic INR on warfarin) Resuscitation Status: DNR/DNI:Do Not Resuscitate/Intubate Attending Statement The patient was seen and examined together with Dr. Tan on 07/14/2016 and I agree with the history, exam and plan as outlined in the note above. . Keisha Tan DO July 14, 2016 08:09 Reagan Phipps MD July 16, 2016 18:27
[2016-07-14] MEDS: Nitroglycerin 50 mg/250 mL D5W 50,000 MCG in IV Premix 1 EACH IV SCH (20:19)
[2016-07-14] MEDS: Morphine ER 15 mg (MS Contin) Tablet PO SCH (20:52)
[2016-07-15] VITALS (7 sets, daily range): BP systolic 129–154; BP diastolic 49–84; PULSE 62–83; RESP 14–26; O2SAT 96–100
[2016-07-15] MEDS: LORazepam 0.5 mg Tablet PO PRN ×2 (00:26→21:22)
[2016-07-15] MEDS: Nitroglycerin 2% 1 Gm Ointment TOPICAL SCH ×2 (00:32→06:12)
[2016-07-15 03:53] LABS: BASOPHILS % (AUTO) 0.5 % (0-3); EOSINOPHILS % (AUTO) 7.6 % (0-5); MONOCYTES % (AUTO) 10.5 % (4-12); Mean Corpuscular Hemoglobin 26.3 pg (27.0-35.0); Mean Corpuscular Volume 83.8 fL (81-100); NEUTROPHILS % (AUTO) 56.8 % (40-74); Platelet Count 394 bil/L (150-400)
[2016-07-15 04:02] LABS: INR 1.55 ratio
[2016-07-15] MEDS: Insulin LISPRO 300 Unit/3 mL Inj SUBQ SCH ×4 (08:00→22:00)
[2016-07-15] MEDS ORDERED: Mupirocin 2% 22 Gm Ointment NASAL SCH (08:45)
--- NOTE | 2016-07-15 09:19 | CONS ---
[address] [address] CONSULTATION REPORT PATIENT: ROBBIE ACE : 1945 MR#: [id number] ADMIT: 07/12/2016 JOB ID: [id number] DATE OF SERVICE: 07/15/2016 I would like to thank Dr. Phipps for this timely consult. REASON FOR CONSULTATION: Left lower extremity, groin and lower abdominal erythema, probably cellulitis. HISTORY OF PRESENT ILLNESS: The patient is an unfortunate, 71-year-old gentleman, with a great deal of atherosclerotic disease, who is well known to me from an admission back in April. In April of this year, the patient was admitted because of flash pulmonary edema and I was asked to see him because of possible infection of his right AKA stump. At that time, the patient had recently undergone revascularization of his right lower extremity which basically failed and the patient required an AKA. They AKA stump looked uninfected to me at that time, and I recommended he be discharged back to the [facility] facility where he resides without antibiotics. The patient returned to the [facility] facility and apparently developed increasing ischemia of his left lower extremity which led him to [facility] where a major revascularization of the remaining left lower extremity was done in June. Following that surgery, he was returned to the [facility] facility in [place]. Review of the records from there indicates he had been on oral cephalosporins throughout his postoperative time up to and including his readmission here on July 12. The patient was readmitted to this facility on July 12 with penile bleeding following removal of a Saldana catheter. They noted he was also quite confused, and the patient was reported to have an INR of 6.4 at the time of his ED visit. At that time, he was seen in the ED on the for the penile bleeding. At the time of the penile bleeding, the patient had a variety of lab studies, most of which were fairly unimpressive. Because of the ongoing blood in the urine as well as confusion, the patient was admitted. In reviewing his events with the patient, he has no recollection. He recalls his vascular surgery of about two weeks ago very clearly at [place] in [place], and his subsequent transfer back to the [facility]. He recalls his life during late June at the board and care facility, and does not recall having any fevers, chills, cough, shortness of breath, nausea or vomiting. He does not remember any of the events that led him to his transportation here and his transport and admission here some three days ago. At this point, the patient states he is not having any fevers, chills or sweats, and is not exactly sure why he is in the hospital. He states he has had a little bit of sore throat over the past few days, but no odynophagia or dysphagia. He has had some chest pain, he tells me, on a chronic basis, as well as intermittent shortness of breath, but no productive cough and no pleuritic chest pain, as his chest pain is more or less substernal. He also notes he has had some vague left-sided abdominal pain and some pain around the upper part of his very lengthy left lower extremity excision which extends from the groin all the way down almost to the ankle. This morning he feels reasonably comfortable and is not certain exactly why he is here, though he is now completely oriented. PAST MEDICAL HISTORY: 1. Organic heart disease. a. Coronary artery disease. b. Recurrent flash pulmonary edema. 2. Peripheral vascular disease. a. Status post AKA in March because of ischemia. b. Status post extensive left lower extremity arterial revascularization done by Vascular surgery in [place] mid June. 3. Depression. 4. Chronic anemia. 5. Recurrent pneumonia. 6. 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 7. Hypertension. 8. Hyperlipidemia. SOCIAL HISTORY: The patient was a very significant cigarette smoker until recently. He is unable to tell me exactly when he quit smoking but it sounds like it was in the past few months. He also had a significant alcohol history, though it is a bit unclear to me exactly when that ended. The patient originally is from [place]. 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 Note that the patient lives in the [facility]. He has never been and has no children. FAMILY HISTORY: Notable for an absence of tuberculosis in any first or second-degree relatives. REVIEW OF SYSTEMS: The patient currently has no headache, though he says he has within the last few days. No acute visual problems. He has had a mild sore throat but no odynophagia, no dysphagia. No stiff neck. He has no productive cough. No fevers, no chills. No sweats, but he does have intermittent shortness of breath and occasional substernal chest pain. No nausea, vomiting, or diarrhea and, in fact, he complains of constipation. He has had some vague left lower quadrant pain and he has noticed pain around the superior aspect of his extensive mid May left lower extremity revascularization procedure. He does not have pain per se in his remaining left leg, but he states it has not been terribly useful to him, as at this point, he cannot really stand on that leg or do much with it. He is having no problems with his right AKA stump from the surgery done about three months ago on that leg. He has some residual weakness in the right upper extremity from his prior stroke. Remainder of the review of systems negative. PHYSICAL EXAMINATION: Reveals a gentleman who is completely afebrile since admission. Note that he was also afebrile during his April admission, but in any event, he is afebrile. Temp 36.9, pulse 62, respiratory rate 20, blood pressure 144/84. He is saturating well on 2 L. The patient is a bit lethargic but is easily aroused. He has a somewhat difficult to understand speech pattern but he is actually oriented x3 and able to give a fairly good history except for the events leading up to this admission. There is no evidence for head trauma. No temporal wasting. The eyes without conjunctivitis or scleral icterus. The nose is normal. Oral cavity benign. Neck is reasonably supple. Note that in the pharynx there is no thrush or hairy leukoplakia. No stiffness of the neck. Lungs relatively clear bilaterally. Cardiac tones regular rate and rhythm this morning. No notable murmurs. The abdomen is soft. There is a sense of left lower quadrant fullness but I cannot really palpate a discernible mass and this may represent stool, though the possibility of some other pathology exists. His lower abdomen/pannus area has some mild erythema which is probably not consistent with cellulitis. There is a very lengthy incision which extends probably 40 cm or more from the groin on the left all the way down to the lower calf. This incision has some diffuse erythema along its track, more so proximally, but it is well approximated and there is no purulence. There is minimal tenderness with palpation along this long healing incision. The left lower extremity below the ankle has a mild erythematous cast, but not significant. It does not seem to me as if he has a cellulitis per se. There is poor capillary refill and minimal, if any, pulses in the left foot. His strength in the left lower extremity is about 4/5 at best. He does have intact sensation in that left lower extremity. The patient's right AKA stump is well healed. There is no skin breakdown or purulence there, and it is essentially completely healed at this time. The penis and scrotum appear normal and I carefully examined the testes as well as the scrotum. There is no significant erythema or infection present there. The patient does have some mild right upper extremity weakness as before. As noted, he is oriented x3. Also noted on physical, there is no evidence for thyroid abnormalities, no synovitis is noted and no skin breakdown anywhere. LABORATORIES: Include white count which is 6600, platelets 394, with 7.6% eosinophils noted. His creatinine is 0.89. His LFTs are normal. C-reactive protein is 2.9, which is elevated. Procalcitonin is zero on three consecutive measurements. Urinalysis, 6-10 white cells. He did have on that urinalysis greater than 50 red cells, as he had gross hematuria at the time. Note that back in April when I first saw the patient, we did Cocci and crypto antibodies that eventually came back negative. A MRSA was isolated from the leg swab back in April which we felt was colonizing. Subsequently, he has had two more nasal MRSA swabs which have been positive. Blood cultures on the when he was seen in the ED and subsequently readmitted, are negative. A tissue surgical culture is pending and I am not certain where this came from or what it represents. It is not labeled in the computer. IMAGING: Since readmission, there has been several imaging studies including a brain CT which shows no acute normality. There has been a lower extremity infection which shows diffuse edema or cellulitis in the left lower extremity with no abscess and a patent fem-pop bypass. No evidence of osteo is seen. Chest x-ray is clear twice. A CT of the chest and abdomen was done. This shows no aortic dissection. There is a stable left lung nodule. There is coronary disease, and no other notable abnormalities. The patient certainly does not have pneumonia. IMPRESSION: This is a bit of a confusing patient who I saw during his last hospital stay. He is admitted on this occasion because of gross hematuria and confusion. That confusion is essentially resolved and is back to what I recognize as his baseline mental status. He may have some subtle degree of cellulitis involving the surgical wound in its very proximal reaches up in the left groin, but it is certainly not impressive. The patient has no fever, no leukocytosis and zero procalcitonin x3. 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 RECOMMENDATIONS: 1. I would discontinue ceftriaxone. 2. Will start the patient on daptomycin to avoid any potential renal toxicity in a dose of 6.5 mg/kg. 3. Nasal Bactroban will be added. 4. This case discussed in person in detail with Dr. Phipps as well as his house staff. 5. ID will continue to closely follow this patient, but overall I have the sense he does not look especially toxic and can probably transition back to an oral antibiotic and discharged in the near future. 6. The patient's overall outlook is fairly grim, however, as he has had two major vascular procedures, one on each leg, in the past six months or so and ended up losing his right leg. His left leg appears to have reasonable blood flow but is also at risk for additional ischemia and infections, and his overall functional status including his cardiac status would seem to be very poor. CANDELARIO
[2016-07-15] MEDS: Pantoprazole 40 mg ER24 Tablet PO SCH (09:31)
[2016-07-15] MEDS: Mupirocin 2% 22 Gm Ointment NASAL SCH ×2 (09:33→20:59)
[2016-07-15] MEDS: Morphine ER 15 mg (MS Contin) Tablet PO SCH ×2 (09:33→21:00)
--- NOTE | 2016-07-15 10:02 | DRSVH ---
PROCEDURE: US VEINOUS LEG DUPLEX UNILATERAL, LEFT INDICATIONS: left leg swelling, redness TECHNIQUE: Real-time imaging, as well as color and pulse Doppler interrogation, were performed of the lower extr emity deep veins from the inguinal ligament to the popliteal fossa. COMPARISON: None. FINDINGS: The deep veins are normally compressible, and free of intraluminal thrombus. Color and pu lse Doppler demonstrate normal phasic intraluminal flow. There is normal augmentation response to di stal compression maneuver. IMPRESSION: No DVT found left lower extremity. Dictated by: Mukul Gutierrez M.D. on 07/15/2016 at 10:00 Approved by: Mukul Gutierrez M.D. on 07/15/2016 at 10:01
[2016-07-15] MEDS: Venlafaxine XR 75 mg ER24 Capsule PO SCH (10:30)
[2016-07-15] MEDS: DAPTOmycin Inj 700 MG in 0.9% Sodium Chloride 50 ML IV SCH (10:31)
--- NOTE | 2016-07-15 11:27 | DRSVH ---
PROCEDURE: US DUPLEX DOPPLER UNILATERAL LEG ARTERIES, LEFT INDICATIONS: left leg swelling, redness TECHNIQUE: Color and pulse Doppler interrogation was performed of the left lower extremity arterial system, with image documentation. COMPARISON: [facility], US, US ARTERY LEG DPLX UNI LT, 06/16/2016, 18:24. FINDINGS: Vascular Ultrasound Procedure Report Findings(Artery of Lower Extremity)(Left) Common Femoral Artery(Distal) Velocity: 232 cm/s. Profunda Femoris Artery(Proximal) Velocity: Not visualized. 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 IMPRESSION: Exam is limited secondary to patient's body habitus, edema and scarring, within these hercules its the in situ femoral-popliteal bypass graft appears to be patent. Dictated by: Jayme Sotelo [facility] Interpreted: Mukul Gutierrez MD on 07/15/2016 at 11:23 Transcribed by: JESSICA on 07/15/2016 at 11:27 Approved by: Mukul Gutierrez M.D. on 07/15/2016 at 15:34
[2016-07-15] MEDS: 0.9% Sodium Chloride 250 ML IV SCH (13:45)
--- NOTE | 2016-07-15 14:02 | PCM.PHAPRO ---
Progress WARFARIN DOSING PER PHARMACY [facility]F SLF rtm DFF Date July 12-July 13-July 14-July 15-June INR 4.23 3.39 1.98 1.60 1.55 INR change -0.84 -1.41 -0.38 -0.05 Warf Dose HOLD 4mg 5 MG 5 MG A/P -Subtherapeutic INR following previously held doses. -Will continue 5 mg this evening. If not upward trend, will consider higher dose. Reluctant to make change now with supratherapeutic level at admit Artie Calero, PharmD Artie Calero July 15, 2016 14:01
--- NOTE | 2016-07-15 14:26 | PCM.PNMED ---
Subjective Date of Service July 15, 2016 Subjective Patient is a 71 year old male with a hx of HTN, CHF, DM, dementia, on Coumadin, right BKA, and a recent left leg femoral artery bypass graft surgery presenting to the ED via EMS from [facility] due to penile bleeding with removal of catheter. Associated symptoms include confusion and change in LOC. He does not have chest pain or dyspnea. He continues pain at the site of his right above the knee amputation, which he states is different from his phantom leg pain. He also has pain in his left leg, which is less than the pain on his right. He also has lower abdominal discomfort and has not had a bowel movement yet. Exam Vital Signs Vital Sign - Last Date Time Temp Pulse Resp B/P Pulse Ox O2 Delivery O2 Flow Rate FiO2 07/15/16 04:55 36.9 62 20 144/84 98 Nasal Cannula 2.00 Intake and Output 07/14/16 07/14/16 07/15/16 Cumulative From/Thru 15:00 23:00 07:00 07/11/16 19:57 - 07/15/16 06:40 Intake Total 1025 ml 350 ml 5961 ml Output Total 1450 ml 3125 ml Balance 1025 ml -1100 ml 2836 ml Intake Oral 300 ml 2779 ml IV Total 425 ml 50 ml 2582 ml Packed Cells 600 ml 600 ml Output Urine Total 1450 ml 3125 ml # Voids 5 11 # Bowel Movements 0 1 Exam General: No acute distress, well-developed, well-nourished, appropriately interactive HEENT: Normocephalic, atraumatic. Neck: Supple with full range of motion. Cardiovascular: Regular rate and rhythm with no murmurs, rubs, or gallops appreciated Pulmonary: Clear to auscultation bilaterally with no crackles, wheezes, or rhonchi. Normal respiratory effort with no use of accessory muscles. Abdomen: Bowel tones present. Soft, mildly tender at left lower quadrant, nondistended. Extremities: No clubbing, cyanosis, edema, or lymphadenopathy appreciated. Skin: The right AKA stump does not have erythema, edema, warmth, or tenderness to palpation.The incision that goes down the left leg has mild erythema without warmth or palpable induration or visible drainage. Small wound at the skin crease underneath the pannus on the left with white discharge that is non-tender Neurological: Cranial nerves grossly intact. Sensational grossly intact left lower extremity. Proprioception intact. Psychiatric: Normal mood and affect. Alert and oriented to person, place, and time. IVs and Medications Medications Reviewed: Medications were reviewed in detail Lab and Diagnostics Result Diagram: 07/15/1631407/15/16314 X-Rays, CTs and MRIs Chest Xray Interpretation: No acute abnormalities. Unchanged compared to 06/16/2016. Interpretation / Wet Read by: Wet read ED physician CT brain IMPRESSION: No CT evidence of acute intracranial pathology. Dictated by: Shay Zhou M.D. on 07/11/2016 at 21:20 Study: Head CT no contrast Interpretation / Wet Read by: Interpret - Radiologist Date of Service: 07/11/162012 PROCEDURE: CT BRAIN WITHOUT CONTRAST ([id number]) INDICATIONS: decrease LOC IMPRESSION: No CT evidence of acute intracranial pathology. Dictated by: Shay Zhou M.D. on 07/11/2016 at 21:20 Approved by: Shay Zhou M.D. on 07/11/2016 at 21:23 CT EXTREMITY - LEFT: IMPRESSION: Cellulitus with no evidence of abscess or osteomyelitis. This report was transmitted to the emergency room at 07/12/2016 - 12:01:37 PROCEDURE: CT ANG CHEST/ABD W/WO CONTRAST IMPRESSION: 1. No evidence of aortic dissection, nor aneurysm. 2. No change in 10 mm diameter left lung base nodule. New 4 mm diameter left lower lobe nodule. Remaining pulmonary nodules have resolved. Followup is recommended as below. 3. No change in small hiatal hernia. 4. Small nonobstructing bilateral nephroliths. 5. Coronary artery disease. 6. Concordant with preliminary interpretation. Fleischner Society criteria for SOLID lung nodule followup. Nodule size (mm)Low-risk patientHigh-risk [id number] follow-up neededFollow-up at 12 mo; if no change, no further follow-up>1-1Pansse-zh CT at 12 mo; if no change, no further follow-up needed.Initial follow-up CT at 6-12 mo, then 18-24 mo if no change. >6-8Initial follow-up CT at 6-12 mo, then 18-24 mo if no change. Initial follow-up CT at 3-6 mo, then 9-12 mo and 24 mo if no change. > 8Follow-up CT at 3, 9, 24 mo. Or PET and/or biopsy.Same as for low-risk pts. Dictated by: Magalie Lopez M.D. on 07/14/2016 at 8:00 Approved by: Magalie Lopez M.D. on 07/14/2016 at 8:05 PROCEDURE: US VEINOUS LEG DUPLEX UNILATERAL, LEFT IMPRESSION: No DVT found left lower extremity. Approved by: Mukul Gutierrez M.D. on 07/15/2016 at 10:01 12-lead ECG ECG Interpretation: Intravetntricular conduction delay. Rate of 85. Unchanged from 06/16/2016. No T wave abnormalities. Time: 20:56 Interpreted by: ED physician Normal ECG Interpretation: Normal sinus rhythm Cardiac Echo Impressions Echocardiogram Report Interpretation Summary 1) Normal left ventricular thickness, size, wall motion, and systolic function (EF 55-60%). 2) Normal right ventricular size and function. 3) No significant valvular disease. 4) Compared to the Echo 05/04/2016, LV function has improved from 35-40% to 55 -60% on the current study. Reading Physician:02: 40 PM Assessment & Plan Patient is a 71 year old male with a hx of HTN, CHF, DM, dementia, on Coumadin, right BKA, and a recent left leg surgery presenting to the ED via EMS from [facility] due to penile bleeding with removal of catheter. Associated symptoms include confusion and change in LOC. Patient was found to have cellulitis of his left lower extremity and UTI. Patient admitted for further treatment and management. Possible left leg cellulitis and wound infection at left groin, present on admission, Acute. - CT of left extremity showed cellulitis with no evidence of abscess or osteomyelitis. - Left venous and arterial ultrasound did not show DVT or occlusion of fem- popliteal bypass graft. - New wound culture performed 07/14/16 and shows no organisms - Vancomycin and ceftriaxone discontinued - Wound care consulted. Their time and recommendations are appreciated. - Infectious disease consulted and following. Their time and recommendations are appreciated. - Daptomycin started and nasal Bactroban added - Consider vasculitis workup - Surgery consult for possible wound debridement Chronic normocytic, hypochromic anemia, present on admission. - Low iron, TIBC low end of normal. History of iron deficiency anemia. 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 Fecal occult positive. - Patient at baseline, no signs of active bleeding at this time. He has history of an upper GI bleed - Transfused 2 PRBCs on 07/14/16 - Follow hemoglobin and hematocrit - Continue pantoprazole as below Chest pain, not present on admission, resolved. - Troponin negative times 3. - CT chest and abdomen did not show PE or aortic dissection - Echocardiogram shows improvement of EF compared to prior in 04/2016 - Continue nitroglycerin as needed - Continue to monitor Phantom limb pain, chronic. - Stop gabapentin as pt has history of spasms associated with it - Continue home baclofen, morphine, and oxycodone Acute kidney injury, present on admission. resolved. - Gentle fluids were given due to CHF Urinary traction infection, ruled out with negative urine culture. - UA showed negative nitrite, trace leukocyte esterase, and 6-10 WBC Acute multifactorial encephalopathy, present on admission. Resolved. - This could be related to pain, infection, and polypharmacy, but it is improved. - Brain CT is reviewed as normal. - No history of cirrhosis and the ammonia level is normal. Blood cultures show no [id number] - Consider decreasing baclofen dose Supratherapeutic INR ,resolved - warfarin to be dosed by pharmacy - Daily PT/INR Chronic conditions: Peripheral vacular disease - continue statin and consider interventional cardiology consultation tomorrow Diabetes mellitus - HgbA1c 5.8% in 04/2016, low dose correctional insulin protocol Systolic congestive heart failure - improved based on echocardiogram as above, avoid fluid overload, continue statin, lisinopril, and spironolactone Coronary artery disease - continue statin, lisinopril. Hyperlipidemia - on home dose atorvastatin Hypertension - continue home dose lisinopril and spironolactone. hold metoprolol for now and monitor blood pressure and heart rate tomorrow and resume if both are stable. 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 Insomnia - continue home dose melatonin, and baclofen for muscle spasms Acetaminophen-fever/headache/mild/moderate pain Antiemetics, as needed Bowel regimen, as needed. Patient status: inpatient [facility]. Pain Evaluation: Adequate Pain Control GI Prophylaxis: Proton Pump Inhibitor VTE Prophylaxis: Other (supratherapeutic INR on warfarin) Resuscitation Status: DNR/DNI:Do Not Resuscitate/Intubate Attending Statement The patient was seen and examined together with Dr. Tan on 07/15/2016 and I agree with the history, exam and plan as outlined in the note above. . Keisha Tan DO July 15, 2016 08:09 Reagan Phipps MD July 16, 2016 18:29
--- NOTE | 2016-07-15 18:33 | CONS ---
[address] [address] CONSULTATION REPORT PATIENT: ROBBIE ACE : 1945 MR#: [id number] ADMIT: 07/12/2016 JOB ID: [id number] DATE OF SERVICE: 07/15/2016 REQUESTED BY: Keisha Tan DO. The patient is a 71-year-old man, whom I was asked to see for a left groin wound. On June 26, 2016, at [facility] in [place], Dr. Reyes Joyce performed a reverse greater saphenous vein, left femoral to infrageniculate popliteal artery bypass graft for limb salvage. He presented with a left foot ulcer, and in addition to his greater saphenous vein fem-pop bypass, he had a left common femoral endarterectomy. He has had a previous right AKA. I was asked to see him because his left groin wound. He was admitted with penile bleeding after removal of a Saldana catheter but also increasing confusion and change of level of consciousness. On admission, he was also found to have a prolonged INR of 3.39. PAST MEDICAL HISTORY: Illnesses: 1. Dementia. 2. Peripheral arterial disease. Status post right AKA. 3. Gout. 4. Gastric ulcer. 5. Diabetes. 6. Congestive heart failure. 7. Hyperlipidemia. 8. Hypertension. 9. Depression. OPERATIONS: 1. Right AKA. 2. Left common femoral endarterectomy with reversed greater saphenous vein, femoral to below-knee popliteal bypass graft. SOCIAL HISTORY: He was born in [facility]. 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 SOCIAL HISTORY: He lives at [facility] in [place]. No alcohol or tobacco use there. REVIEW OF SYSTEMS: Otherwise negative. He denies left foot pain. PHYSICAL EXAMINATION: Temperature is 36.7, brachial blood pressure 129/49, pulse 80, respiratory rate 16, O2 sat is 99% on 2 L. HEENT: No scleral icterus. Neck supple. Trachea midline. No masses. Lungs: Clear. Cardiac exam: Regular rhythm. No murmurs or gallops appreciated. Abdomen: Overnourished, soft, nontender. Lower extremities: Right AKA. Left: He has superficial dehiscence of his left groin wound. He has a large panniculus that overrides it. I do not see any cellulitis. Putting pressure on his wound, I do not express any pus and I do not see a deep sinus tract. The rest of his left leg thigh incision, as well as left leg incision actually, for his operation, look great. His left foot is warm, no evidence of cellulitis. Alert. Denies pain. He has normal motor function of his left lower extremity. No obvious cranial nerve deficits. LABORATORY RESULTS: White blood cell count is 7.7, hematocrit is 25, platelet count 470,000. His INR today is 1.55. Electrolytes are normal. Creatinine 0.89. Glucose 113. Liver function tests normal. Albumin is 3.4. Lower extremity ultrasound: His left femoral popliteal bypass graft is patent. IMPRESSION: He has, by my exam, a superficial dehiscence of his left femoral wound. I think he would benefit from bedside debridements of some eschar and necrotic subcutaneous tissue, but it looks pretty minimal to me. There may be a deeper tract, although it is not obvious to me at this time. I think after that, then he needs a wound VAC onto his left groin wound.
[2016-07-15] MEDS: Nitroglycerin 50 mg/250 mL D5W 50,000 MCG in IV Premix 1 EACH IV SCH (21:11)
[2016-07-15] MEDS: Ondansetron 2 mg/mL 2 mL Inj IVPUSH PRN (23:44)
[2016-07-16] MEDS: LORazepam 0.5 mg Tablet PO PRN ×2 (01:29→05:31)
[2016-07-16 03:18] LABS: BASOPHILS % (AUTO) 0.5 % (0-3); EOSINOPHILS % (AUTO) 7.6 % (0-5); MONOCYTES % (AUTO) 8.8 % (4-12); Mean Corpuscular Hemoglobin 26.1 pg (27.0-35.0); Mean Corpuscular Volume 84.8 fL (81-100); NEUTROPHILS % (AUTO) 61.2 % (40-74); Platelet Count 366 bil/L (150-400)
[2016-07-16 03:30] LABS: INR 1.73 ratio
[2016-07-16 04:36] VITALS: BP 139/61; PULSE 76; RESP 23; O2SAT 97
[2016-07-16] MEDS: Insulin LISPRO 300 Unit/3 mL Inj SUBQ SCH ×2 (08:00→12:00)
--- NOTE | 2016-07-16 08:48 | PROG NOTE ---
[address] [address] PROGRESS NOTE PATIENT: ROBBIE ACE : 1945 MR#: [id number] ADMIT: 07/12/2016 JOB ID: [id number] DATE: 07/16/2016 INFECTIOUS DISEASE FOLLOW UP NOTE: REASON FOR FOLLOWUP: Left groin infection at the site of a recent vascular bypass. INTERVAL HISTORY: Overnight, the patient says he has not had fevers or chills. He denies significant shortness of breath, but he does note he has some left lower quadrant pain and pain in his left groin. No fevers or chills are reported overnight. PHYSICAL EXAMINATION: Reveals a currently comfortable gentleman using 1 L nasal oxygen. Temperature is 36.7, and he has been afebrile. Pulse 76, respiratory rate 23, blood pressure 139/61. He is saturating well. He is awake and alert. Oral cavity negative. Lungs relatively clear. Cardiac tones without new murmur or abnormality. Abdomen is slightly distended. There is some minimal tenderness in the left lower quadrant which the patient says he often has. I again carefully examined the entire length of his extensive left lower extremity wound. At the superior aspect, which is basically in the patient's groin, there are two pin point holes. The most proximal of these appeared to have some purulent drainage, so I inserted a Q-tip to obtain a better sample. To my surprise, the Q-tip descended about 3 cm below the level of the wound without any resistance whatsoever. This small defect is draining some purulent appearing material and when I removed the Q-tip, there was some blood-tinged purulent material which I have sent for Gram stain and culture. LABORATORIES: Include a white blood count 6500, platelet count 366, creatinine 0.85. LFTs are normal. Procalcitonin negative x3. Micro studies include an original Gram stain submitted two days ago which showed no polys or white cells. 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 Blood cultures are negative. Urine is negative. IMAGING: Includes the left lower extremity ultrasound which showed that his fem-pop bypass graft appears patent. Venous duplex study of the left leg showed no DVT. Chest and abdominal CT showed the lung nodules as previously described. IMPRESSION: The patient's confusion and hematuria which led him to this admission have resolved. The left upper incision from his bypass earlier this month at [facility] in [place] appears to have dehisced at least locally and one could probe without resistance about 3 cm deep below the small defect present at the superior aspect of the incision. I obtained a culture which we will be waiting on today. At this point, the patient does not appear toxic or terribly infected and he continues on daptomycin. My concern is the lack of integrity of the superior aspect of the wound and potential need for debridement or Wound VAC. I am also concerned as to whether there may be prosthetic materials there but I see the record indicates probably not. RECOMMENDATIONS: 1. Continue with dapto. 2. The wound culture was done and sent to the lab. 3. I discussed this case in person with Dr. Phipps again this morning. 4. I have requested full records from [facility] as it is somewhat urgent we find out if there is prosthetic materials involved in this fem-pop bypass. 5. I will continue to follow this complex patient with you. 6. I would perhaps ask Dr. Oneil Tipton once again to comment on the left upper groin wound and whether it needs additional debridement.
[2016-07-16 09:07] VITALS: BP 147/55; PULSE 64; RESP 18; O2SAT 98
[2016-07-16] MEDS: Morphine ER 15 mg (MS Contin) Tablet PO SCH (09:13)
[2016-07-16] MEDS: Venlafaxine XR 75 mg ER24 Capsule PO SCH (09:13)
[2016-07-16] MEDS: Pantoprazole 40 mg ER24 Tablet PO SCH (09:13)
[2016-07-16] MEDS: Mupirocin 2% 22 Gm Ointment NASAL SCH (09:13)
--- NOTE | 2016-07-16 09:37 | PCM.PNSURG ---
Subjective Date of Service: July 16, 2016 Date of Service: July 16, 2016 Visit Information: Reason for Visit Altered Mental Status, Cellulitis Surgery/Surgery Date Post-Op Day # Date of Admission: July 12, 2016 at 01:39 Hospital Day # 2 Subjective: Patient seen today for left femoral wound dehiscence. Denies fevers or chills. Denies chest pain and shortness of breath. Notes some LLE discomfort around groin incision. Postop General: No Shortness of Breath, No Chest Pain Gastrointestinal: Tolerating Oral Feedings Pain Management: Good Pain Control (unless left groin palpated.) Postop Activity: Other (bedrest) Objective Vital Sign- Last 8 Hours Date Time Temp Pulse Resp B/P Pulse Ox O2 Delivery O2 Flow Rate FiO2 07/16/16 09:07 36.7 64 18 147/55 98 Room Air 07/16/16 04:36 36.7 76 23 139/61 97 Room Air Intake and Output- Last 8 Hour 07/16/16 Cumulative From/Thru 07:00 07/11/16 19:57 - 07/16/16 05:11 Intake Total 600 ml 7261 ml Output Total 1025 ml 5125 ml Balance -425 ml 2136 ml Intake Oral 600 ml 3979 ml IV Total 2682 ml Packed Cells 600 ml Output Urine Total 1025 ml 5125 ml # Voids 11 # Bowel Movements 0 1 General: Alert, Oriented X3, Cooperative, No Acute Distress Lungs: Clear to Auscultation Heart: Regular Rate/Rhythm Abdomen: Protuberant, Normoactive bowel tones Extremities: Warm Result Diagram: 07/16/16 0300 07/16/16 0300 Diagnostics: Wound culture pending Assessment & Plan Impression Left femoral wound dehiscence - debridement performed at bedside, 4 cm deep wound directed mostly inferiorly though slightly in 4 o'clock direction.Visible necrotic material removed and wound packed with wet gauze and covered with mepilex. - continue current abx while awaiting c&s results - good possibility of need for additional debridement prior to VAC. Problems: VTE Prophylaxis: Other (supratherapeutic INR on warfarin) Resuscitation Status: DNR/DNI:Do Not Resuscitate/Intubate Sanket Joyce PA-C July 16, 2016 09:37
[2016-07-16] MEDS: DAPTOmycin Inj 700 MG in 0.9% Sodium Chloride 50 ML IV SCH (10:14)
[2016-07-16 10:20] VITALS: PULSE 62
[2016-07-16] MEDS ORDERED: MUPI22OI2 NASAL (11:03)
--- NOTE | 2016-07-16 11:08 | PCM.DIMED ---
Keisha Tan DO 07/16/16 1059: Discharge Instructions Date of Service July 16, 2016 Dates of Hospitalization July 12, 2016 at 01:39 Discharge Diagnosis Discharge Diagnosis Left leg wound infection Diet Discharge Diet: Heart Healthy, Diabetic Patient Instructions Patient Instructions We held your home medications of furosemide and metoprolol succinate because of your blood pressure and heart rate. We also held your nighttime scheduled lorazepam. Otherwise, we continued your medications as previously prescribed. For your left leg, you have been getting an antibiotic daptomycin to avoid any potential renal toxicity in a dose of 6.5 mg/kg that was started on 07/15/16. You have also been started on mupirocin ointment for your nose to treat the positive screen for MRSA in your nose. You are being transferred to [facility] in [place] with Dr. Reyes Joyce for continued care of your left leg wound. Reagan Phipps MD 07/16/16 1827: Discharge Instructions Attending's Statement The patient was seen and examined together with Dr. Tan on 07/16/2016 and I agree with the history, exam and plan as outlined in the note above. . Keisha Tan DO July 16, 2016 10:59 Reagan Phipps MD July 16, 2016 18:27
--- NOTE | 2016-07-16 11:15 | PCM.DC.MED ---
Discharge Summary Date of Service July 16, 2016 Dates of Hospitalization Date of Hospital Admission July 12, 2016 at 01:39 Date of Discharge: July 16, 2016 Providers: Admitting Physician: Elsa Ritter DO Primary Care Physician: Nikolai Lozano MD Attending Physician: Elsa Ritter DO Diagnosis at Time of Discharge Diagnosis at Time of Discharge Probable left leg cellulitis and wound dehiscence at left inguinal area Chronic normocytic, hypochromic anemia Chest pain Phantom limb pain Acute kidney injury Urinary traction infection Acute multifactorial encephalopathy Supratherapeutic INR Lung nodules Chronic conditions: Peripheral vacular disease Diabetes mellitus Systolic congestive heart failure Coronary artery disease Hyperlipidemia Hypertension 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 Switched to daptomycin to avoid any potential renal toxicity in a dose of 6.5 mg /kg and was started on 07/15/16. He has also been started on mupirocin ointment for positive nasal screen for MRSA. Surgery: debridement performed at bedside 07/16/16: "4 cm deep wound directed mostly inferiorly though slightly in 4 o'clock direction.Visible necrotic material removed and wound packed with wet gauze and covered with mepilex". Recommended transfer to [place] for continuity of care. Wound care note from 07/15/16: "while the distal portions of his closures look good his thigh closure appears tenuous with some slough noted in the incision line proximally and groin closure is frankly dehiscent for a length of approx 3 cms, there is a suture present in the wound bed of the groin which may indicate that dehiscent process might be suture abscess driven initially, regardless defer treatment of this condition to surgical service, for now recommend dry gauze over this open area of the groin held in place by patients pannus while bedbound. Tape in place if patient transferring or up in chair. Wound will follow as needed." Pharmacy: Warfarin 5 mg on 07/15/16 Procedures XRay, CTs & MRIs Chest Xray Interpretation: No acute abnormalities. Unchanged compared to 06/16/2016. Interpretation / Wet Read by: Wet read ED physician CT brain IMPRESSION: No CT evidence of acute intracranial pathology. Dictated by: Shay Zhou M.D. on 07/11/2016 at 21:20 Study: Head CT no contrast Interpretation / Wet Read by: Interpret - Radiologist PROCEDURE: CT BRAIN WITHOUT CONTRAST INDICATIONS: decrease LOC IMPRESSION: No CT evidence of acute intracranial pathology. Dictated by: Shay Zhou M.D. on 07/11/2016 at 21:20 Approved by: Shay Zhou M.D. on 07/11/2016 at 21:23 CT EXTREMITY - LEFT: IMPRESSION: Cellulitus with no evidence of abscess or osteomyelitis. This report was transmitted to the emergency room at 07/12/2016 - 12:01:37 PROCEDURE: CT ANG CHEST/ABD W/WO CONTRAST IMPRESSION: 1. No evidence of aortic dissection, nor aneurysm. 2. No change in 10 mm diameter left lung base nodule. New 4 mm diameter left lower lobe nodule. Remaining pulmonary nodules have resolved. Followup is recommended as below. 3. No change in small hiatal hernia. 4. Small nonobstructing bilateral nephroliths. 5. Coronary artery disease. 6. Concordant with preliminary interpretation. Fleischner Society criteria for SOLID lung nodule followup. Nodule size (mm)Low-risk patientHigh-risk [id number] follow-up neededFollow-up at 12 mo; if no change, no further follow-up>[id number] CT at 12 mo; if no change, no further follow-up needed.Initial follow-up CT at 6-12 mo, then 18-24 mo if no change. >6-8Initial follow-up CT at 6-12 mo, then 18-24 mo if no change. Initial follow-up CT at 3-6 mo, then 9-12 mo and 24 mo if no change. > 8Follow-up CT at 3, 9, 24 mo. Or PET and/or biopsy.Same as for low-risk pts. Dictated by: Magalie Lopez M.D. on 07/14/2016 at 8:00 Approved by: Magalie Lopez M.D. on 07/14/2016 at 8:05 ECG 12 Lead ECG Interpretation: Intravetntricular conduction delay. Rate of 85. Unchanged from 06/16/2016. No T wave abnormalities. Time: 20:56 Interpreted by: ED physician Normal ECG Interpretation: Normal sinus rhythm Cardiac Echo Impression Echocardiogram Report Interpretation Summary 1) Normal left ventricular thickness, size, wall motion, and systolic function (EF 55-60%). 2) Normal right ventricular size and function. 3) No significant valvular disease. 4) Compared to the Echo 05/04/2016, LV function has improved from 35-40% to 55 -60% on the current study. Reading Physician:02: 40 PM Other Diagnostics PROCEDURE: US VEINOUS LEG DUPLEX UNILATERAL, LEFT IMPRESSION: No DVT found left lower extremity. Approved by: Mukul Gutierrez M.D. on 07/15/2016 at 10:01 PROCEDURE: US DUPLEX DOPPLER UNILATERAL LEG ARTERIES, LEFT IMPRESSION: Exam is limited secondary to patient's body habitus, edema and scarring, within these limits the in situ femoral-popliteal bypass graft appears to be patent. Approved by: Mukul Gutierrez M.D. on 07/15/2016 at 15:34 Brief History From the history and physical performed by Dr. Yuni Lord on 07/12/2016: Patient is a 71 year old male with a hx of HTN, CHF, DM, dementia, on Coumadin, right BKA, and a recent left leg femoral artery bypass graft surgery presenting to the ED via EMS from [facility] due to penile bleeding with removal of catheter. Associated symptoms include confusion and change in LOC. Medics were called due to the bleeding, but on arrival they noticed the decreased LOC and confusion. Pt is currently taking 500 cephalexin 4 times a day since 5 days ago. It was reported that his INR wa 6.4 The pt's catheter was removed today but it is unclear whether it was removed by the pt or staff. His INR today was 6.4 per staff. In the ED, vitals are all within normal range, lab significant for WBC 10.4, H/ H8.3/25.7, platelet 524, chloride 93, nightly 44, creatinine 1.4, glucose 111. ESR 60, CRP 2.9, lactic acid level I.0, total calcitonin 0.07. UA positive for trace leukocyte esterase, nitrite negative, large amounts of occult blood seen, reflex to culture. ECG and CXR with no changes compared to 06/16/2016. CT head negative for acute intracranial pathology. CT of left extremity showed cellulitis with no evidence of abscess or osteomyelitis. Patient started on antibiotics. Patient admitted for further treatment and management. Hospital Course Patient is a 71 year old male with a history of hypertension, congestive heart failure, diabetes mellitus type II, right BKA, and a recent left leg surgery presented to the ED via EMS from [facility] due to penile bleeding with removal of catheter with associated symptom of confusion. Patient was found to have cellulitis of his left lower extremity and a possible urinary tract infection. Probable left leg cellulitis and wound dehiscence at left inguinal area, present on admission, Acute, active. - CT of left extremity showed cellulitis with no evidence of abscess or osteomyelitis. - Left venous and arterial ultrasound did not show DVT or occlusion of fem- popliteal bypass graft. - New wound culture performed 07/14/16 and show preliminary light growth of gram positive rods - He received one dose of ceftriaxone on 07/12/16 - Vancomycin was started on 07/11/16nd continued due to positive MRSA screen. It was discontinued on 07/14/16. - Daptomycin started on 07/15/16 to avoid renal toxicity - Wound care consulted as above. - Infectious disease consulted as above - Surgery consulted as above. - Consider vasculitis workup Chronic normocytic, hypochromic anemia, present on admission. - Low iron, TIBC low end of normal. History of iron deficiency anemia. 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 Fecal occult positive. - Hemoglobin and hematocrit stable, no signs of active bleeding at this time. - Transfused 2 PRBCs on 07/14/16 - Continue pantoprazole as below Urinary traction infection, acute, present on admission. Possibly recurrent. - UA showed negative nitrite, trace leukocyte esterase, and 6-10 WBC - Initially ruled out with negative urine culture - However, patient reports suprapubic abdominal discomfort and has suprapubic tenderness on exam - Consider repeating UA Acute multifactorial encephalopathy, present on admission. Resolved. - This could be related to pain, infection, and polypharmacy, but it is resolved. - Brain CT was reviewed as normal. - No history of cirrhosis and the ammonia level was normal. Blood cultures showed no [id number] - Held nighttime scheduled lorazepam dose - Consider decreasing baclofen dose Chest pain, not present on admission, resolved. - Troponin negative times 3. No acute EKG changes. - CT chest and abdomen did not show PE or aortic dissection - Echocardiogram showed improvement of EF compared to prior in 04/2016 - Continued nitroglycerin as needed Phantom limb pain, chronic. - Stopped gabapentin as patient has history of spasms associated with it - Continued home baclofen, morphine, and oxycodone Supratherapeutic INR ,resolved - INR 1.73 on 07/16/16 - Warfarin dosed by pharmacy Acute kidney injury, present on admission. resolved. - Gentle fluids were given Lung nodules, visualized on CT scan - No change in 10 mm diameter left lung base nodule. New 4 mm diameter left lower lobe nodule. - Will need follow up as outpatient Chronic conditions: Peripheral vacular disease - continued statin Diabetes mellitus - HgbA1c 5.8% in 04/2016, correctional insulin ordered but not needed during hospital stay Systolic congestive heart failure - improved based on echocardiogram as above, avoided fluid overload, continued statin, lisinopril, and spironolactone. Held furosemide as patient was euvolemic. Coronary artery disease - continued statin, lisinopril. Hyperlipidemia - on home dose atorvastatin Hypertension - continued home dose lisinopril and spironolactone. 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 Insomnia - continued home dose melatonin, and baclofen for muscle spasms Constipation - patient has not had a bowel movement since 07/13/16 In summary, patient is a 71 year old male with a history of hypertension, congestive heart failure, diabetes mellitus type II, right BKA, and a recent left leg surgery presented to the ED via EMS from [facility] due to penile bleeding with removal of catheter with associated symptom of confusion. Patient was found to have cellulitis of his left lower extremity and a possible urinary tract infection. The urinary tract infection was ruled out with an initial negative urine culture. He is receiving IV antibiotics with improvement of leg cellulitis but continues to have a wound infection at the left inguinal area. He is being transferred to [facility] in [place] with accepting physician, Dr. Reyes Joyce, for continued wound care and continuity of care. Exam Vital Signs (Last) Date Time Temp Pulse Resp B/P Pulse Ox O2 Delivery O2 Flow Rate FiO2 07/16/16 10:20 62 5/31/17 09:07 36.7 18 147/55 98 Room Air 07/15/16 23:44 1.00 Exam General: No acute distress, well-developed, well-nourished, appropriately interactive HEENT: Normocephalic, atraumatic. Neck: Supple with full range of motion. Cardiovascular: Regular rate and rhythm with no murmurs, rubs, or gallops appreciated Pulmonary: Clear to auscultation bilaterally with no crackles, wheezes, or rhonchi. Normal respiratory effort with no use of accessory muscles. Abdomen: Bowel tones present. Soft, mildly tender suprapubic area, nondistended. Extremities: No clubbing, cyanosis, edema, or lymphadenopathy appreciated. Skin: The right AKA stump has tenderness at the lateral inferior aspect but does not have erythema, edema, or warmth.The incision that goes down the left leg has mild erythema without warmth or palpable induration or visible drainage. Small approximately 3 cm wound at the skin crease underneath the pannus on the left with white discharge that is non-tender with mild surrounding erythema Neurological: Cranial nerves grossly intact. Sensational grossly intact left lower extremity. Proprioception intact. Psychiatric: Normal mood and affect. Alert and oriented to person, place, and time. Test 07/11/16 21:01 07/11/16 21:05 07/11/16 22:20 07/13/16 05:15 Erythrocyte Sedimentation Rate 60mm/hr (0-30) C-Reactive Protein 2.9mg/dL (0.0-0.5) Urine Color Dark yellow (YELLOW) Urine Appearance Hazy (CLEAR,HAZY) Urine pH 5.0 (5.0-8.0) Urine Specific [place] 1.015 (1.003-1.035) Urine Protein Negativemg/dL (NEG,TRACE) Urine Glucose (UA) Negativemg/dL (NEGATIVE) Urine Ketones Negativemg/dL (NEGATIVE) Urine Occult Blood Large (NEGATIVE) Urine Nitrite Negative (NEGATIVE) Urine Bilirubin Negative (NEGATIVE) Urine Urobilinogen Normalmg/dL (NORMAL) Urine Leukocyte Esterase Trace (NEGATIVE) Urine RBC >50/hpf (0-2) Urine WBC 6-10/hpf (0-5) Urine Epithelial Cells Few/hpf (NONE-MOD) Urine Crystals None seen (NONE SEEN) Urine Bacteria Few/hpf (NONE-FEW) Urine Hyaline Casts None/lpf (NONE) Urine Granular Casts None seen (NONE SEEN) Urine Waxy Casts None seen (NONE SEEN) Urine Red Blood Cell Casts None seen (NONE SEEN) Urine White Blood Cell Casts None seen (NONE SEEN) Urine Mucus None seen (None Seen) Urine Trichomonas None seen (NONE SEEN) Urine Yeast None (NONE SEEN) Urinalysis Comment None Urine Culture Reflexed Indicated Hold Urine Received (Received) Lactic Acid Level 1.0mmol/L (0.4-2.0) D-Dimer 1.16mg/L FEU (<0.50) Ammonia 37ug/dL (18-53) Test 07/14/16 04:05 07/14/16 11:42 07/15/16 03:15 07/16/16 03:00 Iron Level 25ug/dL (35-150) Total Iron Binding Capacity 261ug/dL (250-450) Percent Iron Saturation 10%sat (15-50) Unsaturated Iron Binding 235.9ug/dL Troponin T 0.010ug/L (0.0-0.011) Vancomycin Level Trough 13.5mcg/mL Triglycerides Level 96mg/dL (0-149) Cholesterol Level 151mg/dL (100-199) LDL Cholesterol, Calculated 83.800mg/dL (0-99) VLDL Cholesterol 19.200mg/dL HDL Cholesterol 48mg/dL (>39) Cholesterol/HDL Ratio 3.15 (0.0-4.4) White Blood Count 6.5th/mm3 (3.8-10.1) Red Blood Count 3.48mil/mm3 (4.40-5.80) Hemoglobin 9.1g/dL (13.8-17.2) Hematocrit 29.5% (41.0-50.0) Mean Corpuscular Volume 84.8fL (81-100) Mean Corpuscular Hemoglobin 26.1pg (27.0-35.0) Mean Corpuscular Hemoglobin Concent 30.8% (32.0-37.0) Red Cell Distribution Width 16.1% (12.3-15.4) Platelet Count 366bil/L (150-400) Neutrophils (%) (Auto) 61.2% (40-74) Lymphocytes (%) (Auto) 21.6% (14-46) Monocytes (%) (Auto) 8.8% (4-12) Eosinophils (%) (Auto) 7.6% (0-5) Basophils (%) (Auto) 0.5% (0-3) Prothrombin Time 18.7sec (8.1-12.5) Prothromb Time International Ratio 1.73ratio Sodium Level 139mEq/L (134-144) Potassium Level 4.1mEq/L (3.5-5.2) Chloride Level 101mEq/L (97-108) Carbon Dioxide Level 22mmol/L (18-29) Blood Urea Nitrogen 13mg/dL (8-27) Creatinine 0.85mg/dL (0.76-1.27) Estimat Glomerular Filtration Rate 95mL/min (>59) Glucose Level 102mg/dL (60-99) Calcium Level 9.1mg/dL (8.5-10.1) Total Bilirubin 0.2mg/dL (0.0-1.2) Aspartate Amino Transf (AST/SGOT) 13U/L (0-50) Alanine Aminotransferase (ALT/SGPT) 12U/L (0-44) Alkaline Phosphatase 73U/L (25-160) Total Creatine Kinase 40U/L (21-232) Total Protein 6.8g/dL (6.4-8.4) Albumin 3.6g/dL (3.4-5.0) Procalcitonin 0.03ng/mL (0.00-0.08) Microbiology Results MRSA nasal screen positive Urine culture and blood cultures do not show any growth Left inguinal wound culture preliminarily shows light growth of gram negative rods with culture and sensitives to follow Discharge Medications Discharge Medications Atorvastatin (Lipitor) 80 Mg Tablet 80 MG PO HS (Reported) Baclofen (Baclofen) 10 Mg Tablet 10 MG PO TIDWM (Reported) 0700, 1300, 1700 Cholecalciferol (Vitamin D3) (Vitamin D3) 2,000 Unit Tablet 2,000 UNIT PO QAM ( Reported) Lisinopril (Lisinopril) 5 Mg Tablet 5 MG PO BID Prescribed by: GABRIELA KELLEY DO Melatonin (Melatonin) 3 Mg Tablet 6 MG PO HS (Reported) Morphine Sulfate ER (MS Contin) 15 Mg Tablet.er 15 MG PO BID (Reported) 0800 AND 1700 Multivitamin (Multi Vitamin Daily) 1 Each Tablet 1 EACH PO QAM (Reported) Mupirocin (Mupirocin Ointment) 22 Gm Oint...g. 1 APPLIC NASAL BID Prescribed by: AMBER TAN DO Pantoprazole (Pantoprazole DR) 40 Mg Tablet.dr 40 MG PO QAM (Reported) Spironolactone (Aldactone) 25 Mg Tablet 12.5 MG PO DAILY Prescribed by: GABRIELA KELLEY DO Venlafaxine ER (Effexor XR) 75 Mg Capsule 75 MG PO QAM (Reported) Warfarin Sodium (Warfarin Sodium) 2.5 Mg Tablet 7.5 MG PO QPM (Reported) As needed Acetaminophen (Acetaminophen) 325 Mg Capsule 650 MG PO q4 hours PRN PRN For Pain (Reported) Bisacodyl (Dulcolax Rectal) 10 Mg Supp.rect 10 MG RC DAILY PRN PRN For Constipation (Reported) IF NO BM POST MOM ADMINISTRATION ON 4TH DAY Lorazepam (Lorazepam) 1 Mg Tablet 0.5 MG PO Q4H PRN PRN For Anxiety (Reported) Magnesium Hydroxide (Milk of Magnesia) 400 Mg/5 Ml Oral.susp 30 ML PO HS PRN PRN For Constipation (Reported) AFTER NO BM X 3 DAYS. GIVE AT HS. Na Phos,M-B/Na Phos,Di-Ba (Fleet Enema) 133 Ml Enema 133 ML RC DAILY PRN PRN For Constipation (Reported) IF NO BM POST BISACODYL ADMIN ON EVENING OF 4TH DAY Nitroglycerin SL (Nitrostat) 0.4 Mg Tab.subl 0.4 MG SL Q5MIN PRN PRN For Chest Pain IF SBP > 90 May use up to 3 times 5 minutes apart for chest pain Prescribed by: GABRIELA KELLEY DO Oxycodone (Roxicodone) 5 Mg Tablet 10 MG PO Q4H PRN PRN For Pain (Reported) Polyethylene Glycol 3350 (Miralax) 17 Gm Powd.pack 17 GM PO QID PRN PRN For Constipation (Reported) Followup Plan Discharge Diet: Heart Healthy, Diabetic Patient Instructions We held your home medications of furosemide and metoprolol succinate because of your blood pressure and heart rate. We also held your nighttime scheduled lorazepam. Otherwise, we continued your medications as previously prescribed. For your left leg, you have been getting an antibiotic daptomycin to avoid any potential renal toxicity in a dose of 6.5 mg/kg that was started on 07/15/16. You have also been started on mupirocin ointment for your nose to treat the positive screen for MRSA in your nose. You are being transferred to [facility] in [place] with Dr. Reyes Joyce for continued care of your left leg wound. Time spent Greater than 30 minutes was spent in preparation of discharge with greater than 50% of that time dedicated to patient counseling and coordination of care. . Attending Statement The patient was seen and examined together with Dr. Tan on 07/16/2016 and I agree with the history, exam and plan as outlined in the note above. . copies to: Nikolai Lozano MD, Marissa L DO July 16, 2016 11:15 Reagan Phipps MD July 16, 2016 18:31
[2016-07-16] MEDS ORDERED: Vancomycin Serum Trough XX ONE (11:30)
[2016-07-16] MEDS: 0.9% Sodium Chloride 250 ML IV SCH (13:26)
== END 2016-07-16 14:15 | disposition short-term general hospital (02) | DRG 901 ==
LOC: SED 19:45 → MPC 07-12 01:39 → PCC 07-13 20:46
PROVIDERS: ADMIT Internal Medicine; ATTEND Internal Medicine
PROC: 30233N1 Transfusion of Nonautologous Red Blood Cells into Peripheral Vein, Percutaneous Approach (ICD-10-PCS; 2016-07-14)
PROC: 0JBM0ZZ Excision of Left Upper Leg Subcutaneous Tissue and Fascia, Open Approach (ICD-10-PCS; principal; 2016-07-16)
DX: T81.30XA Disruption of wound, unspecified, initial encounter (principal); G93.40 Encephalopathy, unspecified; L03.116 Cellulitis of left lower limb; N17.9 Acute kidney failure, unspecified; I50.22 Chronic systolic (congestive) heart failure; I69.951 Hemiplegia and hemiparesis following unspecified cerebrovascular disease affecting right dominant side; Y83.2 Surgical operation with anastomosis, bypass or graft as the cause of abnormal reaction of the patient, or of later complication, without mention of misadventure at the time of the procedure; I10 Essential (primary) hypertension; E11.9 Type 2 diabetes mellitus without complications; Z66 Do not resuscitate; I73.9 Peripheral vascular disease, unspecified; F03.90 Unspecified dementia, unspecified severity, without behavioral disturbance, psychotic disturbance, mood disturbance, and anxiety; M10.9 Gout, unspecified; E78.5 Hyperlipidemia, unspecified; F41.9 Anxiety disorder, unspecified; R31.9 Hematuria, unspecified; K25.9 Gastric ulcer, unspecified as acute or chronic, without hemorrhage or perforation; F41.8 Other specified anxiety disorders; G47.00 Insomnia, unspecified; D50.9 Iron deficiency anemia, unspecified; G54.6 Phantom limb syndrome with pain; R07.9 Chest pain, unspecified; Z89.511 Acquired absence of right leg below knee; Z79.01 Long term (current) use of anticoagulants; Z87.891 Personal history of nicotine dependence; Z99.3 Dependence on wheelchair; Z95.9 Presence of cardiac and vascular implant and graft, unspecified

== ENCOUNTER 2016-08-19 15:48 | Emergency (ER) | payer MEDICARE, MEDICAID ==
[~2016-08-19] VITALS: Ht 170.2 cm; Wt 116.0 kg
[~2016-08-19 15:48] MED LIST changes: -FURO40TA4 PO; -LORA0.5T PO; +LORA1TAB PO; -METO-272 PO; +MS15TCR PO; +MUPI22OI2 NASAL; -OXYC10TA8 PO; +WARF2.5T82 PO
[2016-08-19 15:50] VITALS: BP 107/34; PULSE 95; RESP 16; O2SAT 100
[2016-08-19] MEDS ORDERED: Pantoprazole Inj 80 MG, Pharmacy To Mix 1 EA in 0.9% Sodium Chloride 80 ML IV ONE ×2 (16:00)
[2016-08-19] MEDS ORDERED: Pantoprazole 4 mg/mL 10 mL Inj IVPUSH ONE (16:00)
[2016-08-19] MEDS ORDERED: 0.9% Sodium Chloride 1,000 ML IV ONE (16:00)
[2016-08-19] MEDS ORDERED: Ondansetron 2 mg/mL 2 mL Inj IVPUSH PRN (16:05)
[2016-08-19] MEDS ORDERED: Alum-Mag Hydrox-Simeth 30 mL Suspension PO PRN (16:05)
[2016-08-19 16:16] LABS: MONOCYTES % (AUTO) 9 % (4-12); Mean Corpuscular Hemoglobin 25.7 pg (27.0-35.0); Mean Corpuscular Volume 84 fL (81-100); NEUTROPHILS % (AUTO) 64 % (40-74); Platelet Count 277 bil/L (150-400)
[2016-08-19 16:17] LABS: BASOPHILS % (AUTO) 1 % (0-3); EOSINOPHILS % (AUTO) 5 % (0-5)
--- NOTE | 2016-08-19 16:31 | DRSVH ---
PROCEDURE: X-RAY CHEST ONE VIEW, PORTABLE ([id number]) INDICATIONS: ALTERED MENTAL STATUS TECHNIQUE: One view of the chest was acquired. COMPARISON: [facility], CR, XR CHEST 1VW (PORTABLE), 07/13/2016, 19:52. FINDINGS: Surgical changes and devices: None. Lungs and pleura: No pleural effusions or pneumothorax. Lungs are clear. Mediastinum: Mediastinal contours appear normal. Heart size is normal. Bones and chest wall: No suspicious bony lesions. Overlying soft tissues appear unremarkable. Old r ight rib fractures. IMPRESSION: No acute cardiopulmonary pathology. Dictated by: Shay Zhou M.D. on 08/19/2016 at 16:23 Approved by: Shay Zhou M.D. on 08/19/2016 at 16:24
[2016-08-19 16:39] LABS: TROPONIN T < 0.010 ug/L (0.0-0.011)
[2016-08-19 16:40] VITALS: BP 100/50; PULSE 86; RESP 20; O2SAT 100
[2016-08-19] MEDS ORDERED: Phytonadione (Adult) 10 MG in Dextrose 5%-Pha MIX 50 ML IV ONE ×2 (16:40→16:45)
[2016-08-19 16:43] LABS: INR 7.64 ratio
[2016-08-19 16:46] LABS: Magnesium 1.5 mg/dL (1.6-2.6)
--- NOTE | 2016-08-19 16:49 | ED.REPORT ---
HPI-General Illness Date of Service Aug 19, 2016 ED Provider: Darryl Underwood MD Pt is a 71 year old male with a hx of hx of peripheral vascular disease, CAD, CHF, UTIs, encephalopathy, and DM II on Coumadin presenting to the ED via EMS complaining of rectal bleeding. He reports that his stool is black but he is unsure when symptoms began. Denies chest pain, lightheadedness, or any other symptoms at this time. Pt has a limited history due to altered mental status. He is full code. He was most recently discharged on 07/16/16 with a discharge summary stating the above PMHX. I do not see any history of GI bleed. Nursing Notes Stated Complaint: RECTAL HEMORRHAGE Chief Complaint: General Complaint Nursing Notes Reviewed: Yes Allergies: Coded Allergies: No Known Allergies (Unverified , 07/11/16) Scheduled Atorvastatin (Lipitor) 80 Mg Tablet 80 MG PO HS Baclofen (Baclofen) 10 Mg Tablet 10 MG PO TIDWM 0700, 1300, 1700 Cholecalciferol (Vitamin D3) (Vitamin D3) 2,000 Unit Tablet 2,000 UNIT PO QAM Lisinopril (Lisinopril) 5 Mg Tablet 5 MG PO BID Melatonin (Melatonin) 3 Mg Tablet 6 MG PO HS Morphine Sulfate ER (MS Contin) 15 Mg Tablet.er 15 MG PO BID 0800 AND 1700 Multivitamin (Multi Vitamin Daily) 1 Each Tablet 1 EACH PO QAM Mupirocin (Mupirocin Ointment) 22 Gm Oint...g. 1 APPLIC NASAL BID Pantoprazole DR (Pantoprazole DR) 40 Mg Tablet.dr 40 MG PO QAM Spironolactone (Aldactone) 25 Mg Tablet 12.5 MG PO DAILY Venlafaxine ER (Effexor XR) 75 Mg Capsule 75 MG PO QAM Warfarin Sodium (Warfarin Sodium) 2.5 Mg Tablet 7.5 MG PO QPM Scheduled PRN Acetaminophen (Acetaminophen) 325 Mg Capsule 650 MG PO q4 hours PRN PRN For Pain Bisacodyl (Dulcolax Rectal) 10 Mg Supp.rect 10 MG RC DAILY PRN PRN For Constipation IF NO BM POST MOM ADMINISTRATION ON 4TH DAY Lorazepam (Lorazepam) 1 Mg Tablet 0.5 MG PO Q4H PRN PRN For Anxiety Magnesium Hydroxide (Milk of Magnesia) 400 Mg/5 Ml Oral.susp 30 ML PO HS PRN PRN For Constipation AFTER NO BM X 3 DAYS. GIVE AT HS. Na Phos,M-B/Na Phos,Di-Ba (Fleet Enema) 133 Ml Enema 133 ML RC DAILY PRN PRN For Constipation IF NO BM POST BISACODYL ADMIN ON EVENING OF 4TH DAY Nitroglycerin SL (Nitrostat) 0.4 Mg Tab.subl 0.4 MG SL Q5MIN PRN PRN For Chest Pain IF SBP > 90 May use up to 3 times 5 minutes apart for chest pain Oxycodone (Roxicodone) 5 Mg Tablet 10 MG PO Q4H PRN PRN For Pain Polyethylene Glycol 3350 (Miralax) 17 Gm Powd.pack 17 GM PO QID PRN PRN For Constipation General Time Seen by MD: 15:59 Chief Complaint Blood in stool Hx Obtained From: Patient Arrived By: Walk-in Sudden in Onset?: No Onset Occurred: Onset unknown Symptom Duration: Since onset Severity: Current: No pain currently Severity: Maximum: No pain Recent Healthcare: No recent doctor visit, No recent hospitalization Similar Sx Previous: No Past Medical History Past Medical History Notes: DNR no known POA Recent [facility] admission for possible GI bleed and anemia, however upper and lower endoscopies were negative patient maintained hemodynamically stable, and given patient's baseline status it was felt that Endoscopy or Further Workup Be Clearly Beneficial-As the Plan Was Observation, Monitoring Hematocrit Past Medical History 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 Gastric ulcer Reports: Congestive heart failure, Coronary artery disease, Diabetes mellitus, Hyperlipidemia, Hypertension Reports: Depression Past Surgical History Left leg femoral artery bypass graft Right BKA history of subsequent pseudomonas infection, thought fully involved on hospitalization 04/23/2016 Upper and lower endoscopy at [facility] May 05 reportedly negative for source of anemia Right leg amputation below the knee Smoking History Former Smoker Ambulatory Status Wheelchair Review of Systems Full Review of Systems Constitutional: Denies: Fever Respiratory: Denies: Shortness of breath Cardiovascular: Denies: Chest pain GI: Reports: Bloody/tarry stool, Denies: Vomiting Complete sys rev & neg: except as marked. Physical Exam Vital Signs Vital Signs Date Time Temp Pulse Resp B/P Pulse Ox O2 Delivery O2 Flow Rate FiO2 08/19/16 17:40 84 16 115/51 95 Nasal Cannula 2 08/19/16 16:40 86 20 100/50 100 Room Air 08/19/16 15:50 36.6 95 16 107/34 100 Room Air Initial VS: Reviewed Head / Eyes: Atraumatic, Normocephalic, PERRL ENT: Mucous membranes moist, Conjunctiva normal, No scleral icterus Respiratory: Breath sounds normal, Clear to auscultation, No respiratory distress Cardiovascular: Regular rate & rhythm, Heart sounds normal, Intact distal pulses Neurologic: Alert, Oriented, Nonfocal Psychiatric: Mood/affect normal, Behavior normal, Normal thought content General/Constitutional: Awake, Alert Quite somnolent. Pale. Lower Extremity / Pelvis / MS: Neurologic intact, Vascular intact, No edema Scar from from vascular surgery LLE Skin: Warm, Dry Chronic wound left groin Rectum / Perineum: Atraumatic Melanotic appearing stool in rectum. Interpretation & Diagnostics Lab Results Interpretation Result Diagram: 08/19/16 1600 08/19/16 1600 Test 08/19/16 16:00 White Blood Count 9.4th/mm3 (3.8-10.1) Red Blood Count 2.49mil/mm3 (4.40-5.80) Hemoglobin 6.4g/dL (13.8-17.2) Hematocrit 21.0% (41.0-50.0) Mean Corpuscular Volume 84fL (81-100) Mean Corpuscular Hemoglobin 25.7pg (27.0-35.0) Mean Corpuscular Hemoglobin Concent 30.5% (32.0-37.0) Red Cell Distribution Width 15.3% (12.3-15.4) Platelet Count 277bil/L (150-400) Neutrophils (%) (Auto) 64% (40-74) Lymphocytes (%) (Auto) 21% (14-46) Monocytes (%) (Auto) 9% (4-12) Eosinophils (%) (Auto) 5% (0-5) Basophils (%) (Auto) 1% (0-3) Prothrombin Time 85.2sec (8.1-12.5) Prothromb Time International Ratio 7.64ratio Sodium Level 133mEq/L (134-144) Potassium Level 4.7mEq/L (3.5-5.2) Chloride Level 94mEq/L (97-108) Carbon Dioxide Level 23mmol/L (18-29) Blood Urea Nitrogen 63mg/dL (8-27) Creatinine 1.18mg/dL (0.76-1.27) Estimat Glomerular Filtration Rate 65mL/min (>59) Glucose Level 155mg/dL (60-99) Calcium Level 8.7mg/dL (8.5-10.1) Magnesium Level 1.5mg/dL (1.6-2.6) Total Bilirubin 0.2mg/dL (0.0-1.2) Aspartate Amino Transf (AST/SGOT) 12U/L (0-50) Alanine Aminotransferase (ALT/SGPT) 14U/L (0-44) Alkaline Phosphatase 82U/L (25-160) Troponin T < 0.010ug/L (0.0-0.011) Total Protein 6.2g/dL (6.4-8.4) Albumin 3.4g/dL (3.4-5.0) ECG Interpretation ECG Interpretation: LBBB. When compared to prior dated 07/14/16 there are no significant changes present. Time: 16:50 Interpreted by: ED physician Normal ECG Interpretation: Normal rate (86), Normal sinus rhythm X-Ray Chest Interpretation Chest Xray Interpretation: IMPRESSION: No acute cardiopulmonary pathology. Dictated by: Shay Zhou M.D. on 08/19/2016 at 16:23 View: Portable, 1 view Interpretation / Wet Read by: Interpret - Radiologist Re-Eval/Medical Decision Med Decision/Clinical Course Pt is a 71 year old male with a hx of hx of peripheral vascular disease, CAD, CHF, UTIs, encephalopathy, and DM II on Coumadin presenting to the ED via EMS complaining of rectal bleeding. He reports that his stool is black but he is unsure when symptoms began. Denies chest pain, lightheadedness, or any other symptoms at this time. Pt has a limited history due to altered mental status. He is full code. He was most recently discharged on 07/16/16 with a discharge summary stating the above PMHX. I do not see any history of GI bleed. Upon arrival to the emergency department the patient was confused and unable to ride any significant history. Rectal examination revealed strongly guaiac positive black stool. His blood pressure was in the 80s over the 40s. 2 large- bore IVs were obtained and blood was sent for type and screen. GI was consult and they arrived at the bedside. Pantoprazole bolus and infusion was initiated and I administered a 2 L saline bolus. His blood pressure improved into the low 100s over the 60s. His mental status improved. Laboratory studies notable as below: Hematocrit 21.0 down from 29.5 on 07/16/16. INR supratherapeutic at 7.4, Hemoglobin 6.4 down from 9.1 07/16/16. Na 133. BUN 63, BUN is elevated from prior. Mag 1.4, troponin negative. No other significant electrolyte abnormalities. Chest x ray demonstrates no acute cardiopulmonary process. EKG shows LBBB otherwise unchanged. Kcentra was administered for reversal of the patient's coagulopathy. 2 units of PRBCs were administered. Vitamin K was administered. GI evaluated the patient at the bedside however they were just entering another case. They requested the patient be transferred to another facility for more of emergent intervention. Patient was discussed with Dr. Colon product demonstrator at [facility] who accepted the patient. Patient was stabilized after treatment with blood products, reversal of coagulopathy. Patient was transported by ALS ambulance to [facility] for management in the ICU and emergent endoscopy. Time of Eval: 16:30 Patient Status: Condition improved Re-Evaluation/Progress Note: Pt BP lowering. Discussed plan for transfer with Dr. Juárez. Time of Eval: 18:04 Patient Status: Condition improved Re-Evaluation/Progress Note: Pt consents to transfer. Consultation #1: Referral / Consult Name: Heriberto Juárez MD Call Returned at: 16:23 Note: GI. Will see pt. Consultation #2: Referral / Consult Name: Heriberto Juárez MD Call Returned at: 17:30 Note: GI. We will likely need to transfer the pt. Consultation #3: Call Returned at: 17:35 Note: Dr. Colon at [facility] accepts the transfer. Counseled Regarding: Diagnosis, Lab results, Need for follow-up, When/why to return to ED Discharge & Departure Primary Impression: GI bleed GI bleed type/associated pathology: unspecified gastrointestinal hemorrhage type Qualified Code: K92.2 - Gastrointestinal hemorrhage, unspecified Additional Impressions: Anemia Anemia type: unspecified type Qualified Code: D64.9 - Anemia, unspecified Supratherapeutic INR Melena History of peripheral vascular disease History of DVT (deep vein thrombosis) Disposition: Transfer, Acute Care Facility Discharge Condition All VS Reviewed: Yes Condition: Improved Referrals: Nikolai Lozano MD (PCP) Crit Care Except Billable Proc Time Spent: 105-134 minutes Services Performed: Patient management by me, Time spent at bedside, Reviewing test results, Reviewing imaging, Discussing patient care, Documentation in record, Time with fam/surrogate Scribe Attestation Portions of this note were transcribed by Lorraine James. I, Dr. Underwood personally performed the history, physical exam and medical decision-making; I reviewed and confirmed the accuracy of the information in the transcribed note. Signed by: Koko Moura, 08/19/2016 at 1750. copies to: Nikolai Lozano MD, Beck O MD Aug 19, 2016 16:49 LORRAINE JAMES Aug 19, 2016 16:53
[2016-08-19] MEDS ORDERED: PROTHROMBIN COMPLEX IV ONE ×2 (17:30→18:00)
[2016-08-19 17:40] VITALS: BP 115/51; PULSE 84; RESP 16; O2SAT 95
[2016-08-19 18:25] VITALS: BP 109/47; PULSE 91; RESP 16
[2016-08-19 18:47] LABS: APPEARANCE,URINE CLEAR (CLEAR,HAZY); COLOR,URINE YELLOW (YELLOW); OCCULT BLOOD,URINE NEGATIVE (NEGATIVE); PH,URINE 5.5 (5.0-8.0); UROBILINOGEN,URINE NORMAL (NORMAL)
[2016-08-19] MEDS ORDERED: ASCO-294 PO (18:49)
[2016-08-19] MEDS ORDERED: ZINC30TA2 PO (18:49)
[2016-08-19] MEDS ORDERED: LORA1TAB PO (18:49)
[2016-08-19] MEDS ORDERED: MS15TCR PO (18:49)
[2016-08-19] MEDS ORDERED: METO-272 PO (18:49)
[2016-08-19] MEDS ORDERED: DIPH25CA6 PO (18:49)
[2016-08-19] MEDS ORDERED: FURO40TA4 PO (18:49)
[2016-08-19] MEDS ORDERED: HYDROmorphone 0.5 mg/0.5 mL iSecure Syringe IVPUSH ONE (19:00)
[2016-08-19 19:28] VITALS: BP 108/59; PULSE 87; RESP 15; O2SAT 100
--- NOTE | 2016-08-19 19:29 | PCM.CHPMED ---
Subjective Date of Service: Aug 19, 2016 Provider requesting consult: Darryl Underwood MD Primary Physician: Admitting Physician: Primary Care Physician: Nikolai Lozano MD Attending Physician: Chief Complaint: Chief Complaint: blood in stool History of Present Illness: Patient is a 71-year-old man with coronary artery disease, congestive heart failure, hypertension, diabetes mellitus type II, peripheral vascular disease, on Coumadin who presents to the emergency department from [facility]. He was brought in due to black stools for a couple of days and bright red blood per rectum. It is unclear when this initially started. He was recently discharged from [facility] with GI bleed and anemia. Additionally he was seen in June 2016 with a GI bleed here at [facility]. Upper endoscopy at that time showed healing and almost healed ulcers in the stomach and duodenum. One AVM noted in the third portion of the duodenum. Review of systems is difficult to obtain due to patient's mental status. He reports feeling sleepy, he has diffuse abdominal pain, he does not feel nauseous. Much of the history obtained from records review due to patient's mental status. Review of Systems: A comprehensive review of systems was not able to be conducted due to patient's mental status. Available negative without evidence as above in the History of Present Illness. 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 Gastric ulcer Congestive heart failure Diabetes mellitus Hyperlipidemia Hypertension Depression Surgical History Left leg femoral artery bypass graft Right BKA history of subsequent pseudomonas infection, thought fully resolved on hospitalization 04/23/2016 Upper and lower endoscopy at [facility] April 2016 reportedly negative for source of anemia Right leg amputation below the knee Allergies: Coded Allergies: No Known Allergies (Unverified , 07/11/16) Family History Family History No family history of colon cancer, inflammatory bowel disease, or celiac disease reported by patient. Social History Hx Alcohol Use: Yes (former drinker "drank alot" stopped in January 2016 )Hx Substance Use: NoHx Tobacco Use: Yes Smoking Status: Former Smoker Exam Vital Signs Vital Sign - Last Date Time Temp Pulse Resp B/P Pulse Ox O2 Delivery O2 Flow Rate FiO2 08/19/16 18:25 36.7 91 16 08/19/16 17:40 115/51 95 Nasal Cannula 2 General: Cooperative, No Acute Distress, Other (follow-up. Easily rousable) Cardiovascular: Regular Rate/Rhythm Abdomen: Tender (Shnanon), Distended (mildly) Extremities: Other (right BKA) Lab and Diagnostics Result Diagram: 08/19/16 1600 08/19/16 1600 Assessment & Plan Assessment Patient is a 71-year-old man with coronary artery disease, congestive heart failure, hypertension, diabetes mellitus type II, peripheral vascular disease, on Coumadin who presents to the emergency department from [facility]. As soon as I was done with seeing this patient, trauma require emergent GI evaluation in the operating room as well as the anesthesiologists. We were urgently called. We informed the emergency room physician and the patient that as soon as we are available, we will see the patient and treat the patient appropriately. Gastroenterology and anesthesia both unavailable urgently due to trauma. When he was told about the situation, he elected to transfer patient to [facility] for definitive treatment and critical care if needed. I saw and examined the patient. Agree with above. Problems: copies to: Heriberto Juárez MD, Erika R DO Aug 19, 2016 19:28 Heriberto Juárez MD Aug 27, 2016 14:11
== END 2016-08-19 19:15 | disposition short-term general hospital (02) ==
LOC: SED 15:48
DX: K92.1 Melena (principal); D64.9 Anemia, unspecified; R79.1 Abnormal coagulation profile; I10 Essential (primary) hypertension; I50.9 Heart failure, unspecified; G93.40 Encephalopathy, unspecified; E11.9 Type 2 diabetes mellitus without complications; E78.5 Hyperlipidemia, unspecified; F32.9 Major depressive disorder, single episode, unspecified; I73.9 Peripheral vascular disease, unspecified; F41.9 Anxiety disorder, unspecified; Z86.718 Personal history of other venous thrombosis and embolism; Z87.440 Personal history of urinary (tract) infections; Z66 Do not resuscitate; Z87.891 Personal history of nicotine dependence; Z79.01 Long term (current) use of anticoagulants
CPT/HCPCS: 36415; 36430; 71010; 80053; 81000; 83735; 84484; 85025; 85610; 86850; 86922; 93005; 96361; 96374; 96375; 96376; 99291; 99292; C9132; J1170; J3430; J7030; P9021

== ENCOUNTER 2016-10-11 13:27 | Inpatient (IN) | payer MEDICARE, MEDICAID ==
[~2016-10-11] VITALS: Ht 170.2 cm; Wt 122.4 kg
[2016-10-11] VITALS (8 sets, daily range): BP systolic 101–137; BP diastolic 47–70; PULSE 95–118; RESP 18–41; O2SAT 86–100
[~2016-10-11 13:27] MED LIST changes: +ASCO-294 PO; -ATOR80TA PO; +DIPH25CA6 PO; +FURO40TA4 PO; +METO-272 PO; -MULT-1018 PO; -MUPI22OI2 NASAL; +ZINC30TA2 PO
[2016-10-11] MEDS ORDERED: 0.9% Sodium Chloride 1,000 ML IV ONE (13:29)
--- NOTE | 2016-10-11 13:29 | ED.REPORT ---
HPI-General Illness Date of Service Oct 11, 2016 ED Provider: Dr. Macedo Pt is a 71 year old male on Warfarin with an extensive medical history including dementia, HTN, GERD, DM, DVT, acute coronary syndrome, chronic GI bleeding and CHF among other concerns who is brought to the ED via EMS from [facility] for evaluation of altered mental status. The pt was found to be altered, tachycardic and febrile this morning with her oxygen saturation at 86% on room air. Pt c/o associated SOB, cough, and chills. History is limited due to pt's inability to provide a reliable history. Nursing Notes Stated Complaint: CHANGE IN MENTAL STATUS Nursing Notes Reviewed: Yes Allergies: Coded Allergies: No Known Allergies (Unverified , 07/11/16) Scheduled Ascorbate Calcium (Vitamin C) 500 Mg Tablet 500 MG PO DAILY Atorvastatin (Lipitor) 80 Mg Tablet 80 MG PO HS Baclofen (Baclofen) 10 Mg Tablet 10 MG PO TIDWM 0700, 1300, 1700 Duloxetine (Duloxetine) 60 Mg Capsule.dr 60 MG PO DAILY Ferrous Sulfate (Ferrous Sulfate) 325 Mg Tablet 325 MG PO TIDAC Furosemide (Furosemide) 40 Mg Tablet 40 MG PO BID Lisinopril (Lisinopril) 5 Mg Tablet 5 MG PO BID Methadone (Methadone) 5 Mg Tablet 5 MG PO BID Metoprolol Succinate ER (Metoprolol Succinate ER) 50 Mg Tab.er.24h 50 MG PO DAILY Multivitamin (Multivitamins) 1 Each Capsule 1 EACH PO DAILY Pantoprazole DR (Pantoprazole DR) 40 Mg Tablet.dr 40 MG PO QAM Spironolactone (Aldactone) 25 Mg Tablet 12.5 MG PO DAILY Warfarin Sodium (Warfarin Sodium) 7.5 Mg Tablet 7.5 MG PO MON,THU Warfarin Sodium (Warfarin Sodium) 5 Mg Tablet 5 MG PO SUN,E,THU,TH,SAT Zinc Gluconate (Zinc) 30 Mg Tablet 220 MG PO DAILY Scheduled PRN Acetaminophen (Acetaminophen) 325 Mg Capsule 650 MG PO q4 hours PRN PRN For Pain Bisacodyl (Dulcolax Rectal) 10 Mg Supp.rect 10 MG RC DAILY PRN PRN For Constipation IF NO BM POST MOM ADMINISTRATION ON 4TH DAY Calcium Carbonate (Tums) 500 Mg Tab.chew 500 MG PO Q6H PRN PRN GI UPSET Lorazepam (Lorazepam) 1 Mg Tablet 1 MG PO Q4H PRN PRN ANXIETY Magnesium Hydroxide (Milk of Magnesia) 400 Mg/5 Ml Oral.susp 30 ML PO HS PRN PRN For Constipation AFTER NO BM X 3 DAYS. GIVE AT HS. Melatonin (Melatonin 1 mg Tablet) 1 Each Tablet 5 MG PO HS PRN PRN Insomnia Na Phos,M-B/Na Phos,Di-Ba (Fleet Enema) 133 Ml Enema 133 ML RC DAILY PRN PRN For Constipation IF NO BM POST BISACODYL ADMIN ON EVENING OF 4TH DAY Nitroglycerin SL (Nitrostat) 0.4 Mg Tab.subl 0.4 MG SL Q5MIN PRN PRN For Chest Pain IF SBP > 90 May use up to 3 times 5 minutes apart for chest pain Ondansetron (Zofran) 4 Mg Tablet 4 MG PO Q8H PRN PRN For Nausea Oxycodone (Roxicodone) 5 Mg Tablet 10 MG PO Q4H PRN PRN For Pain Polyethylene Glycol 3350 (Miralax) 17 Gm Powd.pack 17 GM PO QID PRN PRN For Constipation diphenhydrAMINE HCl (Benadryl) 25 Mg Capsule 25 MG PO Q8H PRN PRN RASH General Time Seen by MD: 13:29 Chief Complaint Altered mental status Hx Obtained From: EMS Arrived By: Ambulance Sudden in Onset?: No Onset Occurred: 5 - 8 hours ago Symptom Duration: Since onset Recent Healthcare: Recent doctor visit, Recent hospitalization Similar Sx Previous: Yes Past Medical History Past Medical History Notes: DNR no known POA Recent [facility] admission for possible GI bleed and anemia, however upper and lower endoscopies were negative patient maintained hemodynamically stable, and given patient's baseline status it was felt that Endoscopy or Further Workup Be Clearly Beneficial-As the Plan Was Observation, Monitoring Hematocrit Past Medical History Anemia Dementia Peripheral vacular disease Gout Myoclonus Atherosclerotic cardiovascular disease Anxiety 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 Gastric ulcer Reports: Congestive heart failure, Coronary artery disease, Diabetes mellitus, Hyperlipidemia, Hypertension Reports: Depression Past Surgical History Left leg femoral artery bypass graft Right BKA history of subsequent pseudomonas infection, thought fully involved on hospitalization 04/23/2016 Upper and lower endoscopy at [facility] May 05 reportedly negative for source of anemia Right leg amputation below the knee Smoking History Former Smoker Ambulatory Status Wheelchair Review of Systems Unable to Obtain ROS Mental status Physical Exam Vital Signs Vital Signs Date Time Temp Pulse Resp B/P Pulse Ox O2 Delivery O2 Flow Rate FiO2 10/11/16 14:00 39.6 117 23 107/67 100 Nasal Cannula 5 10/11/16 13:32 38.7 118 41 137/56 86 Room Air Initial VS: Reviewed General/Constitutional: Awake, Alert Distress / Hydration: Positive: Distress moderate Head / Eyes: Atraumatic, Normocephalic, PERRL, EOMI ENT: Atraumatic, Airway patent, Mucous membranes moist Neck: Atraumatic, Supple, Full range of motion Respiratory / Chest: Atraumatic, No respiratory distress Rales / Rhonchi: Positive: Rales L base Tachypneic Cardiovascular: Regular rhythm, Heart sounds NL Heart Rate / Rhythm: Positive: Tachycardia Typicnic Abdomen: Atraumatic, Soft, Non-tender Back: Atraumatic, Full range of motion Upper Extremities Upper Extremity / MS: Atraumatic, Inspection NL, Full range of motion Lower Extremity / Pelvis / MS: Vascular intact Above the knee amputation of right lower extremity 1+ pitting edema of left lower extremity with erythema Erythema of left lower extremity extends over lower leg and up onto lateral and medial thigh Skin: Color NL, No rash, Warm, Dry Rectum / Perineum: No hemorrhoids Guaiac faintly positive No visible wounds in the sacral area Neurologic: No motor deficits, No sensory deficits oriented to self only Interpretation & Diagnostics Lab Results Interpretation Result Diagram: 10/12/16 0620 10/12/16 0320 Test 10/11/16 14:15 10/11/16 14:26 10/11/16 14:33 Urine Color Yellow (YELLOW) Urine Appearance Clear (CLEAR,HAZY) Urine pH 8.0 (5.0-8.0) Urine Specific [place] 1.010 (1.003-1.035) Urine Protein Negativemg/dL (NEG,TRACE) Urine Glucose (UA) Negativemg/dL (NEGATIVE) Urine Ketones Negativemg/dL (NEGATIVE) Urine Occult Blood Trace (NEGATIVE) Urine Nitrite Negative (NEGATIVE) Urine Bilirubin Negative (NEGATIVE) Urine Urobilinogen Normalmg/dL (NORMAL) Urine Leukocyte Esterase Negative (NEGATIVE) Urine RBC 0-2/hpf (0-2) Urine WBC 0-5/hpf (0-5) Urine Epithelial Cells Few/hpf (NONE-MOD) Urine Crystals None seen (NONE SEEN) Urine Bacteria Few/hpf (NONE-FEW) Urine Hyaline Casts None/lpf (NONE) Urine Granular Casts None seen (NONE SEEN) Urine Waxy Casts None seen (NONE SEEN) Urine Red Blood Cell Casts None seen (NONE SEEN) Urine White Blood Cell Casts None seen (NONE SEEN) Urine Mucus None seen (None Seen) Urine Trichomonas None seen (NONE SEEN) Urine Yeast None (NONE SEEN) Urinalysis Comment None Urine Culture Reflexed Not indicated Erythrocyte Sedimentation Rate 54mm/hr (0-30) Pro-B-Type Natriuretic Peptide 1527pg/mL (0-376) Lipase 13U/L (13-60) ECG Interpretation ECG Interpretation: Sinus tachycardia rate 117 Incomplete LBBB When compared to previous 08/19/16, heart rate increased Time: 13:44 Interpreted by: ED physician X-Ray Chest Interpretation Chest Xray Interpretation: IMPRESSION: Small lung volumes. No acute abnormality. Dictated by: Toño Watts M.D. on 10/11/2016 at 15:03 Approved by: Toño Watts M.D. 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 He meets criteria for sepsis with the likely source being cellulitis of his left lower extremity. He was treated with 1 L of normal saline here, Tylenol, Vanco, Zosyn, and Levaquin after blood cultures were drawn. He appears to be uncomfortable but I hesitated to treat his pain in his altered status, and with his hypoxia for fear of suppressing his respiratory drive. We will defer to hospitalist for further evaluation and treatment of pain. I did give him Haldol to help him with agitation which seemed to help somewhat. It is reported that he has a history of seeing the wound clinic, however my exam I do not see any chronic wounds to his backside. He was mildly hypotensive and treated with 1 L of normal saline here. Encephalopathy could be related to his dementia versus sepsis. He had slightly positive Hemoccult stool and there is a reported history of GI bleed, although his hemoglobin appears to be at baseline for him. I discussed the patient's care with the hospitalist who [facility] and [facility] Source of Hx: Old records Time of Eval: 14:59 Re-Evaluation/Progress Note: Rechecked pt, who was trying to get out of bed. Informed pt of plan for admission. All questions addressed. Consultation : Referral / Consult Name: Shayan Pyle DO Consulted With: Hospitalist Call Returned at: 15:47 Shrimp Peeling Machine Tender: Agrees with plan, Accepts admit Note: Discusses case with Dr. Pyle, hospitalist. He agrees with plan and accepts admit. Counseled Regarding: Diagnosis, Lab results, Need for admission Discharge & Departure Primary Impression: Sepsis Sepsis type: sepsis due to unspecified organism Qualified Code: A41.9 - Sepsis, unspecified organism Additional Impressions: Left leg cellulitis Anemia Anemia type: unspecified type Qualified Code: D64.9 - Anemia, unspecified Renal insufficiency Hyperglycemia Acute encephalopathy Leukocytosis Leukocytosis type: unspecified Qualified Code: D72.829 - Elevated white blood cell count, unspecified Hypotension Hypotension type: other hypotension type Qualified Code: I95.89 - Other hypotension Disposition: ADMITTED TO HOSPITAL Discharge Condition All VS Reviewed: Yes Condition: Stable Referrals: Nikolai Lozano MD (PCP) Crit Care Except Billable Proc Time Spent: 30-74 minutes Services Performed: Patient management by me, Time spent at bedside, Reviewing test results, Reviewing imaging, Discussing patient care, Documentation in record Scribe Attestation Portions of this note were transcribed by Kay Roque and Lida Lewis. I, Dr. Macedo personally performed the history, physical exam and medical decision -making; I reviewed and confirmed the accuracy of the information in the transcribed note. copies to: Nikolai Lozano MD, Gary R DO Oct 11, 2016 13:29 Kay Roque Oct 11, 2016 13:41 LIDA LEWIS Oct 11, 2016 15:18 1.31mg/dL (0.76-1.27) Estimat Glomerular Filtration Rate 57mL/min (>59) Glucose Level 144mg/dL (60-99) Calcium Level 8.8mg/dL (8.5-10.1) Magnesium Level 1.5mg/dL (1.6-2.6) Total Bilirubin 0.6mg/dL (0.0-1.2) Aspartate Amino Transf (AST/SGOT) 31U/L (0-50) Alanine Aminotransferase (ALT/SGPT) 15U/L (0-44) Alkaline Phosphatase 75U/L (25-160) Troponin T < 0.010ug/L (0.0-0.011) Pro-B-Type Natriuretic Peptide 1527pg/mL (0-376) Total Protein 6.8g/dL (6.4-8.4) Albumin 3.9g/dL (3.4-5.0) Lipase 13U/L (13-60) Procalcitonin 5.09ng/mL (0.00-0.08) ECG Interpretation ECG Interpretation: Sinus tachycardia rate 117 Incomplete LBBB When compared to previous 08/19/16, heart rate increased Time: 13:44 Interpreted by: ED physician X-Ray Chest Interpretation Chest Xray Interpretation: IMPRESSION: Small lung volumes. No acute abnormality. Dictated by: Toño Watts M.D. on 10/11/2016 at 15:03 Approved by: Toño Watts M.D. 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 He meets criteria for sepsis with the likely source being cellulitis of his left lower extremity. He was treated with 1 L of normal saline here, Tylenol, Vanco, Zosyn, and Levaquin after blood cultures were drawn. He appears to be uncomfortable but I hesitated to treat his pain in his altered status, and with his hypoxia for fear of suppressing his respiratory drive. We will defer to hospitalist for further evaluation and treatment of pain. I did give him Haldol to help him with agitation which seemed to help somewhat. It is reported that he has a history of seeing the wound clinic, however my exam I do not see any chronic wounds to his backside. Source of Hx: Old records Time of Eval: 14:59 Re-Evaluation/Progress Note: Rechecked pt, who was trying to get out of bed. Informed pt of plan for admission. All questions addressed. Consultation : Referral / Consult Name: Shayan Pyle DO Consulted With: Hospitalist Call Returned at: 15:47 Shrimp Peeling Machine Tender: Agrees with plan, Accepts admit Note: Discusses case with Dr. Plye, hospitalist. He agrees with plan and accepts admit. Counseled Regarding: Diagnosis, Lab results, Need for admission Discharge & Departure Primary Impression: Sepsis Sepsis type: sepsis due to unspecified organism Qualified Code: A41.9 - Sepsis, unspecified organism Additional Impressions: Left leg cellulitis Anemia Anemia type: unspecified type Qualified Code: D64.9 - Anemia, unspecified Renal insufficiency Hyperglycemia Acute encephalopathy Leukocytosis Leukocytosis type: unspecified Qualified Code: D72.829 - Elevated white blood cell count, unspecified Disposition: ADMITTED TO HOSPITAL Discharge Condition All VS Reviewed: Yes Condition: Stable Referrals: Nikolai Lozano MD (PCP) Scribe Attestation Portions of this note were transcribed by Kay Roque and Lida Lewis. I, Dr. Macedo personally performed the history, physical exam and medical decision -making; I reviewed and confirmed the accuracy of the information in the transcribed note. copies to: Nikolai Lozano MD, Gary R DO Oct 11, 2016 13:29 Kay Roque Oct 11, 2016 13:41 LIDA LEWIS Oct 11, 2016 15:18
[2016-10-11] MEDS ORDERED: Piperacillin-Tazo 3.375 Gm Inj 3.375 GM in Dextrose 5% Minibag Plus 50 ML IV ONE (13:45)
[2016-10-11] MEDS ORDERED: Vancomycin Dose per Pharmacist XX ONE (13:45)
[2016-10-11] MEDS ORDERED: ONDA4TAB6 PO (14:19)
[2016-10-11] MEDS ORDERED: WARF7.5T4 PO (14:19)
[2016-10-11] MEDS ORDERED: OXYC-474 PO (14:19)
[2016-10-11] MEDS ORDERED: ASCO-294 PO (14:19)
[2016-10-11] MEDS ORDERED: CALC500T9 PO (14:19)
[2016-10-11] MEDS ORDERED: DULO60CA61 PO (14:19)
[2016-10-11] MEDS ORDERED: FERR-83 PO (14:19)
[2016-10-11] MEDS ORDERED: MULT1CAP33 PO (14:19)
[2016-10-11] MEDS ORDERED: MELA1TAB16 PO (14:19)
[2016-10-11] MEDS ORDERED: METH5TAB3 PO (14:19)
[2016-10-11] MEDS ORDERED: ATOR80TA PO (14:19)
[2016-10-11] MEDS ORDERED: WARF5TAB7 PO (14:19)
[2016-10-11] MEDS ORDERED: MELA1TAB10 PO (14:22)
[2016-10-11 14:35] LABS: BASOPHILS % (AUTO) 0.1 % (0-3); EOSINOPHILS % (AUTO) 0 % (0-5); MONOCYTES % (AUTO) 4.9 % (4-12); Mean Corpuscular Volume 87.6 fL (81-100); NEUTROPHILS % (AUTO) 90.5 % (40-74); Platelet Count 227 bil/L (150-400)
[2016-10-11 14:36] LABS: APPEARANCE,URINE CLEAR (CLEAR,HAZY); COLOR,URINE YELLOW (YELLOW); OCCULT BLOOD,URINE TRACE (NEGATIVE); UROBILINOGEN,URINE NORMAL (NORMAL)
--- NOTE | 2016-10-11 15:05 | DRSVH ---
PROCEDURE: X-RAY CHEST ONE VIEW, PORTABLE ([id number]) INDICATIONS: sepsis TECHNIQUE: One view of the chest was acquired. COMPARISON: [facility], CR, XR CHEST 1VW (PORTABLE), 08/19/2016, 15:57. FINDINGS: Surgical changes and devices: None. Lungs and pleura: Expiratory view of the chest. No pleural effusions or pneumothorax. Lungs are arnie ar. Mediastinum: Mediastinal contours appear normal. Heart size is normal. Bones and chest wall: No suspicious bony lesions. Overlying soft tissues appear unremarkable. IMPRESSION: Small lung volumes. No acute abnormality. Dictated by: Toño Watts M.D. on 10/11/2016 at 15:03 Approved by: Toño Watts M.D. on 10/11/2016 at 15:04
[2016-10-11 15:12] LABS: INR 2.05 ratio
[2016-10-11 15:22] LABS: ERYTHROCYTE SEDIMENTATION RATE 54 mm/hr (0-30)
[2016-10-11 15:36] LABS: TROPONIN T < 0.010 ug/L (0.0-0.011)
[2016-10-11 15:45] LABS: Lipase 13 U/L (13-60); Magnesium 1.5 mg/dL (1.6-2.6)
[2016-10-11] MEDS ORDERED: Alum-Mag Hydrox-Simeth 30 mL Suspension PO PRN (15:55)
[2016-10-11] MEDS ORDERED: Polyethylene Glycol (PEG) 17 Gm Powder PO PRN (15:55)
[2016-10-11] MEDS ORDERED: levoFLOXacin Inj 750 MG in IV Premix 1 EACH IV ONE (16:05)
[2016-10-11] MEDS ORDERED: Heparin 5,000 Unit/mL Inj SUBQ SCH (16:30)
--- NOTE | 2016-10-11 16:53 | PCM.CONPHA ---
Assessment/Plan Assessment/Plan ANTICOAGULATION MANAGEMENT BY PHARMACY -INDICATION: DVT HX -HOME DOSE: 7.5 MG MON/FRI, 5 MG AOD -CONCURRENT ANTICOAGULATION: NONE -COAG TRENDS: Date INR 2.05 -[id number] SCORE: 4 PLAN: PATIENT IS CURRENTLY WITHIN THERAPEUTIC GOAL RANGE, UNKNOWN IF/WHEN PATIENT TOOK LAST DOSE SINCE HE IS CURRENTLY VERY CONFUSED, BUT SINCE HE CAME FROM A NURSING FACILITY ASSUMING HE WAS GIVEN IT YESTERDAY. WILL CONTINUE HOME DOSE TONIGHT WITH POSSIBILITY OF DRUG INTERACTIONS INCREASING THE INR TOMORROW. Pharmacy appreciates consult and will continue to monitor. THANKS! Sissy Jacobo PharmD Oct 11, 2016 16:53
--- NOTE | 2016-10-11 17:34 | PCM.HPMED ---
Subjective Date of Service Oct 11, 2016 Primary Provider: Admitting Physician: Shayan Hawkins DO Primary Care Physician: Nikolai Lozano MD Attending Physician: Shayan Hawkins DO Chief Complaint: Cellulitis History of Present Illness: Pt is a 71 year old male with an extensive medical history including dementia, HTN, GERD, DMT2, DVT, acute coronary syndrome, chronic GI bleeding, CHF, amputation of his right lower extremity, major depression, femoral artery bypass graft, anemia, gout, chronic pain on methadone, peripheral vascular disease, or artery disease, and history of DVT currently anticoagulated with warfarin, who is brought to the ED via EMS from [facility] for evaluation of altered mental status. The pt was found to be altered, tachycardic and febrile this morning with oxygen saturation at 86% on room air. Pt c/o associated SOB, chest pain, cough, and chills. History is limited due to pt's inability to provide a reliable history. In the ED, he was treated with 1 L of normal saline, Tylenol, Vanco, Zosyn, and Levaquin. Patient also received Haldol for agitation. History of seeing the wound clinic, no apparent chronic wounds on his backside. Review of Systems: Review of systems difficult as patient is currently confused due to Haldol sedation. He does appear to complain of lower leg pain as well as shortness of breath and chest pain. Allergies Coded Allergies: No Known Allergies (Unverified , 07/11/16) Home Medications Tylenol 650 PRN Atorvastatin 80 mg at bedtime Baclofen 10 mg 3 times a day Bisacodyl 10 mg daily when necessary Fluoxetine 60 mg daily Ferrous sulfate 325 mg 3 times a day Furosemide 40 mg twice a day Lisinopril 5 mg twice a day Lorazepam 1 mg every 4 hours for anxiety Melatonin 5 mg daily at bedtime Methadone 5 mg twice a day Metoprolol succinate 50 mg daily Nitroglycerin 0.4 mg every 5 minutes when necessary Oxycodone 10 mg every 4 hours when necessary Spironolactone 12.5 mg daily Warfarin 7.5 mg on Thursday and Thursday Warfarin 5 mg Thursday, Thursday, Thursday, , Thursday PMH Anemia Dementia Hypertension GERD DVT Chronic GI bleed Chronic anemia Chronic pain Peripheral vacular disease Gout Myoclonus Atherosclerotic cardiovascular disease Anxiety 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 Gastric ulcer Congestive heart failure Coronary artery disease Diabetes mellitus Hyperlipidemia Hypertension Depression Surgical History Left leg femoral artery bypass graft Right BKA history of subsequent pseudomonas infection, thought fully involved on hospitalization 04/23/2016 Upper and lower endoscopy at [facility] May 05 reportedly negative for source of anemia Right leg amputation below the knee Social History Hx Alcohol Use: Yes (former drinker "drank alot" stopped in January 2016 ) Hx Substance Use: No Hx Tobacco Use: Yes Smoking Status: Former Smoker Living Arrangement: [facility] Exam Vital Signs Vital Sign - Last Date Time Temp Pulse Resp B/P Pulse Ox O2 Delivery O2 Flow Rate FiO2 10/11/16 17:07 37.7 10/11/16 17:02 107 18 101/62 95 Nasal Cannula 1.00 Exam General: Mild distress, well-developed, well-nourished Head: Normocephalic, atraumatic. External ears without defect. Eyes: Pupils equal, round, and reactive to light and accommodation. Anicteric sclerae, moist conjunctivae. Neck: Normal range of motion, no lymphadenopathy noted Cardiovascular: Regular rate and rhythm with no murmurs, rubs, or gallops appreciated Pulmonary: Clear to auscultation bilaterally with no crackles, wheezes, or rhonchi. Normal respiratory effort with no use of accessory muscles. Abdomen: Bowel tones present. Soft, nontender, nondistended. Extremities: No clubbing, cyanosis, trace edema, amputation of the right leg, long surgical scar on the inner aspect of the left leg. Diffuse tenderness of the left leg, mild erythema especially on the inner aspect of the left leg. Skin: Normal temperature, turgor, and texture; no rash, ulcers, or subcutaneous nodules appreciated. Neurological: Difficult to determine due to patient being difficult to arouse. Normal muscle strength, tone, and bulk. Psychiatric: Difficult to determine due to patient being difficult to arouse. Lab and Diagnostics Result Diagram: 10/11/16 1426 10/11/16 1433 X-Rays, CTs and MRIs X-RAY CHEST ONE VIEW, PORTABLE IMPRESSION: Small lung volumes. No acute abnormality. Dictated by: Toño Watts M.D. on 10/11/2016 at 15:03 Approved by: Toño Watts M.D. on 10/11/2016 at 15:04 Assessment & Plan Pt is a 71 year old male with an extensive medical history brought to the ED via EMS from [facility] for evaluation of altered mental status. Sepsis secondary to cellulitis, present on admission, active Patient presented with tachycardia, hypotension, increased respiration, leukocytosis with obvious left shift, lactic acidosis, elevated pro-calcitonin The erythema and tenderness of the left leg are suggestive of cellulitis, although not completely apparent. The patient has a history of multiple episodes of cellulitis on the same leg. Patient has a history of infection with MRSA and Pseudomonas. - Patient given vancomycin, Zosyn, levofloxacin in the ED. - Continue vancomycin, levofloxacin add ceftriaxone, stop Zosyn - IV NS 60 mL/hr, patient appears euvolemic despite low blood pressures, continued to monitor - Blood cultures 2 drawn, continue to monitor - Chest x-ray negative - Ultrasound of the thigh to rule out abscess Altered mental status vs Dementia, present on admission, active - Patient received 1 dose of Haldol in the ED for agitation - Patient continues to be confused and attempting to get out of bed - Home Seroquel QHS Acute Hypotension, present on admission, active Likely secondary to sepsis - IV NS 60 mL/hr as to avoid fluid overload - Blood pressures relatively stable, no need for pressers at this time - Continue to monitor Acute kidney injury - Creatinine 1.3 at admission. Baseline Creatinine less than 1. - IV NS 60 mL/hr as to avoid fluid overload - Continue to monitor - Avoid nephrotoxic medications Nonspecific chest pain with minor EKG changes, present on admission, active Patient appears to be complaining of minor chest pain with pain in the left hand , patient has history of acute coronary syndrome Coronary events unlikely in the setting of clear-cut infection, however due to the patient's inability to communicate well we will continue to monitor for cardiac compromise - Initial troponin negative, trend troponins Q6 3 Hypomagnesemia - 2 g given IV - Recheck in the a.m. DMT2 - No diabetes medications listed on med rec - Initiate Low-dose correctional insulin - Hemoglobin A1c 5.8 on 05/03/16 Normocytic anemia secondary to chronic GI bleeding - Hemoglobin 9.7 on admission - Continue to monitor GERD - Continue Protonix History of DVT - Continue warfarin dosing per pharmacy History of major depression - Continue duloxetine History of chronic pain - Pain medications held for concern of desaturation, and patient's unwillingness to wear nasal cannula - Consider restarting in the morning after swallow study if patient is saturating well on room air History of Systolic CHF - Most recent echo 07/14/16 shows EF of 55-60% - Hold Metoprolol Succinate ER, due to low blood pressures - Hold lisinopril, due to low blood pressures Disposition: Patient admitted under inpatient status with expected length of stay > 2 midnights for severity of present symptoms, complexities of treatment plan and risk for adverse event VTE Prophylaxis: Other (Warfarin) Resuscitation Status: DNR/DNI:Do Not Resuscitate/Intubate Time spent 60 minutes Attending Statement I have seen and evaluated patient at bedside in addition to directly supervising care provided by resident physician Dr Almaguer for care provided on . I agree with above documentation. Pt presenting with sepsis likely secondary to cellulitic infection which have been recurrent. Lactic acid level will be trended. Will initially proceed with caution in hydration given coomorbid cardiovascular disease, adjust in accordance with patient condition and acidosis. Blood cultures ordered and pending. Broad spectrum antibiotic coverage started initially given mickey of multiple resistant type infections; MRSA, Pseudomonas. Varun Almaguer DO Oct 11, 2016 17:34 Shayan Hawkins DO Oct 12, 2016 08:01
[2016-10-11] MEDS ORDERED: 0.9% Sodium Chloride 1,000 ML IV SCH (17:35)
--- NOTE | 2016-10-11 17:45 | NUR ---
Admit Pt arrived to the floor at 1640. He was brought by ED staff and was transferred to the bed via slide board from the [facility]. He complains of "a lot" of pain in his L leg, pain is highest in his L inner thigh. Also reporting L hand pain. He has been incontinent of urine and a brief was put on him. Vital signs were checked. Pt remains febrile. He is diaphoretic. He was put on tele monitoring. He appears confused as to situation but was able to express that he is in the hospital. He is restless and agitated when awake, attempting to get out of bed. At one point patient was sitting on the side of the bed crying out "I feel like I am drowning!" notified. Pt continually removes his oxygen, despite repeated attempts to put it back on by staff. O2 sat is 91% on RA while asleep.
[2016-10-11] MEDS ORDERED: cefTRIAXone Inj 1,000 MG in Dextrose 5% Minibag Plus 50 ML IV SCH (18:15)
[2016-10-11] MEDS ORDERED: Magnesium Sulf 2 Gm/50mL Water 2 GM in IV Premix 1 EACH IV ONE (18:35)
--- NOTE | 2016-10-11 18:36 | NUR ---
Warfarin held Pt unable to take PO warfarin at this time as he was not alert enough to swallow water at this time. notified.
--- NOTE | 2016-10-11 18:49 | NUR ---
ADMIT NURSE Med rec done but patient unresponsive due to Haldol given for agitation. Most of admit done on historical recall. Patient appears to wake only for short periods and is poor historian.
[2016-10-11] MEDS ORDERED: Glucose 40% Oral Gel 15 Gm Tube PO PRN (19:00)
[2016-10-11] MEDS ORDERED: oxyCODONE-Acetamin 5-325 mg Tablet PO ONE (20:45)
--- NOTE | 2016-10-11 21:25 | PCM.CONPHA ---
Assessment/Plan Assessment/Plan Pharmacy Kinetic Dosing Vancomycin Indication: septic cellulitis Vanc goal trough: 15-20 mcg/mL Pt wt: 118.45 kg Other ABX: ceftriaxone, levaquin Cultures: Blood pending, hx of MRSA SCr: 1.31 mg/dL Assessment/Plan: - Loading dose of Vancomycin 2250 mg given in ED -Will continue Vancomycin 1000 mg Q12H with trough scheduled prior to 4th dose on 10/13 @0230. Patient was previously producing troughs around 13 when here in June @ 750 mg q12h so will dose slightly higher to achieve a trough between 15-20. Will also put into D5W over NS to avoid fluid overload in this CHF patient. Pharmacy appreciates consult and will continue to monitor. Sissy Jacobo PharmD Oct 11, 2016 21:25
[2016-10-11] MEDS: Insulin LISPRO 300 Unit/3 mL Inj SUBQ SCH (22:00)
[2016-10-11] MEDS ORDERED: LORazepam 1 mg Tablet PO ONE ×2 (22:15→22:40)
[2016-10-12] VITALS (15 sets, daily range): BP systolic 96–159; BP diastolic 40–64; PULSE 85–114; RESP 16–23; O2SAT 90–100
[2016-10-12] MEDS: Ondansetron 2 mg/mL 2 mL Inj IVPUSH PRN ×2 (01:11→14:00)
[2016-10-12] MEDS ORDERED: 0.9% Sodium Chloride 1,000 ML IV ONE ×2 (01:30→05:20)
[2016-10-12] MEDS ORDERED: Vancomycin Inj 1,000 MG in IV Premix 1 EACH IV SCH (03:00)
[2016-10-12 03:26] LABS: Mean Corpuscular Volume 89.8 fL (81-100)
[2016-10-12 03:27] LABS: BASOPHILS % (AUTO) 0.3 % (0-3); EOSINOPHILS % (AUTO) 0.1 % (0-5); MONOCYTES % (AUTO) 8.1 % (4-12); Mean Corpuscular Hemoglobin 27.4 pg (27.0-35.0); NEUTROPHILS % (AUTO) 85.1 % (40-74); Platelet Count 191 bil/L (150-400)
--- NOTE | 2016-10-12 03:27 | NUR ---
Assumed care of pt at 1900. Around 1999 pt became increasingly anxious, restless, attempting to get out of bed, stating that he could not breathe despite SpO2 97% RA, tachypnic 25, c/o chest tightness. Pt was alert and oriented to person/place at this time. Rec'd order for PRN temazepam x1, which was ineffective. Rec'd order for pt's home med lorazepam 1 mg PO, which was also ineffective. After 1 mg IVP ativan pt returned to regular RR and reported improved chest tightness. Pt slept quietly with stable VS for about 2 hours, after which he became agitated, trying to exit bed, c/o 9/10 L leg pain, rigors, tachycardia, tachypnea. L leg increasingly erythemic compared to baseline assessment. Pt stated "I'm dying, just kill me please," c/o nausea and began to dry heave. Nausea resolved with zofran IVP 4 mg x1, pain resolved with 2 mg IVP MS x1. APAP given for rigors and seroquel given for restlessness/agitation with effective results. Rec'd orders for NS at 500/hr, pt currently sleeping in bed, tachy 110's but all other VSS. Addendum: 10/12/16 at 0446 by BOB SEYMOUR RN Repeat hgb 7, hct 24. BP 103/[address] Long notified at 7385.
[2016-10-12 04:14] LABS: INR 1.83 ratio
[2016-10-12 04:20] LABS: Magnesium 1.7 mg/dL (1.6-2.6)
[2016-10-12] MEDS ORDERED: 0.9% Sodium Chloride 1,000 ML IV SCH ×2 (05:10→05:35)
--- NOTE | 2016-10-12 06:00 | NUR ---
Transfer in CCU Received patient transferred from [facility] to CCU status (Rm 2017) for hypotension. On transfer, 3rd Liter NS bolus infusing, HR 80's NSR, Pt lethargic, mumbled confused speech, arousable when called by name. MRSA nasal screen sent. Hung 4th liter NS bolus. Lt Lower leg pinkish and swollen. Pt incontinent of urine, has brief on. Pt report given to incoming RN.
[2016-10-12 06:44] LABS: Mean Corpuscular Hemoglobin 27.4 pg (27.0-35.0); Mean Corpuscular Volume 90.2 fL (81-100); NEUTROPHILS % (AUTO) 82.9 % (40-74); Platelet Count 186 bil/L (150-400)
[2016-10-12 06:45] LABS: BASOPHILS % (AUTO) 0.2 % (0-3); EOSINOPHILS % (AUTO) 0.2 % (0-5); MONOCYTES % (AUTO) 8.4 % (4-12)
[2016-10-12] MEDS: Insulin LISPRO 300 Unit/3 mL Inj SUBQ SCH ×4 (08:00→22:00)
--- NOTE | 2016-10-12 08:21 | NUR ---
Mentation/cardiac Pt sleeping, awakens to voice. Drowsy, drifts back to sleep quickly without verbal stimuli. Oriented to person only. Mumbled/slurred speech. Weak, but able to move all extremities in bed. SR per patient monitor. No reported chest discomfort. Pressure stable, MAP > 65. AM methadone, baclofen and cymbalta held due to alter mental status.
[2016-10-12] MEDS: Clindamycin Inj 600 MG in IV Premix 1 EACH IV SCH ×2 (08:29→16:25)
[2016-10-12] MEDS: DULoxetine 30 mg DR Capsule PO SCH (08:30)
[2016-10-12] MEDS ORDERED: Vancomycin Dose per Pharmacist XX SCH (08:30)
[2016-10-12] MEDS ORDERED: MeTOProlol XL 50 mg ER24 Tablet PO SCH (08:30)
[2016-10-12] MEDS: Pantoprazole 40 mg ER24 Tablet PO SCH (09:26)
[2016-10-12] MEDS ORDERED: cefTRIAXone Inj 1,000 MG in Dextrose 5% Minibag Plus 50 ML IV SCH (09:30)
[2016-10-12] MEDS: Linezolid Inj 600 MG in IV Premix 1 EACH IV SCH ×2 (10:46→21:17)
[2016-10-12] MEDS: Mupirocin 2% 22 Gm Ointment TOPICAL SCH ×2 (11:18→21:17)
--- NOTE | 2016-10-12 11:38 | NUR ---
Evaluation completed. Please go to "Notes" then click on "Assessments and Notes" (bottom left corner of screen). Then select appropriate discipline tab on top of screen.
--- NOTE | 2016-10-12 14:57 | PCM.PHAPRO ---
Progress Date of Service: Oct 12, 2016 Cellulitis Warfarin management per pharmacy Indication: hx of DVT Home warfarin dose: 7.5 mg on Mon/Fri, 5 mg all other days of the week INR goal: 2-3 Pertinent info: - Altered mental status, sepsis, cellulitis - Treated with linezolid and clindamycin - HCT/PLT: 25.7/186 Date Oct 12-Sep INR 2.05 1.83 INR change -0.22 Warf Dose NPO XXXXX INR is subtherapeutic and trending down due to missed dose yesterday. Due to patient's condition and drug interaction with linezolid, anticipate that warfarin needs are decreased overall. Will give larger home dose today. Give warfarin 7.5 mg PO one time this evening. Pharmacy to continue to monitor and dose warfarin daily. Thank you, Terrie Valdes Pharmacist Terrie Valdes Oct 12, 2016 14:57
[2016-10-12] MEDS ORDERED: levoFLOXacin Inj 500 MG in IV Premix 1 EACH IV SCH (16:00)
--- NOTE | 2016-10-12 16:42 | DRSVH ---
PROCEDURE: US EXTREMITY SONOGRAM LIMITED ([id number]) INDICATIONS: Indistinct cellulitis TECHNIQUE: Real-time scanning was performed of the left thigh, with image documentation. COMPARISON: None. FINDINGS: No drainable fluid collections. Soft tissue edema. IMPRESSION: Soft tissue edema with no drainable fluid collections. Dictated by: Shay Zhou M.D. on 10/12/2016 at 16:40 Approved by: Shay Zhou M.D. on 10/12/2016 at 16:41
--- NOTE | 2016-10-12 17:31 | NUR ---
chest pressure Patient reporting sudden onset of upper chest pressure. Rating pain 10/10. No radiating pain. Denies SOA. ST with Left BBB per nurse monitoring. Pressure stable, 138/56. Denies S0A. 2L placed for patient comfort. Sp02 >95%. EKG completed. Dr Gutierrez notified of change in patient status, order given for sublingual nitro.
--- NOTE | 2016-10-12 18:04 | PCM.PNMED ---
Subjective Date of Service Oct 12, 2016 Subjective overnight: Patient described chest tightness and shortness of breath and became tachypneic however return to SPO2 of 97% on room air, all improved after 1 mg of Ativan. The patient also had an episode of nausea which required Zofran. Today: The patient states that his left leg is painful to palpation but not overly sensitive. The patient states that he has not noticed any significant fever or chills or worsening over the last several days. The patient states that he does not have chest pain or shortness of breath currently. Exam Vital Signs Vital Sign - Last Date Time Temp Pulse Resp B/P Pulse Ox O2 Delivery O2 Flow Rate FiO2 10/12/16 07:33 36.8 86 17 133/57 98 OxyMask 2.00 Intake and Output 10/11/16 10/11/16 10/12/16 Cumulative From/Thru 15:00 23:00 07:00 10/11/16 18:33 - 10/12/16 05:17 Intake Total 211 ml 2904 ml 3115 ml Output Total 200 ml 200 ml Balance 211 ml 2704 ml 2915 ml Intake Oral 880 ml 880 ml IV Total 211 ml 2024 ml 2235 ml Output Urine Total 200 ml 200 ml # Voids 4 4 # Bowel Movements 0 0 Exam General: Obese senior male in no acute distress lying in bed alert and cooperative Eyes: Pupils equal round and reactive to light, extraocular motion intact, anicteric sclera, noninjected conjunctiva HENT: Normocephalic atraumatic, moist mucous membranes without central cyanosis , oropharynx clear without purulent exudate or cobblestoning mucosa Neck: Supple, trachea midline, without thyromegaly or JVD Cardiovascular: Regular rate and regular rhythm, S1-S2 present, no S3-S4, without murmurs rubs or gallops noted Lungs: Clear to auscultation bilaterally without wheezing rales or rhonchi Abdomen: Soft, nontender, nondistended, tympanic to percussion, normal active bowel sounds, without organomegaly Extremities: [id number] amputation of right lower extremity, patient has a medial longitudinal scar on his left lower extremity with some overlying excoriations but without any notable phlebitis or significant erythema, there is notable decreased pulse in the low left lower extremity with significant pitting and nonpitting edema up to the hip with increased skin turgor noted and general warmth and redness : No Saldana catheter in place Skin: Warm and dry Neuro: Nonfocal neurologic exam, mild slurred speech Psych: Normal mood and affect, poor judgment and insight Lab and Diagnostics Result Diagram: 10/12/16 0620 10/12/16 0320 X-Rays, CTs and MRIs X-RAY CHEST ONE VIEW, PORTABLE IMPRESSION: Small lung volumes. No acute abnormality. Dictated by: Toño Watts M.D. on 10/11/2016 at 15:03 Approved by: Toño Watts M.D. on 10/11/2016 at 15:04 Assessment & Plan Pt is a 71 year old male with an extensive medical history brought to the ED via EMS from [facility] [place] for evaluation of altered mental status. Sepsis with bacteremia secondary to streptococcal cellulitis, present on admission, active Patient presented with tachycardia, hypotension, increased respiration, leukocytosis with obvious left shift, lactic acidosis, elevated pro-calcitonin The erythema and tenderness of the left leg are suggestive of cellulitis, although not completely apparent. The patient has a history of multiple episodes of cellulitis on the same leg. Patient has a history of infection with MRSA and Pseudomonas. - Patient given vancomycin, Zosyn, levofloxacin in the ED. - Continue vancomycin, levofloxacin add clindamycin, stop Zosyn - Blood cultures returned positive for likely strep as well as MRSA on nasal swab - Vancomycin and levofloxacin and ceftriaxone discontinued, initiate clindamycin and linezolid - IV NS 60 mL/hr, patient appears euvolemic despite low blood pressures, continued to monitor - Blood cultures 2 drawn, continue to monitor - Chest x-ray negative - Ultrasound of the thigh shows diffuse cellulitis without abscess, unable to detect DVTs given noncompressible nature of overlying cellulitis MRSA colonization, present on admission, chronic - Linezolid 600 mg IV twice a day - Muporocin applied inner naris Altered mental status vs Dementia, present on admission, active - Patient received 1 dose of Haldol in the ED for agitation - Patient's mentation appears to clear during the day consistent with possible sundowning phenomenon - Patient is on home lorazepam as well as methadone for both agitation as well as chronic pain likely contributing to some overnight delirium - Seroquel QHS when necessary for agitation Acute Hypotension, present on admission, active Likely secondary to sepsis - IV NS 60 mL/hr as to avoid fluid overload - Blood pressures relatively stable, no need for pressers at this time - Continue to monitor Acute kidney injury, present on admission - Creatinine 1.3 at admission. Baseline Creatinine less than 1. - IV NS 60 mL/hr as to avoid fluid overload - Continue to monitor - Avoid nephrotoxic medications Nonspecific chest pain with minor EKG changes, present on admission, active Patient appears to be complaining of minor chest pain with pain with chest tightness, patient has history of acute coronary syndrome - Troponins negative 4 - When necessary ECGs with available sublingual nitroglycerin and morphine Hypomagnesemia, present on admission - 2 g given IV - Recheck in the a.m. Diabetes mellitus type II, chronic, present on admission - No diabetes medications listed on med rec - Initiate Low-dose correctional insulin - Hemoglobin A1c 5.8 on 05/03/16 Normocytic anemia secondary to chronic GI bleeding - Hemoglobin 9.7 on admission - Continue to monitor GERD, chronic, present on admission - Continue Protonix History of DVT, chronic, present on admission - Continue warfarin dosing per pharmacy History of major depression, chronic, present on admission - Continue duloxetine History of chronic pain , present on admission -Continue patient's home methadone History of Systolic CHF , present on admission - Most recent echo 07/14/16 shows EF of 55-60% - Hold Metoprolol Succinate ER, due to low blood pressures - Hold lisinopril, due to low blood pressures Disposition: The patient will likely remain hospitalized for several more days to confirm improvement in bacteremia cellulitis. VTE Prophylaxis: Other (warfarin currently subtherapeutic) Resuscitation Status: DNR/DNI:Do Not Resuscitate/Intubate Time spent 30 minutes Attending Statement I have seen and evaluated patient at bedside in addition to directly supervising care provided by resident physician Dr Gutierrez on 10/12/2016. I agree with above documentation. Sepsis has resolved. Pt afebrile. Stabilizing clinically. Antibiotic coverage altered in setting of renal disease and addition of Clindamycin for added protection from Group A strep. Bertin Gutierrez DO Oct 12, 2016 07:46 Shayan Hawkins DO Oct 13, 2016 07:23
[2016-10-13] VITALS (9 sets, daily range): BP systolic 106–134; BP diastolic 49–68; PULSE 83–98; RESP 17–21; O2SAT 96–98
[2016-10-13] MEDS: Clindamycin Inj 600 MG in IV Premix 1 EACH IV SCH (00:56)
[2016-10-13] MEDS ORDERED: Vancomycin Serum Trough XX ONE (02:30)
[2016-10-13 03:18] LABS: Mean Corpuscular Volume 90.6 fL (81-100)
[2016-10-13 03:19] LABS: BASOPHILS % (AUTO) 0.3 % (0-3); MONOCYTES % (AUTO) 9.8 % (4-12); NEUTROPHILS % (AUTO) 78.3 % (40-74); Platelet Count 189 bil/L (150-400)
[2016-10-13 03:48] LABS: ERYTHROCYTE SEDIMENTATION RATE 125 mm/hr (0-30)
[2016-10-13 03:51] LABS: INR 1.74 ratio
--- NOTE | 2016-10-13 05:55 | NUR ---
CBC Hgb low at 7.2, repeat level drawn confirming level of 7.3. Dr. Cooney and Dr. Poole made aware. No new orders at this time. Pt's mentation unchanged from what was reported as his baseline. Vitals WNL.
[2016-10-13] MEDS: Insulin LISPRO 300 Unit/3 mL Inj SUBQ SCH ×4 (08:00→22:00)
[2016-10-13] MEDS: Pantoprazole 40 mg ER24 Tablet PO SCH (10:18)
[2016-10-13] MEDS: Mupirocin 2% 22 Gm Ointment TOPICAL SCH ×2 (10:19→22:09)
--- NOTE | 2016-10-13 10:31 | NUR ---
[facility] Transfer : Gave access and faxed facesheet to [facility], called and spoke with Natacha Division Order Technician at [facility] and patient comes from there and is able to return with to follow. Updated [facility] WALKER
[2016-10-13] MEDS ORDERED: cefTRIAXone Inj 2,000 MG in Dextrose 5% Minibag Plus 50 ML IV SCH (10:35)
[2016-10-13] MEDS: DULoxetine 30 mg DR Capsule PO SCH (10:41)
--- NOTE | 2016-10-13 12:05 | PROG NOTE ---
[address] [address] PROGRESS NOTE PATIENT: ROBBIE ACE : 1945 MR#: [id number] ADMIT: 10/11/2016 JOB ID: [id number] DATE: 10/13/[address] Gutierrez for this timely consult. REASON FOR CONSULTATION: Bacteremic group B strep cellulitis in a complex patient. HISTORY OF PRESENT ILLNESS: The patient is an unfortunate 71-year-old who hails from [place]. 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 His recent past however has been very complicated by diffuse vasculopathy. He has undergone a right AKA because of severe peripheral vascular disease and has also recently undergone revascularization of his left lower extremity because of persistent ischemia. He is also known to have coronary artery disease, had a cerebrovascular accident, and has underlying dementia. He lives in a [facility] [place]. He was admitted to this facility back in June, and I had the opportunity to see him at that time because of a possible left lower extremity infection at the site of the bypass. This admission starts just two days ago when he was admitted through the emergency department. Once again, with altered mental status and obvious sepsis secondary to his recurrent left lower extremity cellulitis. Since admission basically 48 hours ago he has been placed on a multitude of antibiotics which currently include which currently include only linezolid, but in the past 48 hours he has also received Zosyn, Vanco, Levaquin, and clindamycin. INTERVAL COURSE: The patient's course over the past 48 hours has been one of improvement, and he is now returning to something approaching his normal mental status. As I recall from my prior interactions with this gentleman during his admission in June. His normal mental status is one of generalized disorientation with respect to current events, but he is very lucid in terms of discussing life in [employer] and the local restaurant scene, but when it comes to more recent pieces of data, he missing a great deal on this and today's mental status appears to be about normal for him. He is able to give a reasonable state of his current affairs, and he tells me that he is not currently having fever or chills. He is not significantly short of breath beyond his baseline. He denies abdominal complaint, though he does state he has been having some diarrhea, which he is unable to quantitate very clearly. He also notes he has a bit of a headache today, and he has had severe pain in his left lower extremity, which is actually getting better. PAST MEDICAL HISTORY: 1. Diabetes mellitus. 2. Hypertension. 3. Hyperlipidemia. 4. History of DVT. 5. History of GI bleed. 6. Coronary artery disease. 7. Cerebrovascular disease with history of stroke. 8. Dementia which is fairly advanced. 9. Right AKA March 2016. 10. Left lower extremity revascularization 2017 done at [facility] in [place]. SOCIAL HISTORY: The patient until fairly recently was a heavy drinker and smoker. He no longer does either as he lives in a penitentiary. He is originally from [place], but has lived in this area for decades. FAMILY HISTORY: Negative for TB in first and second-degree relatives. REVIEW OF SYSTEMS: Was done. He notes some headache today. He does not mention acute visual change. No sore throat and in fact he wishes he had more things to drink, but his liquids have been restricted because of possible aspiration. No significant neck pain. No significant cough, shortness of breath, or chest pain today. He does note the diarrhea, but no nausea or vomiting. No dysuria. He urinates into a diaper. He has no pain at the site of his right stump, which was previously infected on an earlier admission. His left lower extremity was very painful when he came in and the pain is gradually diminishing. Remainder of the review of systems negative. PHYSICAL EXAMINATION: Reveals an afebrile gentleman in no acute distress. He was febrile to 39.6 when he was admitted on the afternoon of the . He has been afebrile now for 24 hours. His pulse is 88. His respiratory rate 18, blood pressure 113/49. He is saturating well on room air. Not in any acute distress. His head is without any trauma or temporal wasting. His eyes without conjunctivitis. Oral cavity without pharyngitis or thrush. Neck reasonably supple for his age. Lungs are clear. Cardiac tones regular rate and rhythm without significant murmur. The abdomen is neither distended nor tender. No hepatosplenomegaly or ascites is noted. He is wearing briefs, but not a Saldana catheter. He has no inguinal or femoral adenopathy. His right leg has been amputated and the stump appears benign. His left lower extremity has a diffuse cellulitic pattern, which extends all the way from his toes up to literally his groin. The video editing internship that is working with me this month on Infectious Disease had the chance to see this about 48 hours ago and apparently was scarlatiniform, tender, and grossly cellulitic. That has faded somewhat and there is now some wrinkling developing on his dorsal foot and some patches of normal skin appearing in the midst of this confluent cellulitis suggesting some degree of improvement. No bullae are present and no sherine skin breakdown. In terms of neurologic function, the patient is awake, and he is oriented x1. He tells us it is 191, that Beto is president, and displays a general lack of insight into the current situation. He tells us frankly he has absolutely no idea where he is at this point. In terms of other neurologic function the patient does have reasonable strength in his remaining leg, and he can use both his upper extremities. Significant skin rash is noted. There is no evidence of synovitis. LABORATORIES: Include white count 7800. His white count was 16,000 when he came in two days ago and it normalized within 24 hours. The diff is basically normal. Sed rate 125 which is impressive. His hematocrit only 24 that is contributing to that high sed rate. His creatinine 1.03. His LFTs are normal. His CRP is 22, albumin 2.8. Procalcitonin 3.6. Urinalysis without white cells. His INR was two when he arrived, it is 1.74 at this point. In terms of microbiology we have 1/3 blood cultures from admission growing group B strep. MRSA smear of the nares was positive. In terms of prior admissions, we previously have had MRSA from the nares on numerous occasions and in fact every occasion when we have interacted with this gentleman over the past year or so. We also had a culture from his left groin wound which has a wound at the site of his bypass procedure and back in June and that grew Enterobacter which has not been identified during this admission. IMAGING: Includes ultrasound of the left lower extremity which showed no drainable fluid collection. A chest x-ray was done which showed small lung volumes, but no significant infiltrate. We did review that chest x-ray and concur with that diagnosis. IMPRESSION: This extremely unfortunate gentleman who is demented and has quite an overwhelming array of atherosclerotic problems including peripheral vascular disease, which is already cost him one of his legs and a history of stroke and coronary artery disease. It seems likely that part of his dementia is likely due to atherosclerotic process as well. At this point, it is very clear that he had a group B streptococcal cellulitis causing this decompensation at admission. The best drug is probably penicillin or ampicillin, but in contrast to their group A Strep cousins, group B Strep can occasionally be somewhat resistant to penicillin or ampicillin so will hold off on a switch to a straight penicillin until we get back susceptibilities tomorrow. RECOMMENDATIONS: 1. We can discontinue linezolid as his leg is clearly not MRSA, but is rather group B Strep infection. 2. Start ceftriaxone 2 g once a day for the time being. 3. Nasal Bactroban is indicated in this case to try and eradicate the MRSA colonization in his nares. 4. Will continue to follow this patient with you over the coming days.
--- NOTE | 2016-10-13 14:30 | NUR ---
NUTRITION ASSESSMENT Assess: 71 YO M admitted with sepsis, bacteremia. Diet advanced to dysphagia mechanical, no PO intake recorded. PMHX: DVT, GI bleed, Type 2 DM, R AKA, dementia, HTN, HLD, CAD, stroke. DIET: Dysphagia mechanical, thin liquids. No PO intake yet. LABS: Na 131, Glu 106, CA 8.3, Alb 2.8 MEDICATIONS: Reviewed. GI: No BM noted. SKIN: No issues noted. Left leg cellulitis. ANTHROPOMETRICS: Wt: 122.5 kg, BMI 42.3 kg/m2, Admit wt: 118.45 kg. Adj BW: 81.1 kg, IBW: 67.3 kg. ESTIMATED NEEDS: BMI, -16% for R AKA. Calories: 2252-6146 kcal/day (25-30 kcal/kg Adj. BW) Protein: 81-102 g/day (1.2-1.5 g/kg Adj. BW) NUTRITION DIAGNOSIS: 1) Chew/swallow difficulty related to aspiration risk as evidenced by need for dysphagia mechanical diet. INTERVENTION: 1) Diet advance per speech therapy. MONITOR/EVALUATE: PO intake, labs, diet tolerance/advance, GI/nutrition status. Follow per moderate nutrition risk guidelines.
--- NOTE | 2016-10-13 15:41 | PCM.PNMED ---
Subjective Date of Service Oct 13, 2016 Subjective Subjective: Patient states that he is feeling marginally better, however continues to complain of difficulty with movement, pain in the legs, appears to be able to express himself more appropriately since admission. States that he would like a cup of coffee. Events Overnight: No acute events overnight. ROS: Pain and swelling in the legs, fever/chills Denies nausea/vomiting, headache, weakness, abdominal pain, chest pain, shortness of breath Exam Vital Signs Vital Sign - Last Date Time Temp Pulse Resp B/P Pulse Ox O2 Delivery O2 Flow Rate FiO2 10/13/16 11:46 37.6 94 21 134/68 96 Room Air 10/12/16 21:34 2.00 Intake and Output 10/12/16 10/12/16 10/13/16 Cumulative From/Thru 15:00 23:00 07:00 10/11/16 18:33 - 10/13/16 06:01 Intake Total 1386 ml 1650 ml 288 ml 6439 ml Output Total 0 ml 200 ml Balance 1386 ml 1650 ml 288 ml 6239 ml Intake Oral 550 ml 213 ml 1643 ml IV Total 1386 ml 1100 ml 75 ml 4796 ml Output Urine Total 200 ml Other 0 ml 0 ml # Voids 1 9 4 18 # Bowel Movements 0 0 Exam General: No acute distress, well-developed, well-nourished Head: Normocephalic, atraumatic. External ears without defect. Eyes: Pupils equal, round, and reactive to light and accommodation. Anicteric sclerae, moist conjunctivae. Neck: Normal range of motion, no lymphadenopathy noted Cardiovascular: Regular rate and rhythm with no murmurs, rubs, or gallops appreciated Pulmonary: Clear to auscultation bilaterally with no crackles, wheezes, or rhonchi. Normal respiratory effort with no use of accessory muscles. Abdomen: Bowel tones present. Soft, obese nontender, nondistended. Extremities: No clubbing, cyanosis, trace edema, amputation of the right leg, long surgical scar on the inner aspect of the left leg. Diffuse tenderness of the left leg, mild erythema especially on the inner aspect of the left leg, decreased from previous. Skin: Normal temperature, turgor, and texture; no rash, ulcers, or subcutaneous nodules appreciated. Neurological: Cranial nerves grossly intact. Normal muscle strength, tone, and bulk. Psychiatric: Blunted affect. Alert and oriented 3. IVs and Medications IV Fluids 400 mL normal saline delivered with IV medications. Medications Reviewed: Medications were reviewed in detail Medications High-risk medications include: Warfarin Lab and Diagnostics Result Diagram: 10/13/16 0345 10/13/16 0242 X-Rays, CTs and MRIs X-RAY CHEST ONE VIEW, PORTABLE IMPRESSION: Small lung volumes. No acute abnormality. Dictated by: Toño Watts M.D. on 10/11/2016 at 15:03 Approved by: Toño Watts M.D. on 10/11/2016 at 15:04 Assessment & Plan Pt is a 71 year old male with an extensive medical history brought to the ED via EMS from [facility] for evaluation of altered mental status. Sepsis with bacteremia secondary to streptococcal cellulitis, present on admission, improving Patient presented with tachycardia, hypotension, increased respiration, leukocytosis with obvious left shift, lactic acidosis, elevated pro-calcitonin The erythema and tenderness of the left leg are suggestive of cellulitis, although not completely apparent. The patient has a history of multiple episodes of cellulitis on the same leg. Patient has a history of infection with MRSA and Pseudomonas. - MRSA PCR positive - Blood cultures 2 positive for GBS, antibiotic coverage narrowed to reflect this - Continue and linezolid - Ultrasound of the thigh shows diffuse cellulitis without abscess - Clinically improving, continue to monitor MRSA colonization, present on admission, chronic - Linezolid 600 mg IV twice a day - Muporocin applied inner naris Bacterial encephalopathy, present on admission, improving Patient appears to have baseline dementia, however moderately encephalopathic upon admission - Patient received 1 dose of Haldol in the ED for agitation - Patient's mentation appears to clear during the day consistent with possible sundowning phenomenon - Patient is on home lorazepam as well as methadone for both agitation as well as chronic pain likely contributing to some overnight delirium - Seroquel QHS for agitation Acute Hypotension, present on admission, improving Likely secondary to sepsis, vital signs currently within normal limits - Continue to monitor Acute kidney injury, present on admission - Creatinine 1.3 at admission. Baseline Creatinine less than 1. - BUN/creatinine improving - Continue to monitor - Avoid nephrotoxic medications Nonspecific chest pain with minor EKG changes, present on admission, active Patient appears to be complaining of minor chest pain with pain with chest tightness, patient has history of acute coronary syndrome - Troponins negative 4 - When necessary ECGs with available sublingual nitroglycerin and morphine Hypomagnesemia, present on admission, resolved - 2 g given IV on admission - Currently Within normal limits Diabetes mellitus type II, chronic, present on admission - No diabetes medications listed on med rec - Initiate Low-dose correctional insulin - Hemoglobin A1c 5.8 on 05/03/16 Normocytic anemia secondary to chronic GI bleeding Patient continues to trend down, possibly dilutional, continue to monitor - Hemoglobin 9.7 on admission, currently 7.3 - Consider transfusion if patient remains less than 7.0 - Continue to monitor GERD, chronic, present on admission - Continue Protonix History of DVT, chronic, present on admission - Continue warfarin dosing per pharmacy History of major depression, chronic, present on admission - Continue duloxetine History of chronic pain , present on admission -Continue patient's home methadone History of Systolic CHF , present on admission - Most recent echo 07/14/16 shows EF of 55-60% - Hold Metoprolol Succinate ER, due to recently low blood pressures, consider starting on 10/14 if pressures are over 140 systolic. - Continue lisinopril, Disposition: The patient will likely remain hospitalized for several more days to confirm improvement in bacteremia cellulitis. VTE Prophylaxis: Other (warfarin currently subtherapeutic) Resuscitation Status: DNR/DNI:Do Not Resuscitate/Intubate Attending Statement The patient was seen and examined together with Dr. Almaguer on 10/13/2016 and I agree with the history, exam and plan as outlined in the note above. . Varun Almaguer DO Oct 13, 2016 15:41 Reagan Phipps MD Oct 16, 2016 18:21
--- NOTE | 2016-10-13 16:52 | NUR ---
Social Work: Initial Assessment/Multidisciplinary Rounds D: Per EMR review, pt is a 71 year old male admitted for sepsis, cellulitis. Pt is Medicare with [employer] supplement. PCP is Nikolai Lozano MD. [facility]K is not listed. Advanced directives not completed- POLST on file. Readmit score is high, 6/8. Pt discussed in Multidisciplinary rounds. Capacity for self care discussed; no concerns or needs at this time as pt is a LTC resident at [facility] and receives care from staff. Provider has placed a CM order for SNF placement. WILDLIFE PHOTOGRAPHER acknowledges order. WILDLIFE PHOTOGRAPHER met with patient at bedside. animal care worker role explained, contact information and discharge planning checklist provided. See initial assessment. Pt confirms that he is a LTC resident at [facility]. Pt declined a SNF CHOICE LIST and wishes to return to [facility]. communications specialist spoke with Natacha, hospital admissions officer at [facility]. They can accept the patient back with Dr. Lozano to follow. A: Pt who will require skilled rehab/nursing at discharge P: Anticipate pt to return back to [facility] once medically stable. Dr. Lozano to follow pt at [facility]. WILDLIFE PHOTOGRAPHER to continue to follow pt to assess for unmet discharge needs. KARY Siegel Addendum: 10/13/16 at 1656 by GLENIS WESTBROOK Amended: Links added.
--- NOTE | 2016-10-13 18:50 | NUR ---
BG pt BG this am 202, 4unit of Humulin R given. Pt BG in afternoon was 248, 4 unit Humulin R given given. MD aware. Pederson increased from 30 to 35 unit for tonight. Addendum: 10/13/16 at 1903 by WANDER PARRA RN wrong patient
--- NOTE | 2016-10-13 19:05 | NUR ---
BG pt BG 90 in am, 126 at lunch, 109 at dinner. No coverage given today. Report given to oncoming Rn.
[2016-10-14] VITALS (8 sets, daily range): BP systolic 109–149; BP diastolic 43–62; PULSE 76–97; RESP 13–26; O2SAT 96–100
[2016-10-14 04:08] LABS: BASOPHILS % (AUTO) 0.3 % (0-3); EOSINOPHILS % (AUTO) 6.2 % (0-5); MONOCYTES % (AUTO) 12.6 % (4-12); Mean Corpuscular Hemoglobin 27.1 pg (27.0-35.0); NEUTROPHILS % (AUTO) 68.6 % (40-74); Platelet Count 183 bil/L (150-400)
[2016-10-14 04:40] LABS: INR 2.51 ratio
[2016-10-14 04:56] LABS: Magnesium 1.9 mg/dL (1.6-2.6); Phosphorus 3.7 mg/dL (2.5-4.9)
--- NOTE | 2016-10-14 05:34 | NUR ---
Activity [place] [facility] [place]. Once finished, the patient was able to stand on his left leg while staff cleaned him off. Pt then lifted into the bed. Pt's mentation wavered throughout the night. Pt tolerating increasingly levels of activity and is able to better turn himself in bed requiring less assistance from staff members to turn.
[2016-10-14] MEDS: Insulin LISPRO 300 Unit/3 mL Inj SUBQ SCH ×4 (08:00→21:16)
[2016-10-14] MEDS: Pantoprazole 40 mg ER24 Tablet PO SCH (08:21)
[2016-10-14] MEDS: DULoxetine 30 mg DR Capsule PO SCH (08:22)
[2016-10-14] MEDS: Mupirocin 2% 22 Gm Ointment TOPICAL SCH ×2 (08:25→21:14)
--- NOTE | 2016-10-14 10:46 | PROG NOTE ---
[address] [address] PROGRESS NOTE PATIENT: ROBBIE ACE : 1945 MR#: [id number] ADMIT: 10/11/2016 JOB ID: [id number] DATE: 10/14/2016 REASON FOR FOLLOWUP: Bacteremic group B streptococcal cellulitis. INTERVAL HISTORY: Overnight, the patient has had no fevers, no chills, shortness of breath, nausea, or vomiting. He continues to have pain, which is fairly diffuse in his left lower extremity where he has severe cellulitis. 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 PHYSICAL EXAMINATION: Reveals an afebrile gentleman, temperature 36.8, pulse 97, respiratory rate 18, blood pressure 144/61, saturating well on room air, no acute distress. Mental status is clear today. Oral cavity negative. Lungs relatively clear. Abdomen soft, nontender. Left lower extremity cellulitis continues to be quite severe though the foot is improving quite a bit with furrowing and absence of erythema, but there are patches of erythema, which is tender extending all the way really from the ankle up to the groin. This appears perhaps slightly better than yesterday, but the difference is subtle. LABORATORIES: Include white count 5900, platelets 183. Creatinine 1.03, procalcitonin 1.27, which is coming down steadily from 5.09 three days ago. LFTs normal. Micro studies include the group B strep which grew from his blood that turns out to be exquisitely sensitive to penicillin as well as ceftriaxone and clindamycin. IMAGING: Includes the ultrasound of the left leg which showed edema, but no abscess. There was no formal DVT study done during this admission. IMPRESSION: This patient is slowly improving with respect to his bacteremic group B streptococcal left lower extremity cellulitis. His slow improvement is not unusual for someone with chronic lymphedema and severe beta-hemolytic streptococcal infection of the extremity, but we are still concerned a bit about deep venous thrombosis. The optimal treatment for group B strep bacteremia such as this is probably penicillin though ceftriaxone is undoubtedly adequate. There is at least one article in the recent literature that suggest clindamycin may be additive in group B streptococcal infections as it is in group A streptococcal infections, but I think at this point, he is slowly improving and clindamycin will predispose him to increase risk of Colostridium difficile colitis which I would prefer to avoid. RECOMMENDATIONS: 1. Will switch the ceftriaxone to penicillin 3 million units IV q.6. 2. Ultrasound of the left lower extremity will be ordered. 3. Will continue to follow this complex patient with you.
--- NOTE | 2016-10-14 14:07 | DRSVH ---
PROCEDURE: US VEINOUS LEG DUPLEX UNILATERAL, LEFT INDICATIONS: R/O DVT TECHNIQUE: Real-time imaging, as well as color and pulse Doppler interrogation, were performed of the lower extr emity deep veins from the inguinal ligament to the popliteal fossa. COMPARISON: [facility], US, US VENOUS LEG DPLX UNI LT, 07/15/2016, 8:56. FINDINGS: The deep veins are normally compressible, and free of intraluminal thrombus. Color and pu lse Doppler demonstrate normal phasic intraluminal flow. There is normal augmentation response to di stal compression maneuver. IMPRESSION: No deep venous thrombosis identified within the left lower extremity. Dictated by: Jayme Sotelo [facility] Interpreted: Dinesh Chan MD on 10/14/2016 at 13:42 Approved by: Dinesh Chan M.D. on 10/14/2016 at 14:05
[2016-10-14] MEDS ORDERED: Penicillin G K Inj 3,000,000 UNITS in IV Premix 50 EACH IV SCH (14:30)
[2016-10-14] MEDS: PENICILLIN K IV SCH ×2 (15:00→21:13)
[2016-10-14] MEDS: DEXTROSE 5% IV SCH ×2 (15:00→21:13)
--- NOTE | 2016-10-14 15:54 | PCM.PNMED ---
Subjective Date of Service Oct 14, 2016 Subjective Subjective: Patient is much more awake and alert, and conversational today than previous. Patient appears to feel much better and states that his leg continues to hurt however he has noticed a difference in his ability to move. Events Overnight: No acute events overnight. ROS: Left lower leg pain and swelling. Denies fever/chills, nausea/vomiting, headache, weakness, abdominal pain, chest pain, shortness of breath. Exam Vital Signs Vital Sign - Last Date Time Temp Pulse Resp B/P Pulse Ox O2 Delivery O2 Flow Rate FiO2 10/14/16 14:12 36.6 96 18 122/52 96 Room Air 10/12/16 21:34 2.00 Intake and Output 10/13/16 10/13/16 10/14/16 Cumulative From/Thru 15:00 23:00 07:00 10/11/16 18:33 - 10/14/16 05:06 Intake Total 125 ml 586 ml 757 ml 7907 ml Output Total 0 ml 200 ml Balance 125 ml 586 ml 757 ml 7707 ml Intake Oral 586 ml 2229 ml IV Total 125 ml 757 ml 5678 ml Output Urine Total 200 ml Other 0 ml 0 ml # Voids 3 21 # Bowel Movements 0 Exam General: No acute distress, well-developed, well-nourished Head: Normocephalic, atraumatic. External ears without defect. Eyes: Pupils equal, round, and reactive to light and accommodation. Anicteric sclerae, moist conjunctivae. Neck: Normal range of motion, no lymphadenopathy noted Cardiovascular: Regular rate and rhythm with no murmurs, rubs, or gallops appreciated Pulmonary: Clear to auscultation bilaterally with no crackles, wheezes, or rhonchi. Normal respiratory effort with no use of accessory muscles. Abdomen: Bowel tones present. Soft, obese nontender, nondistended. Extremities: No clubbing, cyanosis, trace edema, amputation of the right leg, long surgical scar on the inner aspect of the left leg. Diffuse tenderness of the left leg, mild erythema especially on the inner aspect of the left leg, decreased from previous. Skin: Normal temperature, turgor, and texture; no rash, ulcers, or subcutaneous nodules appreciated. Neurological: Cranial nerves grossly intact. Normal muscle strength, tone, and bulk. Psychiatric: Normal mood and affect. Alert and oriented 3. IVs and Medications IV Fluids 750 mL normal saline delivered with IV medications. Medications Reviewed: Medications were reviewed in detail Medications High-risk medications include: Methadone Lab and Diagnostics Result Diagram: 10/14/1631710/14/16317 X-Rays, CTs and MRIs X-RAY CHEST ONE VIEW, PORTABLE IMPRESSION: Small lung volumes. No acute abnormality. Dictated by: Toño Watts M.D. on 10/11/2016 at 15:03 Approved by: Toño Watts M.D. on 10/11/2016 at 15:04 Assessment & Plan Pt is a 71 year old male with an extensive medical history brought to the ED via EMS from [facility] for evaluation of altered mental status. Sepsis with bacteremia secondary to streptococcal cellulitis, present on admission, improving Patient presented with tachycardia, hypotension, increased respiration, leukocytosis with obvious left shift, lactic acidosis, elevated pro-calcitonin The erythema and tenderness of the left leg are suggestive of cellulitis, although not completely apparent. The patient has a history of multiple episodes of cellulitis on the same leg. Patient has a history of infection with MRSA and Pseudomonas. - MRSA PCR positive - Blood cultures 2 positive for GBS, antibiotic coverage narrowed to reflect this - Switch from ceftriaxone to penicillin IV every 6 - Ultrasound of the thigh shows diffuse cellulitis without abscess, no DVT identified with venous duplex - ID following - Clinically improving, continue to monitor MRSA colonization, present on admission, chronic - Muporocin applied inner naris Bacterial encephalopathy, present on admission, resolved Moderately encephalopathic upon admission, now appears to be acting and communicating appropriately. - Patient's mentation appears to clear during the day consistent with possible sundowning phenomenon - Patient is on home lorazepam as well as methadone for both agitation as well as chronic pain likely contributing to some overnight delirium - Seroquel QHS for agitation Acute Hypotension, present on admission, resulting Likely secondary to sepsis, vital signs currently within normal limits - Continue to monitor Acute kidney injury, present on admission, resolving - Creatinine 1.3 at admission. Baseline Creatinine less than 1. - BUN/creatinine improving - Continue to monitor - Avoid nephrotoxic medications Nonspecific chest pain with minor EKG changes, present on admission, resolving Patient appears to be complaining of minor chest pain with pain with chest tightness, patient has history of acute coronary syndrome - Troponins negative 4 - When necessary ECGs with available sublingual nitroglycerin and morphine Hypomagnesemia, present on admission, resolved - 2 g given IV on admission - Currently Within normal limits Diabetes mellitus type II, chronic, present on admission - No diabetes medications listed on med rec - Initiate Low-dose correctional insulin - Hemoglobin A1c 5.8 on 05/03/16 Normocytic anemia secondary to chronic GI bleeding Patient continues to trend down, possibly dilutional, continue to monitor - Hemoglobin 9.7 on admission, currently 7.3 - Consider transfusion if patient remains less than 7.0 - Continue to monitor GERD, chronic, present on admission - Continue Protonix History of DVT, chronic, present on admission - Continue warfarin dosing per pharmacy History of major depression, chronic, present on admission - Continue duloxetine History of chronic pain , present on admission -Continue patient's home methadone History of Systolic CHF , present on admission - Most recent echo 07/14/16 shows EF of 55-60% - Hold Metoprolol Succinate ER, due to recently low blood pressures, consider starting on 10/15 if pressures are over 140 systolic. - Continue lisinopril, Disposition: The patient will likely be discharged back to [facility] emergency department within the next 1-2 days. VTE Prophylaxis: Other (warfarin currently subtherapeutic) Resuscitation Status: DNR/DNI:Do Not Resuscitate/Intubate Attending Statement The patient was seen and examined together with Dr. Almaguer on 10/14/2016 and I agree with the history, exam and plan as outlined in the note above. . Varun Almaguer DO Oct 14, 2016 15:54 Reagan Phipps MD Oct 16, 2016 18:26
--- NOTE | 2016-10-14 18:29 | NUR ---
chest pain pt c/o chest pain at about 1430, EKG showed no changes. no c/o SOB, SpO2 mid to high 90s, pt put on 1L NC for comfort. Unrelieved by 1 dose of nitro. Pt stating pain decrease when pt puts pressure on his left chest. MD aware, order to give morphine. 1mg morphine given pt stating pain down to a 1/10. pt resting with eyes closed at this time.
[2016-10-14] MEDS: LORazepam 1 mg Tablet PO PRN (21:13)
[2016-10-15 00:11] VITALS: BP 132/51; PULSE 100; RESP 21; O2SAT 95
[2016-10-15] MEDS: PENICILLIN K IV SCH (02:32)
[2016-10-15] MEDS: DEXTROSE 5% IV SCH (02:32)
[2016-10-15 04:24] LABS: Mean Corpuscular Hemoglobin 27.8 pg (27.0-35.0); Mean Corpuscular Volume 89.3 fL (81-100)
[2016-10-15 04:37] LABS: INR 2.55 ratio
[2016-10-15 04:57] LABS: Unsaturated Iron Binding 174.8 ug/dL
--- NOTE | 2016-10-15 05:53 | NUR ---
Pain Patient complained of pain to affected leg and foot. Heel floated on pillow, patient repositioned and morphine given for relief. Denies any chest pain. Was able to sleep for sometime, awakened by incontinence of stool. Large liquid to soft stool. Patient cleaned well and repositioned for comfort. Care is ongoing.
[2016-10-15 07:25] VITALS: BP 130/69; PULSE 89; RESP 22; O2SAT 98
[2016-10-15] MEDS: Insulin LISPRO 300 Unit/3 mL Inj SUBQ SCH ×4 (08:00→20:33)
--- NOTE | 2016-10-15 08:58 | PROG NOTE ---
[address] [address] PROGRESS NOTE PATIENT: ROBBIE ACE : 1945 MR#: [id number] ADMIT: 10/11/2016 JOB ID: [id number] DATE: 10/15/2016 INFECTIOUS DISEASE FOLLOW UP NOTE: REASON FOR FOLLOWUP: Severe bacteremic left lower extremity group B streptococcal cellulitis. INTERVAL HISTORY: The patient reports continued pain in his left lower extremity. He denies, however, significant fevers, chills, cough, shortness of breath, nausea or vomiting. PHYSICAL EXAMINATION: Reveals an afebrile gentleman, temperature 36.7, pulse 89, respiratory rate 22, blood pressure 130/69. He is saturating well on room air. He is in no obvious distress. He is awake and alert, though he is confused about dates somewhat. The examination of the oral cavity is unremarkable. Lungs relatively clear. Abdomen benign. The patient has had a right AKA but his left lower extremity is diffusely involved with cellulitis. Initially there had been some improvement over the first day or two but now it seems relatively static with patchy erythema which extends from the foot all the way up to the groin. LABORATORIES: Include white count stable at 5300. Platelet count is normal. Yesterday's differential white blood count was essentially normal. Creatinine 0.93. LFTs are normal. Procalcitonin is 1.27, which has come down considerably from 5.09 three days previously. No urine white cells were noted. Recall that his blood culture did grow group B strep which was sensitive to both clindamycin and exquisitely sensitive to penicillin. Venous duplex study that we had ordered yesterday shows no clot in that left lower extremity. IMPRESSION: This is an unfortunate gentleman with multiple underlying medical problems with bacteremic group B strep cellulitis involving his remaining leg. This leg is undoubtedly also involved with peripheral vascular disease which complicates the situation. There has been a suggestion in the literature that there could be some synergy between penicillin and clindamycin in group B strep though this is much better studied and understood in terms of group A streptococcal infections. Whether or not to add clindamycin with its attendant risk of C difficile here is uncertain, but I think if he is not substantially improved by tomorrow, we will probably add high-dose clindamycin. RECOMMENDATIONS: 1. Continue with high-dose penicillin at this point. 2. Consider adding clindamycin tomorrow if there is not substantial improvement. 3. I would repeat a procalcitonin tomorrow on October 16 to see if the positive trend there continues.
[2016-10-15] MEDS: DULoxetine 30 mg DR Capsule PO SCH (09:24)
[2016-10-15] MEDS: Pantoprazole 40 mg ER24 Tablet PO SCH (09:25)
[2016-10-15] MEDS: Penicillin G K Inj 3,000,000 UNITS in IV Premix 1 EACH IV SCH ×3 (09:25→20:21)
[2016-10-15] MEDS: Mupirocin 2% 22 Gm Ointment TOPICAL SCH ×2 (09:26→20:21)
--- NOTE | 2016-10-15 11:03 | PCM.PNMED ---
Subjective Date of Service Oct 15, 2016 Subjective Subjective: Patient states that pain in the left leg is slightly increased from yesterday. Redness has decreased. Events Overnight: No acute events overnight. ROS: Denies fever/chills, nausea/vomiting, headache, weakness, abdominal pain, chest pain, shortness of breath, increased swelling in hands or feet. Exam Vital Signs Vital Sign - Last Date Time Temp Pulse Resp B/P Pulse Ox O2 Delivery O2 Flow Rate FiO2 10/15/16 07:25 36.7 89 22 130/69 98 Room Air 10/15/16 00:11 2.00 Intake and Output 10/14/16 10/14/16 10/15/16 Cumulative From/Thru 15:00 23:00 07:00 10/11/16 18:33 - 10/15/16 06:55 Intake Total 436 ml 660 ml 1238 ml 39911 ml Output Total 500 ml 900 ml 1650 ml 3250 ml Balance -64 ml -240 ml -412 ml 6991 ml Intake Oral 436 ml 660 ml 640 ml 3965 ml IV Total 598 ml 6276 ml Output Urine Total 500 ml 900 ml 1650 ml 3250 ml Other 0 ml # Voids 2 3 26 # Bowel Movements 1 2 3 Exam General: No acute distress, well-developed, well-nourished Head: Normocephalic, atraumatic. External ears without defect. Eyes: Pupils equal, round, and reactive to light and accommodation. Anicteric sclerae, moist conjunctivae. Neck: Normal range of motion, no lymphadenopathy noted Cardiovascular: Regular rate and rhythm with no murmurs, rubs, or gallops appreciated Pulmonary: Clear to auscultation bilaterally with no crackles, wheezes, or rhonchi. Normal respiratory effort with no use of accessory muscles. Abdomen: Bowel tones present. Soft, obese nontender, nondistended. Extremities: No clubbing, cyanosis, trace edema, amputation of the right leg, long surgical scar on the inner aspect of the left leg. Diffuse tenderness of the left leg, mild erythema especially on the anterior aspect of the left lower leg. Skin: Normal temperature, turgor, and texture; no rash, ulcers, or subcutaneous nodules appreciated. Neurological: Cranial nerves grossly intact. Normal muscle strength, tone, and bulk. Psychiatric: Normal mood and affect. Alert and oriented 3. IVs and Medications IV Fluids 600ml normal saline delivered with IV medications Medications Reviewed: Medications were reviewed in detail Lab and Diagnostics Result Diagram: 10/15/16 03510/15/16 035 X-Rays, CTs and MRIs X-RAY CHEST ONE VIEW, PORTABLE IMPRESSION: Small lung volumes. No acute abnormality. Dictated by: Toño Watts M.D. on 10/11/2016 at 15:03 Approved by: Toño Watts M.D. on 10/11/2016 at 15:04 Additional Diagnostics US EXTREMITY SONOGRAM LIMITED IMPRESSION: Soft tissue edema with no drainable fluid collections. Dictated by: Shay Zhou M.D. on 10/12/2016 at 16:40 Approved by: Shay Zhou M.D. on 10/12/2016 at 16:41 US VEINOUS LEG DUPLEX UNILATERAL, LEFT IMPRESSION: No deep venous thrombosis identified within the left lower extremity. Dictated by: Jayme Sotelo RRA Interpreted: Dinesh Chan MD on 10/14/2016 at 13:42 Approved by: Dinesh Chan M.D. on 10/14/2016 at 14:05 Assessment & Plan Pt is a 71 year old male with an extensive medical history brought to the ED via EMS from [facility] for evaluation of altered mental status. Sepsis with bacteremia secondary to streptococcal cellulitis, present on admission, improving Patient presented with tachycardia, hypotension, increased respiration, leukocytosis with obvious left shift, lactic acidosis, elevated pro-calcitonin The erythema and tenderness of the left leg are suggestive of cellulitis. The patient has a history of multiple episodes of cellulitis on the same leg. Patient has a history of infection with MRSA and Pseudomonas. - Anterior leg continues to be warm and erythematous - MRSA PCR positive - Blood cultures 2 positive for GBS -Continue penicillin IV every 6, - Ultrasound of the thigh shows diffuse cellulitis without abscess, no DVT identified with venous duplex - ID following, considering adding clindamycin if not improving - Clinically improving, continue to monitor - Increased pain on 10/15 home analgesics reinitiated - Home Lasix and spironolactone reinitiated Normocytic anemia secondary to chronic GI bleeding, POA, active Hgb continues low but stable, dilutional, continue to monitor - Hemoglobin 9.7 on admission, currently 7.3 - Consider transfusion if patient remains less than 7.0 - Continue to monitor Chronic MRSA colonization, present on admission, ongoing - Muporocin applied inner nares Bacterial encephalopathy, present on admission, resolved Moderately encephalopathic upon admission, now appears to be acting and communicating appropriately, but continues with mild dementia - Patient's mentation appears to clear during the day consistent with possible sundowning phenomenon - Patient is on home lorazepam as well as methadone for both agitation as well as chronic pain likely contributing to some overnight delirium - Seroquel QHS for agitation Acute kidney injury, present on admission, resolving - Creatinine 1.3 at admission. Baseline Creatinine less than 1. - BUN/creatinine improving - Home Lasix and spironolactone reinitiated - Continue to monitor - Avoid nephrotoxic medications History of Systolic CHF , present on admission, stable - Most recent echo 07/14/16 shows EF of 55-60% - Continue Metoprolol Succinate ER - Continue lisinopril - Home Lasix and spironolactone reinitiated Nonspecific chest pain with minor EKG changes, present on admission, resolving Patient appears to be complaining of minor chest pain with pain with chest tightness, patient has history of acute coronary syndrome - Troponins negative 4 - When necessary ECGs with available sublingual nitroglycerin and morphine Diabetes mellitus type II, chronic, present on admission - No diabetes medications listed on med rec - Initiate Low-dose correctional insulin - Hemoglobin A1c 5.8 on 05/03/16 Hypomagnesemia, present on admission, resolved - 2 g given IV on admission - Currently Within normal limits Acute Hypotension, present on admission, Resolved Likely secondary to sepsis, vital signs currently within normal limits - Continue to monitor GERD, chronic, present on admission - Continue Protonix History of DVT, chronic, present on admission - Continue warfarin dosing per pharmacy History of major depression, chronic, present on admission - Continue duloxetine History of chronic pain , present on admission -Continue patient's home methadone -Continue home oxycodone -1-2 mg morphine every 4 hours when necessary Disposition: The patient will likely be discharged back to [facility] care within the next 1-2 days. VTE Prophylaxis: Other (warfarin currently subtherapeutic) Resuscitation Status: DNR/DNI:Do Not Resuscitate/Intubate Attending Statement The patient was seen and examined together with Dr. Almaguer on 10/15/2016 and I agree with the history, exam and plan as outlined in the note above. . Varun Almaguer DO Oct 15, 2016 11:03 Reagan Phipps MD Oct 16, 2016 18:27
--- NOTE | 2016-10-15 11:22 | PCM.PHAPRO ---
Progress Cellulitis warfarin dosing o/ Significant INR bump yesterday requiring dose adjustment INR therapeutic a/ ? Related to CHF decomp vs. AB effect (neither seems likely) p/ Continue with reduced dose and follow Date Oct 12-Oct 13-Oct 14-Oct 15-Oct 16-Sep 16-Oct 18-Oct 19-Oct INR 2.05 1.83 1.74 2.51 2.55 INR change -0.22 -0.09 0.77 0.04 Warf Dose NPO 7.5 7.5 1MG 2.5mg Riky Gutierrez S Pharm D Oct 15, 2016 11:22
[2016-10-15 11:26] VITALS: PULSE 85
[2016-10-15 11:58] VITALS: BP 167/72; PULSE 106; RESP 22; O2SAT 98
[2016-10-15] MEDS ORDERED: Furosemide 10 mg/mL 4 mL Inj IVPUSH ONE (15:05)
--- NOTE | 2016-10-15 18:40 | NUR ---
pain pt c/o pain through the day, medicated with 2mg morphine. Not much relief per pt. MD made aware. New orders added for 10mg Oxycodone. Pt stating pain better control with the combination of oxycodone and morphine. Will report to oncoming RN.
[2016-10-15] MEDS: HYDROmorphone 1 mg/mL Inj IVPUSH PRN (20:21)
[2016-10-15 20:25] VITALS: BP 136/60; PULSE 111; RESP 18; O2SAT 98
[2016-10-16] VITALS (9 sets, daily range): BP systolic 114–139; BP diastolic 32–91; PULSE 102–116; RESP 18–30; O2SAT 96–100
[2016-10-16] MEDS: HYDROmorphone 1 mg/mL Inj IVPUSH PRN ×2 (01:23→09:34)
[2016-10-16] MEDS: Penicillin G K Inj 3,000,000 UNITS in IV Premix 1 EACH IV SCH ×4 (02:30→21:10)
[2016-10-16 03:37] LABS: BASOPHILS % (AUTO) 0.4 % (0-3); EOSINOPHILS % (AUTO) 5.6 % (0-5); MONOCYTES % (AUTO) 11.9 % (4-12); Mean Corpuscular Hemoglobin 27.6 pg (27.0-35.0); Mean Corpuscular Volume 88.5 fL (81-100); NEUTROPHILS % (AUTO) 70.2 % (40-74); Platelet Count 256 bil/L (150-400)
[2016-10-16 03:54] LABS: INR 2.18 ratio
--- NOTE | 2016-10-16 04:54 | NUR ---
Pain/Sleep Pt reports he has not gotten much sleep the last few nights in the hospital. PO meds given to help pt sleep, including meds for his pain. Pt seemed to have adequately controlled pain throughout most of night, but he would suddenly wake up yelling/crying out in pain. PO/IV pain meds given and pt went back to sleep. This happened 2-3 times during NOC shift. Pt reports that "this is just what my leg does and wht I have to deal with". Leg remains severely swollen and tender despite PO lasix. Care ongoing
[2016-10-16] MEDS: Insulin LISPRO 300 Unit/3 mL Inj SUBQ SCH ×4 (08:00→21:17)
[2016-10-16] MEDS: DULoxetine 30 mg DR Capsule PO SCH (09:32)
[2016-10-16] MEDS: Pantoprazole 40 mg ER24 Tablet PO SCH (09:32)
[2016-10-16] MEDS: Mupirocin 2% 22 Gm Ointment TOPICAL SCH ×2 (09:33→21:13)
--- NOTE | 2016-10-16 10:26 | PROG NOTE ---
[address] [address] PROGRESS NOTE PATIENT: ROBBIE ACE : 1945 MR#: [id number] ADMIT: 10/11/2016 JOB ID: [id number] DATE: 10/16/2016 INFECTIOUS DISEASE FOLLOW UP NOTE: REASON FOR FOLLOWUP: Bacteremic group B streptococcal cellulitis, left lower extremity. Today the patient is complaining of severe pain in his left heel as well as more diffusely in his left calf. He tells us that if this pain continues at this level he would prefer to . He denies associated fevers, chills or sweats. He has no specific respiratory or GI complaint today. He has had two bowel movements the past 12 hours, one of which was very loose. PHYSICAL EXAMINATION: Reveals an afebrile, very uncomfortable gentleman. Note that he has been afebrile now for five full days since his admission on the . Pulse about 110 and regular. Respiratory rate in the low 20s, blood pressure 131/48. He is saturating well on room air. The patient is awake and alert but obviously in a great deal of discomfort secondary to his left lower extremity. Lungs relatively clear anteriorly. Cardiac tones without new murmur. Abdomen benign. The right AKA stump is benign and uninfected. The left lower extremity cellulitis seems to be receding in numerous areas but there is still considerable tenderness circumferentially around the left calf. The left heel is now quite tender by the patient's report and there is no obvious external abnormality other than some erythema there. Of greatest concern today is the fact that his left forefoot is quite cool to the touch and the capillary refill is basically infinite in that it is just purple and after blanching, the color takes 10 seconds or more to return, suggesting profound arterial insufficiency in addition to the obvious venous stasis. LABORATORIES: Include a white count stable at 8200. His differential is actually now essentially normal. Creatinine 0.85. LFTs normal. Procalcitonin all the way down to 0.46 from a peak of 5 when he started so we have a 90% drop in procalcitonin which suggests a good bacteriologic outcome. Group B strep is found in one of three bottles on admission and that was specifically sensitive to penicillin which he is now receiving. He is also colonized with MRSA. IMAGING: Here includes an ultrasound of the lower extremity which shows no DVT. Otherwise we have nothing of significance. IMPRESSION: My sense is that we are winning the queen of losing the war here. The patient's cellulitis is clearly improving as his white count, procalcitonin normalize and there is little evidence of ongoing or worsening infection. I continue to believe that penicillin is the optimal drug in this situation and I do not see a clear indication to add clindamycin, and the fact he is having some loose stools, would make me especially nervous about doing that at this juncture. More importantly though, it would appear that his left lower extremity is quite ischemic and this may be worsening in accounting for his increasing pain. He had some form of revascularizing procedure on the left lower extremity in June of this year at [facility] in [place] and I wonder if that procedure was not entirely successful. There has been additional arterial insufficiency which has arisen since that time. RECOMMENDATIONS: 1. I would continue with high-dose IV penicillin. 2. Will continue to follow his labs closely with you as well as his clinical status. 3. I would obtain an arterial Doppler of the left lower extremity and see if there is adequate circulation there. 4. I would also request records from [facility] regarding the surgery he underwent in June to get more details about his vasculature. 5. If he has progressive ischemia of the left lower extremity which we cannot address here, I would send the patient back to [place] for consideration of additional vascular interventions if that is possible. 6. This case discussed at the bedside with the resident from the team.
--- NOTE | 2016-10-16 12:57 | NUR ---
NUTRITION FOLLOW-UP: Assess: 71 YO M admitted with AMS, sepsis with bacteremia secondary to streptococcal cellulitis. The patient's cellulitis is clearly improving as his white count, procalcitonin normalizes and there is little evidence of ongoing or worsening infection. Left lower extremity is quite ischemic, and this may be worsening in accounting for his increasing pain. He had some form of revascularizing procedure on the left lower extremity in June of this year at [facility] in [place]. There has been additional arterial insufficiency which has arisen since that time. PMHX: DVT, GI bleed, Type 2 DM, R AKA, dementia, HTN, HLD, CAD, stroke. DIET: Dysphagia mechanical, thin liquids. PO intake 100% trays consistently. LABS: Na 133, chloride 96, Glu 126, Alb 3.2. MEDICATIONS: Reviewed. Lasix, dilaudid. GI: Loose BM x 2 today. SKIN: No additional issues noted. ANTHROPOMETRICS: Wt: 124.0 kg, BMI 42.0 kg/m2, Admit wt: 118.45 kg. Adj BW: 81.1 kg, IBW: 67.3 kg. ESTIMATED NEEDS: BMI, -16% for R AKA. Calories: 9548-1272 kcal/day (25-30 kcal/kg Adj. BW) Protein: 81-102 g/day (1.2-1.5 g/kg Adj. BW) NUTRITION DIAGNOSIS: 1) Chew/swallow difficulty related to aspiration risk as evidenced by need for dysphagia mechanical diet - PERSISTS. INTERVENTION: 1) Diet advance per speech therapy. MONITOR/EVALUATE: PO intake, labs, diet tolerance/advance, GI/nutrition status. Follow per low nutrition risk guidelines.
--- NOTE | 2016-10-16 13:35 | DRSVH ---
PROCEDURE: US DUPLEX DOPPLER UNILATERAL LEG ARTERIES, LEFT INDICATIONS: cold extremity poor cap refill TECHNIQUE: Color and pulse Doppler interrogation was performed of the left lower extremity arterial system, with image documentation. COMPARISON: [facility], , US ARTERY LEG DPLX UNI LT, 06/16/2016, 18:24. [facility], , US ARTERY LEG DPLX UNI LT, 07/15/2016, 8:26. FINDINGS: Elevated velocities seen within the left common femoral artery which is patent with systolic velociti es measuring up to 232 cm/s. High-grade stenosis seen involving the proximal arterial anastomosis o f the femoral-popliteal in situ graft which otherwise is completely occluded distal to this point and no flow is visualized within the popliteal artery or within the visualized calf vessels. Impression: High-grade stenosis involving the origin of the left femoral-popliteal in situ bypass gra ft with occlusion of the graft distal to this point and no flow seen within the [place] popliteal domenico ry or the visualized Vessels. Dictated by: Jayme Sotelo Gavino Interpreted: Magalie Lopez MD on 10/16/2016 at 13:25 Transcribed by: ZAHEER on 10/16/2016 at 13:34 Approved by: Magalie Lopez M.D. on 10/16/2016 at 14:01
--- NOTE | 2016-10-16 13:36 | NUR ---
Social Work: Continued Discharge Planning/Multidisciplinary Rounds D: Pt discussed in multidisciplinary rounds; the patient is not medically stable for discharge. The patient continues to be follow by Infectious Disease to determine the appropriate antibiotic course. Per bedside RN, the patient is having pain control issues. Attending provider will continue to work on this. PC TECH met with the patient at bedside to confirm his discharge plan and check-in. The patient confirms that he will return to [facility] in [place] once medically stable. A: Pt who is a LTC resident at [facility]; pt has a Right BKA and LL Cellulitis. P: Anticipate pt to return to [facility] in [place] with Dr. Lozano to follow once medically stable; PC TECH to continue to follow to assess for unmet discharge needs. KARY Siegel
[2016-10-16] MEDS: LORazepam 1 mg Tablet PO PRN (14:46)
[2016-10-16] MEDS ORDERED: Magnesium Sulf 4 Gm/100 mL H2O 4 GM in IV Premix 1 EACH IV ONE (17:45)
--- NOTE | 2016-10-16 17:51 | NUR ---
Muscle cramping. Today patient started experiencing muscle cramping in left arm. sudden onset rating 10/10. first episode today, massage and range of motion exercises were effective. Dr Gutierrez notified and Mg level ordered along with K-pad for comfort. 2nd episode of arm cramping occurred. this time it was bilaterally, left > right. K-pad applied along with massage, ROM and PRN Ativan given slowly improved cramping. this evening muscle cramping occurred again only in left arm. Medication list reviewed for possible causes. discussed with pharmacist as well. Lipitor may be a possibility, but patient has been on same dose at home. Penicillin G may cause muscle twitching/cramping at high dose. Information reviewed with Dr Gutierrez. will reviewed medication and see about possible change in antibiotic, if warranted. no new orders at this time. continue to monitor. Addendum: 10/16/16 at 1815 by KRISHNA BARROW RN Further discussion with Dr Gutierrez, low probability that PCN G may be causing muscle cramping. ordered 4gm Mg rider. started at 1800hrs today. continue to monitor.
--- NOTE | 2016-10-16 20:14 | PCM.DC.MED ---
Discharge Summary Date of Service Oct 16, 2016 Dates of Hospitalization Date of Hospital Admission Oct 11, 2016 at 15:59 Date of Discharge: Oct 17, 2016 Providers: Admitting Physician: Shayan Hawkins DO Primary Care Physician: Nikolai Lozano MD Attending Physician: Reagan Phipps MD Diagnosis at Time of Discharge Diagnosis at Time of Discharge Acute vascular occlusion of the left leg, not present on admission, active Sepsis with bacteremia secondary to streptococcal cellulitis, present on admission, improving Normocytic anemia secondary to chronic GI bleeding, POA, active Chronic MRSA colonization, present on admission, ongoing Bacterial encephalopathy, present on admission, resolved Acute kidney injury, present on admission, resolving History of Systolic CHF , present on admission, stable Nonspecific chest pain with minor EKG changes, present on admission, resolving Diabetes mellitus type II, chronic, present on admission Hypomagnesemia, present on admission, resolved Acute Hypotension, present on admission, Resolved GERD, chronic, present on admission History of DVT, chronic, present on admission History of major depression, chronic, present on admission History of chronic pain , present on admission Consultations Infectious disease: Dr. Boone Procedures XRay, CTs & MRIs X-RAY CHEST ONE VIEW, PORTABLE IMPRESSION: Small lung volumes. No acute abnormality. Dictated by: Toño Watts M.D. on 10/11/2016 at 15:03 Approved by: Toño Watts M.D. on 10/11/2016 at 15:04 Other Diagnostics US EXTREMITY SONOGRAM LIMITED IMPRESSION: Soft tissue edema with no drainable fluid collections. Dictated by: Shay Zhou M.D. on 10/12/2016 at 16:40 Approved by: Shay Zhou M.D. on 10/12/2016 at 16:41 US VEINOUS LEG DUPLEX UNILATERAL, LEFT IMPRESSION: No deep venous thrombosis identified within the left lower extremity. Dictated by: Jayme Sotelo [facility] Interpreted: Dinesh Chan MD on 10/14/2016 at 13:42 Approved by: Dinesh Chan M.D. on 10/14/2016 at 14:05 US DUPLEX DOPPLER UNILATERAL LEG ARTERIES, LEFT FINDINGS: Elevated velocities seen within the left common femoral artery which is patent with systolic velocities measuring up to 232 cm/s. High-grade stenosis seen involving the proximal arterial anastomosis of the femoral-popliteal in situ graft which otherwise is completely occluded distal to this point and no flow is visualized within the popliteal artery or within the visualized calf vessels. Impression: High-grade stenosis involving the origin of the left femoral- popliteal in situ bypass graft with occlusion of the graft distal to this point and no flow seen within the [place] popliteal artery or the visualized Vessels. Dictated by: Jayme HOLLOWAY Interpreted: Magalie Lopez MD on 10/16/2016 at 13: 25 Transcribed by: ZAHEER on 10/16/2016 at 13:34 Approved by: Magalie Lopez M.D. 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 The pt was found to be altered, tachycardic and febrile this morning with oxygen saturation at 86% on room air. Pt c/o associated SOB, chest pain, cough, and chills. History is limited due to pt's inability to provide a reliable history. In the ED, he was treated with 1 L of normal saline, Tylenol, Vanco, Zosyn, and Levaquin. Patient also received Haldol for agitation. History of seeing the wound clinic, no apparent chronic wounds on his backside. Hospital Course Pt is a 71 year old male with an extensive medical history brought to the ED via EMS from [facility] for evaluation of altered mental status. Sepsis with bacteremia secondary to streptococcal cellulitis, present on admission, improving Patient presented with tachycardia, hypotension, increased respiration, leukocytosis with obvious left shift, lactic acidosis, elevated pro-calcitonin The erythema and tenderness of the left leg are suggestive of cellulitis. The patient has a history of multiple episodes of cellulitis on the same leg. Patient has a history of infection with MRSA and Pseudomonas. - Anterior leg continues to be warm and erythematous - MRSA PCR positive - Blood cultures 2 positive for GBS -Continue penicillin IV every 6, - Ultrasound of the thigh shows diffuse cellulitis without abscess, no DVT identified with venous duplex - ID following - Increased pain on 10/15 home analgesics reinitiated -Continue home Lasix and spironolactone Normocytic anemia secondary to chronic GI bleeding, POA, active Hgb continues low but stable, dilutional, continue to monitor - Hemoglobin 9.7 on admission, currently 7.3 - Consider transfusion if patient remains less than 7.0 - Continue to monitor Chronic MRSA colonization, present on admission, ongoing - Muporocin applied inner nares Bacterial encephalopathy, present on admission, resolved Moderately encephalopathic upon admission, now appears to be acting and communicating appropriately, but continues with mild dementia - Patient's mentation appears to clear during the day consistent with possible sundowning phenomenon - Patient is on home lorazepam as well as methadone for both agitation as well as chronic pain likely contributing to some overnight delirium - Seroquel QHS for agitation Acute kidney injury, present on admission, resolving - Creatinine 1.3 at admission. Baseline Creatinine less than 1. - BUN/creatinine improving -Continue home Lasix and spironolactone - Continue to monitor - Avoid nephrotoxic medications History of Systolic CHF , present on admission, stable - Most recent echo 07/14/16 shows EF of 55-60% - Continue Metoprolol Succinate ER - Continue lisinopril - Continue home Lasix and spironolactone Nonspecific chest pain with minor EKG changes, present on admission, resolving Patient appears to be complaining of minor chest pain with pain with chest tightness, patient has history of acute coronary syndrome - Troponins negative 4 - When necessary ECGs with available sublingual nitroglycerin and morphine Diabetes mellitus type II, chronic, present on admission - No diabetes medications listed on med rec - Initiate Low-dose correctional insulin - Hemoglobin A1c 5.8 on 05/03/16 Hypomagnesemia, present on admission, resolved - 2 g given IV on admission - Currently Within normal limits Acute Hypotension, present on admission, Resolved Likely secondary to sepsis, vital signs currently within normal limits - Continue to monitor GERD, chronic, present on admission - Continue Protonix History of DVT, chronic, present on admission - Continue warfarin dosing per pharmacy History of major depression, chronic, present on admission - Continue duloxetine History of chronic pain , present on admission -Continue patient's home methadone -Continue home oxycodone -1-2 mg morphine every 4 hours when necessary Disposition: Patient transferred to [facility] for revascularization Exam Vital Signs (Last) Date Time Temp Pulse Resp B/P Pulse Ox O2 Delivery O2 Flow Rate FiO2 10/16/16 15:35 37.0 106 24 121/59 96 Nasal Cannula 2.00 Exam General: No acute distress, well-developed, well-nourished Head: Normocephalic, atraumatic. External ears without defect. Eyes: Pupils equal, round, and reactive to light and accommodation. Anicteric sclerae, moist conjunctivae. Neck: Normal range of motion, no lymphadenopathy noted Cardiovascular: Regular rate and rhythm with no murmurs, rubs, or gallops appreciated Pulmonary: Clear to auscultation bilaterally with no crackles, wheezes, or rhonchi. Normal respiratory effort with no use of accessory muscles. Abdomen: Bowel tones present. Soft, obese nontender, nondistended. Extremities: No clubbing, cyanosis, trace edema, amputation of the right leg, long surgical scar on the inner aspect of the left leg from previous bypass graft. Diffuse tenderness of the left leg, mild erythema especially on the anterior aspect of the left lower leg. Decreased temperature and capillary refill of the left lower leg. Neurological: Cranial nerves grossly intact. Normal muscle strength, tone, and bulk. Psychiatric: Normal mood and affect. Test 10/11/16 14:15 10/11/16 14:33 10/12/16 06:20 10/12/16 18:08 Urine Color Yellow (YELLOW) Urine Appearance Clear (CLEAR,HAZY) Urine pH 8.0 (5.0-8.0) Urine Specific [place] 1.010 (1.003-1.035) Urine Protein Negativemg/dL (NEG,TRACE) Urine Glucose (UA) Negativemg/dL (NEGATIVE) Urine Ketones Negativemg/dL (NEGATIVE) Urine Occult Blood Trace (NEGATIVE) Urine Nitrite Negative (NEGATIVE) Urine Bilirubin Negative (NEGATIVE) Urine Urobilinogen Normalmg/dL (NORMAL) Urine Leukocyte Esterase Negative (NEGATIVE) Urine RBC 0-2/hpf (0-2) Urine WBC 0-5/hpf (0-5) Urine Epithelial Cells Few/hpf (NONE-MOD) Urine Crystals None seen (NONE SEEN) Urine Bacteria Few/hpf (NONE-FEW) Urine Hyaline Casts None/lpf (NONE) Urine Granular Casts None seen (NONE SEEN) Urine Waxy Casts None seen (NONE SEEN) Urine Red Blood Cell Casts None seen (NONE SEEN) Urine White Blood Cell Casts None seen (NONE SEEN) Urine Mucus None seen (None Seen) Urine Trichomonas None seen (NONE SEEN) Urine Yeast None (NONE SEEN) Urinalysis Comment None Urine Culture Reflexed Not indicated Pro-B-Type Natriuretic Peptide 1527pg/mL (0-376) Lipase 13U/L (13-60) Lactic Acid Level 1.4mmol/L (0.4-2.0) Troponin T < 0.010ug/L (0.0-0.011) Test 10/13/16 02:42 10/14/16 03:18 10/15/16 03:50 10/16/16 02:50 Band Neutrophils % 1% (1-5) Erythrocyte Sedimentation Rate 125mm/hr (0-30) C-Reactive Protein 22.1mg/dL (0.0-0.5) Phosphorus Level 3.7mg/dL (2.5-4.9) Iron Level 17ug/dL (35-150) Total Iron Binding Capacity 192ug/dL (250-450) Percent Iron Saturation 9%sat (15-50) Unsaturated Iron Binding 174.8ug/dL Ferritin 119ng/mL (30-400) Vitamin B12 Level 249pg/mL (211-946) Folate 8.2ng/mL (>3.0) White Blood Count 8.2th/mm3 (3.8-10.1) Red Blood Count 3.12mil/mm3 (4.40-5.80) Hemoglobin 8.6g/dL (13.8-17.2) Hematocrit 27.6% (41.0-50.0) Mean Corpuscular Volume 88.5fL (81-100) Mean Corpuscular Hemoglobin 27.6pg (27.0-35.0) Mean Corpuscular Hemoglobin Concent 31.2% (32.0-37.0) Red Cell Distribution Width 17.2% (12.3-15.4) Platelet Count 256bil/L (150-400) Neutrophils (%) (Auto) 70.2% (40-74) Lymphocytes (%) (Auto) 10.8% (14-46) Monocytes (%) (Auto) 11.9% (4-12) Eosinophils (%) (Auto) 5.6% (0-5) Basophils (%) (Auto) 0.4% (0-3) Prothrombin Time 23.7sec (8.1-12.5) Prothromb Time International Ratio 2.18ratio Sodium Level 133mEq/L (134-144) Potassium Level 4.7mEq/L (3.5-5.2) Chloride Level 96mEq/L (97-108) Carbon Dioxide Level 22mmol/L (18-29) Blood Urea Nitrogen 18mg/dL (8-27) Creatinine 0.85mg/dL (0.76-1.27) Estimat Glomerular Filtration Rate 95mL/min (>59) Glucose Level 126mg/dL (60-99) Calcium Level 8.8mg/dL (8.5-10.1) Magnesium Level 1.6mg/dL (1.6-2.6) Total Bilirubin 0.3mg/dL (0.0-1.2) Aspartate Amino Transf (AST/SGOT) 15U/L (0-50) Alanine Aminotransferase (ALT/SGPT) 16U/L (0-44) Alkaline Phosphatase 83U/L (25-160) Total Protein 7.1g/dL (6.4-8.4) Albumin 3.2g/dL (3.4-5.0) Procalcitonin 0.46ng/mL (0.00-0.08) Discharge Medications Discharge Medications Ascorbate Calcium (Vitamin C) 500 Mg Tablet 500 MG PO DAILY (Reported) Atorvastatin (Lipitor) 80 Mg Tablet 80 MG PO HS (Reported) Baclofen (Baclofen) 10 Mg Tablet 10 MG PO TIDWM (Reported) 0700, 1300, 1700 Duloxetine (Duloxetine) 60 Mg Capsule.dr 60 MG PO DAILY (Reported) Ferrous Sulfate (Ferrous Sulfate) 325 Mg Tablet 325 MG PO TIDAC (Reported) Furosemide (Furosemide) 40 Mg Tablet 40 MG PO BID (Reported) Lisinopril (Lisinopril) 5 Mg Tablet 5 MG PO BID Prescribed by: GABRIELA KELLEY DO Methadone (Methadone) 5 Mg Tablet 5 MG PO BID (Reported) Metoprolol Succinate ER (Metoprolol Succinate ER) 50 Mg Tab.er.24h 50 MG PO DAILY (Reported) Multivitamin (Multivitamins) 1 Each Capsule 1 EACH PO DAILY (Reported) Pantoprazole DR (Pantoprazole DR) 40 Mg Tablet.dr 40 MG PO QAM (Reported) Spironolactone (Aldactone) 25 Mg Tablet 12.5 MG PO DAILY Prescribed by: GABRIELA KELLEY DO Warfarin Sodium (Warfarin Sodium) 7.5 Mg Tablet 7.5 MG PO MON,FRI (Reported) Warfarin Sodium (Warfarin Sodium) 5 Mg Tablet 5 MG PO SUN,TUE,WED,THUR,SAT ( Reported) Zinc Gluconate (Zinc) 30 Mg Tablet 220 MG PO DAILY (Reported) As needed Acetaminophen (Acetaminophen) 325 Mg Capsule 650 MG PO q4 hours PRN PRN For Pain (Reported) Bisacodyl (Dulcolax Rectal) 10 Mg Supp.rect 10 MG RC DAILY PRN PRN For Constipation (Reported) IF NO BM POST MOM ADMINISTRATION ON 4TH DAY Calcium Carbonate (Tums) 500 Mg Tab.chew 500 MG PO Q6H PRN PRN GI UPSET ( Reported) Lorazepam (Lorazepam) 1 Mg Tablet 1 MG PO Q4H PRN PRN ANXIETY (Reported) Magnesium Hydroxide (Milk of Magnesia) 400 Mg/5 Ml Oral.susp 30 ML PO HS PRN PRN For Constipation (Reported) AFTER NO BM X 3 DAYS. GIVE AT HS. Melatonin (Melatonin 1 mg Tablet) 1 Each Tablet 5 MG PO HS PRN PRN Insomnia ( Reported) Na Phos,M-B/Na Phos,Di-Ba (Fleet Enema) 133 Ml Enema 133 ML RC DAILY PRN PRN For Constipation (Reported) IF NO BM POST BISACODYL ADMIN ON EVENING OF 4TH DAY Nitroglycerin SL (Nitrostat) 0.4 Mg Tab.subl 0.4 MG SL Q5MIN PRN PRN For Chest Pain IF SBP > 90 May use up to 3 times 5 minutes apart for chest pain Prescribed by: GABRIELA KELLEY DO Ondansetron (Zofran) 4 Mg Tablet 4 MG PO Q8H PRN PRN For Nausea (Reported) Oxycodone (Roxicodone) 5 Mg Tablet 10 MG PO Q4H PRN PRN For Pain (Reported) Polyethylene Glycol 3350 (Miralax) 17 Gm Powd.pack 17 GM PO QID PRN PRN For Constipation (Reported) diphenhydrAMINE HCl (Benadryl) 25 Mg Capsule 25 MG PO Q8H PRN PRN RASH (Reported ) Followup Plan Disposition: Transfer to [facility] Time spent Greater than 30 minutes was spent in preparation of discharge with greater than 50% of that time dedicated to patient counseling and coordination of care. . Attending Statement The patient was seen and examined together with Dr. Almaguer on 10/17/2016 and I agree with the history, exam and plan as outlined in the note above. . copies to: Nikolai Lozano MD, Adam J DO Oct 16, 2016 20:14 Reagan Phipps MD Oct 17, 2016 15:57
[2016-10-17] MEDS: LORazepam 1 mg Tablet PO PRN ×2 (01:55→12:24)
[2016-10-17] MEDS: Penicillin G K Inj 3,000,000 UNITS in IV Premix 1 EACH IV SCH ×2 (02:53→08:58)
[2016-10-17 03:14] VITALS: BP 103/62; PULSE 107; RESP 13; O2SAT 99
[2016-10-17] MEDS: HYDROmorphone 1 mg/mL Inj IVPUSH PRN ×3 (04:25→12:23)
[2016-10-17 05:39] VITALS: PULSE 112
[2016-10-17 06:03] LABS: BASOPHILS % (AUTO) 0.5 % (0-3); EOSINOPHILS % (AUTO) 5.3 % (0-5); MONOCYTES % (AUTO) 10.7 % (4-12); Mean Corpuscular Hemoglobin 27.2 pg (27.0-35.0); Mean Corpuscular Volume 88.4 fL (81-100); NEUTROPHILS % (AUTO) 71.4 % (40-74); Platelet Count 285 bil/L (150-400)
[2016-10-17 06:21] LABS: Phosphorus 4.2 mg/dL (2.5-4.9)
[2016-10-17 06:39] VITALS: O2SAT 97
--- NOTE | 2016-10-17 06:40 | NUR ---
Pain Pt had intermittent c/o pain in left leg/foot, 7-09/25. Pain also noted to increase w/ any activity, including turning pt for assessments. Pt states onset of pain can be very sudden. Pt given pain meds as needed w/ good effect as pt appeared to be able to sleep comfortably after these were given. Vitals stable, tele STach 100s-110s. Sats high 90s on 2L, titrated down to 1L this morning. Pt put out large amount of urine, see I&Os.
[2016-10-17 08:00] VITALS: PULSE 103
[2016-10-17] MEDS: Insulin LISPRO 300 Unit/3 mL Inj SUBQ SCH ×2 (08:00→11:58)
[2016-10-17 08:39] VITALS: PULSE 95; RESP 23; O2SAT 98
[2016-10-17] MEDS: Pantoprazole 40 mg ER24 Tablet PO SCH (08:39)
[2016-10-17] MEDS: DULoxetine 30 mg DR Capsule PO SCH (08:40)
[2016-10-17] MEDS: Mupirocin 2% 22 Gm Ointment TOPICAL SCH (08:41)
--- NOTE | 2016-10-17 08:44 | PROG NOTE ---
[address] [address] PROGRESS NOTE PATIENT: ROBBIE ACE : 1945 MR#: [id number] ADMIT: 10/11/2016 JOB ID: [id number] DATE: 10/17/2016 REASON FOR FOLLOWUP: Bacteremic group B streptococcal cellulitis involving the remaining left lower extremity. INTERVAL HISTORY: Overnight, the patient has continued to have pain along his heel and Achilles area, even as his cellulitis seems to have improved. He has no fevers, no chills, no sweats. His respiratory status is stable. He is not significantly short of breath, and has no nausea, vomiting, or diarrhea, but he continues to have severe pain around the left heel, and proximally along the posterior calf. PHYSICAL EXAMINATION: Reveals an afebrile gentleman, temp 37, pulse about 100-110, respiratory rate in the teens, saturating well on just 1 L. Blood pressure stable at 103/52. He is awake, alert, and complaining of pain in his leg. His lungs are relatively clear, with moderately good air exchange, a few crackles. Cardiac tones: Regular rate and rhythm, without new murmur. Abdomen: Somewhat obese, soft, nontender. The cellulitis present over the left lower extremity has gradually receded, even though he continues to have a diffuse erythroderma below the level of the knee, which looks like venous stasis. There are areas; however, of blanching, which are spontaneous along the dorsal toes, and his forefoot is relatively cool to the touch. Capillary refill is incredibly prolonged, and he has no peripheral pulses. LABORATORIES: Include white count 8800, which has improved from 16,000 on admission. His creatinine is 0.89. His LFTs are normal. Procalcitonin 0.46 yesterday, down 90% from a level of 5 when he came in. His nasal smear was positive for MRSA. His blood cultures grew penicillin susceptible group B strep. No further micros available. DIAGNOSTIC DATA: Yesterday, we had ordered an arterial Doppler of the lower extremities. This has been revealing, and it showed high-grade stenosis of the left fem-pop bypass, with occlusion of the graft distal to the origin of the graft, with no flow whatsoever seen below the level of the graft. IMPRESSION: This patient is now in his sixth day of appropriate therapy for his group B streptococcal bacteremia, and we are currently using penicillin. His cellulitis seems to be improving day by day, both by clinical criteria, as well as white count and procalcitonin. I would recommend continuing with either high-dose penicillin or ceftriaxone for about four more days to complete 10 days of therapy for the group B strep bacteremia and cellulitis. The bigger issue here is that his left lower extremity is frankly ischemic, and he is at risk to lose his only remaining leg. I agree with the plans which are underway to transfer the patient to [place], or another center with vascular surgery capabilities. RECOMMENDATIONS: 1. Continue either penicillin or ceftriaxone for about four more days, through October 21, to complete therapy for cellulitis. 2. Transfer to a facility with Vascular Surgery for possible revascularization and/or amputation. ID will sign off at this time as the patient is leaving, but do not hesitate to call me if there are additional questions or issues.
[2016-10-17 09:52] LABS: INR 2.05 ratio
[2016-10-17 11:58] VITALS: BP 130/89; PULSE 107; RESP 20; O2SAT 97
--- NOTE | 2016-10-17 13:46 | NUR ---
Transfer out Patient was discharged today to [facility] by [facility] ambulance transport in stable condition. Patient was medicated with dilauded 1mg at the time of transport for chronic left lower extremity pain. Pain was increased with movement and repositioning. Patient also stated felling anxious and was given 1mg of PO Ativan- paramedics were made aware. Patient was medicated with dilauded and oxycodone PRN doses this morning for similar pain with good results. Report was called to the receiving facility [facility] at 1150 prior to transfer. Also report was given to the transport state farm agent team member at the bedside. Patient left at 1245.
--- NOTE | 2016-10-17 16:30 | PCM.PNMED ---
Subjective Date of Service Oct 16, 2016 Subjective Subjective: Patient complains of increased pain in the left leg. Pain is minimally controlled with home medications as well as morphine 2 mg every 4 hours. Events Overnight: No acute events overnight. ROS: Left Lower leg pain and swelling Denies fever/chills, nausea/vomiting, headache, weakness, abdominal pain, chest pain, shortness of breath. Exam Vital Signs Vital Sign - Last Date Time Temp Pulse Resp B/P Pulse Ox O2 Delivery O2 Flow Rate FiO2 10/17/16 11:58 37.2 107 20 130/89 97 Room Air 10/17/16 08:39 1.00 Intake and Output 10/16/16 10/16/16 10/17/16 Cumulative From/Thru 15:00 23:00 07:00 10/11/16 18:33 - 10/17/16 06:42 Intake Total 826 ml 1083 ml 41441 ml Output Total 925 ml 2100 ml 9400 ml Balance -99 ml -1017 ml 4060 ml Intake Oral 620 ml 800 ml 6525 ml IV Total 206 ml 283 ml 6935 ml Output Urine Total 925 ml 2100 ml 9400 ml Other 0 ml # Voids 26 # Bowel Movements 1 5 Exam General: No acute distress, well-developed, well-nourished Head: Normocephalic, atraumatic. External ears without defect. Eyes: Pupils equal, round, and reactive to light and accommodation. Anicteric sclerae, moist conjunctivae. Neck: Normal range of motion, no lymphadenopathy noted Cardiovascular: Regular rate and rhythm with no murmurs, rubs, or gallops appreciated Pulmonary: Clear to auscultation bilaterally with no crackles, wheezes, or rhonchi. Normal respiratory effort with no use of accessory muscles. Abdomen: Bowel tones present. Soft, obese nontender, nondistended. Extremities: No clubbing, cyanosis, trace edema, amputation of the right leg, long surgical scar on the inner aspect of the left leg from previous bypass graft. Diffuse tenderness of the left leg, mild erythema especially on the anterior aspect of the left lower leg. Decreased temperature and capillary refill of the left lower leg. Neurological: Cranial nerves grossly intact. Normal muscle strength, tone, and bulk. Psychiatric: Normal mood and affect. IVs and Medications IV Fluids 200 mL normal saline delivered if IV medications. Medications Reviewed: Medications were reviewed in detail Medications High risk medications include: Dilaudid Oxycodone Methadone Lab and Diagnostics Result Diagram: 10/17/16 0553 10/17/16 0553 X-Rays, CTs and MRIs X-RAY CHEST ONE VIEW, PORTABLE IMPRESSION: Small lung volumes. No acute abnormality. Dictated by: Toño Watts M.D. on 10/11/2016 at 15:03 Approved by: Toño Watts M.D. on 10/11/2016 at 15:04 Additional Diagnostics US EXTREMITY SONOGRAM LIMITED IMPRESSION: Soft tissue edema with no drainable fluid collections. Dictated by: Shay Zhou M.D. on 10/12/2016 at 16:40 Approved by: Shay Zhuo M.D. on 10/12/2016 at 16:41 US VEINOUS LEG DUPLEX UNILATERAL, LEFT IMPRESSION: No deep venous thrombosis identified within the left lower extremity. Dictated by: Jayme HOLLOWAY Interpreted: Dinesh Chan MD on 10/14/2016 at 13:42 Approved by: Dinesh Chan M.D. on 10/14/2016 at 14:05 US DUPLEX DOPPLER UNILATERAL LEG ARTERIES, LEFT FINDINGS: Elevated velocities seen within the left common femoral artery which is patent with systolic velocities measuring up to 232 cm/s. High-grade stenosis seen involving the proximal arterial anastomosis of the femoral-popliteal in situ graft which otherwise is completely occluded distal to this point and no flow is visualized within the popliteal artery or within the visualized calf vessels. Impression: High-grade stenosis involving the origin of the left femoral- popliteal in situ bypass graft with occlusion of the graft distal to this point and no flow seen within the [place] popliteal artery or the visualized Vessels. Dictated by: Jayme HOLLOWAY Interpreted: Magalie Lopez MD on 10/16/2016 at 13: 25 Transcribed by: ZAHEER on 10/16/2016 at 13:34 Approved by: Magalie Lopez M.D. on 10/16/2016 at 14:01 Assessment & Plan Pt is a 71 year old male with an extensive medical history brought to the ED via EMS from [facility] for evaluation of altered mental status. Sepsis with bacteremia secondary to streptococcal cellulitis, present on admission, improving Patient presented with tachycardia, hypotension, increased respiration, leukocytosis with obvious left shift, lactic acidosis, elevated pro-calcitonin The erythema and tenderness of the left leg are suggestive of cellulitis. The patient has a history of multiple episodes of cellulitis on the same leg. Patient has a history of infection with MRSA and Pseudomonas. - Anterior leg continues to be warm and erythematous - MRSA PCR positive - Blood cultures 2 positive for GBS - Continue penicillin IV every 6, - Ultrasound of the thigh shows diffuse cellulitis without abscess, no DVT identified with venous duplex - ID following - Increased pain on 10/15 home analgesics reinitiated -Continue home Lasix and spironolactone Normocytic anemia secondary to chronic GI bleeding, POA, active Hgb continues low but stable, dilutional, continue to monitor - Hemoglobin 9.7 on admission, currently 7.3 - Consider transfusion if patient remains less than 7.0 - Continue to monitor Chronic MRSA colonization, present on admission, ongoing - Muporocin applied inner nares Bacterial encephalopathy, present on admission, resolved Moderately encephalopathic upon admission, now appears to be acting and communicating appropriately, but continues with mild dementia - Patient's mentation appears to clear during the day consistent with possible sundowning phenomenon - Patient is on home lorazepam as well as methadone for both agitation as well as chronic pain likely contributing to some overnight delirium - Seroquel QHS for agitation Acute kidney injury, present on admission, resolving - Creatinine 1.3 at admission. Baseline Creatinine less than 1. - BUN/creatinine improving -Continue home Lasix and spironolactone - Continue to monitor - Avoid nephrotoxic medications History of Systolic CHF , present on admission, stable - Most recent echo 07/14/16 shows EF of 55-60% - Continue Metoprolol Succinate ER - Continue lisinopril - Continue home Lasix and spironolactone Nonspecific chest pain with minor EKG changes, present on admission, resolving Patient appears to be complaining of minor chest pain with pain with chest tightness, patient has history of acute coronary syndrome - Troponins negative 4 - When necessary ECGs with available sublingual nitroglycerin and morphine Diabetes mellitus type II, chronic, present on admission - No diabetes medications listed on med rec - Initiate Low-dose correctional insulin - Hemoglobin A1c 5.8 on 05/03/16 Hypomagnesemia, present on admission, resolved - 2 g given IV on admission - Currently Within normal limits Acute Hypotension, present on admission, Resolved Likely secondary to sepsis, vital signs currently within normal limits - Continue to monitor GERD, chronic, present on admission - Continue Protonix History of DVT, chronic, present on admission - Continue warfarin dosing per pharmacy History of major depression, chronic, present on admission - Continue duloxetine History of chronic pain , present on admission -Continue patient's home methadone -Continue home oxycodone -1-2 mg morphine every 4 hours when necessary Disposition: Patient will be transferred to [facility] on 10/17 for revascularization Pain Evaluation: Adequate Pain Control VTE Prophylaxis: Other (warfarin currently subtherapeutic) Resuscitation Status: DNR/DNI:Do Not Resuscitate/Intubate Attending Statement The patient was seen and examined together with Dr. Almaguer on 10/16/2016 and I agree with the history, exam and plan as outlined in the note above. . Varun Almaguer DO Oct 17, 2016 16:30 Reagan Phipps MD Oct 17, 2016 17:24
== END 2016-10-17 12:35 | disposition short-term general hospital (02) | DRG 871 ==
LOC: SED 13:27 → PCC 15:59 → CCU 10-12 06:56 → PCC 10-12 18:01
PROVIDERS: ADMIT Family Medicine; ATTEND Internal Medicine
DX: A40.1 Sepsis due to streptococcus, group B (principal); G93.41 Metabolic encephalopathy; L03.116 Cellulitis of left lower limb; N17.9 Acute kidney failure, unspecified; E87.2 Acidosis; I50.22 Chronic systolic (congestive) heart failure; Z68.41 Body mass index [BMI] 40.0-44.9, adult; F05 Delirium due to known physiological condition; R41.82 Altered mental status, unspecified; D50.0 Iron deficiency anemia secondary to blood loss (chronic); E66.9 Obesity, unspecified; Z86.718 Personal history of other venous thrombosis and embolism; Z79.01 Long term (current) use of anticoagulants; Z66 Do not resuscitate; Z87.891 Personal history of nicotine dependence; Z89.511 Acquired absence of right leg below knee; E83.42 Hypomagnesemia; E11.9 Type 2 diabetes mellitus without complications; K21.9 Gastro-esophageal reflux disease without esophagitis; F32.9 Major depressive disorder, single episode, unspecified; G89.29 Other chronic pain; Z22.322 Carrier or suspected carrier of Methicillin resistant Staphylococcus aureus; F03.90 Unspecified dementia, unspecified severity, without behavioral disturbance, psychotic disturbance, mood disturbance, and anxiety; Z86.73 Personal history of transient ischemic attack (TIA), and cerebral infarction without residual deficits; I95.9 Hypotension, unspecified; I77.1 Stricture of artery; R07.9 Chest pain, unspecified

== ENCOUNTER 2016-11-10 16:53 | Inpatient (IN) | payer MEDICARE, MEDICAID ==
[~2016-11-10] VITALS: Ht 172.7 cm; Wt 114.9 kg
[2016-11-10] VITALS (7 sets, daily range): BP systolic 95–136; BP diastolic 34–87; PULSE 69–119; RESP 18–35; O2SAT 91–100
[~2016-11-10 16:53] MED LIST changes: +ATOR80TA PO; +CALC500T9 PO; -CHOL200025 PO; +DULO60CA61 PO; +FERR-83 PO; +MELA1TAB10 PO; -MELA3TAB35 PO; +METH5TAB3 PO; -METO-272 PO; +METO-369 PO; -MS15TCR PO; +MULT1CAP33 PO; +ONDA4TAB6 PO; -VENL75CA PO; -WARF2.5T82 PO; +WARF5TAB7 PO; +WARF7.5T4 PO
--- NOTE | 2016-11-10 17:13 | ED.REPORT ---
HPI-Altered Mental Status Date of Service Nov 10, 2016 ED Provider: Devon Brown MD The pt is 71 y/o male w/ a hx of dementia, sepsis, gout, gastric ulcers, CHF, CAD, diabetes, HTN, depression, hyperlipidemia, and multiple other chronic conditions presenting to the ED via EMS due to an altered LOC. The pt came here to the ED from [facility] in [place]. Per [facility], the pt has not experienced a fever. They report the pt beginning to become more confused over the last week but being okay for the three weeks prior to that. They say he has been in hospitalized multiple times for the similar symptoms to what he is experiencing today. Nursing Notes Stated Complaint: ALTERED LEVEL OF CONCIOUSNESS Chief Complaint: Altered LOC Nursing Notes Reviewed: Yes ([facility] Allergies: Coded Allergies: No Known Allergies (Unverified , 07/11/16) Scheduled Ascorbate Calcium (Vitamin C) 500 Mg Tablet 500 MG PO DAILY Atorvastatin (Lipitor) 80 Mg Tablet 80 MG PO HS Baclofen (Baclofen) 10 Mg Tablet 10 MG PO TIDWM 0700, 1300, 1700 Duloxetine (Duloxetine) 60 Mg Capsule.dr 60 MG PO DAILY Ferrous Sulfate (Ferrous Sulfate) 325 Mg Tablet 325 MG PO TIDAC Furosemide (Furosemide) 40 Mg Tablet 40 MG PO BID Lisinopril (Lisinopril) 5 Mg Tablet 5 MG PO BID Methadone (Methadone) 5 Mg Tablet 5 MG PO BID Metoprolol Succinate ER (Metoprolol Succinate ER) 50 Mg Tab.er.24h 50 MG PO DAILY Multivitamin (Multivitamins) 1 Each Capsule 1 EACH PO DAILY Pantoprazole DR (Pantoprazole DR) 40 Mg Tablet.dr 40 MG PO QAM Spironolactone (Aldactone) 25 Mg Tablet 12.5 MG PO DAILY Warfarin Sodium (Warfarin Sodium) 7.5 Mg Tablet 7.5 MG PO MON,FRI Warfarin Sodium (Warfarin Sodium) 5 Mg Tablet 5 MG PO THU,THU,THU,,SAT Zinc Gluconate (Zinc) 30 Mg Tablet 220 MG PO DAILY Scheduled PRN Acetaminophen (Acetaminophen) 325 Mg Capsule 650 MG PO q4 hours PRN PRN For Pain Bisacodyl (Dulcolax Rectal) 10 Mg Supp.rect 10 MG RC DAILY PRN PRN For Constipation IF NO BM POST MOM ADMINISTRATION ON 4TH DAY Calcium Carbonate (Tums) 500 Mg Tab.chew 500 MG PO Q6H PRN PRN GI UPSET Lorazepam (Lorazepam) 1 Mg Tablet 1 MG PO Q4H PRN PRN ANXIETY Magnesium Hydroxide (Milk of Magnesia) 400 Mg/5 Ml Oral.susp 30 ML PO HS PRN PRN For Constipation AFTER NO BM X 3 DAYS. GIVE AT HS. Melatonin (Melatonin 1 mg Tablet) 1 Each Tablet 5 MG PO HS PRN PRN Insomnia Na Phos,M-B/Na Phos,Di-Ba (Fleet Enema) 133 Ml Enema 133 ML RC DAILY PRN PRN For Constipation IF NO BM POST BISACODYL ADMIN ON EVENING OF 4TH DAY Nitroglycerin SL (Nitrostat) 0.4 Mg Tab.subl 0.4 MG SL Q5MIN PRN PRN For Chest Pain IF SBP > 90 May use up to 3 times 5 minutes apart for chest pain Ondansetron (Zofran) 4 Mg Tablet 4 MG PO Q8H PRN PRN For Nausea Oxycodone (Roxicodone) 5 Mg Tablet 10 MG PO Q4H PRN PRN For Pain Polyethylene Glycol 3350 (Miralax) 17 Gm Powd.pack 17 GM PO QID PRN PRN For Constipation diphenhydrAMINE HCl (Benadryl) 25 Mg Capsule 25 MG PO Q8H PRN PRN RASH General Time Seen by MD: 17:09 Chief Complaint Other (Altered LOC ) Hx Obtained From: EMS Arrived By: Ambulance Sudden in Onset?: Yes Onset Occurred: 1 week ago Symptom Duration: Since onset Progression since Onset: Gradually worsening Recent Healthcare: Recent doctor visit, Recent hospitalization Similar Sx Previous: Yes Past Medical History Past Medical History Notes: DNR no known POA Admit for sepsis and bacteremia 10/11-10/17/16 Past Medical History Anemia Dementia Peripheral vacular disease Gout Myoclonus Atherosclerotic cardiovascular disease Anxiety 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 Gastric ulcer h/o GI bleed and anemia, however upper and lower endoscopies were negative Sepsis Reports: Congestive heart failure, Coronary artery disease, Diabetes mellitus, Hyperlipidemia, Hypertension Reports: Depression Past Surgical History Left leg femoral artery bypass graft Right BKA history of subsequent pseudomonas infection, thought fully involved on hospitalization 04/23/2016 Upper and lower endoscopy at [facility] May 05 reportedly negative for source of anemia Right leg amputation below the knee Smoking History Former Smoker Social History Pt lives at [facility]hab in [place] Ambulatory Status Independent Review of Systems Unable to Obtain ROS Mental status Physical Exam Initial Vital Signs Vital Signs (First) Date Time Temp Pulse Resp B/P Pulse Ox O2 Delivery O2 Flow Rate FiO2 11/10/16 17:01 36.7 77 35 105/34 99 Nasal Cannula 2 Initial VS: Reviewed Alertness: Positive: Responds to verb stimuli Appearance / Presentation: Positive: Obese Pt is sitting upright w/ his eyes closed; He will open his eyes and attempt to interact and follow commands but his speech is unintelligible; Head / Eyes: Atraumatic, Normocephalic Neck: Atraumatic, Supple, Full range of motion Respiratory / Chest: Atraumatic, Breath sounds NL, Breath sounds = bilat Cardiovascular: Heart rate NL, Regular rhythm, Heart sounds NL Mental Status: Positive: Responds to verbal stim Globally weak; Pt is unable to lift arms or legs but can wiggle his toes; ENT: Atraumatic, Airway patent, Mucous membranes moist Abdomen: Atraumatic, Soft, Non-tender Back: Atraumatic, Full range of motion Skin: No rash, Warm, Dry No signs of cellulitis; Lower Extremity / Pelvis / MS: Neurologic intact R leg AKA L leg has a healing surgical scar and is warm to the touch; Unable to feel good distal pulses of the L leg; Interpretation & Diagnostics PROCEDURE: CT ANGIO LOWER EXTREMITY, LEFT IMPRESSION: 1. The left superficial femoral artery and above-knee popliteal artery is occluded, as before. 2. Limited evaluation of the left lower extremity runoff vessels secondary to suboptimal opacification. 3. Diffuse subcutaneous edema versus cellulitis within the left lower extremity. Dictated by: Magalie Lopez M.D. on 11/10/2016 at 20:44 Approved by: Magalie Lopez M.D. on 11/10/2016 at 20:48 Lab Results Interpretation Result Diagram: 11/10/16 1708 11/10/16 1708 Test 11/10/16 17:08 11/10/16 17:44 11/10/16 17:45 White Blood Count 6.8th/mm3 (3.8-10.1) Red Blood Count 2.74mil/mm3 (4.40-5.80) Hemoglobin 7.7g/dL (13.8-17.2) Hematocrit 25.1% (41.0-50.0) Mean Corpuscular Volume 91.6fL (81-100) Mean Corpuscular Hemoglobin 28.1pg (27.0-35.0) Mean Corpuscular Hemoglobin Concent 30.7% (32.0-37.0) Red Cell Distribution Width 16.7% (12.3-15.4) Platelet Count 303bil/L (150-400) Neutrophils (%) (Auto) 60.5% (40-74) Lymphocytes (%) (Auto) 18.9% (14-46) Monocytes (%) (Auto) 13.6% (4-12) Eosinophils (%) (Auto) 6.3% (0-5) Basophils (%) (Auto) 0.4% (0-3) Prothrombin Time 18.4sec (8.1-12.5) Prothromb Time International Ratio 1.70ratio Sodium Level 135mEq/L (134-144) Potassium Level 4.2mEq/L (3.5-5.2) Chloride Level 93mEq/L (97-108) Carbon Dioxide Level 26mmol/L (18-29) Blood Urea Nitrogen 28mg/dL (8-27) Creatinine 1.11mg/dL (0.76-1.27) Estimat Glomerular Filtration Rate 70mL/min (>59) Glucose Level 115mg/dL (60-99) Calcium Level 9.2mg/dL (8.5-10.1) Total Bilirubin 0.3mg/dL (0.0-1.2) Aspartate Amino Transf (AST/SGOT) 23U/L (0-50) Alanine Aminotransferase (ALT/SGPT) 14U/L (0-44) Alkaline Phosphatase 84U/L (25-160) Troponin T < 0.010ug/L (0.0-0.011) Pro-B-Type Natriuretic Peptide 111.1pg/mL (0-376) Total Protein 7.4g/dL (6.4-8.4) Albumin 3.9g/dL (3.4-5.0) Procalcitonin 0.03ng/mL (0.00-0.08) Lactic Acid Level 1.1mmol/L (0.4-2.0) Urine Color Yellow (YELLOW) Urine Appearance Clear (CLEAR,HAZY) Urine pH 7.0 (5.0-8.0) Urine Specific Comfort 1.010 (1.003-1.035) Urine Protein Negativemg/dL (NEG,TRACE) Urine Glucose (UA) Negativemg/dL (NEGATIVE) Urine Ketones Negativemg/dL (NEGATIVE) Urine Occult Blood Negative (NEGATIVE) Urine Nitrite Negative (NEGATIVE) Urine Bilirubin Negative (NEGATIVE) Urine Urobilinogen Normalmg/dL (NORMAL) Urine Leukocyte Esterase Trace (NEGATIVE) Urine RBC 0-2/hpf (0-2) Urine WBC 0-5/hpf (0-5) Urine Epithelial Cells Few/hpf (NONE-MOD) Urine Crystals None seen (NONE SEEN) Urine Bacteria Few/hpf (NONE-FEW) Urine Hyaline Casts None/lpf (NONE) Urine Granular Casts None seen (NONE SEEN) Urine Waxy Casts None seen (NONE SEEN) Urine Red Blood Cell Casts None seen (NONE SEEN) Urine White Blood Cell Casts None seen (NONE SEEN) Urine Mucus None seen (None Seen) Urine Trichomonas None seen (NONE SEEN) Urine Yeast None (NONE SEEN) Urinalysis Comment None Urine Culture Reflexed Indicated Lab Results Interpretation: CBC normal white count, chronic anemia CMP normal Lactic acid normal Pro-calcitonin normal UA negative Cultures 2 pending INR subtherapeutic ECG Interpretation ECG Interpretation: Rate 83 NSR LBBB Unchanged from previous; Time: 17:17 Interpreted by: ED physician X-Ray Chest Interpretation Chest Xray Interpretation: IMPRESSION: No acute process. Dictated by: Magalie Lopez M.D. on 11/10/2016 at 18:02 Approved by: Magalie Lopez M.D. on 11/10/2016 at 18:02 View: Portable, 1 view Interpretation / Wet Read by: Interpret - Radiologist CT Head Interpretation IMPRESSION: No acute process. Dictated by: Magalie Lopez M.D. on 11/10/2016 at 18:39 Approved by: Magalie Lopez M.D. on 11/10/2016 at 18:40 Study: Head CT no contrast Interpretation / Wet Read by: Interpret - Radiologist Re-Eval/Medical Decision Med Decision/Clinical Course This is a 71-year-old male transferred from a local [facility] with a declining mental status slowly over the past week. Multiple episodes of similar decline, and generally has been attributed to sepsis-this most recently admitted at the end of September and at positive bacteremia. The patient is chronically ill, is a DNR/DNI, as known chronic ischemia of the left leg, as chronically anticoagulated on warfarin, and has chronic pain on methadone. Patient himself is unable to provide any initial history, his speech was garbled and unintelligible, he is globally weak, so I contacted the fpc regarding history directly from them. They have not noted any fevers, cough , vomiting, dysuria, or additional complaint. The patient hence it chronic left leg pain, and does state that is chronic, but the rest of his speech is unintelligible. I don't appreciate gross focal deficits, the patient is globally weak, but attempts to follow commands in terms of motor function. His Accu-Chek was normal. Noncontrast head CT given his anticoagulant status was negative. He is not febrile. On exam he is status post a right AKA, and has left leg, this had prior vascular surgery, the foot is warm, but I don't appreciate distal pulses, apparently this is chronic, there is some faint erythema the leg but no overt cellulitis, there is trace warmth, but again not clearly cellulitic or infected. His lungs are clear, abdomen soft and nontender. Labs are normal and did not reveal markers of sepsis this time, although some encephalopathy remains concerning for possible sepsis. Chest x-rays negative, urinalysis negative.'' Patient would wake up and cry intermittently of his terrible left leg pain, making it challenging given his altered mental status and wanting to use additional potentially sedating medications, said he got some IV Tylenol, and he woke up enough that he seemed to be doing a bit better, but still not at baseline and was able to take his oral methadone. At this point the concern remains recurrent sepsis encephalopathy, a definitive source or even markers of infection has not been identified - given the history of concern for recurrent cellulitis left lower extremity despite the non- definitive exam findings. However the ongoing chronic ischemia of the leg this risk would be higher. I discussed the situation with the delivery rn is on for interventional given from the records I cannot sort out what interventions or procedures considered for vascularization of the patient's left lower extremity. Reviewed the ultrasound, and then obtain a CT angiogram. Patient on heparin. In the interventions will see in review the patient again tomorrow. Simultaneously assistive request records from [place] to try and sort out things patient's had prior vascular interventions are proper. Records were obtained several hours with the patient was admitted, and indicate the patient says she transferred from [facility] to [facility] for vascular surgical consultation. Apparently they did an angiogram there, and there are discussions about possible intervention-but have not seen the note to indicates an intervention was ultimatley performed. Source of Hx: Old records Re-Evaluation/Progress : Time of Eval: 18:47 Re-Evaluation/Progress Note: Pt rechecked and is continuing to feel pain. Consultation #1: Referral / Consult Name: Melodie Oreilly MD Consulted With: Cardiology Call Returned at: 19:24 Note: Discussed pt's case. Dr. Oreilly agrees w/ plan to get a CT angiogram of the leg. Consultation #2: Referral / Consult Name: Elsa Ritter DO Consulted With: Hospitalist Call Returned at: 19:40 Manager Shipping: Will see patient, Agrees with eval, Agrees with plan, Accepts admit Differential Diagnosis: Negative: Carbon monoxide poisoning, Cerebrovascular accident, Closed head injury, Dehydration, Hyperthermia, Hypoperfusion, Seizure disorder, Subarachnoid hemorrhage, Transient ischemic attack Counseled Regarding: Diagnosis, Lab results, Need for admission Patient Discharge & Departure Departure Notes r/o sepsis Impression: Primary Impression: Altered level of consciousness Additional Impressions: Ischemia of left lower extremity Subtherapeutic international normalized ratio (INR) History of peripheral vascular disease Left leg cellulitis Disposition: ADMITTED TO HOSPITAL Discharge Condition All VS Reviewed: Yes Condition: Stable Referrals: Nikolai oLzano MD (PCP) Scribe Attestation Portions of this note were transcribed by Nino Ventura. I, Dr. Brown personally performed the history, physical exam and medical decision-making; I reviewed and confirmed the accuracy of the information in the transcribed note. copies to: Nikolai Lozano MD, Matthew F MD Nov 10, 2016 17:13 Nino Ventura Nov 10, 2016 17:51
[2016-11-10 17:14] LABS: BASOPHILS % (AUTO) 0.4 % (0-3); EOSINOPHILS % (AUTO) 6.3 % (0-5); MONOCYTES % (AUTO) 13.6 % (4-12); Mean Corpuscular Hemoglobin 28.1 pg (27.0-35.0); Mean Corpuscular Volume 91.6 fL (81-100); NEUTROPHILS % (AUTO) 60.5 % (40-74); Platelet Count 303 bil/L (150-400)
[2016-11-10 17:27] LABS: INR 1.7 ratio
[2016-11-10 17:35] LABS: TROPONIN T < 0.010 ug/L (0.0-0.011)
[2016-11-10] MEDS ORDERED: Acetaminophen 32.5 mg/mL 20 mL Liquid PO ONE (17:45)
--- NOTE | 2016-11-10 18:04 | DRSVH ---
PROCEDURE: X-RAY CHEST ONE VIEW, PORTABLE ([id number]) INDICATIONS: SHORTNESS OF BREATH TECHNIQUE: One view of the chest was acquired. COMPARISON: [facility], CR, XR CHEST 1VW (PORTABLE), 10/11/2016, 14:37. Located within [facility], CR, XR CHEST 1VW (PORTABLE), 08/19/2016, 15:57. FINDINGS: Surgical changes and devices: None. Lungs and pleura: No pleural effusions or pneumothorax. Lungs are clear. Mediastinum: Mediastinal contours appear normal. Heart size is normal. Bones and chest wall: No suspicious bony lesions. Overlying soft tissues appear unremarkable. IMPRESSION: No acute process. Dictated by: Magalie Lopez M.D. on 11/10/2016 at 18:02 Approved by: Magalie Lopez M.D. on 11/10/2016 at 18:02
[2016-11-10] MEDS ORDERED: Acetaminophen IV 1,000 MG in IV Premix 1 EACH IV ONE (18:05)
[2016-11-10 18:07] LABS: APPEARANCE,URINE CLEAR (CLEAR,HAZY); COLOR,URINE YELLOW (YELLOW)
[2016-11-10 18:08] LABS: OCCULT BLOOD,URINE NEGATIVE (NEGATIVE); UROBILINOGEN,URINE NORMAL (NORMAL)
--- NOTE | 2016-11-10 18:41 | DRSVH ---
PROCEDURE: CT BRAIN WITHOUT CONTRAST ([id number]) INDICATIONS: Altered LOC TECHNIQUE: Noncontrast 4.5 mm thick angled axial sections acquired from the foramen magnum to the vertex, with c oronal reformats. COMPARISON: [facility], CT, CT BRAIN WO CON, 07/11/2016, 21:12. FINDINGS: Image quality: Excellent. CSF spaces: Basal cisterns are patent. No extra-axial fluid collections. The ventricles are symmet leonid in size and shape. Brain: No intracranial bleeds or masses. There is cerebral volume loss for age, with resultant vent ricular and sulcal prominence. There are periventricular and deep white matter chronic small vessel ischemic changes. There is intracranial internal carotid artery atherosclerosis. Skull and face: Calvarium and visualized facial bones appear intact, without suspicious lesions. Sinuses: Moderate mucosal thickening in the bilateral ethmoid air cells. IMPRESSION: No acute process. Dictated by: Magalie Lopez M.D. on 11/10/2016 at 18:39 Approved by: Magalie Lopez M.D. on 11/10/2016 at 18:40
[2016-11-10] MEDS ORDERED: Heparin 5,000 Unit/mL Inj IVPUSH ONE (19:20)
[2016-11-10] MEDS ORDERED: Heparin 25K Unit/500mL 0.45 NS 25,000 UNIT in IV Premix 1 EACH IV ONE (19:20)
[2016-11-10] MEDS ORDERED: Piperacillin-Tazo 3.375 Gm Inj 3.375 GM in Dextrose 5% Minibag Plus 50 ML IV ONE (19:20)
[2016-11-10] MEDS ORDERED: fentaNYL-PF 50 mCg/mL 2 mL Inj IVPUSH PRN (20:05)
[2016-11-10] MEDS ORDERED: Polyethylene Glycol (PEG) 17 Gm Powder PO PRN (20:30)
[2016-11-10] MEDS ORDERED: Ondansetron 2 mg/mL 2 mL Inj IVPUSH PRN (20:30)
[2016-11-10] MEDS ORDERED: Alum-Mag Hydrox-Simeth 30 mL Suspension PO PRN (20:30)
--- NOTE | 2016-11-10 20:37 | PCM.HPMED ---
Subjective Date of Service Nov 10, 2016 Primary Provider: Admitting Physician: Elsa Ritter DO Primary Care Physician: Nikolai Lozano MD Attending Physician: Elsa Ritter DO Chief Complaint: Confusion, LLE Pain History of Present Illness: The pt is 71 y/o male w/ a hx of dementia, sepsis, gout, gastric ulcers, CHF, CAD, diabetes, HTN, depression, hyperlipidemia, and peripheral vascular disease who was recently seen here for similar complaints on October 11 and was transferred to [facility] for further management of ischemic complications secondary to peripheral vascular disease. On previous visit, patient was found to have high grade stenosis of the femoral-popliteal origin with occlusion to the distal graft with no flow within the [place] popliteal artery in his LLE. Patient was sent from [facility] due to increased confusion and complaints of LLE pain. Patient unable to provide complete history secondary to underlying dementia. Patient reports 10/10 LLE pain. Patient states he has nausea and one episode of vomiting. Denies any current CP, SOB, diarrhea, fevers, or headache. 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 On previous visit, there was concern for underlying cellulitis, Dr. Boone saw the patient and treated this with a full 10 day regimen of Ceftriaxone which cleared the group B bacteremia and cellulitis. Further history obtained from records sent from [facility]. Patient was admitted on 10/17 after a transfer from this facility. On 10/20, patient underwent a left leg angiogram of the left proximal and distal femoral popliteal bypass anastomotic stenosis that was angioplastied with 4mm balloon to 15atm for 3 minutes each. This procedure was performed by Dr. Barker. Dr. Barker recommends if this angioplasty fails, then patient would require BKA vs. AKA. In ED, patient was started on Zosyn, a loading dose of Heparin, and 50mg of Fentanyl along with 7.5mg Methadone. Patient was afebrile, RR 35, P 77, and BP 105/34, and 99% on 2L NC. Review of Systems: ROS reviewed and otherwise negative unless noted above. Allergies Coded Allergies: No Known Allergies (Unverified , 07/11/16) Home Medications Scheduled Ascorbate Calcium (Vitamin C) 500 Mg Tablet 500 MG PO DAILY Atorvastatin (Lipitor) 80 Mg Tablet 80 MG PO HS Baclofen (Baclofen) 10 Mg Tablet 10 MG PO TIDWM 0700, 1300, 1700 Duloxetine (Duloxetine) 60 Mg Capsule.dr 60 MG PO DAILY Ferrous Sulfate (Ferrous Sulfate) 325 Mg Tablet 325 MG PO TIDAC Furosemide (Furosemide) 40 Mg Tablet 40 MG PO BID Lisinopril (Lisinopril) 5 Mg Tablet 5 MG PO BID Methadone (Methadone) 5 Mg Tablet 5 MG PO BID Metoprolol Succinate ER (Metoprolol Succinate ER) 50 Mg Tab.er.24h 50 MG PO DAILY Multivitamin (Multivitamins) 1 Each Capsule 1 EACH PO DAILY Pantoprazole DR (Pantoprazole DR) 40 Mg Tablet.dr 40 MG PO QAM Spironolactone (Aldactone) 25 Mg Tablet 12.5 MG PO DAILY Warfarin Sodium (Warfarin Sodium) 7.5 Mg Tablet 7.5 MG PO MON,FRI Warfarin Sodium (Warfarin Sodium) 5 Mg Tablet 5 MG PO SUN,E,THU,,SAT Zinc Gluconate (Zinc) 30 Mg Tablet 220 MG PO DAILY Scheduled PRN Acetaminophen (Acetaminophen) 325 Mg Capsule 650 MG PO q4 hours PRN PRN For Pain Bisacodyl (Dulcolax Rectal) 10 Mg Supp.rect 10 MG RC DAILY PRN PRN For Constipation IF NO BM POST MOM ADMINISTRATION ON 4TH DAY Calcium Carbonate (Tums) 500 Mg Tab.chew 500 MG PO Q6H PRN PRN GI UPSET Lorazepam (Lorazepam) 1 Mg Tablet 1 MG PO Q4H PRN PRN ANXIETY Magnesium Hydroxide (Milk of Magnesia) 400 Mg/5 Ml Oral.susp 30 ML PO HS PRN PRN For Constipation AFTER NO BM X 3 DAYS. GIVE AT HS. Melatonin (Melatonin 1 mg Tablet) 1 Each Tablet 5 MG PO HS PRN PRN Insomnia Na Phos,M-B/Na Phos,Di-Ba (Fleet Enema) 133 Ml Enema 133 ML RC DAILY PRN PRN For Constipation IF NO BM POST BISACODYL ADMIN ON EVENING OF 4TH DAY Nitroglycerin SL (Nitrostat) 0.4 Mg Tab.subl 0.4 MG SL Q5MIN PRN PRN For Chest Pain IF SBP > 90 May use up to 3 times 5 minutes apart for chest pain Ondansetron (Zofran) 4 Mg Tablet 4 MG PO Q8H PRN PRN For Nausea Oxycodone (Roxicodone) 5 Mg Tablet 10 MG PO Q4H PRN PRN For Pain Polyethylene Glycol 3350 (Miralax) 17 Gm Powd.pack 17 GM PO QID PRN PRN For Constipation diphenhydrAMINE HCl (Benadryl) 25 Mg Capsule 25 MG PO Q8H PRN PRN RASH PMH Anemia Dementia Peripheral vacular disease Gout Myoclonus Atherosclerotic cardiovascular disease Anxiety 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 Social History Hx Alcohol Use: No Hx Substance Use: No Hx Tobacco Use: Yes Smoking Status: Former Smoker Living Arrangement: Custodial Facility Exam Vital Signs Vital Sign - Last Date Time Temp Pulse Resp B/P Pulse Ox O2 Delivery O2 Flow Rate FiO2 11/10/16 19:16 83 18 136/65 95 Room Air 11/10/16 17:43 2 11/10/16 17:01 36.7 Exam Constitutional: Awake, Confused. Alert Oriented to person and year. Not oriented to place. No acute distress Head: Normocephalic and atraumatic Eyes: Pupils Equal round and reactive to light. EOMI. Heart: regular rate and rhythm. no murmurs, rubs, or gallops. 2+ pitting edema to LLE. Cool distal extremity. No pulse palpated to LLE Lungs: Clear to auscultation, no wheeze, rales, or rhonchi ABD: Protuberant, soft, nontender. bowel sounds present throughout Musculoskeletal: Right AKA amputation. LLE swollen and limited to movement secondary to pain. Skin: Nonblanching erythema that is circumferential around LLE up to mid calf. Area is tense. Pallor to distal L foot. Pruritic erythematous rash on lower ABD with associated excoriations secondary to patient scratching. Erythema with fungal plaque on the inner folds of inguinal area. Well healed surgical scar on medial LLE extending from lower calf to upper medial thigh. Neuro: CN II-XII intact. No focal deficit. Psych: Confused. Agitated. Animated. Lab and Diagnostics Labs Item Value Date Time Red Blood Count 2.74 mil/mm3 L 11/10/161707 Mean Corpuscular Volume 91.6 fL 11/10/16 1708 Mean Corpuscular Hemoglobin 28.1 pg 11/10/16 1708 Mean Corpuscular Hemoglobin Concent 30.7 % L 11/10/16 170 Red Cell Distribution Width 16.7 % H 11/10/16 1708 Neutrophils (%) (Auto) 60.5 % 11/10/16 1708 Lymphocytes (%) (Auto) 18.9 % 11/10/16 1708 Monocytes (%) (Auto) 13.6 % H 11/10/16 1708 Eosinophils (%) (Auto) 6.3 % H 11/10/16 1708 Basophils (%) (Auto) 0.4 % 11/10/168 Estimat Glomerular Filtration Rate 70 mL/min 11/10/16 1708 Lactic Acid Level 1.1 mmol/L 11/10/16 1744 Calcium Level 9.2 mg/dL 11/10/16 1708 Total Bilirubin 0.3 mg/dL 11/10/16 1708 Aspartate Amino Transf (AST/SGOT) 23 U/L 11/10/16 1708 Alanine Aminotransferase (ALT/SGPT) 14 U/L 11/10/16 1708 Alkaline Phosphatase 84 U/L 11/10/16 1708 Troponin T < 0.010 ug/L 11/10/16 1708 Pro-B-Type Natriuretic Peptide 111.1 pg/mL 11/10/168 Total Protein 7.4 g/dL 11/10/16 1708 Albumin 3.9 g/dL 11/10/16 1708 Procalcitonin 0.03 ng/mL 11/10/16 1708 Prothrombin Time 18.4 sec H 11/10/16 1708 Prothromb Time International Ratio 1.70 ratio 11/10/16 1708 Result Diagram: 11/10/16 1708 11/10/161707 Microbiology Urine Cultures pending Blood Cultures pending X-Rays, CTs and MRIs PROCEDURE: X-RAY CHEST ONE VIEW, PORTABLE IMPRESSION: No acute process. Dictated by: Magalie Lopez M.D. on 11/10/2016 at 18:02 PROCEDURE: CT BRAIN WITHOUT CONTRAST IMPRESSION: No acute process. Dictated by: Magalie Lopez M.D. on 11/10/2016 at 18:39 PROCEDURE: CT ANGIO LOWER EXTREMITY, LEFT IMPRESSION: 1. The left superficial femoral artery and above-knee popliteal artery is occluded, as before. 2. Limited evaluation of the left lower extremity runoff vessels secondary to suboptimal opacification. 3. Diffuse subcutaneous edema versus cellulitis within the left lower extremity. Dictated by: Magalie Lopez M.D. on 11/10/2016 at 20:44 Assessment & Plan The pt is 71 y/o male w/ a hx of dementia, sepsis, gout, gastric ulcers, CHF, CAD, diabetes, HTN, depression, hyperlipidemia, and peripheral vascular disease who was recently seen here for similar complaints on October 11 and was transferred to [facility] for further management of ischemic complications secondary to peripheral vascular disease. -Acute Exacerbation of Chronic Peripheral Vascular Disease, POA, Active, Stable - Patient with known arterial insufficiency and severe stenosis to femoral and popliteal arteries presented with severe LE pain - Patient was recently seen here and transferred to [facility] for vascular surgery, records requested and obtained from [facility] and reviewed. - Consult vascular surgery - Consult Cardiology for cardiac clearance for procedure - Continue home dose Methadone - Morphine PRN for breakthrough pain - Lactic Acid normal on admission, redraw if clinical picture changes - Patient given one dose of Zosyn in ED, no current abx as patient has no clear indication that this is infectious and patient was recently treated on a 10 day regimen for group B strep and was cleared by Dr. Boone. Dr. Boone's old records reviewed. -Chronic Normocytic anemia secondary to Chronic disease state, POA, active Hgb continues low but stable, dilutional, continue to monitor - Consider transfusion if patient remains less than 7.0 - Continue to monitor History of Systolic CHF , present on admission, stable - Most recent echo 07/14/16 shows EF of 55-60% - Continue Metoprolol Succinate ER - Continue lisinopril - Continue home Lasix and spironolactone Diabetes mellitus type II, chronic, present on admission - No diabetes medications listed on med rec - Initiate Low-dose correctional insulin - Hemoglobin A1c 5.8 on 05/03/16 GERD, chronic, present on admission - Continue Protonix H/o MRSA colonization History of DVT, chronic, present on admission - Start Heparin drip with plan to bridge in AM History of major depression, chronic, present on admission - Continue duloxetine History of chronic pain , present on admission -Continue patient's home methadone -Continue home oxycodone -1-2 mg morphine every 4 hours when necessary PATIENT IS FULL CODE Due to complexity of case and continued need for care, patient is admitted under inpatient status with an expected length of stay greater than 2 midnights. Pain Evaluation: Adequate Pain Control GI Prophylaxis: H2 raiza VTE Prophylaxis Indicated: Meets Criteria for Anticoag Therapy VTE Prophylaxis: Sub-Q Heparin (Unfractionated) Resuscitation Status: DNR/DNI:Do Not Resuscitate/Intubate Attending Statement The patient was seen and examined together with house staff on 11/10/2016 and I agree with the history, exam and plan as outlined in the note above. Williams Long DO Nov 10, 2016 20:37 Elsa Ritter DO Nov 11, 2016 04:31
[2016-11-10] MEDS ORDERED: diphenhydrAMINE 25 mg Capsule PO PRN (20:45)
--- NOTE | 2016-11-10 20:50 | DRSVH ---
PROCEDURE: CT ANGIO LOWER EXTREMITY, LEFT INDICATIONS: ischemia LLE TECHNIQUE: After the administration of intravenous contrast, 2 and 5 mm sections acquired of the entire left low er extremity, with optional delayed image acquisition from the knees to the feet. 3-dimensional maxi mum intensity projection (MIP) coronal and sagittal reformats, and/or 3-dimensional volume rendering reformatting was then performed. For radiation dose reduction, the following was used: automated expo sure control, adjustment of mA and/or kV according to patient size. COMPARISON: None. FINDINGS: Image quality: There is limited opacification of the left lower extremity arterial vasculature. Extravascular tissues: Non opacified visualized bowel loops demonstrate normal wall thickness and en hancement. No free fluid or air. Bladder wall thickness is normal. No inguinal hernias or adenopat hy. No suspicious bony lesions. No fractures. Diffuse subcutaneous edema versus cellulitis within the left lower extremity is present. Arterial vasculature: Mild diffuse stenosis of the external iliac artery is present. Common femoral a rtery is mildly distended and mildly diffusely stenotic. Profundofemoral artery demonstrates a high-g rade origin stenosis. Superficial femoral artery is occluded , as before. reconstituted flow is seen within the below-knee popliteal artery. There is limited opacification of the runoff vessels. IMPRESSION: 1. The left superficial femoral artery and above-knee popliteal artery is occluded, as before. 2. Limited evaluation of the left lower extremity runoff vessels secondary to suboptimal opacificatio n. 3. Diffuse subcutaneous edema versus cellulitis within the left lower extremity. Dictated by: Magalie Lopez M.D. on 11/10/2016 at 20:44 Approved by: Magalie Lopez M.D. on 11/10/2016 at 20:48
[2016-11-10] MEDS ORDERED: Heparin 5,000 Unit/mL Inj IVPUSH PRN (22:30)
[2016-11-10] MEDS ORDERED: Heparin 25K Unit/500mL 0.45 NS 25,000 UNIT in IV Premix 1 EACH IV SCH (22:30)
[2016-11-11] VITALS (9 sets, daily range): BP systolic 94–130; BP diastolic 40–72; PULSE 65–74; RESP 16–18; O2SAT 92–100
[2016-11-11] MEDS ORDERED: CHOL200025 PO (02:19)
[2016-11-11] MEDS ORDERED: WARF5TAB7 PO (02:19)
[2016-11-11] MEDS ORDERED: PROC-4 PO (02:19)
[2016-11-11] MEDS ORDERED: LORA0.5T PO (02:19)
[2016-11-11 02:39] LABS: EOSINOPHILS % (AUTO) 7.6 % (0-5); MONOCYTES % (AUTO) 11.5 % (4-12); Mean Corpuscular Hemoglobin 28.3 pg (27.0-35.0); Mean Corpuscular Volume 91.2 fL (81-100); NEUTROPHILS % (AUTO) 51.7 % (40-74); Platelet Count 252 bil/L (150-400)
[2016-11-11 03:03] LABS: INR 1.71 ratio
--- NOTE | 2016-11-11 06:00 | NUR ---
Admit Back timed/PTT *Note from this morning did not save* Pt was admitted to room 2002, oriented to person/yr, had just received Fentanyl per report and appeared in no distress unless being turned for assessment/bed change. Pt able to answer some questions but still appeared confused. Admit done by recall and paper chart. Med rec done from list in chart from [facility]. Hospitalist in to assess pt. Pt became a little restless and was given Melatonin, then appeared to sleep comfortably almost through morning. Vitals stable, placed on 1L O2 d/t desats at while asleep. Critical PTT reported to MD, protocol followed accordingly.
[2016-11-11] MEDS: MeTOProlol XL 50 mg ER24 Tablet PO SCH (08:36)
[2016-11-11] MEDS: DULoxetine 30 mg DR Capsule PO SCH (08:36)
[2016-11-11 09:29] LABS: EOSINOPHILS % (AUTO) 7.9 % (0-5); MONOCYTES % (AUTO) 10.8 % (4-12); Mean Corpuscular Hemoglobin 26.8 pg (27.0-35.0); Mean Corpuscular Volume 91.7 fL (81-100); Platelet Count 246 bil/L (150-400)
--- NOTE | 2016-11-11 12:25 | PCM.CHPCAR ---
Consult Subjective Date of service Nov 11, 2016 Date of admit Nov 10, 2016 at 20:15 Provider Requesting Consult Primary Care Physician Primary Care Physician: Nikolai Lozano MD Chief Complaint Left leg pain History of Present Illness This is a 71 year old who presents to the ED via EMS on 11-11-2016 for increasing confusion and worsening left leg pain. Significant past medical history; PVD (with right AKA), CHF, CAD, DM, HTN, HLD, dementia, sepsis, gout, gastric ulcers, GERD, chronic GI bleeding, anemia, chronic pain (on methadone), hx of DVT. Patient was recently admitted to [facility] on 10-11-2016 for AMS, sepsis, and left lower leg cellulitis. US findings of left leg arteries demonstrated; High-grade stenosis involving the origin of the left femoral-popliteal in situ bypass graft with occlusion of the graft distal to this point and no flow seen within the [place] popliteal artery or the visualized Vessels. The patient was transferred to [facility] on 10-16-2016 for further management of PVD. On 10-20, he underwent a left leg angiogram of the left proximal and distal femoral popliteal bypass anastomotic stenosis that was angioplastied with 4mm balloon to 15atm for 3 minutes each. This procedure was performed by Dr. Barker. Dr. Barker recommended that if this angioplasty fails, then patient will require BKA vs. AKA. Following the hospital course at [facility], the patient was discharged to [facility] care and rehabilitation in [place]. According to the staff at [facility], the patient was becoming more confused over the last week, with reports of worsening pain in the left leg. Upon arrival to the ED on 11-11-2016, the patient reported his leg pain to be 10/ 10. Due to patients dementia, he is unable to give history of course of care and medical history. Pt denies any current; chest pain, dizziness, lightheadedness, shortness of breath, nausea, vomiting, sweating, chills, sore throat, cough, fainting. Patient reports his leg pain currently to be 9/10. Upon review of golf range attendant, patient has been in NSR, with occasional PVC. CTA of left lower extremity demonstrated; Mild diffuse stenosis of the external iliac artery is present. Common femoral artery is mildly distended and mildly diffusely stenotic. Profundofemoral artery demonstrates a high-grade origin stenosis. Superficial femoral artery is occluded , as before. reconstituted flow is seen within the below-knee popliteal artery. There is limited opacification of the runoff vessels. Troponin; <0.010 . Review of Systems Review of Systems 12 point review of symptoms are negative, expect for those listed in HPI. 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 May 05 reportedly negative for source of anemia Right leg amputation below the knee . Hx Diabetes: YesBedside Blood Glucose: 114 Scheduled Atorvastatin (Lipitor) 80 Mg Tablet 80 MG PO HS (Reported) Baclofen (Baclofen) 10 Mg Tablet 10 MG PO TIDWM (Reported) 0700, 1300, 1700 Cholecalciferol (Vitamin D3) (Vitamin D3) 2,000 Unit Tablet 2,000 UNIT PO DAILY (Reported) Duloxetine (Duloxetine) 60 Mg Capsule.dr 90 MG PO DAILY (Reported) Ferrous Sulfate (Ferrous Sulfate) 325 Mg Tablet 325 MG PO TIDAC (Reported) Furosemide (Furosemide) 40 Mg Tablet 40 MG PO BID (Reported) Lisinopril (Lisinopril) 5 Mg Tablet 5 MG PO BID Methadone (Methadone) 5 Mg Tablet 7.5 MG PO BID (Reported) Metoprolol Succinate ER (Metoprolol Succinate ER) 50 Mg Tab.er.24h 50 MG PO DAILY (Reported) Multivitamin (Multivitamins) 1 Each Capsule 1 EACH PO DAILY (Reported) Pantoprazole DR (Pantoprazole DR) 40 Mg Tablet.dr 40 MG PO QAM (Reported) Spironolactone (Aldactone) 25 Mg Tablet 12.5 MG PO DAILY Warfarin Sodium (Warfarin Sodium) 5 Mg Tablet 5 MG PO DAILY (Reported) Scheduled PRN Acetaminophen (Acetaminophen) 325 Mg Capsule 650 MG PO q4 hours PRN PRN For Pain (Reported) Bisacodyl (Dulcolax Rectal) 10 Mg Supp.rect 10 MG RC DAILY PRN PRN For Constipation (Reported) IF NO BM POST MOM ADMINISTRATION ON 4TH DAY Calcium Carbonate (Tums) 500 Mg Tab.chew 500 MG PO Q6H PRN PRN GI UPSET ( Reported) Lorazepam (Lorazepam) 1 Mg Tablet 1 MG PO Q4H PRN PRN ANXIETY (Reported) Lorazepam (Lorazepam) 0.5 Mg Tablet 0.5 MG PO HS PRN PRN For Insomnia (Reported ) Magnesium Hydroxide (Milk of Magnesia) 400 Mg/5 Ml Oral.susp 30 ML PO HS PRN PRN For Constipation (Reported) AFTER NO BM X 3 DAYS. GIVE AT HS. Melatonin (Melatonin 1 mg Tablet) 1 Each Tablet 5 MG PO HS PRN PRN Insomnia ( Reported) Na Phos,M-B/Na Phos,Di-Ba (Fleet Enema) 133 Ml Enema 133 ML RC DAILY PRN PRN For Constipation (Reported) IF NO BM POST BISACODYL ADMIN ON EVENING OF 4TH DAY Nitroglycerin SL (Nitrostat) 0.4 Mg Tab.subl 0.4 MG SL Q5MIN PRN PRN For Chest Pain IF SBP > 90 May use up to 3 times 5 minutes apart for chest pain Ondansetron (Zofran) 4 Mg Tablet 4 MG PO Q8H PRN PRN For Nausea (Reported) Oxycodone (Roxicodone) 5 Mg Tablet 5 MG PO Q4H PRN PRN For Pain (Reported) Polyethylene Glycol 3350 (Miralax) 17 Gm Powd.pack 17 GM PO QID PRN PRN For Constipation (Reported) Prochlorperazine Maleate (Compazine) 10 Mg Tablet 10 MG PO Q8H PRN PRN For Nausea (Reported) diphenhydrAMINE HCl (Benadryl) 25 Mg Capsule 25 MG PO Q8H PRN PRN RASH (Reported ) Discontinued Medications Ascorbate Calcium (Vitamin C) 500 Mg Tablet 500 MG PO DAILY (Reported) Warfarin Sodium (Warfarin Sodium) 7.5 Mg Tablet 7.5 MG PO MON,FRI (Reported) Warfarin Sodium (Warfarin Sodium) 5 Mg Tablet 5 MG PO SUN,TUE,WED,THUR,SAT ( Reported) Zinc Gluconate (Zinc) 30 Mg Tablet 220 MG PO DAILY (Reported) Current Inpatient Medications Current Medications Fentanyl Citrate 50 mcg Q15MIN PRN IVPUSH Last administered on 11/10/16 20:19 ; Admin Dose 50 MCG; Start 11/10/16 at 20:05; Stop 11/11/16 at 20:06 Famotidine 20 mg BID PO Last administered on 11/11/16 08:36; Admin Dose 20 MG; Start 11/10/16 at 20:30 Al Hydrox/Mg Hydrox/Simethicone 30 ml Q6H PRN PO; Start 11/10/16 at 20:30 Ondansetron HCl 4 to 8 mg Q4H PRN IVPUSH; Start 11/10/16 at 20:30 Senna 17.2 mg BID PRN PO; Start 11/10/16 at 20:30 Polyethylene Glycol 17 gm DAILY PRN PO; Start 11/10/16 at 20:30 Acetaminophen 650 mg Q4H PRN PO Last administered on 11/11/16 03:56; Admin Dose 650 MG; Start 11/10/16 at 20:30 Aspirin 81 mg DAILY PO Last administered on 11/11/16 08:36; Admin Dose 81 MG; Start 11/11/16 at 08:30 Morphine Sulfate 1-2 mg Q4H PRN IV Last administered on 11/11/16 08:34; Admin Dose 1 MG; Start 11/10/16 at 20:30 Temazepam 15 mg HS PRN PO; Start 11/10/16 at 20:45 Pharmacy Consult 1 ea DAILY@17 XX; Start 11/11/16 at 17:00; Stop 11/11/16 at 17: 00; Status DC Baclofen 10 mg TIDWM PO Last administered on 11/11/16 08:36; Admin Dose 10 MG; Start 11/11/16 at 08:00 Diphenhydramine HCl 25 mg Q8H PRN PO; Start 11/10/16 at 20:45 Furosemide 40 mg BID@17 PO Last administered on 11/11/16 08:37; Admin Dose 40 MG; Start 11/11/16 at 08:00 Lisinopril 5 mg BID PO Last administered on 11/11/16 08:37; Admin Dose 5 MG; Start 11/11/16 at 08:30 Lorazepam 1 mg Q4H PRN PO; Start 11/10/16 at 21:35 Methadone HCl 5 mg BID PO Last administered on 11/11/16 10:31; Admin Dose 5 MG ; Start 11/11/16 at 08:30 Metoprolol Succinate 50 mg DAILY PO Last administered on 11/11/16 08:36; Admin Dose 50 MG; Start 11/11/16 at 08:30 Nitroglycerin 0.4 mg Q5MIN PRN SL; Start 11/10/16 at 20:45 Spironolactone 12.5 mg DAILY PO Last administered on 11/11/16 08:37; Admin Dose 12.5 MG; Start 11/11/16 at 08:30 Duloxetine HCl 60 mg DAILY PO Last administered on 11/11/16 08:36; Admin Dose 60 MG; Start 11/11/16 at 08:30 Melatonin 5 mg HS PRN PO Last administered on 11/10/16 22:01; Admin Dose 5 MG ; Start 11/10/16 at 21:55 Atorvastatin Calcium 80 mg HS PO Last administered on 11/10/16 22:02; Admin Dose 80 MG; Start 11/10/16 at 21:00 Heparin Sodium (Porcine) Per Protocol for a... PRN PRN IVPUSH; Start 11/10/16 at 22:30 Allergies: Coded Allergies: No Known Allergies (Unverified , 07/11/16) Family History Family History Patient unable to recall family history secondary to dementia . Social History Hx Alcohol Use: NoHx Substance Use: NoHx Tobacco Use: Yes Smoking Status: Former Smoker Living Arrangement: Jail Facility Additional Information Patient unable to recall social history secondary to his dementia. . Exam Vital Signs Vital Sign - Last Date Time Temp Pulse Resp B/P Pulse Ox O2 Delivery O2 Flow Rate FiO2 11/11/16 10:29 68 11/11/16 08:43 Supplement Oxygen 11/11/16 08:27 36.5 16 130/57 99 2.00 Intake and Output 11/10/16 11/10/16 11/11/16 Cumulative From/Thru 15:00 23:00 07:00 11/10/16 17:01 - 11/11/16 06:51 Intake Total 500 ml 556 ml 1056 ml Output Total 775 ml 775 ml Balance 500 ml -219 ml 281 ml Intake Oral 200 ml 200 ml IV Total 500 ml 356 ml 856 ml Output Urine Total 775 ml 775 ml Objective General: No acute distress, well-developed, well-nourished male Head: Normocephalic, atraumatic. External ears without defect. Eyes: Pupils equal, round, and reactive to light and accommodation. Anicteric sclerae, moist conjunctivae. Neck: Normal range of motion, no lymphadenopathy noted Cardiovascular: Regular rate and rhythm with no murmurs, rubs, or gallops appreciated Pulmonary: Clear to auscultation bilaterally with no crackles, wheezes, or rhonchi. Lung sounds diminished to auscultation in all lobes. Normal respiratory effort with no use of accessory muscles. Abdomen: Bowel tones present. Soft,rotunded, nontender, nondistended. Extremities: No clubbing, cyanosis. Pallor to distal left foot. Left leg has 2 + non pitting edema. Skin is warm, and tight to left leg. There is well healing incision from left calf up to left thigh. MS: Right above the knee amputation. Limited mobility and decreased range of motion in left lower extremity. Skin: Pale, normal temperature, turgor, and texture; no rash, ulcers, or subcutaneous nodules appreciated. Neurological: Cranial nerves grossly intact. Reflexes, coordination, and sensory function within normal limits. Normal muscle strength, tone, and bulk. Psychiatric: Blunted affect. Confused. Lethargic and oriented to person. Lab and Diagnostics Result Diagram: 11/11/16 0915 11/10/16 1708 Assessment & Plan Assessment Acute Exacerbation of Chronic Peripheral Vascular Disease - Dr. Craig is reviewing records from [facility], [facility] pending review. - Continue scheduled methadone - Continue PRN morphine Systolic Heart Failure, Hx, Stable - Echo 07-14-16; EF of 55-60% - Continue BB, ACEI, diuertic . Pain Evaluation: Adequate Pain Control VTE Prophylaxis Indicated: Meets Criteria for Anticoag Therapy VTE Prophylaxis: Sub-Q Heparin (Unfractionated) Resuscitation Status: DNR/DNI:Do Not Resuscitate/Intubate Time spent 40 minutes. This patient was seen and discussed with Dr. Craig. . Yvonne Walters Nov 11, 2016 11:43
--- NOTE | 2016-11-11 14:00 | NUR ---
Social Work: Initial Assessment/Multidisciplinary Rounds D: Per EMR review, patient is a 71 year old male admitted for Altered LOC. Patient is Medicare with [employer] supplement, no LTC or VA benefits. PCP is Nikolai Lozano MD. NOK is not provided. Advanced directives not completed- POLST on file. Readmit score not entered at this time. Patient is a readmission and was transferred to [place] on 10/17/16. Pt discussed in Multidisciplinary rounds. Capacity for self care discussed; patient does not capacity for full self-care and relies on SNF staff for almost all ADLs. Patient with R AKA and may require AKA of other leg. Providers will be having discussions with patient today to discuss care plan. UNLOADER OPERATOR met with the patient at bedside. Sw role explained, Contact information and discharge planning checklist provided. See initial assessment. Patient is a LTC resident at [facility]. SNF CHOICE LIST offered to patient which he declined and states that he wishes to return to [facility]. Pt is w/c bound at baseline and no I with ADLs. UNLOADER OPERATOR spoke with Natacha at [facility] who states that they can accept the patient back once medically stable with Dr. Lozano to follow. Access provided. A: Pt who is a LTC resident at [facility] P: Anticipate patient to return to [facility] SNF with Dr. Lozano to follow once medically stable; UNLOADER OPERATOR to continue to follow to assess for unmet discharge needs. KARY Siegel Addendum: 11/11/16 at 1405 by GLENIS WESTBROOK SS Amended: Links added.
--- NOTE | 2016-11-11 17:12 | PCM.PNMED ---
Subjective Date of Service Nov 11, 2016 Subjective Patient was seen and examined today. I discussed with him his feelings about intervening on his peripheral vascular disease. It seems like he would prefer to stay on the more conservative side of treatments. He states that he is tired of being in pain. 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 Nursing notes no acute overnight events. Exam Vital Signs Vital Sign - Last Date Time Temp Pulse Resp B/P Pulse Ox O2 Delivery O2 Flow Rate FiO2 11/11/16 15:47 36.7 71 16 107/64 99 Nasal Cannula 2.00 Intake and Output 11/10/16 11/10/16 11/11/16 Cumulative From/Thru 15:00 23:00 07:00 11/10/16 17:01 - 11/11/16 06:51 Intake Total 500 ml 556 ml 1056 ml Output Total 775 ml 775 ml Balance 500 ml -219 ml 281 ml Intake Oral 200 ml 200 ml IV Total 500 ml 356 ml 856 ml Output Urine Total 775 ml 775 ml Exam General: Sedated, complaining of pain in his leg. HEENT: Normocephalic, atraumatic.Pupils equal, round. Mucous membranes moist Neck: Supple with full range of motion. No jugular venous distension. No bruits. No lymphadenopathy or thyromegaly. Cardiovascular: Regular rate and rhythm with no murmurs, rubs, or gallops appreciated Pulmonary: Mild wheeze in upper lung thacker. Normal respiratory effort with no use of accessory muscles. Abdomen: Bowel tones present. Soft, nontender, nondistended. No hepatosplenomegaly or masses appreciated. Extremities: Left leg is edematous, erythematous and tender all the way from toes to his midthigh. Peripheral pulses not appreciated Skin: No rashes, left leg is warm to touch Neurological: Cranial nerves grossly intact. Psychiatric: Contemplative mood. Alert and oriented to person, place, and time. Clearly decisional. IVs and Medications Medications Reviewed: Medications were reviewed in detail Lab and Diagnostics Result Diagram: 11/11/1691411/11/16914 Microbiology Urine Cultures pending Blood Cultures pending X-Rays, CTs and MRIs PROCEDURE: X-RAY CHEST ONE VIEW, PORTABLE IMPRESSION: No acute process. Dictated by: Magalie Lopez M.D. on 11/10/2016 at 18:02 PROCEDURE: CT BRAIN WITHOUT CONTRAST IMPRESSION: No acute process. Dictated by: Magalie Lopez M.D. on 11/10/2016 at 18:39 PROCEDURE: CT ANGIO LOWER EXTREMITY, LEFT IMPRESSION: 1. The left superficial femoral artery and above-knee popliteal artery is occluded, as before. 2. Limited evaluation of the left lower extremity runoff vessels secondary to suboptimal opacification. 3. Diffuse subcutaneous edema versus cellulitis within the left lower extremity. Dictated by: Magalie Lopez M.D. on 11/10/2016 at 20:44 Assessment & Plan The pt is 71 y/o male w/ a hx of dementia, sepsis, gout, gastric ulcers, CHF, CAD, diabetes, HTN, depression, hyperlipidemia, and peripheral vascular disease who was recently seen here for similar complaints on October 11 and was transferred to [facility] for further management of ischemic complications secondary to peripheral vascular disease. -Acute Exacerbation of Chronic Peripheral Vascular Disease, POA, Active, Stable - Patient with known arterial insufficiency and severe stenosis to femoral and popliteal arteries presented with severe LE pain - Patient was recently seen here and transferred to [place] for vascular surgery, records requested and obtained from [place] and reviewed. - Consult to cardiology. Dr. Craig will take patient to [facility] morning of to attempt revascularization of left lower extremity. - Nothing by mouth after midnight - Continue home dose Methadone - Morphine PRN for breakthrough pain - Lactic Acid normal on admission, redraw if clinical picture changes - Patient given one dose of Zosyn in ED, no current abx as patient has no clear indication that this is infectious and patient was recently treated on a 10 day regimen for group B strep and was cleared by Dr. Boone. Dr. Boone's old records reviewed. -Chronic Normocytic anemia secondary to Chronic disease state, POA, active - Hgb continues low but stable, dilutional, continue to monitor - Consider transfusion if patient remains less than 7.0 - Continue to monitor History of Systolic CHF , present on admission, stable - Most recent echo 07/14/16 shows EF of 55-60% - Continue Metoprolol Succinate ER - Continue lisinopril - Continue home Lasix and spironolactone Diabetes mellitus type II, chronic, present on admission - No diabetes medications listed on med [facility] - Initiate Low-dose correctional insulin - Hemoglobin A1c 5.8 on 05/03/16 -Like glucose 97 on 11/11/16 GERD, chronic, present on admission - Continue Protonix H/o MRSA colonization History of DVT, chronic, present on admission - Start Heparin drip with plan to bridge History of major depression, chronic, present on admission - Continue duloxetine History of chronic pain , present on admission -Continue patient's home methadone -Continue home oxycodone -1-2 mg morphine every 4 hours when necessary PATIENT IS FULL CODE Patient will likely stay several more days to recover from his revascularization and to be monitored for any change in health. GI Prophylaxis: H2 raiza VTE Prophylaxis: Sub-Q Heparin (Unfractionated) Resuscitation Status: DNR/DNI:Do Not Resuscitate/Intubate Time spent 25 minutes Attending Statement I have seen and evaluated the patient at bedside in addition to directly supervising care provided by resident physician Dr Engel on 11/11/2016. I agree with above documentation. Martir Engel DO Nov 11, 2016 17:12 Shayan Hawkins DO Nov 12, 2016 08:06
--- NOTE | 2016-11-11 18:07 | NUR ---
Pain Pt c/o pain in leg at shift change this AM at 10/10. Pt administered 1mg IV Morphine with minimal relief. Pt continued to c/o leg pain 7-09/25. Pt administered a second dose of 1mg IV Morphine with some relief 5-07/26. Pt also has scheduled 5mg BID Methodone that was administered with his morning medications. Pt was sleeping upon reassessment. Afternoon pain assessment pt stated a pain level of 4-5/10 and was administered 1mg of IV morphine. Pt states pain at 3/10 with reassessment.
[2016-11-11] MEDS ORDERED: 0.9% Sodium Chloride 500 ML IV ONE (22:00)
[2016-11-12] VITALS (18 sets, daily range): BP systolic 95–164; BP diastolic 40–80; PULSE 59–77; RESP 15–24; O2SAT 92–100
[2016-11-12] MEDS: Sodium Chloride LOK Flush 10 mL Syringe IVFLUSH SCH ×4 (00:10→22:02)
[2016-11-12] MEDS: LORazepam 1 mg Tablet PO PRN ×2 (01:45→13:19)
--- NOTE | 2016-11-12 05:33 | NUR ---
BP/LOC/Held Meds/Anxiety/Pain Pt hypotensive at start of shift, lisinopril held and MD notified. 500 NS bolus given per order, hypotension resolved, see vitals. Pt very drowsy at start of shift, no longer oriented to year, methadone held as pt was slightly difficult to wake. notified. Later pt much more awake, conversive w/ staff. Pt given Ativan after stating he had nerves over surgery and became restless. Also given Melatonin. Pt slept intermittently. Pt was given Tylenol and for 5/10 leg pain which was effective. This morning pt c/o sharp 8/10 right arm pain that he stated woke him. MD Long notified and stated to give Tylenol first. When he came to assess pt later, pt had fallen back to sleep. Pt NPO after midnight except for small sips of water and meds. Heparin drip off at 0500. Continuing to monitor. Addendum: 11/12/16 at 0654 by IVETTE SOLO RN Pt woke again w/ 6/10 right arm pain and 8/10 left leg pain, given morphine, notified. Pt has now stopped calling out and appears to be resting comfortably.
[2016-11-12 05:39] LABS: BASOPHILS % (AUTO) 0.6 % (0-3); EOSINOPHILS % (AUTO) 7.4 % (0-5); MONOCYTES % (AUTO) 13.6 % (4-12); Mean Corpuscular Hemoglobin 27.7 pg (27.0-35.0); Mean Corpuscular Volume 93.4 fL (81-100); NEUTROPHILS % (AUTO) 54.8 % (40-74); Platelet Count 248 bil/L (150-400)
[2016-11-12] MEDS ORDERED: 0.9% Sodium Chloride 1,000 ML IV ONE (06:00)
--- NOTE | 2016-11-12 06:54 | NUR ---
Skin/Request Mepilex placed on left lateral buttock abrasion which was agitated when he would sit up. Pt stated this was helpful. Pt scratched left leg scabs and caused bleeding. This was cleaned and sheets changed. Pt asked to have delivery tech to speak to prior to surgery. Called this am but voicemail not set up. Will inform day RN to call blending tank tender helper.
--- NOTE | 2016-11-12 07:37 | CONS ---
[address] [address] CONSULTATION REPORT PATIENT: ROBBIE ACE : 1945 MR#: [id number] ADMIT: 11/10/2016 JOB ID: [id number] DATE OF SERVICE: 11/11/2016 REQUESTED BY: Dr. Williams Long. REASON FOR EVALUATION: Peripheral artery disease with rest pain. I saw and examined the patient. Please see Yvonne Walters's notes for detail. IMPRESSION: 1. Peripheral arterial disease with cellulitis of the left lower extremity. 2. Status post left femoropopliteal bypass with left femoral endarterectomy in [place] [address] Mercado in [place]. 3. Status post balloon angioplasty to the left femoro-popliteal proximal and distal anastomotic vein bypass stenosis on October 20, [address] Mercado. 4. Status post right above-knee amputation was performed in March 2016 after failed revascularization procedure. 5. Coronary artery disease. 6. Diabetes mellitus. 7. Hypertension. 8. Hyperlipidemia. 9. Chronic anemia. 10. 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 11. Severe obesity with BMI of 39.1 kg/m2. PLAN: I have personally reviewed medical records from [place] and angiographic images from [place]. It was mentioned that if he failed balloon angioplasty to the graft anastomotic lesion, the patient would require amputation to his left lower extremity. I believe that it is worth to attempt at another interventional procedure with possible stent placement in the distal graft anastomosis and drug-coated balloon angioplasty to the proximal graft anastomotic stenosis. I will arrange for the procedure to be performed tomorrow morning. The patient is quite pleased that we will give him another attempt. He does not want amputation if it is avoidable. Thank you for allowing me to participate in his care. CANDELARIO
[2016-11-12] MEDS: DULoxetine 30 mg DR Capsule PO SCH (08:20)
[2016-11-12] MEDS ORDERED: Heparin 10,000 Unit/1,000 mL NS Premix IV ONE (08:20)
[2016-11-12] MEDS ORDERED: Heparin 1,000 Unit/mL 10 mL Inj ONE (08:20)
[2016-11-12] MEDS: MeTOProlol XL 50 mg ER24 Tablet PO SCH (08:30)
[2016-11-12] MEDS ORDERED: fentaNYL-PF 50 mCg/mL 2 mL Inj ONE (08:58)
--- NOTE | 2016-11-12 09:15 | NUR ---
Off unit Pt down to seed analysis laboratory assistant for procedure. Telemetry notified.
--- NOTE | 2016-11-12 13:31 | NUR ---
leg pain at approx 1250hrs patient had a sudden onset of right LE pain described as cramping/spasms. patient reports Hx of same. patient received 2 mg IV morphine with minimal relief, then 1 mg of PO Ativan. patient reports some improvement. reinforce teaching to keep RLE straight, head on pillow and remain flat. patient will require frequent reminders to keep groin site stable. Now right groin site soft, no palpable hematoma, mildly tender with palpation. continue to monitor and reinforce post-CVL teaching.
--- NOTE | 2016-11-12 14:15 | NUR ---
transfer to [facility] report called to Mayi Rowe RN. report given. patient transferred back to [facility] rm 2002. right groin check performed with Mayi DAS. site CD&I, no hematoma, groin site soft on palpation with mild tenderness/soreness. patient reports that RLE pain has resolved, denies pain. care transferred at 1410hrs.
--- NOTE | 2016-11-12 15:07 | NUR ---
spiritual care: pt request Visited with pt and prayed with him at his request. Pt has a deep sense of francois and is grateful for the spiritual care. Spiritual care will continue to follow.
[2016-11-12] MEDS ORDERED: Glucose 40% Oral Gel 15 Gm Tube PO PRN (15:15)
--- NOTE | 2016-11-12 15:31 | NUR ---
Assumed patient care: Rec'd report from day shift RN Stated she was given report to restart Heparin gtt. Dr Craig called to verify orders. Dr Craig stated he would come up to assess patient. Patient has removed telemetry multiple times since this RN rec'd report. Tele: SB-SR high 55-65 with IVCD and PVC's. Patient educated on importance of telemetry monitoring. Dressing to to R groin is C/D/I, soft to touch, no bruising noted. Frequent rounding in place. Addendum: 11/12/16 at 1706 by ANGEL FARIA RN Heparin gtt PE/DVT protocol restarted at last documented rate of 12u/kg/hr per Dr Craig.
--- NOTE | 2016-11-12 15:52 | NUR ---
took over patient care from DYANA Delgadoluzma Swenson 1550 Addendum: 11/12/16 at 1725 by GREGG GERMAN CNA transferred patient care back to 172
--- NOTE | 2016-11-12 16:00 | PCM.PNMED ---
Subjective Date of Service Nov 12, 2016 Subjective Patient was seen and examined this afternoon after his attempted left leg revascularization. He was lying comfortably in bed. And seem to be in good spirits. Nursing states that the catheterization and revascularization was not successful due to calcification of his vessels. Exam Vital Signs Vital Sign - Last Date Time Temp Pulse Resp B/P Pulse Ox O2 Delivery O2 Flow Rate FiO2 11/12/16 13:47 59 20 144/54 11/12/16 13:47 97 Room Air 11/12/16 13:00 36.6 11/12/16 08:18 2.00 Intake and Output 11/11/16 11/11/16 11/12/16 Cumulative From/Thru 14:58 22:58 06:58 11/10/16 17:01 - 11/12/16 05:20 Intake Total 865 ml 812 ml 2733 ml Output Total 1425 ml 2200 ml Balance -560 ml 812 ml 533 ml Intake Oral 536 ml 736 ml IV Total 329 ml 812 ml 1997 ml Output Urine Total 1425 ml 2200 ml Exam General: No acute distress, well-developed, well-nourished, appropriately interactive HEENT: Normocephalic, atraumatic. Neck: Supple with full range of motion. No jugular venous distension. Cardiovascular: Regular rate and rhythm with no murmurs, rubs, or gallops appreciated Pulmonary: Clear to auscultation. Decreased breath sounds on left lower base. Abdomen: Bowel tones present. Soft, nontender, nondistended. Extremities: +2 pitting edema on left lower extremity. Tender to palpation though less so than yesterday. Dry bandage over right groin at site of catheterization. Skin: Erythema on left leg is slightly improved from yesterday. Neurological: Cranial nerves grossly intact. Psychiatric: Normal mood and affect. Alert and oriented to person, place, and time. IVs and Medications Medications Reviewed: Medications were reviewed in detail Lab and Diagnostics Result Diagram: 11/12/1652411/12/16524 Microbiology Urine Cultures pending Blood Cultures pending X-Rays, CTs and MRIs PROCEDURE: X-RAY CHEST ONE VIEW, PORTABLE IMPRESSION: No acute process. Dictated by: Magalie Lopez M.D. on 11/10/2016 at 18:02 PROCEDURE: CT BRAIN WITHOUT CONTRAST IMPRESSION: No acute process. Dictated by: Magalie Lopez M.D. on 11/10/2016 at 18:39 PROCEDURE: CT ANGIO LOWER EXTREMITY, LEFT IMPRESSION: 1. The left superficial femoral artery and above-knee popliteal artery is occluded, as before. 2. Limited evaluation of the left lower extremity runoff vessels secondary to suboptimal opacification. 3. Diffuse subcutaneous edema versus cellulitis within the left lower extremity. Dictated by: Magalie Lopez M.D. on 11/10/2016 at 20:44 Assessment & Plan The pt is 71 y/o male w/ a hx of dementia, sepsis, gout, gastric ulcers, CHF, CAD, diabetes, HTN, depression, hyperlipidemia, and peripheral vascular disease who was recently seen here for similar complaints on October 11 and was transferred to [facility] for further management of ischemic complications secondary to peripheral vascular disease. -Acute Exacerbation of Chronic Peripheral Vascular Disease, POA, Active, Stable - Patient with known arterial insufficiency and severe stenosis to femoral and popliteal arteries presented with severe LE pain - Patient was recently seen here and transferred to [facility] for vascular surgery, records requested and obtained from [facility] and reviewed. - Dr. López took patient to [facility] morning of 11/12/16 to attempt revascularization of his left lower limb. This was unsuccessful due to arterial calcifications. - Continue home dose Methadone - Morphine PRN for breakthrough pain - Lactic Acid normal on admission, redraw if clinical picture changes -Chronic Normocytic anemia secondary to Chronic disease state, POA, active - Hgb continues low but stable, dilutional, continue to monitor, - Consider transfusion if patient remains less than 7.0 - Continue to monitor 4.6 today History of Systolic CHF , present on admission, stable - Most recent echo 07/14/16 shows EF of 55-60% - Continue Metoprolol Succinate ER - Continue lisinopril - Continue home Lasix and spironolactone Diabetes mellitus type II, chronic, present on admission - No diabetes medications listed on med rec - Initiate medium dose correctional insulin - Hemoglobin A1c 5.8 on 05/03/16 -Blood glucose 111 on 11/11/16 Opioid dependence, present on admission, stable -Continue methadone GERD, chronic, present on admission - Continue Protonix 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 GI Prophylaxis: H2 raiza VTE Prophylaxis: Sub-Q Heparin (Unfractionated) Resuscitation Status: DNR/DNI:Do Not Resuscitate/Intubate Time spent 30 minutes Attending Statement I have seen and evaluated patient at bedside in addition to directly supervising care provided by resident physician on 11/12/2016. I agree with above documentation. I have discussed this case further with Dr Craig who does intend follow up procedure to again attempt to open occluded vessels in lower limb this time with a brachial approach. PT with be made NPO after midnight in anticipation. Martir Engel DO Nov 12, 2016 16:00 Shayan Hawkins DO Nov 12, 2016 21:58
[2016-11-12] MEDS ORDERED: Heparin 5,000 Unit/mL Inj SUBQ SCH (16:30)
[2016-11-12] MEDS: Insulin LISPRO 300 Unit/3 mL Inj SUBQ SCH ×2 (17:30→22:00)
--- NOTE | 2016-11-12 17:30 | NUR ---
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 VS were normal range both times.
--- NOTE | 2016-11-12 23:49 | NUR ---
Agitation/Confusion/Pt Concern At start of shift pt became agitated, attempting to leave bed and calling out in pain. Scheduled Methadone given as well as restoril w/ HS meds and pt then began to ask what hospital he was at and did not believe this was [facility]. This nurse provided booklets and showed whiteboard showing "[facility]" written on it. Pt stated "you could get that from anywhere." MD notified of disorientation/agitation. Pt then wanted to leave room and became very tearful and stated that tomorrow's procedure would be through his eye and he refused that. Pt was reassured this was not the case, but pt stated he did not "trust" that and expressed his concern of being taken w/out his consent. Pt was reassured he would not be taken w/out his consent and that nursing would speak to MD about his concerns in the morning. Night MD also notified to help ease pt's concerns. After that, pt went around halls in wheelchair w/ [employer] and was immediately at ease, smiling and appeared in no distress after that. Pt still insists the procedure would be through his eye but agreed to speak to MD in morning before refusing.
[2016-11-13] VITALS (9 sets, daily range): BP systolic 121–160; BP diastolic 52–76; PULSE 67–82; RESP 16–22; O2SAT 95–98
[2016-11-13] MEDS: LORazepam 1 mg Tablet PO PRN ×3 (03:11→16:28)
--- NOTE | 2016-11-13 06:28 | NUR ---
Care assumed- Assumed care ~0545, pt. to bed from wheelchair 2PA. Heparin gtt. infusing. Now resting with eyes closed. Pt. NPO in anticipation of procedure today.
--- NOTE | 2016-11-13 06:51 | NUR ---
Increased confusion/agitation Pt slept for a few hours after walk in halls and snack, only waking to use urinal or for labs, pt otherwise appeared to be sleeping comfortably. Pt woke a few hours later and was requesting water. Pt was reminded of NPO status after midnight and stated he did not want the procedure done, pt refused a wet swab and insisted on water. paged and came to speak to pt for a while. Pt given Ativan and took larger gulps of water instead of sips. Pt stated he did not want to be at this hospital and that he felt he was "getting worse" and preferred to return to [facility]. Interventions were explained, pt was reassured that he would be able to speak to his care team in the morning regarding care plan and that nothing would occur without his consent. A little after that pt was seen getting out of bed. Pt is able to put his own rails down and does not wait long for staff to assist when he wants to get up. [place] alarm is in place. Pt was approached and asked to get back to bed but he stated he wanted to get in wheelchair and go out in the [place]blero again. Pt agreeable to getting vitals done first and stated he just wanted to sit out of the room for a while. As this was helpful to pt before, pt was helped to wheelchair so that he would not attempt it on his own. Pt sat out in the roblero for a little bit and then wanted to go around the loop, but soon after became tearful and increasingly upset/confused, pt insisted he did not want to go back to his room anymore. paged and came to speak to pt. machine deburrer offered a different room and RN, pt then agreeable. Pt transferred to room 2022 and report given to new RN.
--- NOTE | 2016-11-13 07:03 | DI96 ---
[address] [address] PERIPHERAL CATHETERIZATION/INTERVENTION REPORT PATIENT: ROBBIE ACE : 1945 MR#: [id number] ADMIT: 11/10/2016 JOB ID: [id number] DATE: 11/12/2016 PATIENT PROFILE: The patient is a 71-year-old male who has peripheral artery disease with cellulitis of the left lower extremity. 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 He has diabetes, hypertension, hyperlipidemia, prior smoking, morbid obesity, and obstructive sleep apnea. PROCEDURE: 1. Conscious sedation for 1 hour and 20 minutes. 2. Vascular access from the right groin under ultrasound guidance. 3. Selective ipsilateral right external iliac angiogram. VASCULAR CLOSURE DEVICE: None. METHOD: Conscious sedation was achieved with IV Versed and IV fentanyl. Vascular access was obtained from the right groin under 1% lidocaine local anesthetic using micropuncture needle. This was performed under ultrasound guidance, but it was somewhat difficult to obtain access due to his large body size and significant calcification of the right common femoral artery. After the micropuncture needle was in the right common femoral artery, a micropuncture wire was advanced. However, I could not advance this wire beyond the right external iliac artery. The micro sheath was placed. Selective ipsilateral right external iliac angiogram was performed in the AP view, REYES, and POLISH oblique view. An attempt to advance an 0.014 and 0.018 wire into the abdominal aorta was unsuccessful. The procedure was terminated. Following sheath removal, hemostasis was achieved by manual compression. The patient tolerated the procedure well. He was transferred to [facility] in good condition TOTAL CONTRAST USED: 20 mL TOTAL FLUOROSCOPY TIME: 4.9 minutes RESULTS: 1. The right external iliac artery and right common femoral artery are heavily calcified and have diffuse moderate plaque. 2. There is focal severe eccentric 95% stenosis in the right external iliac artery. [facility]
[2016-11-13 07:41] LABS: Mean Corpuscular Hemoglobin 27.6 pg (27.0-35.0); Mean Corpuscular Volume 90.3 fL (81-100)
[2016-11-13] MEDS: Insulin LISPRO 300 Unit/3 mL Inj SUBQ SCH ×4 (08:00→22:00)
[2016-11-13] MEDS: MeTOProlol XL 50 mg ER24 Tablet PO SCH (11:10)
[2016-11-13] MEDS: DULoxetine 30 mg DR Capsule PO SCH (11:10)
[2016-11-13] MEDS: Sodium Chloride LOK Flush 10 mL Syringe IVFLUSH SCH ×2 (11:11→16:29)
--- NOTE | 2016-11-13 11:56 | PCM.CONPAL ---
Date of Service Nov 13, 2016 Date of Hospital Admission: Nov 10, 2016 at 20:15 Date of Palliative Consult: Nov 13, 2016 Requesting Provider: Reagan Zuñiga MD Reason Palliative Care Consult: Goals of Care Discussion Hospital Unit @time of consult: Progressive Care Palliative Care Recommendation Summary of palliative recommendations: -Symptom management (Pain/other) PAIN- methadone is back up to his prior dose of 15 mg /day--now 5mg TID, Encouraged RN to treat his complaint of pain with PRN meds to determine what will be necessary to control. May need ACADEMIC GUIDANCE SPECIALIST. He has IV MS 1-2 mg Q 2 and now oxycodone 10 mg Q 4 PRN. Suspect will need higher dose of methadone-- to be assessed in 4 days Will begin gabapentin at 300 mg BID--monitoring for sedation. Gait imbal not an issue. Anxiety-- hopefully will be better controlled with better pain management. He is on duloxetine-- for this and pain. Consider clonazepam rather than lorazepam if regular dosing is necessary. Constipation-start regular dosing of senna- decrease if diarrhea. Will need as long as he is on opiates Pruritis- first emollients. If not effective THEN consider hydroxyzine. Cognitive dysfunction- not severe. may have had delirium now cleared. He is decisional and hopefully will tolerate increase in med dosing. Has some agitation--ie hates tele box so he just took it off but fairly rational in this. DPOA/Advanced Directives/POLST-he states he has done DPOAHC with notary and 1st is Annette -Family/emotional support-I think fairly isolated and frustrated -Spiritual support-enjoys praying with pipe smoker machine operator Patient Goals: 1. Patient wants to be told the truth about his/her illness, even if it is unpleasant.Yes 2. Patient would like to be told prognosis when it can be predicted, to better guide treatment decisions. Yes 3. Patient would choose quality of life over quantity of life, and defines quality as pain management. He otherwise is OK needing ECF for the rest of his life 4. Patient would request that comfort care take priority over cognitive/mental confusion.Yes Additional Medical Diagnoses with primary management by Hospitalist team include : ASPVD Severe cardiomyopathy Chronic anemia UTI Problems: End of Life Preferences DNR, limited Goals of Care Hopes for revascularization and better pain management Disposition Expect back to [facility] Resuscitation Status Resuscitation Status: DNR/DNI:Do Not Resuscitate/Intubate Limited Interventions: BiPAP, Medications and IV Fluid POLST Updates/Changes Artificially Admin Nutrition: No Artifical Nutrition by Tube POLST Discussed with: Patient . Pain: Severe Symptom management: Depression, Anxiety, Agitation, Pain, Constipation Pt History History of Present Illness This is a 71 year old who presents to the ED via EMS on 11-11-2016 for increasing confusion and worsening left leg pain. Significant past medical history; PVD (with right AKA), CHF, CAD, DM, HTN, HLD, dementia, sepsis, gout, gastric ulcers, GERD, chronic GI bleeding, anemia, chronic pain (on methadone), hx of DVT. Patient was recently admitted to [facility] on 10-11-2016 for AMS, sepsis, and left lower leg cellulitis. US findings of left leg arteries demonstrated; High-grade stenosis involving the origin of the left femoral-popliteal in situ bypass graft with occlusion of the graft distal to this point and no flow seen within the capitan grande band popliteal artery or the visualized Vessels. The patient was transferred to [facility] on 10-16-2016 for further management of PVD. On 10-20, he underwent a left leg angiogram of the left proximal and distal femoral popliteal bypass anastomotic stenosis that was angioplastied with 4mm balloon to 15atm for 3 minutes each. This procedure was performed by Dr. Barker. Dr. Barker recommended that if this angioplasty fails, then patient will require BKA vs. AKA. Following the hospital course at [place], the patient was discharged to [facility] care and rehabilitation in [place]. According to the staff at [facility], the patient was becoming more confused over the last week, with reports of worsening pain in the left leg. CTA of left lower extremity demonstrated; Mild diffuse stenosis of the external iliac artery is present. Common femoral artery is mildly distended and mildly diffusely stenotic. Profundofemoral artery demonstrates a high-grade origin stenosis. Superficial femoral artery is occluded , as before. reconstituted flow is seen within the below-knee popliteal artery. There is limited opacification of the runoff vessels. PALLIATIVE CARE CONSULTATION REQUESTING DR. ZUÑIGA REASON GOALS OF CARE PCP DR. M[facility]IN[facility] 71 yo with hx of extensive vascular ds including severe PVD now s/p AKA on R LE and painful ischemic limb on LLE. He has had bypass then angioplasty-the last time 10/20/16 in [place] with temporary control of pain on L. Pain again increased with evidence of ongoing occlusion. He was at his ECF where he has been since Mickey (his guess) developed altered MS and was transferred here. He has chronic pain-- phantom pain R LE and his ischemic pain LLE as well as OA pain in wrists, BUSH, probable peripheral neuropathy in hands-R>L due to his hx of CVA. He states it has been a long time since he had sense of pain control. The plan is to try again with angioplasty but if unsuccessful then to proceed to amputation. He agrees to this course. He has a diagnosis of dementia and acknowledges that he sometimes has trouble with memory and then others not.He is not sure if this relates to his med dosing or not.He has chronic anxiety and gets lorazepam PRN. He knows he gets agitated but he thinks it is due to pain. He has no recall re trial of gabapentin. He has no idea what dosing of meds he was taking in the ECF. He had been on oxycodone 10 mg Q4 PRN with MS PRN in past and found these helpful but short lived. Hx of UT distant with ECHO noting severe hypokinesis of mid-distal inf/post wall and EF of 35-40% He has hx DM but on no meds. He states strong FMHX-both parents. . Past Medical History Significant PMH Noted: PMH Anemia Dementia-mild Peripheral vacular disease Gout Myoclonus Atherosclerotic cardiovascular disease s/p inf-post UT Anxiety Gastric ulcer h/o GI bleed and anemia, however upper and lower endoscopies were negative Hx CVA 1998 Peripheral neuropathy--suspect due to DM Congestive heart failure, Coronary artery disease, Diabetes mellitus, Hyperlipidemia, Hypertension Depression Seborrheic dermatitis Surgical History Left leg femoral artery bypass graft Right AKA history of subsequent pseudomonas infection Upper and lower endoscopy at [facility] May 05 reportedly negative for source of anemia FMHX DM and dementia Born in [facility]-1 sister still lives there. He has 1 brother living in [facility] but he has no contact He is now distanced from his niece- Moriah who used to be DPOA but no longer . 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 Palliative Performance Scale PPS Ambulation: Mainly Sit/Lie PPS Activity: Unable to do most activity PPS Self-Care: 1 person assist PPS Intake: Normal PPS Conscious Level: Full or confusion Performance Scale: 50% ADLs ADL Ambulation: Mainly Sit/Lie ADL Dressing: Considerable assistance required ADL Feeding: Occasional assistance necessary ADL Hygene/bathing: Mainly assistance ADL Transfers: Considerable assistance required Allergy Allergies Reviewed: Yes Medications Current Medications: Current Medications Pharmacy Consult 1 ea DAILY@17 XX; Start 11/11/16 at 17:00; Stop 11/11/16 at 17: 00; Status DC Lorazepam 1 mg ONCE PRN IVPUSH; Start 11/12/16 at 06:00; Stop 11/13/16 at 06:01 ; Status DC Sodium Chloride 10 ml PLAICDO IVFLUSH Last administered on 11/13/16t 11:11; Admin Dose 10 ML; Start 11/12/16 at 00:30 Heparin Sodium (Porcine) 5,000 unit Q8 SUBQ; Start 11/12/16 at 16:30; Stop 11/12 at 16:30; Status DC Insulin Human Lispro Nutritional Dose to be given pr... [facility] SUBQ; Start at 17:30 Methadone HCl 5 mg TID PO; Start 11/13/16 at 14:30 Scheduled Atorvastatin (Lipitor) 80 Mg Tablet 80 MG PO HS Baclofen (Baclofen) 10 Mg Tablet 10 MG PO TIDWM 0700, 1300, 1700 Cholecalciferol (Vitamin D3) (Vitamin D3) 2,000 Unit Tablet 2,000 UNIT PO DAILY Duloxetine (Duloxetine) 60 Mg Capsule.dr 90 MG PO DAILY Ferrous Sulfate (Ferrous Sulfate) 325 Mg Tablet 325 MG PO TIDAC Furosemide (Furosemide) 40 Mg Tablet 40 MG PO BID Lisinopril (Lisinopril) 5 Mg Tablet 5 MG PO BID Methadone (Methadone) 5 Mg Tablet 7.5 MG PO BID Metoprolol Succinate ER (Metoprolol Succinate ER) 50 Mg Tab.er.24h 50 MG PO DAILY Multivitamin (Multivitamins) 1 Each Capsule 1 EACH PO DAILY Pantoprazole DR (Pantoprazole DR) 40 Mg Tablet.dr 40 MG PO QAM Spironolactone (Aldactone) 25 Mg Tablet 12.5 MG PO DAILY Warfarin Sodium (Warfarin Sodium) 5 Mg Tablet 5 MG PO DAILY Scheduled PRN Acetaminophen (Acetaminophen) 325 Mg Capsule 650 MG PO q4 hours PRN PRN For Pain Bisacodyl (Dulcolax Rectal) 10 Mg Supp.rect 10 MG RC DAILY PRN PRN For Constipation IF NO BM POST MOM ADMINISTRATION ON 4TH DAY Calcium Carbonate (Tums) 500 Mg Tab.chew 500 MG PO Q6H PRN PRN GI UPSET Lorazepam (Lorazepam) 1 Mg Tablet 1 MG PO Q4H PRN PRN ANXIETY Lorazepam (Lorazepam) 0.5 Mg Tablet 0.5 MG PO HS PRN PRN For Insomnia Magnesium Hydroxide (Milk of Magnesia) 400 Mg/5 Ml Oral.susp 30 ML PO HS PRN PRN For Constipation AFTER NO BM X 3 DAYS. GIVE AT HS. Melatonin (Melatonin 1 mg Tablet) 1 Each Tablet 5 MG PO HS PRN PRN Insomnia Na Phos,M-B/Na Phos,Di-Ba (Fleet Enema) 133 Ml Enema 133 ML RC DAILY PRN PRN For Constipation IF NO BM POST BISACODYL ADMIN ON EVENING OF 4TH DAY Nitroglycerin SL (Nitrostat) 0.4 Mg Tab.subl 0.4 MG SL Q5MIN PRN PRN For Chest Pain IF SBP > 90 May use up to 3 times 5 minutes apart for chest pain Ondansetron (Zofran) 4 Mg Tablet 4 MG PO Q8H PRN PRN For Nausea Oxycodone (Roxicodone) 5 Mg Tablet 5 MG PO Q4H PRN PRN For Pain Polyethylene Glycol 3350 (Miralax) 17 Gm Powd.pack 17 GM PO QID PRN PRN For Constipation Prochlorperazine Maleate (Compazine) 10 Mg Tablet 10 MG PO Q8H PRN PRN For Nausea diphenhydrAMINE HCl (Benadryl) 25 Mg Capsule 25 MG PO Q8H PRN PRN RASH Objective Findings Exam Vital Sign - Last Date Time Temp Pulse Resp B/P Pulse Ox O2 Delivery O2 Flow Rate FiO2 11/13/16 08:39 36.8 82 20 121/62 98 Room Air 11/12/16 08:18 2.00 Intake and Output 11/12/16 11/12/16 11/13/16 Cumulative From/Thru 15:00 23:00 07:00 11/10/16 17:01 - 11/13/16 06:49 Intake Total 641 ml 45 ml 200 ml 3619 ml Output Total 850 ml 1675 ml 4725 ml Balance -209 ml 45 ml -1475 ml -1106 ml Intake Oral 240 ml 200 ml 1176 ml IV Total 50 ml 45 ml 2092 ml Packed Cells 351 ml 351 ml Output Urine Total 850 ml 1675 ml 4725 ml # Voids 1 1 General: Alert, Oriented, Person, Place, Situation, Other (, he is able to have full and appropriate conversation and is very decisional at this time) HEENT: PERRLA, EOMI, Scleral Anicteric Heart: Regular Rate/Rhythm Lungs: Clear to Auscultation Abdomen: Other (moderately obese abd) Neuro: Cranial Nerve 3-12 Intact Extremities: Edema (2+ tense LLE with partially healed scar the extent of his inner distal leg from bypass grafting) Lab/Diagnostics Lab and Imaging results reviewed in detail in EMR. Hgb 8, CR wnl, normal BG Patient/Family Conference Members Present Family Members Present patient Medical Team Members Present? Joon [facility] Discussion/Goals of Care Discussion FAMILY UNDERSTANDING OF DISEASE: He understands the severity of his disease and the need for ongoing ECF due to needs. DISEASE PROGRESSION/EVIDENCE OF DECLINE: SYMPTOM BURDEN:Profound due to pain. His dependency is 2nd. GOALS: he recognizes if repeat attempt at revascularizing not successful then amputation. HOPES/WORRIES: He is frustrated by "not being believed", treated like "an idiot "--which I think relates to his dx of dementia Reviewed Option for amputation or hospice management if vasc procedure not successful. Reviewed better focus on pain management starting now and he is willing to sacrifice some of his mental clarity for this. He is not interested in hospice option at this time. Time spent Total time 70 minutes; >50% face to face with patient and/or family, providing counselling regarding plans and recommendations, and in care coordination with his/her medical teams. Primarily time spent in interviewing patient and coordinating care with med management I also spent an additional [ ] minutes counseling for advanced care planning with the patient/the patients family/the surrogate decision maker. copies to: Jon Muniz MD; Nikolai Martin MD, Deborah A MD Nov 13, 2016 11:56
--- NOTE | 2016-11-13 12:40 | NUR ---
Palliative Care Received verbal order from Dr Phipps 11/13/16 to assist with goals of care. Patient admitted 11/10/16. Palliative Care to follow. Ariana Faulkner
--- NOTE | 2016-11-13 13:22 | PCM.PNMED ---
Subjective Date of Service Nov 13, 2016 Subjective Patient seen and examined today. He is being pushed around the halls in wheelchair because he was tired of being in his room. He seemed a little confused and was having difficulty communicating, but he seemed to have symptoms concerns about the plan moving forward. Nursing notes some agitation and confusion last night. He requested to be taken from his room and wanted to be pushed around. Exam Vital Signs Vital Sign - Last Date Time Temp Pulse Resp B/P Pulse Ox O2 Delivery O2 Flow Rate FiO2 11/13/16 08:39 36.8 82 20 121/62 98 Room Air 11/12/16 08:18 2.00 Intake and Output 11/12/16 11/12/16 11/13/16 Cumulative From/Thru 15:00 23:00 07:00 11/10/16 17:01 - 11/13/16 06:49 Intake Total 641 ml 45 ml 200 ml 3619 ml Output Total 850 ml 1675 ml 4725 ml Balance -209 ml 45 ml -1475 ml -1106 ml Intake Oral 240 ml 200 ml 1176 ml IV Total 50 ml 45 ml 2092 ml Packed Cells 351 ml 351 ml Output Urine Total 850 ml 1675 ml 4725 ml # Voids 1 1 Exam General: No acute distress HEENT: Normocephalic, atraumatic. Neck: Supple with full range of motion. Cardiovascular: Regular rate and rhythm with no murmurs, rubs, or gallops appreciated Pulmonary: Clear to auscultation bilaterally with no crackles, wheezes, or rhonchi. Normal respiratory effort with no use of accessory muscles. Abdomen: Soft, nontender, nondistended Extremities: 2+ edema in left lower extremity, tenderness to palpation Skin: Erythema appears about the same as yesterday on his lower extremity Neurological: Cranial nerves grossly intact. Psychiatric: Slightly agitated but alert and conversive IVs and Medications Medications Reviewed: Medications were reviewed in detail Lab and Diagnostics Result Diagram: 11/13/1671911/13/16719 Microbiology The urine culture resulted: Morganell-morganii, sensitive to Bactrim Blood Cultures pending X-Rays, CTs and MRIs PROCEDURE: X-RAY CHEST ONE VIEW, PORTABLE IMPRESSION: No acute process. Dictated by: Magalie Lopez M.D. on 11/10/2016 at 18:02 PROCEDURE: CT BRAIN WITHOUT CONTRAST IMPRESSION: No acute process. Dictated by: Magalie Lopez M.D. on 11/10/2016 at 18:39 PROCEDURE: CT ANGIO LOWER EXTREMITY, LEFT IMPRESSION: 1. The left superficial femoral artery and above-knee popliteal artery is occluded, as before. 2. Limited evaluation of the left lower extremity runoff vessels secondary to suboptimal opacification. 3. Diffuse subcutaneous edema versus cellulitis within the left lower extremity. Dictated by: Magalie Lopez M.D. on 11/10/2016 at 20:44 Assessment & Plan The pt is 71 y/o male w/ a hx of dementia, sepsis, gout, gastric ulcers, CHF, CAD, diabetes, HTN, depression, hyperlipidemia, and peripheral vascular disease who was recently seen here for similar complaints on October 11 and was transferred to [facility] for further management of ischemic complications secondary to peripheral vascular disease. -Acute Exacerbation of Chronic Peripheral Vascular Disease, POA, Active, Stable - Patient with known arterial insufficiency and severe stenosis to femoral and popliteal arteries presented with severe LE pain - Patient was recently seen here and transferred to [place] for vascular surgery, records requested and obtained from [place] and reviewed. - Dr. López took patient to [facility] morning of 11/12/16 to attempt revascularization of his left lower limb. This was unsuccessful due to arterial calcifications. - Dr. López plans to take the patient to the lab tomorrow afternoon to attempt treatment vascularization through a brachial approach. -Dr. López requests that we transfuse normal saline at a rate of 100 mils per hour -Heparin drip discontinued per cardiology request -NPO after midnight - If the next attempt is unsuccessful, we will have a discussion with the patient about what he wants to do. He seems hesitant to have another amputation as he is does not seem satisfied with his last amputation, and understands that this would not buy him a lot of time or quality of life -Palliative will be seeing patient - Continue home dose Methadone - Morphine PRN for breakthrough pain - Lactic Acid normal on admission, redraw if clinical picture changes -Chronic Normocytic anemia secondary to Chronic disease state, POA, active -Dr. López from cardiology wishes for us to transfuse 1 unit prior to procedure tomorrow this has been ordered - Consider additional transfusion if Hgb less than 7.0 - Continue to monitor Urinary tract infection, present on admission, active -Claribel Funk -Started on Bactrim DS twice daily on 11/13/16. 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 GI Prophylaxis: H2 raiza VTE Prophylaxis: Sub-Q Heparin (Unfractionated) Resuscitation Status: DNR/DNI:Do Not Resuscitate/Intubate Attending Statement The patient was seen and examined together with Dr. Engel on 11/13/2016 and I agree with the history, exam and plan as outlined in the note above. . Martir Engel DO Nov 13, 2016 13:22 Reagan Phipps MD Nov 14, 2016 16:36
[2016-11-13] MEDS ORDERED: 0.9% Sodium Chloride 250 ML IV ONE (13:40)
[2016-11-13] MEDS: 0.9% Sodium Chloride 1,000 ML IV SCH ×2 (16:29→23:45)
[2016-11-13] MEDS: Trimethoprim-Sulfa 160 mg-800 mg Tablet PO SCH ×2 (16:56→22:47)
--- NOTE | 2016-11-13 19:47 | NUR ---
PRBC infusion/mentation/No stool No reports of chest pain/pressure/discomfort. Tele SR with IVCD. Tele DC'd this afternoon per MD orders, increasing patient agitation. No reports of SOB/dizziness. SPO2 on RA mid 90s. Patient has episodes where he feels anxious and 1L oxymask was placed. No reports of n/v/d/c or abdominal pain. Voiding via urinal with assistance. Hypoactive bowel tones, no recorded stool since admit on I and Os however one is charted in assessments for 11/11. Patient is unable to recall last BM. Alert and oriented to self, orientation to place is intermittent and patient does not know year. Very restless, up and down in bed and gets agitated quite easily. Needs frequent reassurance and cueing. PRBC infusing per cardiology orders prior to quality lab technician procedure tomorrow.
[2016-11-13] MEDS ORDERED: Haloperidol 5 mg/mL Inj ONE (22:04)
[2016-11-13] MEDS ORDERED: Haloperidol 5 mg/mL Inj IM ONE (22:10)
[2016-11-14] MEDS: Sodium Chloride LOK Flush 10 mL Syringe IVFLUSH SCH ×3 (00:40→16:30)
[2016-11-14 00:56] VITALS: BP 108/58; PULSE 88; RESP 18; O2SAT 96
[2016-11-14] MEDS ORDERED: Haloperidol 5 mg/mL Inj IV ONE (01:35)
[2016-11-14 04:41] VITALS: BP 151/70; PULSE 71; RESP 16; O2SAT 96
[2016-11-14 04:48] LABS: BASOPHILS % (AUTO) 0.4 % (0-3); EOSINOPHILS % (AUTO) 4.8 % (0-5); MONOCYTES % (AUTO) 11.8 % (4-12); Mean Corpuscular Hemoglobin 28.1 pg (27.0-35.0); Mean Corpuscular Volume 88.1 fL (81-100); NEUTROPHILS % (AUTO) 59.1 % (40-74); Platelet Count 252 bil/L (150-400)
--- NOTE | 2016-11-14 06:10 | NUR ---
Mentation/Aggitation Pt oriented to self, otherwise confused. Denies SOB, chestpain or discomfort. Indicates intermittent pain in LE. Pt. became increasingly agitated early in shift, striking and spitting at staff, d/c's own IV access, and repeated efforts to exit the bed. Failed attempts to redirect, pt. became combative. paged and assessed pt. at bedside. Orders received for IV Haldol (2mg), and soft restraints. Pt. continued to exhibit agitation, and 2nd order received for additional 1 mg Haldol, with good response. Pt. rested intermittently. Continued to exhibit confusion and agitation when awake. VSS, Spo2 upper 90's on RA. No tele. Sitter at bedside. Report given to on coming RN.
[2016-11-14] MEDS: 0.9% Sodium Chloride 1,000 ML IV SCH ×2 (06:39→15:32)
[2016-11-14 07:35] VITALS: BP 165/75; PULSE 67; RESP 16; O2SAT 100
[2016-11-14] MEDS: Insulin LISPRO 300 Unit/3 mL Inj SUBQ SCH ×4 (08:00→20:38)
[2016-11-14] MEDS: DULoxetine 30 mg DR Capsule PO SCH (08:30)
[2016-11-14] MEDS: Trimethoprim-Sulfa 160 mg-800 mg Tablet PO SCH ×2 (08:30→19:59)
[2016-11-14] MEDS: MeTOProlol XL 50 mg ER24 Tablet PO SCH (08:30)
[2016-11-14] MEDS ORDERED: Dextrose 10% 250 ML IV PRN (08:35)
--- NOTE | 2016-11-14 11:33 | NUR ---
NUTRITION ASSESSMENT: ASSESS: Pt is a 71yo M admitted for AMS and exacerbation of PVD. Pt has a right BKA and it is possible he may require another amputation. Palliative care is following. 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 PO on Diabetic diet has been variable at 25-100%. Pt has not had a BM since admit. He continues to be agitated and have ams. PMHX: anemia, dementia, PVD, R. BKA, GI bleed, gout, CVA, CHF LABS: Reviewed. WNL MEDS: Reviewed. GI: 0 recorded BM SKIN: no major issues CURRENT WTS: 114.9kg, BMI 38.5kg/m2, admit wt 116.7kg, IBW: 70kg DIET: Diabetic, PO 25-100% EST. NEEDS:BMI, -5% for BKA Kcals: 2220-2440kcal/day (20-22kcal/kg) Pro: 80-100g/day (1.2-1.5g/kg IBW) NUTRITION DIAGNOSIS: 1.) Variable PO intake related to AMS as evidence by PO ranging from 25-100% NUTRITION INTERVENTION: 1.) Continue on diabetic diet. Will add Glucerna on L tray MONITOR / EVAL: PO, BM, wt, GI, labs, POC, nutrition status. Will continue to monitor per moderate nutrition risk guidelines
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
[2016-11-14 11:54] VITALS: BP 134/57; PULSE 67; RESP 20; O2SAT 95
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
[2016-11-14 16:13] VITALS: BP 129/56; PULSE 69; RESP 16; O2SAT 98
[2016-11-14] MEDS: Heparin 5,000 Unit/mL Inj SUBQ SCH ×2 (17:52→23:58)
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
[2016-11-14 19:41] VITALS: BP 145/65; PULSE 65; RESP 16; O2SAT 95
--- NOTE | 2016-11-14 21:25 | NUR ---
discomfort patient complains of "numbness and tingling" to right hand. waving hand in air, moaning. states "please make it stop." hand is warm. radial pulse strong. brisk cap refill. able to move fingers. patient states "this happens to me at home too." medicated with oxycodone 10mg and tylenol 650mg . elevated hand on pillow. given heating pad. on re assessment patient with effective pain relief. states pain is a 1. comfortable.
--- NOTE | 2016-11-14 21:41 | NUR ---
anxiety patient anxious. wants to throw legs over bed. states "i want to get up now." medicated with seroquel 25mg oral. changed brief. repositioned in bed. sitter at bedside. care continues.
[2016-11-15] MEDS: Sodium Chloride LOK Flush 10 mL Syringe IVFLUSH SCH ×4 (00:03→23:12)
[2016-11-15] MEDS: 0.9% Sodium Chloride 1,000 ML IV SCH ×2 (01:39→05:45)
[2016-11-15 03:32] LABS: BASOPHILS % (AUTO) 1.1 % (0-3); EOSINOPHILS % (AUTO) 8.1 % (0-5); MONOCYTES % (AUTO) 11.4 % (4-12); Mean Corpuscular Hemoglobin 27.8 pg (27.0-35.0); Mean Corpuscular Volume 91.5 fL (81-100); NEUTROPHILS % (AUTO) 48.2 % (40-74); Platelet Count 216 bil/L (150-400)
[2016-11-15 03:49] LABS: Magnesium 1.8 mg/dL (1.6-2.6)
[2016-11-15 04:42] VITALS: BP 172/55; PULSE 67; RESP 16; O2SAT 100
--- NOTE | 2016-11-15 04:48 | NUR ---
RN Hand-Off Assumed pt care at approximately 0200. Pt had removed his IV access prior to assuming care of the pt. Pt is now sleeping and VSS and pt appears to be in no pain at this time. Pt still requires another IV access site and will attempt to get the site prior to shift change. Pt continues to have a sitter in the room due to pt's mentation and behavior on 11/14/2016. Pt has been weaned off the 2L O2 NC that the pt was on when hand-off report was given and current O2 sats on RA are 98-100%.
[2016-11-15] MEDS: Insulin LISPRO 300 Unit/3 mL Inj SUBQ SCH ×4 (08:00→22:00)
[2016-11-15 08:21] VITALS: BP 153/65; PULSE 71; RESP 16; O2SAT 95
[2016-11-15] MEDS: MeTOProlol XL 50 mg ER24 Tablet PO SCH (10:15)
[2016-11-15] MEDS: DULoxetine 30 mg DR Capsule PO SCH (10:20)
[2016-11-15] MEDS: Heparin 5,000 Unit/mL Inj SUBQ SCH (10:21)
[2016-11-15] MEDS ORDERED: cefTRIAXone Inj 1,000 MG in Dextrose 5% Minibag Plus 50 ML IV SCH (10:30)
[2016-11-15] MEDS ORDERED: HEPARIN NS IV SCH (10:35)
[2016-11-15] MEDS ORDERED: Heparin 5,000 Unit/mL Inj IVPUSH PRN (10:35)
--- NOTE | 2016-11-15 14:59 | PCM.PNMED ---
Subjective Date of Service Nov 15, 2016 Subjective Patient was seen and examined today. He was acting inappropriately this morning , but it seems that his mentation has become clear later in the day. She understands that he will be having a catheterization on Thursday and attempted to stent his leg. He was able to describe the procedure. Nursing states that the patient was quite combative and agitated last night he received Haldol with resolution. Exam Vital Signs Vital Sign - Last Date Time Temp Pulse Resp B/P Pulse Ox O2 Delivery O2 Flow Rate FiO2 11/15/16 08:21 37.3 71 16 153/65 95 Room Air 11/15/16 04:42 2.00 Intake and Output 11/14/16 11/14/16 11/15/16 Cumulative From/Thru 15:00 23:00 07:00 11/10/16 17:01 - 11/15/16 04:41 Intake Total 363 ml 600 ml 5802 ml Output Total 500 ml 800 ml 8100 ml Balance -137 ml -200 ml -2298 ml Intake Oral 363 ml 600 ml 3359 ml IV Total 2092 ml Packed Cells 351 ml Output Urine Total 500 ml 800 ml 8100 ml # Voids 5 4 18 # Bowel Movements 0 0 Exam General: No acute distress HEENT: Normocephalic, atraumatic. Neck: Supple with full range of motion. No jugular venous distension. Cardiovascular: Regular rate and rhythm with no murmurs, rubs, or gallops appreciated Pulmonary: Clear to auscultation bilaterally with no crackles, wheezes, or rhonchi. Normal respiratory effort with no use of accessory muscles. Abdomen: Bowel tones present. Soft, nontender, nondistended. Extremities: +1 pitting edema of left lower extremity. Mild erythema and scaling. Mildly tender to palpation Skin: Erythematous lower left extremity with multiple nonhealing ulcers on dorsal aspect of foot Neurological: Cranial nerves grossly intact. Normal muscle strength, tone, and bulk. Psychiatric: Normal mood and affect. Lab and Diagnostics Result Diagram: 11/15/16 0320 11/15/16 032 Microbiology The urine culture resulted: Morganell-morganii, sensitive to Bactrim Blood Cultures pending X-Rays, CTs and MRIs PROCEDURE: X-RAY CHEST ONE VIEW, PORTABLE IMPRESSION: No acute process. Dictated by: Magalie Lopez M.D. on 11/10/2016 at 18:02 PROCEDURE: CT BRAIN WITHOUT CONTRAST IMPRESSION: No acute process. Dictated by: Magalie Lopez M.D. on 11/10/2016 at 18:39 PROCEDURE: CT ANGIO LOWER EXTREMITY, LEFT IMPRESSION: 1. The left superficial femoral artery and above-knee popliteal artery is occluded, as before. 2. Limited evaluation of the left lower extremity runoff vessels secondary to suboptimal opacification. 3. Diffuse subcutaneous edema versus cellulitis within the left lower extremity. Dictated by: Magalie Lopez M.D. on 11/10/2016 at 20:44 Assessment & Plan The pt is 71 y/o male w/ a hx of dementia, sepsis, gout, gastric ulcers, CHF, CAD, diabetes, HTN, depression, hyperlipidemia, and peripheral vascular disease who was recently seen here for similar complaints on October 11 and was transferred to [facility] for further management of ischemic complications secondary to peripheral vascular disease. -Acute Exacerbation of Chronic Peripheral Vascular Disease, POA, Active, Stable - Patient with known arterial insufficiency and severe stenosis to femoral and popliteal arteries presented with severe LE pain - Patient was recently seen here and transferred to [place] for vascular surgery, records requested and obtained from [place] and reviewed. - Dr. López took patient to Network Support Technician morning of 11/12/16 to attempt revascularization of his left lower limb. This was unsuccessful due to arterial calcifications. - In speaking with Dr. Craig today, he plans to attempt revascularization of the left lower leg again on Thursday - We will discontinue heparin drip Thursday afternoon in preparation for Mondays Catheterization - Reevaluate goals of care for patient, if revascularization procedure cannot be performed successfully we need to have a discussion with the patient about what he wants to do. He seems hesitant to have another amputation as he is does not seem satisfied with his last amputation, and understands that this would not buy him a lot of time or quality of life - Palliative care continues to follow patient - Continue home dose Methadone - Morphine PRN for breakthrough pain - Lactic Acid normal on admission, redraw if clinical picture changes Chronic deconditioning, present on admission, ongoing -Physical therapy consulted -Chronic Normocytic anemia secondary to Chronic disease state, POA, active - Consider additional transfusion if Hgb less than 7.0 - Continue to monitor Urinary tract infection, present on admission, active -Morganell Morganii -Bactrim DS changed to ceftriaxone 1 g IV daily on 11/15/2016 History of Systolic CHF , present on admission, stable - Most recent echo 07/14/16 shows EF of 55-60% - Continue Metoprolol Succinate ER - Continue lisinopril - Continue home Lasix and spironolactone Diabetes mellitus type II, chronic, present on admission - No diabetes medications listed on med rec - Initiate medium dose correctional insulin - Hemoglobin A1c 5.8 on 05/03/16 Opioid dependence, present on admission, stable -Continue methadone GERD, chronic, present on admission - Continue Protonix H/o MRSA colonization present on admission, stable History of DVT, chronic, present on admission -Continue heparin drip dosed per protocol History of major depression, chronic, present on admission - Continue duloxetine History of chronic pain , present on admission -Continue patient's home methadone -Continue home oxycodone -1-2 mg morphine every 4 hours when necessary PATIENT IS FULL CODE Patient will likely discharge the next day or 2, though this will be significantly extended if patient ends up needing an amputation. GI Prophylaxis: H2 raiza VTE Prophylaxis: Sub-Q Heparin (Unfractionated) Resuscitation Status: DNR/DNI:Do Not Resuscitate/Intubate Limited Interventions: BiPAP, Medications and IV Fluid Attending Statement The patient was seen and examined together with Dr. Engel on 11/15/2016 and I agree with the history, exam and plan as outlined in the note above. . Martir Engel DO Nov 15, 2016 14:59 Reagan Phipps MD Nov 16, 2016 09:16
[2016-11-15 16:39] VITALS: BP 153/77; PULSE 66; RESP 16; O2SAT 97
--- NOTE | 2016-11-15 17:41 | NUR ---
NADJA Signed Pt was alert and oriented to person, place, date and situation. KARY Koenig
--- NOTE | 2016-11-15 17:47 | NUR ---
Social Work Note: Continued Discharge Planning Data& Assessment: CATTLE SORTER met with pt at bedside to check in and assess for any unmet needs. Per MD in multidisciplinary rounds, pt may require another BKA. Pt explained to CATTLE SORTER that he would like the surgery as he has "nothing to lose" but has a bad feeling that he "might not make it back to [facility]." Pt requested to speak to the [facility] or [facility] Care Associate. CATTLE SORTER left voicemail on both [place] Nikki Mares as well as [facility] Marilu Mares. Per MD in multidisciplinary rounds, pt is not immanently dying at this time but may be a candidate for Hospice if pt does not pursue surgery or if it is not successful. If pt has a sudden change in condition, and pt requires a Landing Man, CATTLE SORTER or hospital staff is able to contact Father Pedro Norwood [phone] ext [phone] or [phone] for the distribution collection operator Landing Man for near emergencies. CATTLE SORTER to otherwise follow up with [facility] on Thursday during regular business hours. Pt denies any other needs. CATTLE SORTER to continue to follow. Plan: Anticip[facility] a [facility] patient, once medically ready. CATTLE SORTER to followup with [facility] on Thursday11/17/2016 to request she meet with pt at bedside. Pt denies any other needs at this time. CATTLE SORTER to continue to follow. KARY Koenig
--- NOTE | 2016-11-15 18:09 | NUR ---
Mentation/Activity Cardiac: Pt denies CP, no tele. DVT heparin protocol started mid shift once IV access was established. Resp: Pt denies SOB. SPO2 mid 90s on RA. GI/: Pt denies n/v, reports constipation. Bowel meds given. Neuro: A&O to self, state and month. Reoriented pt to time and place, but he has trouble retaining information. Pt is much more appropriate in his thinking today. Tried to get pt up to transfer to [facility] this AM, but pt was not strong or stable enough to reliably pivot transfer to commode. Physician contacted for PT order. Pt was able to transfer to wheelchair for dinner with 2 person total assist.
[2016-11-15] MEDS ORDERED: .Epic Conversion Completed XX PRN (18:20)
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
[2016-11-15 23:27] VITALS: BP 137/73; PULSE 75; RESP 16; O2SAT 99
== END 2016-11-16 01:27 | disposition admitted as inpatient to this hospital (09) | DRG 299 ==
LOC: EDBD 16:53 → SED 16:53 → OBSVTOIN 20:15 → PCC 20:15
PROVIDERS: ADMIT Internal Medicine; ATTEND Internal Medicine
DX: I73.89 Other specified peripheral vascular diseases (principal); G93.40 Encephalopathy, unspecified; F11.20 Opioid dependence, uncomplicated; L03.116 Cellulitis of left lower limb; I50.22 Chronic systolic (congestive) heart failure; N39.0 Urinary tract infection, site not specified; I82.509 Chronic embolism and thrombosis of unspecified deep veins of unspecified lower extremity; I70.202 Unspecified atherosclerosis of native arteries of extremities, left leg; I77.9 Disorder of arteries and arterioles, unspecified; B96.4 Proteus (mirabilis) (morganii) as the cause of diseases classified elsewhere; Z79.01 Long term (current) use of anticoagulants